=== PATIENT | female | born 1945 | race Caucasian/White ===

== ENCOUNTER → 2017-09-18 16:53 | Outpatient (CLI) | payer MEDICARE, MEDICAID, SELFPAY | PROVIDERS: Family Provider Family Medicine; PCP Family Medicine; Visit Provider Family Medicine | DX: N39.0 Urinary tract infection, site not specified (principal) | CPT/HCPCS: 87086; 87088; 87186 ==

== ENCOUNTER → 2017-10-26 15:33 | Outpatient (CLI) | payer MEDICARE, MEDICAID, SELFPAY | PROVIDERS: Family Provider Family Medicine; PCP Family Medicine; Visit Provider Family Medicine | DX: N39.0 Urinary tract infection, site not specified (principal) | CPT/HCPCS: 87077; 87086; 87088; 87186 ==

== ENCOUNTER → 2018-06-29 16:09 | Outpatient (CLI) | payer MEDICARE, MEDICAID, SELFPAY | PROVIDERS: Family Provider Family Medicine; PCP Family Medicine; Visit Provider Family Medicine | DX: Z53.9 Procedure and treatment not carried out, unspecified reason (principal) ==

== ENCOUNTER → 2018-06-30 07:26 | Outpatient (CLI) | payer MEDICARE, MEDICAID, SELFPAY ==
--- NOTE | 2018-06-29 | IMM_PTH ---
PATIENT: KONG WELCH LOC: [facility] U#:[id number] AGE/SX: 79/F ROOM: RE06/30/[address]: Dr. Sheri Dimas MD : 1945 BED: DIS: SPEC #: [id number] RECD: 07/01/18 13:10 STATUS: JAMIE REQ #: [id number] LOGAN: 06/29/18 00:[address]: Sheri Dimas DEPT: IMMUNOHISTOCHEMISTRY RECD BY: Lori Mendoza ENTERED: 07/01/18 13:11 SP TYPE: IMMUNO OTHR DR: Dr. Leonard Vogt MD Tissues: Skin of lower extremity and hip Procedures: CK5-6 (initial) BCL-2 (add) CEA (add) P40 (add) PHYSICIAN & INSTITUTION [place] [id number] SPECIMEN INFORMATION: Tissue Source: Right thigh, punch biopsy Clinical Info: Suspicious basal cell Specimen Number: [id number] CPT code: 22926, 10730 x3 METHODOLOGY: Deparaffinized sections of prefer/formalin-fixed tissue or PAP/DQ stained slides are incubated with monoclonal/polyclonal antibodies/oligonucleotide probes. Localization is made via biotin free immunoperoxidase method. Appropriate controls are performed and reacted as expected. Results on target cell population are indicated in the following table: RESULTS: ANTIBODY / CLONE RESULT P40 (BC28) positive CK5-6 (D5 & 1684) negative CEA (11-7/TF-3HB-1) negative BCL-2 (bcl-2/100/D5) negative These tests were developed and their performance characteristics determined by [facility]. They may not have been cleared or approved by the U.S. Food and Drug Administration. The FDA has determined that such clearance or approval is not necessary. INTERPRETATION: Right thigh, punch biopsy: Invasive squamous cell carcinoma. AM:yolanda 07/02/18
--- NOTE | 2018-06-29 15:45 | LES_PTH ---
PATIENT: KONG WELCH LOC: [facility] U#:[id number] AGE/SX: 79/F ROOM: RE06/30/[address]: Dr. Sheri Dimas MD : 1945 BED: DIS: SPEC #: [id number] RECD: 06/29/18 17:15 STATUS: JAMIE RELovely #: [id number] LOGAN: 06/29/18 15:[address]: Sheri Dimas DEPT: SURGICAL PATHOLOGY RECD BY: Cosme Burk ENTERED: 06/30/18 12:27 SP TYPE: Lesion OTHR DR: Dr. Leonard Vogt MD Tissues: Skin of leg, NOS Procedures: Surgery Specimen Level IV HEADER OPERATION: Punch biopsy PRE-OP DIAGNOSIS: 1.5 cm suspicious basal cell TISSUE SUBMITTED: 5 mm punch biopsy right thigh MICROSCOPIC DIAGNOSIS Skin of right thigh, punch biopsy: Invasive well to moderately differentiated squamous cell carcinoma with focal keratinization. AM:yolanda 07/01/18 COMMENT Immunohistochemistry ([id number]) supports the above diagnosis. Sections show clusters and groups of malignant cells consistent with squamous cell carcinoma present in the dermis. No connection to the overlying epidermis or dermis is seen. Clinical correlation is suggested. Case has been reviewed in consultation with Dr. Sam who concurs with the above diagnosis. ROLANDO:LORETO MICROSCOPIC DESCRIPTION Slides are reviewed. GROSS DESCRIPTION Received is one container labeled with the patient's name and not further designated. The specimen consists of a piece of huston-white skin measuring 0.5 x 0.5 x 0.3 cm. The specimen is inked and submitted entirely in one cassette. It will be bisected at the time of embedding. / LORETO:yolanda 06/30/18 TC:0 CPT: 80366
--- OUTSIDE RECORDS SUMMARY | 2018-09-03 22:23 | XMS RPT_ITS ---
:1945 External Reference #:[id number] Author Organization OHIP Care Team Providers Name Role Phone Leonard Vogt Attending Unavailable Leonard Vogt Primary Care Unavailable Leonard Vogt Attending Unavailable Leonard Vogt Primary Care Unavailable Sheri Dimas Attending Unavailable Leonard Vogt Primary Care Unavailable Sheri Dimas Attending Unavailable Sheri Dimas Referring Unavailable Leonard Vogt Primary Care Unavailable HEBERT MITCHELL Attending Unavailable STEPHEN, HEBERT E Referring Unavailable STEPHEN, HEBERT E Referring Unavailable STEPHEN, HEBERT E Referring Unavailable LESTER POLLARD Referring Unavailable LESTER POLLARD Attending Unavailable LEONARD VOGT Referring Unavailable STEPHEN, HEBERT E Referring Unavailable STEPHEN, HEBERT E Referring Unavailable STEPHEN, HEBERT E Referring Unavailable STEPHEN, HEBERT E Referring Unavailable STEPHEN, HEBERT E Referring Unavailable STEPHEN, HEBERT E Referring Unavailable STEPHEN, HEBERT E Referring Unavailable STEPHEN, HEBERT E Referring Unavailable STEPHEN, HEBERT E Referring Unavailable STEPHEN, HEBERT E Referring Unavailable STEPHEN, HEBERT E Referring Unavailable STEPHEN, HEBERT E Referring Unavailable STEPHEN, HEBERT E Referring Unavailable STEPHEN, HEBERT E Referring Unavailable STEPHEN, HEBERT E Referring Unavailable STEPHEN, HEBERT E Referring Unavailable WON PALOMO Referring Unavailable SHUBHAM BLACK Attending Unavailable WON PALOMO Referring Unavailable STEPHEN, HEBERT E Referring Unavailable SHUBHAM BLACK Referring Unavailable SHUBHAM BLACK Attending Unavailable REGAN, SHUBHAM Referring Unavailable STEPHEN, HEBERT E Referring Unavailable STEPHEN, HEBERT E Referring Unavailable STEPHEN, HEBERT E Referring Unavailable STEPHEN, HEBERT E Referring Unavailable STEPHEN, HEBERT E Referring Unavailable KATTY, LEONARD KATTY Referring Unavailable STEPHEN, HEBERT E Referring Unavailable STEPHEN, HEBERT E Referring Unavailable STEPHEN, HEBERT E Referring Unavailable STEPHEN, HEBERT E Attending Unavailable STEPHEN, HEBERT E Referring Unavailable STEPHEN, HEBERT E Referring Unavailable STEPHEN, HEBERT Attending Unavailable STEPHEN, HEBERT Referring Unavailable KATTY, LEONARD Primary Care Unavailable STEPHEN, HEBERT Attending Unavailable STEPHEN, HEBERT Referring Unavailable KATTY, LEONARD Primary Care Unavailable PROBLEMS PROBLEMS DATE TYPE CONDITION / CODE ATTENDING STATUS SOURCE 03/04/2018 Active Nondisplaced NA Active [facility] fracture of shaft [facility] metacarpal bone, Repository right hand, subsequent encounter for fracture with routine healing / S62.356D(ICD-10) 02/05/2018 Active Pain in right NA Active Jansen finger(s) / [facility] Main M79.644(ICD-10) [facility] Rep[facility] 10/26/2017 Unknown N39.0 - Urinary Leonard Vogt Active [place] tract infection, Community site not specified Hospital / N39.0(ICD-10) Repository 10/12/2017 Active Atypical atrial HEBERT MITCHELL Active Jansen flutter / E Clinic Other I48.4(ICD-10) [facility] 10/12/2017 Admitting Unknown / HEBERT MITCHELL Active [facility] 08/24/2017 Active Pain, unspecified NA Active Jansen / R52(ICD-10) [facility] 09/16/2011 Active Unspecified atrial NA Active Jansen flutter / [facility] I48.92(ICD-10) [facility] Rep[facility] PROCEDURES PROCEDURES No Procedure Records FoundRESULTS RESULTS OBSOLETE Observed: 07/05/2018 Status: COMPLETED Source: [place] 12:00 AM [facility] REPOSITORY Refill (UCWSTR) KAREN TOM ([id number]) 1945 F Date Time Provider Department 07/05/18 SOCORRO HOLT During your visit today, we recorded the following information about you: Kerri Timothy COMER 07/05/2018 1:42 PM Signed Patient is listed as outside PCP. Notified pharmacy at this time. Allergies As of Date: 07/05/2018 Noted Allergy Reaction AMOXICILLIN 10/14/2005 11 - Vomiting Comments: hives, syncope BACTRIM (SULFAMETHOXAZOLE-TRIMETH*10/14/2005 8 - GI Upset CODEINE 10/14/2005 14 - Other: See Comments Comments: made me half blind CYMBALTA (DULOXETINE) 02/26/2009 1 - Mental Status Change Comments: [place] poorly while MACROBID (NITROFURANTOIN MONOHYD/*05/31/2014 12 - Shortness of Breath MUCINEX DM (DEXTROMETHORPHAN-GUAI*06/28/2010 5 - Intolerance Comments: chest tightness PERCOCET (OXYCODONE-ACETAMINOPHEN)08/15/2013 11 - Vomiting PHENERGAN (PROMETHAZINE HCL) 04/10/2014 1 - Mental Status Change Comments: weird dreams PROPOFOL 03/01/2012 14 - Other: See Comments Comments: Sneezing and shortness of breath SODIUM 10/14/2005 Comments: Salt causes leg swelling VICODIN (HYDROCODONE-ACETAMINOPHE*04/10/2014 11 - Vomiting Date Reviewed: 06/22/2018 Reviewed by: Bozena Ramos MA - Fully Assessed Reason for Visit: Refill Request [94] Visit Diagnosis:Wheezing [R06.2] Prescriptions as of 07/05/2018 Sig: DILTIAZEM SR 180 MG 24 HR CAP Take 1 capsule by mouth twice* APIXABAN 5 MG TABLET Take 1 tablet by mouth twice * MUPIROCIN 2 % TOPICAL OINTMENT Apply 1 application to affect* Patient not taking: Reported on 06/22/2018 NITROFURANTOIN MACROCRYSTAL 5* Take 1 capsule by mouth daily* MELOXICAM 7.5 MG TABLET Take 1 tablet by mouth once d* HYDROXYZINE HCL 10 MG TABLET Take 1 tablet by mouth three * GABAPENTIN 300 MG CAPSULE Take 1 capsule by mouth daily* Patient not taking: Reported on 06/22/2018 GUAIFENESIN ER 600 MG TABLET,* Take 2 tablets by mouth twice* Patient not taking: Reported on 06/22/2018 ALBUTEROL SULFATE HFA 90 MCG/* Inhale 2 Puffs as instructed * MAGNESIUM OXIDE 400 MG CAPSULE Take 1 capsule by mouth once * Patient not taking: Reported on 06/22/2018 PHENAZOPYRIDINE 100 MG TABLET Take 1 tablet by mouth three * Patient not taking: Reported on 06/22/2018 ALPRAZOLAM 0.25 MG TABLET Take 0.25 mg by mouth twice d* OXYBUTYNIN CHLORIDE 5 MG TABL* Take 1 tablet by mouth three * Patient not taking: Reported on 06/22/2018 NITROGLYCERIN 0.4 MG SUBLINGU* Dissolve 1 tablet under the t* Patient not taking: Reported on 06/22/2018 HYDROCODONE 5 MG-ACETAMINOPHE* Take 1 tablet by mouth every * TRAMADOL 50 MG TABLET Take 1 tablet by mouth every * Patient not taking: Reported on 06/22/2018 LORAZEPAM 0.5 MG TABLET Take by mouth twice daily as* ACETAMINOPHEN 500 MG TABLET Take 500 mg by mouth every 8 * BLOOD PRESSURE TEST KIT-WRIST* 1 Device twice daily. CHOLECALCIFEROL (VITAMIN D3) * one WEEKLY (vitamin D) Patient taking differently: once every month. one WEEKLY * TRIAMCINOLONE ACETONIDE 0.1 %* Apply 1 application to affect* ALBUTEROL SULFATE HFA 90 MCG/* Inhale 2 Puffs as instructed * Problem List As Of Date 07/05/2018 Noted Resolved FIBROMYALGIA [[id number]] More... 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 OSTEOPENIA [M89.9, M94.9] INVALID FOR* Lumbago [M54.5] More... Depressive Disorder, not Elsewhere Classified [*INVALID FOR* Medial Epicondylitis of Elbow [M77.00] INVALID FOR*01/30/2010 Degeneration of Intervertebral Disc, Site Unspe*INVALID FOR* More... 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 Unspecified Vitamin D Deficiency [E55.9] INVALID FOR* More... More... 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 Incomplete rotator cuff tear [M75.110] INVALID FOR* Impingement syndrome of left shoulder [M75.42] INVALID FOR* Left shoulder pain [M25.512] INVALID FOR* Rotator cuff (capsule) sprain [S43.429A] INVALID FOR* Other affections of shoulder region, not elsewh*INVALID FOR* Closed nondisplaced fracture of shaft of fifth *INVALID FOR* Chronic diastolic CHF (congestive heart failure*INVALID FOR* Medications Discontinued During This Encounter albuterol (PROVENTIL) 5 mg/mL nebu 1 mL 0 04/04/2016 07/05/2018 Class: Back Office Route: INHALATION Sig: Inhale 0.5 mL as instructed one time only for 1 dose. 1 DOSE NOW - BACK OFFICE. PLACE 0.5 ML PER DROPPER AND 2.5 ML OF NORMAL SALINE INTO RESERVOIR. Disc: Reason for discontinue is not on file. Encounter Status:Closed by KERRI PARDO LPN on 07/05/18 LESION (CHOOSE SITE) Observed: 06/29/2018 Status: F Source: [place] 3:45 PM [facility] [place] REPOSITORY Patient: KAREN TOM : 1945 (72/F) Acct Num: [id number] Phys: Sheri Dimas MD Unit Num: [id number] Loc: LABSPEC Specimen: [id number] Received: 06/29/18 - 1674 Spec Type: Lesion TISSUES 1 TISSUES: Skin of leg, NOS COMMENT Immunohistochemistry () supports the above diagnosis. Sections show clusters and groups of malignant cells consistent with squamous cell carcinoma present in the dermis. No connection to the overlying epidermis or dermis is seen. Clinical correlation is suggested. Case has been reviewed in consultation with Dr. Sam who concurs with the above diagnosis. IDC:LORETO GROSS DESCRIPTION Received is one container labeled with the patient's name and not further designated. The specimen consists of a piece of huston-white skin measuring 0.5 x 0.5 x 0.3 cm. The specimen is inked and submitted entirely in one cassette. It will be bisected at the time of embedding. / LORETO:yolanda 06/30/18 TC:0 CPT: 59852 HEADER OPERATION: Punch biopsy PRE-OP DIAGNOSIS: 1.5 cm suspicious basal cell TISSUE SUBMITTED: 5 mm punch biopsy right thigh MICROSCOPIC DESCRIPTION Slides are reviewed. 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 AM:yolanda 07/01/18 Signed Trip Panda DO 07/02/18 <signature on file> Performed By: #### PLES #### [facility] [address] [place] [address]. [place], [address] IMMUNOHISTOCHEMISTRY Observed: 06/29/2018 Status: F Source: [place] 12:00 [facility] Patient: KAREN TOM : 1945 (72/F) Acct Num: [id number] Phys: Sheri Dimas MD Unit Num: [id number] Loc: LABSPEC Specimen: [id number] Received: 07/01/18 - 1436 Spec Type: IMMUNO TISSUES 1 TISSUES: Skin of lower extremity and hip SPECIMEN INFORMATION: Tissue Source: Right thigh, punch biopsy Clinical Info: Suspicious basal cell Specimen Number: [id number] CPT code: 59798, 46371 x3 METHODOLOGY: Deparaffinized sections of prefer/formalin-fixed tissue or PAP/DQ stained slides are incubated with monoclonal/polyclonal antibodies/oligonucleotide probes. Localization is made via biotin free immunoperoxidase method. Appropriate controls are performed and reacted as expected. Results on target cell population are indicated in the following table: RESULTS: ANTIBODY / CLONE RESULT P40 (BC28) positive CK5-6 (D5 AND 1684) negative CEA (11-7/TF-3HB-1) negative BCL-2 (bcl-2/100/D5) negative These tests were developed and their performance characteristics determined by [facility]. They may not have been cleared or approved by the U.S. Food and Drug Administration. The FDA has determined that such clearance or approval is not necessary. INTERPRETATION: Right thigh, punch biopsy: Invasive squamous cell carcinoma. AM:yolanda 07/02/18 PHYSICIAN [facility] [address] [address] Signed Trip Panda DO 07/02/18 <signature on file> Performed By: #### PIMM #### [facility] [address] [place] [address]. [place], [place], [id number] BASIC METABOLIC PANL Collected: 06/22/2018 Status: F Source: [place] 3:36 PM [facility] REPOSITORY TYPE CODE TESTS RESULT OUT OF REFERENCE UNITS RANGE LAB GLU 74-99 mg/dL Glucose 91 LAB BUN 7-21 mg/dL BUN 17 LAB CRET 0.58-0.96 mg/dL Creatinine 0.82 LAB NA 136-144 mmol/L Sodium 138 LAB K 3.7-5.1 mmol/L Potassium 3.9 LAB CL 97-105 mmol/L Chloride High 106 LAB CO2 22-30 mmol/L CO2 23 LAB AGAP mmol/L Anion Gap 9 LAB CA 8.5-10.2 mg/dL Calcium, Total 9.8 LAB GFRAA eGFR- >60 Amer. LAB GFRNAA . eGFR-All Other Races >60 Result Comment: eGFR (Estimated GFR) Units of measure: mL/min/1.73 meters squared eGFR is derived from the reexpressed MDRD Study equation using the following parameters: serum creatinine, age, gender and race. The creatinine assay has been calibrated to be traceable to IDMS. An eGFR <60 mL/min/1.73m2 for >3 months is consistent with chronic kidney disease. Refer to KDOQI guidelines for clinical interpretation. In patients with unstable renal function, e.g. those with acute kidney injury, the eGFR may not accurately reflect actual GFR. TSH Collected: 06/22/2018 Status: F Source: [place] 3:36 PM [facility] REPOSITORY TYPE CODE TESTS RESULT OUT OF RANGE REFERENCE UNITS LAB TSH 0.400-5.500 uU/mL TSH 1.630 Performed By: #### TSH #### [facility] [address] [place], [place] [address] PROGRESS Observed: 06/22/2018 Status: COMPLETED Source: [place] 2:52 PM [facility] REPOSITORY HNO ID: [id number] Author: Hebert Mitchell Service: (none) Author Type: Physician Type: Progress Notes Filed: 07/05/2018 10:47 AM Note Text: PERTINENT CARDIAC HISTORY Atrial flutter - cardioversion, declines further intervention Proarrhythmia on flecainide CHF - diastolic ADHERENCE TO GUIDELINES LUIS MANUEL-I or ARB for HF with prior LVEF<40 (NQF 0081) - N/A ASA or Plavix for ASHD (NQF 0067) - N/A Beta avtar for ASHD with prior DC or prior LVEF<40 (NQF 0070) - N/A Beta avtar for HF with prior LVEF<40 (NQF 0083) - N/A LUIS MANUEL-I or ARB for ASHD with DM or prior LVEF<40 (NQF 0066) - N/A Statin therapy for ASHD or FHL or DM - N/A BMI documented and plan if >25 (NQF 0421) - lifestyle recommendation form Tobacco use screening and referral (NQF 0028) - lifestyle recommendation form Recommendation for whole food, plant based diet - lifestyle recommendation form CLINICAL IMPRESSION/PLAN: Karen Tom has chronic atrial flutter. She has declined further intervention. She would benefit from a change to Eliquis. She will check on pricing. If this is acceptable, I would begin 5 milligrams twice daily. She will discontinue warfarin and start E on the third day. Her heart rate is not adequately controlled, and I have recommended that she increase diltiazem to 240 milligrams twice daily. I've asked her to contact me with vital signs in 2 weeks. Basic profile will be checked as well as magnesium and TSH. I recommend follow-up in 6 months or as needed. Written and verbal health teaching given to patient, patient verbalizes understanding and agrees with treatment plan. DIAGNOSIS FOR VISIT: Atrial flutter CHF HISTORY OF PRESENT ILLNESS Karen Tom returns for follow-up of her atrial flutter. She is finding warfarin to be very restrictive. She would like to go on a newer agent that she does not have to monitor and would like to be more free with her dietary choices. She denies chest pain. She has had stable exercise tolerance. She's had no orthopnea. She's had no edema, syncope, TIAs, amaurosis or claudication. She has been unaware of her heart rhythm. She has declined a sleep study. ALLERGIES: ALLERGIES Allergen Reactions - Amoxicillin Vomiting hives, syncope - Bactrim [Sulfametho* GI Upset - Codeine Other: See Comments made me half blind - Cymbalta [Duloxetin* Mental Status Change [place] poorly while - Macrobid [Nitrofura* Shortness of Breath - Mucinex Dm [Dextrom* Intolerance chest tightness - Percocet [Oxycodone* Vomiting - Phenergan [Prometha* Mental Status Change weird dreams - Propofol Other: See Comments Sneezing and shortness of breath - Sodium Salt causes leg swelling - Vicodin [Hydrocodon* Vomiting CURRENT OUTPATIENT MEDICATIONS: warfarin (COUMADIN) 2 mg tablet Take 1 tablet by mouth once daily. warfarin (COUMADIN) 3 mg tablet Take 3 mg daily or as directed by your physician diltiazem CD (CARTIA XT) 180 mg 24 hr capsule Take 1 capsule by mouth twice daily. albuterol HFA (PROVENTIL HFA, VENTOLIN HFA) 90 mcg/actuation inhaler Inhale 2 Puffs as instructed every 6 hours as needed for Wheezing/Shortness of Breath. ALPRAZolam (XANAX) 0.25 mg tablet Take 0.25 mg by mouth twice daily as needed. HYDROcodone-acetaminophen (NORCO) 5-325 mg per tablet Take 1 tablet by mouth every 6 hours as needed. acetaminophen (TYLENOL) 500 mg tablet Take 500 mg by mouth every 8 hours as needed. Blood Pressure Test Kit-Wrist kit 1 Device twice daily. Cholecalciferol, Vitamin D3, 50,000 unit cap one WEEKLY (vitamin D) triamcinolone acetonide 0.1 % cream Apply 1 application to affected area three times daily. Apply sparingly to area for rash/itching. mupirocin (BACTROBAN) 2 % ointment Apply 1 application to affected area three times daily. Location: burn nitrofurantoin (MACRODANTIN) 50 mg capsule Take 1 capsule by mouth daily at bedtime. meloxicam (MOBIC) 7.5 mg tablet Take 1 tablet by mouth once daily. hydrOXYzine HCl (ATARAX) 10 mg tablet Take 1 tablet by mouth three times daily as needed. gabapentin (NEURONTIN) 300 mg capsule Take 1 capsule by mouth daily at bedtime. guaiFENesin (MUCINEX) 600 mg 12 hr tablet Take 2 tablets by mouth twice daily. magnesium oxide 400 mg cap Take 1 capsule by mouth once daily. phenazopyridine (PYRIDIUM, GERIDIUM) 100 mg tablet Take 1 tablet by mouth three times daily as needed for Pain. oxybutynin (DITROPAN) 5 mg tablet Take 1 tablet by mouth three times daily. Start with one a day and work up to 3 times a day nitroglycerin sublingual (NITROQUICK) 0.4 mg SL tablet Dissolve 1 tablet under the tongue as needed. FOR CHEST PAIN. IF NO RELIEF CALL 911 traMADol (ULTRAM) 50 mg tablet Take 1 tablet by mouth every 6 hours as needed. LORazepam (ATIVAN) 0.5 mg tab Take by mouth twice daily as needed. albuterol HFA (VENTOLIN HFA) 90 mcg/actuation INHALATION inhaler Inhale 2 Puffs as instructed every 6 hours as needed. PHYSICAL EXAMINATION: VITAL SIGNS: BP 129/78 Pulse 102 Ht 5' 1 (1.55m) Wt 150 lb 12.8 oz (68.4kg) BMI 28.51 kg/(m2). Chest: Clear to auscultation. Trachea is midline. Air entry is equal. Cardiac: Irregularly irregular rhythm. S1 and S2 are normal. PMI is nondisplaced. There is a soft systolic ejection murmur. Carotids are brisk without bruits. JVP is less than 10 cm. Abdomen: Soft and nontender. There are no pulsatile masses or bruits. No liver enlargement. Bowel sounds are active. Extremities: Trace edema. Pulses are intact and symmetrical. Electronically Signed: Hebert Mitchell MD June 22, 2018 2:52 PM CC: Leonard Vogt MD PROGRESS Observed: 06/22/2018 Status: COMPLETED Source: [place] 2:30 PM [facility] REPOSITORY HNO ID: [id number] Author: Karely Dugan RN Service: (none) Author Type: (none) Type: Progress Notes Filed: 06/22/2018 2:30 PM Note Text: See phone note for instructions Karely Dugan RN PROGRESS Observed: 06/22/2018 Status: COMPLETED Source: [place] 2:30 PM [facility] REPOSITORY HNO ID: [id number] Author: Karely Dugan RN Service: (none) Author Type: (none) Type: Progress Notes Filed: 06/22/2018 2:30 PM Note Text: This note was created using View3riter. Subjective Karen Tom is a 72 year old female. Review of Systems Objective There were no vitals taken for this visit. Physical Exam Assessment and Plan CNOV Observed: 06/22/2018 Status: COMPLETED Source: [place] 2:30 PM [facility] REPOSITORY Office Visit (CAWSTR) KAREN TOM ([id number]) 1945 F Date Time Provider Department 06/22/18 2:30 PM HEBERT MITCHELL CAWSTR During your visit today, we recorded the following information about you: Pulse Blood pressure Weight Height 102/minute 129/78 68.4 kg 1.549 m Hebert Mitchell MD 07/05/2018 10:47 AM Addendum PERTINENT CARDIAC HISTORY Atrial flutter - cardioversion, declines further intervention Proarrhythmia on flecainide CHF - diastolic ADHERENCE TO GUIDELINES LUIS MANUEL-I or ARB for HF with prior LVEF<40 (NQF 0081) - N/A ASA or Plavix for ASHD (NQF 0067) - N/A Beta avtar for ASHD with prior DC or prior LVEF<40 (NQF 0070) - N/A Beta avtar for HF with prior LVEF<40 (NQF 0083) - N/A LUIS MANUEL-I or ARB for ASHD with DM or prior LVEF<40 (NQF 0066) - N/A Statin therapy for ASHD or FHL or DM - N/A BMI documented and plan if >25 (NQ 0421) - lifestyle recommendation form Tobacco use screening and referral (NQ 0028) - lifestyle recommendation form Recommendation for whole food, plant based diet - lifestyle recommendation form CLINICAL IMPRESSION/PLAN: Karen Tom has chronic atrial flutter. She has declined further intervention. She would benefit from a change to Eliquis. She will check on pricing. If this is acceptable, I would begin 5 milligrams twice daily. She will discontinue warfarin and start E on the third day. Her heart rate is not adequately controlled, and I have recommended that she increase diltiazem to 240 milligrams twice daily. I've asked her to contact me with vital signs in 2 weeks. Basic profile will be checked as well as magnesium and TSH. I recommend follow-up in 6 months or as needed. Written and verbal health teaching given to patient, patient verbalizes understanding and agrees with treatment plan. DIAGNOSIS FOR VISIT: Atrial flutter CHF HISTORY OF PRESENT ILLNESS Karen Tom returns for follow-up of her atrial flutter. She is finding warfarin to be very restrictive. She would like to go on a newer agent that she does not have to monitor and would like to be more free with her dietary choices. She denies chest pain. She has had stable exercise tolerance. She's had no orthopnea. She's had no edema, syncope, TIAs, amaurosis or claudication. She has been unaware of her heart rhythm. She has declined a sleep study. ALLERGIES: ALLERGIES Allergen Reactions - Amoxicillin Vomiting hives, syncope - Bactrim [Sulfametho* GI Upset - Codeine Other: See Comments made me half blind - Cymbalta [Duloxetin* Mental Status Change [place] poorly while - Macrobid [Nitrofura* Shortness of Breath - Mucinex Dm [Dextrom* Intolerance chest tightness - Percocet [Oxycodone* Vomiting - Phenergan [Prometha* Mental Status Change weird dreams - Propofol Other: See Comments Sneezing and shortness of breath - Sodium Salt causes leg swelling - Vicodin [Hydrocodon* Vomiting CURRENT OUTPATIENT MEDICATIONS: warfarin (COUMADIN) 2 mg tablet Take 1 tablet by mouth once daily. warfarin (COUMADIN) 3 mg tablet Take 3 mg daily or as directed by your physician diltiazem CD (CARTIA XT) 180 mg 24 hr capsule Take 1 capsule by mouth twice daily. albuterol HFA (PROVENTIL HFA, VENTOLIN HFA) 90 mcg/actuation inhaler Inhale 2 Puffs as instructed every 6 hours as needed for Wheezing/Shortness of Breath. ALPRAZolam (XANAX) 0.25 mg tablet Take 0.25 mg by mouth twice daily as needed. HYDROcodone-acetaminophen (NORCO) 5-325 mg per tablet Take 1 tablet by mouth every 6 hours as needed. acetaminophen (TYLENOL) 500 mg tablet Take 500 mg by mouth every 8 hours as needed. Blood Pressure Test Kit-Wrist kit 1 Device twice daily. Cholecalciferol, Vitamin D3, 50,000 unit cap one WEEKLY (vitamin D) triamcinolone acetonide 0.1 % cream Apply 1 application to affected area three times daily. Apply sparingly to area for rash/itching. mupirocin (BACTROBAN) 2 % ointment Apply 1 application to affected area three times daily. Location: burn nitrofurantoin (MACRODANTIN) 50 mg capsule Take 1 capsule by mouth daily at bedtime. meloxicam (MOBIC) 7.5 mg tablet Take 1 tablet by mouth once daily. hydrOXYzine HCl (ATARAX) 10 mg tablet Take 1 tablet by mouth three times daily as needed. gabapentin (NEURONTIN) 300 mg capsule Take 1 capsule by mouth daily at bedtime. guaiFENesin (MUCINEX) 600 mg 12 hr tablet Take 2 tablets by mouth twice daily. magnesium oxide 400 mg cap Take 1 capsule by mouth once daily. phenazopyridine (PYRIDIUM, GERIDIUM) 100 mg tablet Take 1 tablet by mouth three times daily as needed for Pain. oxybutynin (DITROPAN) 5 mg tablet Take 1 tablet by mouth three times daily. Start with one a day and work up to 3 times a day nitroglycerin sublingual (NITROQUICK) 0.4 mg SL tablet Dissolve 1 tablet under the tongue as needed. FOR CHEST PAIN. IF NO RELIEF CALL 911 traMADol (ULTRAM) 50 mg tablet Take 1 tablet by mouth every 6 hours as needed. LORazepam (ATIVAN) 0.5 mg tab Take by mouth twice daily as needed. albuterol HFA (VENTOLIN HFA) 90 mcg/actuation INHALATION inhaler Inhale 2 Puffs as instructed every 6 hours as needed. PHYSICAL EXAMINATION: VITAL SIGNS: BP 129/78 Pulse 102 Ht 5' 1 (1.55m) Wt 150 lb 12.8 oz (68.4kg) BMI 28.51 kg/(m2). Chest: Clear to auscultation. Trachea is midline. Air entry is equal. Cardiac: Irregularly irregular rhythm. S1 and S2 are normal. PMI is nondisplaced. There is a soft systolic ejection murmur. Carotids are brisk without bruits. JVP is less than 10 cm. Abdomen: Soft and nontender. There are no pulsatile masses or bruits. No liver enlargement. Bowel sounds are active. Extremities: Trace edema. Pulses are intact and symmetrical. Electronically Signed: Hebert Mitchell MD June 22, 2018 2:52 PM CC: MD Hebert Yeboah MD 06/22/2018 2:54 PM Signed LIFESTYLE CHANGE A healthy lifestyle is the most important component of your overall treatment plan. Please give serious thought to the following areas and commit to making terminal gauger changes. EAT A WHOLE FOOD, PLANT BASED DIET The nutrition your body gets is more important than the medicine you take. What matters most is the overall way you eat. We encourage you to minimize the use of animal products (which include dairy and all meats except fatty fish) and use whole, unprocessed plant foods to provide your protein, vitamins and other nutrients. We have a lot of information to share with you on this topic. This is not a diet. It is a way of life that you will keep with you. EXERCISE REGULARLY It is not important to spend hours in the gym, lifting weights and perspiring heavily. A total of 2-3 hours per week of aerobic (causing you to be moderately short of breath) exercise is sufficient to improve your health. Talk to us before you begin a new exercise program, if you have heart disease or experience shortness of breath or chest pain. REDUCE STRESS Chronic emotional and physical stress leads to disease. Ways of reducing stress include meditation, visualization, prayer, yoga and other forms of relaxation therapy. Consistency is the murray. Find a technique that works for you and do it every day. CULTIVATE RELATIONSHIPS Loneliness and isolation have a major negative impact on health. Seek out others who can love, care for and nurture you. Avoid hurtful relationships. MAINTAIN IDEAL BODY WEIGHT The best way to do this is to do all the things above. Our bodies naturally find the right weight if we keep moving and feed ourselves the right food. If your BMI is greater than 25, we strongly recommend a referral to a weight management program. Please speak to us or your family physician about available programs. AVOID NICOTINE IN ALL FORMS This includes all tobacco products, whether chewed, smoked, vaped, or rubbed on the skin. Smoking cessation programs, which can make use of tobacco substitutes, medications to suppress cravings and behavior management, are available. Please contact your family physician about programs in your area. Referring Provider: HEBERT MITCHELL [[id number]] Allergies As of Date: 06/22/2018 Noted Allergy Reaction AMOXICILLIN 10/14/2005 11 - Vomiting Comments: hives, syncope BACTRIM (SULFAMETHOXAZOLE-TRIMETH*10/14/2005 8 - GI Upset CODEINE 10/14/2005 14 - Other: See Comments Comments: made me half blind CYMBALTA (DULOXETINE) 02/26/2009 1 - Mental Status Change Comments: [place] poorly while MACROBID (NITROFURANTOIN MONOHYD/*05/31/2014 12 - Shortness of Breath MUCINEX DM (DEXTROMETHORPHAN-GUAI*06/28/2010 5 - Intolerance Comments: chest tightness PERCOCET (OXYCODONE-ACETAMINOPHEN)08/15/2013 11 - Vomiting PHENERGAN (PROMETHAZINE HCL) 04/10/2014 1 - Mental Status Change Comments: weird dreams PROPOFOL 03/01/2012 14 - Other: See Comments Comments: Sneezing and shortness of breath SODIUM 10/14/2005 Comments: Salt causes leg swelling VICODIN (HYDROCODONE-ACETAMINOPHE*04/10/2014 11 - Vomiting Date Reviewed: 06/22/2018 Reviewed by: Bozena Ramos MA - Fully Assessed Reason for Visit: Established Patient [175] Primary Visit Diagnosis:Atypical atrial flutter (HCC) [I48.4] Other Visit Diagnosis:Chronic diastolic CHF (congestive heart failure) (HCC) [I50.32] Order(s):INR (POC) [7261580] Order #: [id number]. #:[id number] BASIC METABOLIC PNL [SQBMP] Order #: [id number] FUTURE diltiazem CD (CARDIZEM CD, CARTIA XT) 240 mg 24 hr capsuleTake 1 capsule by mouth twice daily.Disp: 30 capsuleRfl: 12 apixaban (ELIQUIS) 5 mg tab(s)Take 1 tablet by mouth twice daily.Disp: 60 tabletRfl: 11 TSH BLD [SQTS] Order #: [id number] FUTURE Prescriptions as of 06/22/2018 Sig: DILTIAZEM SR 240 MG 24 HR CAP Take 1 capsule by mouth twice* X WARFARIN 2 MG TABLET Take 1 tablet by mouth once d* X WARFARIN 3 MG TABLET Take 3 mg daily or as directe* ALBUTEROL SULFATE HFA 90 MCG/* Inhale 2 Puffs as instructed * ALPRAZOLAM 0.25 MG TABLET Take 0.25 mg by mouth twice d* HYDROCODONE 5 MG-ACETAMINOPHE* Take 1 tablet by mouth every * ACETAMINOPHEN 500 MG TABLET Take 500 mg by mouth every 8 * BLOOD PRESSURE TEST KIT-WRIST* 1 Device twice daily. CHOLECALCIFEROL (VITAMIN D3) * one WEEKLY (vitamin D) Patient taking differently: once every month. one WEEKLY * TRIAMCINOLONE ACETONIDE 0.1 %* Apply 1 application to affect* APIXABAN 5 MG TABLET Take 1 tablet by mouth twice * MUPIROCIN 2 % TOPICAL OINTMENT Apply 1 application to affect* Patient not taking: Reported on 06/22/2018 NITROFURANTOIN MACROCRYSTAL 5* Take 1 capsule by mouth daily* MELOXICAM 7.5 MG TABLET Take 1 tablet by mouth once d* HYDROXYZINE HCL 10 MG TABLET Take 1 tablet by mouth three * GABAPENTIN 300 MG CAPSULE Take 1 capsule by mouth daily* Patient not taking: Reported on 06/22/2018 GUAIFENESIN ER 600 MG TABLET,* Take 2 tablets by mouth twice* Patient not taking: Reported on 06/22/2018 MAGNESIUM OXIDE 400 MG CAPSULE Take 1 capsule by mouth once * Patient not taking: Reported on 06/22/2018 PHENAZOPYRIDINE 100 MG TABLET Take 1 tablet by mouth three * Patient not taking: Reported on 06/22/2018 OXYBUTYNIN CHLORIDE 5 MG TABL* Take 1 tablet by mouth three * Patient not taking: Reported on 06/22/2018 NITROGLYCERIN 0.4 MG SUBLINGU* Dissolve 1 tablet under the t* Patient not taking: Reported on 06/22/2018 TRAMADOL 50 MG TABLET Take 1 tablet by mouth every * Patient not taking: Reported on 06/22/2018 LORAZEPAM 0.5 MG TABLET Take by mouth twice daily as* ALBUTEROL SULFATE HFA 90 MCG/* Inhale 2 Puffs as instructed * Problem List As Of Date 06/22/2018 Noted Resolved FIBROMYALGIA [[id number]] More... 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 OSTEOPENIA [M89.9, M94.9] INVALID FOR* Lumbago [M54.5] More... Depressive Disorder, not Elsewhere Classified [*INVALID FOR* Medial Epicondylitis of Elbow [M77.00] INVALID FOR*01/30/2010 Degeneration of Intervertebral Disc, Site Unspe*INVALID FOR* More... 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 Unspecified Vitamin D Deficiency [E55.9] INVALID FOR* More... More... 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 Incomplete rotator cuff tear [M75.110] INVALID FOR* Impingement syndrome of left shoulder [M75.42] INVALID FOR* Left shoulder pain [M25.512] INVALID FOR* Rotator cuff (capsule) sprain [S43.429A] INVALID FOR* Other affections of shoulder region, not elsewh*INVALID FOR* Closed nondisplaced fracture of shaft of fifth *INVALID FOR* Chronic diastolic CHF (congestive heart failure*INVALID FOR* Other instructions from your clinician: LIFESTYLE CHANGE A healthy lifestyle is the most important component of your overall treatment plan. Please give serious thought to the following areas and commit to making jail changes. EAT A WHOLE FOOD, PLANT BASED DIET The nutrition your body gets is more important than the medicine you take. What matters most is the overall way you eat. We encourage you to minimize the use of animal products (which include dairy and all meats except fatty fish) and use whole, unprocessed plant foods to provide your protein, vitamins and other nutrients. We have a lot of information to share with you on this topic. This is not a diet. It is a way of life that you will keep with you. EXERCISE REGULARLY It is not important to spend hours in the gym, lifting weights and perspiring heavily. A total of 2-3 hours per week of aerobic (causing you to be moderately short of breath) exercise is sufficient to improve your health. Talk to us before you begin a new exercise program, if you have heart disease or experience shortness of breath or chest pain. REDUCE STRESS Chronic emotional and physical stress leads to disease. Ways of reducing stress include meditation, visualization, prayer, yoga and other forms of relaxation therapy. Consistency is the murray. Find a technique that works for you and do it every day. CULTIVATE RELATIONSHIPS Loneliness and isolation have a major negative impact on health. Seek out others who can love, care for and nurture you. Avoid hurtful relationships. MAINTAIN IDEAL BODY WEIGHT The best way to do this is to do all the things above. Our bodies naturally find the right weight if we keep moving and feed ourselves the right food. If your BMI is greater than 25, we strongly recommend a referral to a weight management program. Please speak to us or your family physician about available programs. AVOID NICOTINE IN ALL FORMS This includes all tobacco products, whether chewed, smoked, vaped, or rubbed on the skin. Smoking cessation programs, which can make use of tobacco substitutes, medications to suppress cravings and behavior management, are available. Please contact your family physician about programs in your area. Prescriptions ordered this encounter Disp Refills Start End DILTIAZEM SR 240 MG 24 HR CAP 30 c* 12 06/22/2018 Route: ORAL Sig: Take 1 capsule by mouth twice daily. APIXABAN 5 MG TABLET 60 t* 11 06/22/2018 Class: Print RX Route: ORAL Sig: Take 1 tablet by mouth twice daily. Medications Discontinued During This Encounter diltiazem CD (CARTIA XT) 180 mg 24 h* 60 c* 11 06/11/2017 06/22/2018 Route: ORAL Sig: Take 1 capsule by mouth twice daily. Patient taking differently: Take 180 mg by mouth once daily. Disc: Reason for discontinue is not on file. Encounter Status:Closed by HEBERT MITCHELL MD on 06/22/18 PROGRESS Observed: 06/22/2018 Status: COMPLETED Source: [place] 2:12 PM [facility] REPOSITORY HNO ID: [id number] Author: Calixto Garcia RN Service: (none) Author Type: (none) Type: Progress Notes Filed: 06/22/2018 2:13 PM Note Text: patient had inr completed at [facility] patients inr is 2.7 (patients inr range is 2.0-3.0) patient is currently taking 3mg-2mg-2mg cycle patients last dose change was on 06/10/18 due to a low level of 1.7 (dose at that time was 2mg daily) patient has had no changes in medication and no missed doses and no change in diet Advised patient that they would be contacted regarding medication dose and when to follow up after information is reviewed by provider. After provider review please contact the patient with information and schedule follow up appointment with coumadin clinic. PROGRESS Observed: 06/10/2018 Status: COMPLETED Source: [place] 3:10 PM [facility] REPOSITORY HNO ID: [id number] Author: Karely Dugan RN Service: (none) Author Type: (none) Type: Progress Notes Filed: 06/10/2018 3:10 PM Note Text: See phone note for instructions Karely Dugan RN PROGRESS Observed: 06/10/2018 Status: COMPLETED Source: [place] 3:09 PM [facility] REPOSITORY HNO ID: [id number] Author: Karely Dugan RN Service: (none) Author Type: (none) Type: Progress Notes Filed: 06/10/2018 3:10 PM Note Text: This note was created using View3riter. Subjective Karen Tom is a 72 year old female. Review of Systems Objective There were no vitals taken for this visit. Physical Exam Assessment and Plan PROGRESS Observed: 06/10/2018 Status: COMPLETED Source: [place] 2:08 PM [facility] REPOSITORY HNO ID: [id number] Author: Calixto Garcia RN Service: (none) Author Type: (none) Type: Progress Notes Filed: 06/10/2018 2:09 PM Note Text: patient had inr completed at [facility] patients inr is 1.7 (patients inr range is 2.0-3.0) patient is currently taking 2mg daily patients last dose change was on 05/25/18 due to a high level of 3.3 (dose at that time was 3mg-3mg-2mg cycle per patient) patient has had no changes in medication except for coumadin and no missed doses and no change in diet Advised patient that they would be contacted regarding medication dose and when to follow up after information is reviewed by provider. After provider review please contact the patient with information and schedule follow up appointment with coumadin clinic. PROGRESS Observed: 05/25/2018 Status: COMPLETED Source: [place] 2:54 PM [facility] REPOSITORY HNO ID: [id number] Author: Karely Dugan RN Service: (none) Author Type: (none) Type: Progress Notes Filed: 05/25/2018 2:54 PM Note Text: See phone note for instructions Karely Dugan RN PROGRESS Observed: 05/25/2018 Status: COMPLETED Source: [place] 2:54 PM [facility] REPOSITORY HNO ID: [id number] Author: Karely Dugan RN Service: (none) Author Type: (none) Type: Progress Notes Filed: 05/25/2018 2:54 PM Note Text: This note was created using View3riter. Subjective Karen Tom is a 72 year old female. Review of Systems Eyes: Positive for pain. Objective There were no vitals taken for this visit. Physical Exam Assessment and Plan PROGRESS Observed: 05/25/2018 Status: COMPLETED Source: [place] 2:51 PM [facility] REPOSITORY HNO ID: [id number] Author: Calixto Garcia RN Service: (none) Author Type: (none) Type: Progress Notes Filed: 05/25/2018 2:53 PM Note Text: patient had inr completed at [facility] patients inr is 3.3 (patients inr range is 2.0-3.0) patient is currently taking 3mg-3mg-2mg cycle patients last dose change was on 05/11/18 due to pt states that this was the dose she was instructed to take when office called her (dose listed that patient is to be taking is 2mg-2mg-3mg cycle) patient has had no changes in medication except for coumadin and no missed doses and no change in diet Advised patient that they would be contacted regarding medication dose and when to follow up after information is reviewed by provider. After provider review please contact the patient with information and schedule follow up appointment with coumadin clinic. PROGRESS Observed: 05/11/2018 Status: COMPLETED Source: [place] 3:52 PM [facility] REPOSITORY HNO ID: [id number] Author: Bozena Ramos MA Service: (none) Author Type: (none) Type: Progress Notes Filed: 05/11/2018 3:53 PM Note Text: Please see phone note. Bozena Ramos MA PROGRESS Observed: 05/11/2018 Status: COMPLETED Source: [place] 3:43 PM [facility] REPOSITORY HNO ID: [id number] Author: Calixto Garcia RN Service: (none) Author Type: (none) Type: Progress Notes Filed: 05/11/2018 3:49 PM Note Text: patient had inr completed at [facility] patients inr is 2.5 (patients inr range is 2.0-3.0) patient is currently taking 2mg-2mg-3mg cycle (per patient) patients last dose change unknown at this time as record shows patient should be taking 3mg alternating with 2mg, but at appt today patient stated that it was changed to 2mg-2m-3mg cycle, nurse could not find where change was noted patient has had a change in medication as patient was placed on levaquin for 14 days and prednisone for 10 days and no change in diet Advised patient that they would be contacted regarding medication dose and when to follow up after information is reviewed by provider. After provider review please contact the patient with information and schedule follow up appointment with coumadin clinic. PROGRESS Observed: 04/22/2018 Status: COMPLETED Source: [place] 2:55 PM [facility] REPOSITORY HNO ID: [id number] Author: Karely Dugan RN Service: (none) Author Type: (none) Type: Progress Notes Filed: 04/22/2018 2:55 PM Note Text: See phone note for instructions Karely Dugan RN PROGRESS Observed: 04/22/2018 Status: COMPLETED Source: [place] 2:55 PM [facility] REPOSITORY HNO ID: [id number] Author: Karely Dugan RN Service: (none) Author Type: (none) Type: Progress Notes Filed: 04/22/2018 2:55 PM Note Text: This note was created using View3riter. Subjective Karen Tom is a 72 year old female. Review of Systems Objective There were no vitals taken for this visit. Physical Exam Assessment and Plan PROGRESS Observed: 04/22/2018 Status: COMPLETED Source: [place] 2:37 PM [facility] REPOSITORY HNO ID: [id number] Author: Calixto Garcia RN Service: (none) Author Type: (none) Type: Progress Notes Filed: 04/22/2018 2:38 PM Note Text: patient had inr completed at [facility] patients inr is 2.6 (patients inr range is 2.0-3.0) patient is currently taking 3mg alternating with 2mg patients last dose change was 01/06/18?due to phone message (dose at that time was 2mg daily) patient has had no changes in medication and no missed doses and no change in diet Advised patient that they would be contacted regarding medication dose and when to follow up after information is reviewed by provider. After provider review please contact the patient with information and schedule follow up appointment with coumadin clinic. PROGRESS Observed: 04/08/2018 Status: COMPLETED Source: [place] 3:31 PM [facility] REPOSITORY HNO ID: [id number] Author: Karely Dugan RN Service: (none) Author Type: (none) Type: Progress Notes Filed: 04/08/2018 3:32 PM Note Text: See phone note for instructions Karely Dugan RN PROGRESS Observed: 04/08/2018 Status: COMPLETED Source: [place] 3:31 PM [facility] REPOSITORY HNO ID: [id number] Author: Karely Dugan RN Service: (none) Author Type: (none) Type: Progress Notes Filed: 04/08/2018 3:32 PM Note Text: This note was created using NoteWriter. Subjective Karen Tom is a 72 year old female. Review of Systems Objective There were no vitals taken for this visit. Physical Exam Assessment and Plan PROGRESS Observed: 04/08/2018 Status: COMPLETED Source: [place] 2:56 PM [facility] REPOSITORY HNO ID: [id number] Author: Calixto Garcia RN Service: (none) Author Type: (none) Type: Progress Notes Filed: 04/08/2018 2:58 PM Note Text: patient had inr completed at [facility] patients inr is 2.8 (patients inr range is 2.0-3.0) patient is currently taking 3mg alternating with 2mg patients last dose change was 01/06/18 due to phone message (dose at that time was 2mg daily) patient has had no changes in medication and no missed doses and no change in diet Advised patient that they would be contacted regarding medication dose and when to follow up after information is reviewed by provider. After provider review please contact the patient with information and schedule follow up appointment with coumadin clinic. FYI- patient has been scheduled for a 2 week follow up in [place] 04/22/18 PROTIME Collected: 03/31/2018 Status: F Source: [place] 3:50 PM [facility] REPOSITORY TYPE CODE TESTS RESULT OUT OF RANGE REFERENCE UNITS LAB PSEC 9.7-13.0 sec High PT Sec 18.9 LAB INR 0.9-1.3 High PT INR 1.9 Result Comment: Vitamin K Antagonist (VKA) Therapeutic Range: INR 2 to 3 (Target INR of 2.5) Note: For patients treated with VKA drugs, such as warfarin, the [place] [employer] 2012 Guideline recommends a therapeutic INR range of 2 to 3 (target INR of 2.5). This recommendation includes high-risk patients with antiphospholipid syndrome with previous arterial or venous thromboembolism, current-generation mechanical or bioprosthetic aortic heart valve replacement. Note: Patients with mechanical aortic valve replacement and additional risk factors for thromboembolic events (atrial fibrillation, previous thromboembolism, LV dysfunction, hypercoagulable conditions) or an older generation mechanical AVR (i.e., ball in-Cage) or any mechanical MVR should have a INR therapeutic range of 2.5 to 3.5 (target INR of 3). Dequan PARSONS, et al. Chest 2012, 141:7S-47S Trey RA, et al. [facility] 2017, 70: 252-289 Performed By: #### PT #### [facility] [address] [place], [place] [address] PROGRESS Observed: 03/25/2018 Status: COMPLETED Source: [place] 2:27 PM [facility] REPOSITORY HNO ID: [id number] Author: Karely Dugan RN Service: (none) Author Type: (none) Type: Progress Notes Filed: 03/25/2018 2:27 PM Note Text: See phone note for instructions Karely Dugan RN PROGRESS Observed: 03/25/2018 Status: COMPLETED Source: [place] 2:27 PM [facility] REPOSITORY HNO ID: [id number] Author: Karely Dugan RN Service: (none) Author Type: (none) Type: Progress Notes Filed: 03/25/2018 2:27 PM Note Text: This note was created using View3riter. Subjective Karen Tom is a 72 year old female. Review of Systems Objective There were no vitals taken for this visit. Physical Exam Assessment and Plan PROGRESS Observed: 03/25/2018 Status: COMPLETED Source: [place] 2:03 PM [facility] REPOSITORY HNO ID: [id number] Author: Calixto Garcia RN Service: (none) Author Type: (none) Type: Progress Notes Filed: 03/25/2018 2:04 PM Note Text: patient had inr completed at [facility] patients inr is 2.0 (patients inr range is 2.0-3.0) patient is currently taking 3mg alternating with 2mg patients last dose change was on 01/06/18 due to phone message (dose at that time was 2mg daily) patient has had no changes in medication and no missed doses and no change in diet Advised patient that they would be contacted regarding medication dose and when to follow up after information is reviewed by provider. After provider review please contact the patient with information and schedule follow up appointment with coumadin clinic. FYI - patient has been scheduled for a 2 week follow up inr on 04/08/18 PROGRESS Observed: 03/11/2018 Status: COMPLETED Source: [place] 2:26 PM [facility] REPOSITORY HNO ID: [id number] Author: Karely Dugan RN Service: (none) Author Type: (none) Type: Progress Notes Filed: 03/11/2018 2:27 PM Note Text: See phone note for instructions Karely Dugan RN PROGRESS Observed: 03/11/2018 Status: COMPLETED Source: [place] 2:26 PM [facility] REPOSITORY HNO ID: [id number] Author: Karely Dugan RN Service: (none) Author Type: (none) Type: Progress Notes Filed: 03/11/2018 2:27 PM Note Text: This note was created using NoteWriter. Subjective Karen Tom is a 72 year old female. Review of Systems Objective There were no vitals taken for this visit. Physical Exam Assessment and Plan PROGRESS Observed: 03/11/2018 Status: COMPLETED Source: [place] 2:10 PM [facility] REPOSITORY HNO ID: [id number] Author: Calixto Garcia RN Service: (none) Author Type: (none) Type: Progress Notes Filed: 03/11/2018 2:11 PM Note Text: patient had inr completed at [facility] patients inr is 1.9 (patients inr range is 2.0-3.0) patient is currently taking 3mg alternating with 2mg patients last dose change was on 12/29/17 due to a high level of 3.1 (dose at that time was 2mg daily) patient has had no changes in medication and no missed doses and no change in diet Advised patient that they would be contacted regarding medication dose and when to follow up after information is reviewed by provider. After provider review please contact the patient with information and schedule follow up appointment with coumadin clinic. FYI - patient has been scheduled for a 2 week follow up inr on 03/25/18 PROGRESS Observed: 03/05/2018 Status: COMPLETED Source: [place] 1:12 PM [facility] REPOSITORY HNO ID: [id number] Author: Shubham Black V Service: (none) Author Type: Physician Type: Progress Notes Filed: 03/05/2018 1:14 PM Note Text: FRACTURE FOLLOW-UP Ms. Tom presents today for her follow-up visit from: right 5th MC fracture She is six weeks post-injury and was last seen three weeks ago. History: her pain intensity is 0/10. The patient denies swelling, warmth, discharge, drainage, fevers, chills, sweats. She reports compliance with therapy, sling/splint/ambulatory device/dressing/wound care, and the use of medications. She reports no change in past medical AND surgical history, medications, allergies, social history, family history and review of systems since last visit, with the exception of the following: None Radiographs: Radiographs today revealed some callus formation across fracture site. Otherwise, osseous and soft tissue structures within normal limits. Physical Examination: no tenderness about the 5th metacarpal, carpal row or radiocarpal joint Positive axillary, musculocutaneous, median, ulna, and radial nerve function Positive distal pulses Impression: closed fracture right 5th metacarpal with routine healing Plan: transition out of EXOS fracture splint recheck PRN Shubham Black DO PROGRESS Observed: 03/05/2018 Status: COMPLETED Source: [place] 1:03 PM [facility] REPOSITORY HNO ID: [id number] Author: Miley Caballero RN Service: (none) Author Type: Registered Nurse Type: Progress Notes Filed: 03/05/2018 1:14 PM Note Text: AMB ROOMING INTAKE FLOWSHEET DATA Risk Screening Do you have concerns about personal safety or safety in the home?: No Patient presents with: Established Patient: 5 weeks 3 days post right 5th MC, xray out of EXOS brace patient is here for Right 5th MC, she is in EXOS brace. Denies pain. Miley Caballero RN CNOV Observed: 03/05/2018 Status: COMPLETED Source: [place] 1:00 PM [facility] REPOSITORY Office Visit ([facility]) KAREN TOM ([id number]) 1945 F Date Time Provider Department 03/05/18 1:00 PM SHUBHAM BLACK During your visit today, we recorded the following information about you: Miley Caballero RN, RN 03/05/2018 1:14 PM Signed AMB ROOMING INTAKE FLOWSHEET DATA Risk Screening Do you have concerns about personal safety or safety in the home?: No Patient presents with: Established Patient: 5 weeks 3 days post right 5th MC, xray out of EXOS brace patient is here for Right 5th MC, she is in EXOS brace. Denies pain. STUART Edwards DO 03/05/2018 1:14 PM Signed FRACTURE FOLLOW-UP Ms. Tom presents today for her follow-up visit from: right 5th MC fracture She is six weeks post-injury and was last seen three weeks ago. History: her pain intensity is 0/10. The patient denies swelling, warmth, discharge, drainage, fevers, chills, sweats. She reports compliance with therapy, sling/splint/ambulatory device/dressing/wound care, and the use of medications. She reports no change in past medical AND surgical history, medications, allergies, social history, family history and review of systems since last visit, with the exception of the following: None Radiographs: Radiographs today revealed some callus formation across fracture site. Otherwise, osseous and soft tissue structures within normal limits. Physical Examination: no tenderness about the 5th metacarpal, carpal row or radiocarpal joint Positive axillary, musculocutaneous, median, ulna, and radial nerve function Positive distal pulses Impression: closed fracture right 5th metacarpal with routine healing Plan: transition out of EXOS fracture splint recheck PRN Shubham Black DO Referring Provider: SHUBHAM BLACK V [[id number]] Allergies As of Date: 03/05/2018 Noted Allergy Reaction AMOXICILLIN 10/14/2005 11 - Vomiting Comments: hives, syncope BACTRIM (SULFAMETHOXAZOLE-TRIMETH*10/14/2005 8 - GI Upset CODEINE 10/14/2005 14 - Other: See Comments Comments: made me half blind CYMBALTA (DULOXETINE) 02/26/2009 1 - Mental Status Change Comments: [place] poorly while MACROBID (NITROFURANTOIN MONOHYD/*05/31/2014 12 - Shortness of Breath MUCINEX DM (DEXTROMETHORPHAN-GUAI*06/28/2010 5 - Intolerance Comments: chest tightness PERCOCET (OXYCODONE-ACETAMINOPHEN)08/15/2013 11 - Vomiting PHENERGAN (PROMETHAZINE HCL) 04/10/2014 1 - Mental Status Change Comments: weird dreams PROPOFOL 03/01/2012 14 - Other: See Comments Comments: Sneezing and shortness of breath SODIUM 10/14/2005 Comments: Salt causes leg swelling VICODIN (HYDROCODONE-ACETAMINOPHE*04/10/2014 11 - Vomiting Date Reviewed: 03/05/2018 Reviewed by: Miley (Rn) STUART Caballero - Fully Assessed Reason for Visit: Established Patient [175] Cmt: 5 weeks 3 days post right 5th MC, xray out of EXOS brace Primary Visit Diagnosis:Closed nondisplaced fracture of shaft of fifth metacarpal bone of right hand with routine healing, subsequent encounter [S62.356D] Prescriptions as of 03/05/2018 Sig: MUPIROCIN 2 % TOPICAL OINTMENT Apply 1 application to affect* MELOXICAM 7.5 MG TABLET Take 1 tablet by mouth once d* WARFARIN 2 MG TABLET Take 1 tablet by mouth once d* WARFARIN 3 MG TABLET Take 3 mg daily or as directe* DILTIAZEM SR 180 MG 24 HR CAP Take 1 capsule by mouth twice* Patient taking differently: Take 180 mg by mouth once bk* HYDROXYZINE HCL 10 MG TABLET Take 1 tablet by mouth three * ALBUTEROL SULFATE HFA 90 MCG/* Inhale 2 Puffs as instructed * ALPRAZOLAM 0.25 MG TABLET Take 0.25 mg by mouth twice d* HYDROCODONE 5 MG-ACETAMINOPHE* Take 1 tablet by mouth every * ACETAMINOPHEN 500 MG TABLET Take 500 mg by mouth every 8 * BLOOD PRESSURE TEST KIT-WRIST* 1 Device twice daily. CHOLECALCIFEROL (VITAMIN D3) * one WEEKLY (vitamin D) Patient taking differently: once every month. one WEEKLY * TRIAMCINOLONE ACETONIDE 0.1 %* Apply 1 application to affect* ALBUTEROL SULFATE HFA 90 MCG/* Inhale 2 Puffs as instructed * NITROFURANTOIN MACROCRYSTAL 5* Take 1 capsule by mouth daily* GABAPENTIN 300 MG CAPSULE Take 1 capsule by mouth daily* GUAIFENESIN ER 600 MG TABLET,* Take 2 tablets by mouth twice* MAGNESIUM OXIDE 400 MG CAPSULE Take 1 capsule by mouth once * PHENAZOPYRIDINE 100 MG TABLET Take 1 tablet by mouth three * OXYBUTYNIN CHLORIDE 5 MG TABL* Take 1 tablet by mouth three * NITROGLYCERIN 0.4 MG SUBLINGU* Dissolve 1 tablet under the t* TRAMADOL 50 MG TABLET Take 1 tablet by mouth every * LORAZEPAM 0.5 MG TABLET Take by mouth twice daily as* Medication notes this encounter HYDROXYZINE HCL 10 MG TABLET >> Miley Caballero RN, RN 03/05/2018 1:00 PM >> MILEY CABALLERO ThuMar 05, 2018 1:00 PM NITROFURANTOIN MACROCRYSTAL 50 MG CAPSULE >> Miley Caballero RN, RN 03/05/2018 1:01 PM >> MILEY CABALLERO ThuMar 05, 2018 1:01 PM Not taking Problem List As Of Date 03/05/2018 Noted Resolved FIBROMYALGIA [[id number]] Priority: B More... 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 OSTEOPENIA [M89.9, M94.9] INVALID FOR* Priority: B Lumbago [M54.5] Priority: B More... Depressive Disorder, not Elsewhere Classified [*INVALID FOR* Priority: A Medial Epicondylitis of Elbow [M77.00] INVALID FOR*01/30/2010 Degeneration of Intervertebral Disc, Site Unspe*INVALID FOR* Priority: A More... 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 Unspecified Vitamin D Deficiency [E55.9] INVALID FOR* Priority: B More... More... 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 Incomplete rotator cuff tear [M75.110] INVALID FOR* Impingement syndrome of left shoulder [M75.42] INVALID FOR* Left shoulder pain [M25.512] INVALID FOR* Rotator cuff (capsule) sprain [S43.429A] INVALID FOR* Other affections of shoulder region, not elsewh*INVALID FOR* Closed nondisplaced fracture of shaft of fifth *INVALID FOR* Encounter Status:Closed by SHUBHAM BLACK DO, V on 03/05/18 XR HAND 3V PA/LAT/OBL Observed: 03/05/2018 Status: F Source: [facility] 12:43 PM [facility] REPOSITORY * * *Final Report* * * DATE OF EXAM: Mar 05 2018 12:43PM [id number] [id number] - XR HAND 3V PA/LAT/OBL RT / PROCEDURE REASON: Nondisplaced fracture of shaft of fifth metacarpal bone, right hand, subsequent * * * * Physician Interpretation * * * * HISTORY: 72-YEAR-OLD FEMALE WITH Nondisplaced fracture of shaft of fifth metacarpal bone, right hand, subsequent encounter for fracture with routine healing . 1 month follow up right hand 5th metacarpal fracture TECHNIQUE: XR HAND 3V PA/LAT/OBL RT Laterality: RIGHT Number of different views (projections): 3 COMPARISON: None RESULT: Again identified is nondisplaced fracture of the proximal phalanx of the fifth digit extending from the distal to proximal metaphysis with slight bony resorption at the fracture line periosteal thickening along the medial diaphysis of the fifth metacarpal may represent subperiosteal bleed. Bones are osteopenic. Hands otherwise unchanged with degenerative changes at the first CMC joint. IMPRESSION: RESORPTION AT THE FRACTURE LINE OF THE FIFTH METACARPAL NONDISPLACED FRACTURE WITH PERIOSTEAL THICKENING ALONG THE MEDIAL DIAPHYSIS OF THE FIFTH METACARPAL MAY REPRESENT A SUBPERIOSTEAL BLEED. 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 Transcribe Date/Time: Mar 05 2018 4:14P Dictated by : ASHLEY HANNA MD This examination was interpreted and the report reviewed and electronically signed by: ASHLEY HANNA MD on Mar 05 2018 4:18PM EST [id number] PROGRESS Observed: 03/05/2018 Status: COMPLETED Source: [place] 12:35 PM [facility] REPOSITORY HNO ID: [id number] Author: Karen (Rt) Dg Mendoza Service: (none) Author Type: [employer] Type: Progress Notes Filed: 03/05/2018 12:43 PM Note Text: Radiology Service Progress Note PATIENT NAME: Karen Tom DATE OF SERVICE: March 05, 2018 TIME: 12:35 PM PATIENT IDENTITY VERIFICATION COMPLETED USING TWO (2) METHODS: Patient confirmed name verbally and Date of . PATIENT GENDER DATA: Female. status: : No status: NO. PATIENT RELEVANT IMPLANT DATA REVIEWED: Not Applicable RADIOLOGY DEPARTMENT: General X-ray: Exam(s) Completed: Upper Extremity X-Ray(s): Hand, right : PERIPHERAL IV DATA: Not applicable SIGNED BY: RT Joe March 05, 2018 12:35 PM PROGRESS Observed: 02/18/2018 Status: COMPLETED Source: [place] 4:38 PM [facility] REPOSITORY HNO ID: [id number] Author: Karely Dugan RN Service: (none) Author Type: (none) Type: Progress Notes Filed: 02/18/2018 4:38 PM Note Text: See phone note for instructions Karely Dugan RN PROGRESS Observed: 02/18/2018 Status: COMPLETED Source: [place] 4:38 PM [facility] REPOSITORY HNO ID: [id number] Author: Karely Dugan RN Service: (none) Author Type: (none) Type: Progress Notes Filed: 02/18/2018 4:38 PM Note Text: This note was created using View3riter. Subjective Karen Tom is a 72 year old female. Review of Systems Objective There were no vitals taken for this visit. Physical Exam Assessment and Plan PROGRESS Observed: 02/18/2018 Status: COMPLETED Source: [place] 2:14 PM [facility] REPOSITORY HNO ID: [id number] Author: Calixto Garcia RN Service: (none) Author Type: (none) Type: Progress Notes Filed: 02/18/2018 2:15 PM Note Text: patient had inr completed at [facility] patients inr is 2.2 (patients inr range is 2.0-3.0) patient is currently taking 3mg alternating with 2mg patients last dose change was on 01/06/18 due to phone message patient has had no changes in medication and no missed doses and no change in diet Advised patient to continue on the same dose(s) and that they would only be contacted regarding dosage and follow up instructions after review with provider, if a change is needed. Written instructions given and patient verbalized understanding. Presently scheduled in 3 weeks (03/11/18) for follow up INR. PROGRESS Observed: 02/12/2018 Status: COMPLETED Source: [place] 2:48 PM [facility] REPOSITORY HNO ID: [id number] Author: Shubham Black V Service: (none) Author Type: Physician Type: Progress Notes Filed: 02/12/2018 3:10 PM Note Text: SUBJECTIVE: Karen Tom is a 72 year old female who is here for a right hand injury. It occurred 2 weeks ago when she fell while cleaning in her bathroom. Symptoms include pain over lateral hand. She was seen in [facility] care, has tried boxer's splint, EXOS. PAST MEDICAL HISTORY Diagnosis Date - Atrial flutter (HCC) 09/16/2011 - Chronic obstructive asthma, unspecified 08/2003 has had PFT's elsewhere, was told they were normal - Degenerative arthritis of knee bilateral - Depression with anxiety - Disorder of bone and cartilage, unspecified 07/2004 osteopenia - Herpes zoster recurrent - location varies; per pt she gets 1 shingle, physician has told her it was shingles in the past - LGSIL (low grade squamous intraepithelial lesion) on Pap smear - Lumbago 2004 fell down steps at work, injured back, now on workers comp - Meniere disease Dr Gomez, bilateral - Myalgia and myositis, unspecified fibromyalgia - Other and unspecified ovarian cyst Ovarian cyst - Spinal stenosis, lumbar - Spondylosis of unspecified site without mention of myelopathy - Tinnitus - Tobacco use disorder - Traumatic pneumothorax without mention of open wound into thorax 1960 from rib fracture - Unspecified vitamin D deficiency 06/12/2008 - VAIN I (vaginal intraepithelial neoplasia grade I) - ENOC III (vulvar intraepithelial neoplasia III) PAST SURGICAL HISTORY Procedure Laterality Date - ARTHROS SHLDR DX W/WO SYNV BX 04/05/2014 Left shoulder - DELIVERY ONLY 1962,1965 , low cervical - COLONOSCOP W/ OR W/O [facility] SPEC 02/27/2011 Colonoscopy - COLPOSCOPY (VAGINOSCOPY) 1984 Colposcopy - HYSTERECTOMY HX 07/2013 - PAST SURGICAL HISTORY OF 1984 cryotherapy - PAST SURGICAL HISTORY OF 1984 conization - PAST SURGICAL HISTORY OF 06/11/09 lumbar decompression surgery for stenosis -- Dr. Leonard Mendoza - PULMONARY FUNCTION TEST 08/21/2003 complete - REMOVAL GALLBLADDER 1977 laparoscopic Cholecystectomy - REPAIR COMPL ROTATOR CUFF AVULSN,CHR 04/05/2014 Left shoulder Current Outpatient Prescriptions on File Prior to Visit: mupirocin (BACTROBAN) 2 % ointment Apply 1 application to affected area three times daily. Location: burn nitrofurantoin (MACRODANTIN) 50 mg capsule Take 1 capsule by mouth daily at bedtime. warfarin (COUMADIN) 2 mg tablet Take 1 tablet by mouth once daily. warfarin (COUMADIN) 3 mg tablet Take 3 mg daily or as directed by your physician diltiazem CD (CARTIA XT) 180 mg 24 hr capsule Take 1 capsule by mouth twice daily. (Patient taking differently: Take 180 mg by mouth once daily. ) albuterol HFA (PROVENTIL HFA, VENTOLIN HFA) 90 mcg/actuation inhaler Inhale 2 Puffs as instructed every 6 hours as needed for Wheezing/Shortness of Breath. ALPRAZolam (XANAX) 0.25 mg tablet Take 0.25 mg by mouth twice daily as needed. HYDROcodone-acetaminophen (NORCO) 5-325 mg per tablet Take 1 tablet by mouth every 6 hours as needed. acetaminophen (TYLENOL) 500 mg tablet Take 500 mg by mouth every 8 hours as needed. Blood Pressure Test Kit-Wrist kit 1 Device twice daily. Cholecalciferol, Vitamin D3, 50,000 unit cap one WEEKLY (vitamin D) (Patient taking differently: once every month. one WEEKLY (vitamin D) ) meloxicam (MOBIC) 7.5 mg tablet Take 1 tablet by mouth once daily. hydrOXYzine HCl (ATARAX) 10 mg tablet Take 1 tablet by mouth three times daily as needed. gabapentin (NEURONTIN) 300 mg capsule Take 1 capsule by mouth daily at bedtime. guaiFENesin (MUCINEX) 600 mg 12 hr tablet Take 2 tablets by mouth twice daily. magnesium oxide 400 mg cap Take 1 capsule by mouth once daily. phenazopyridine (PYRIDIUM, GERIDIUM) 100 mg tablet Take 1 tablet by mouth three times daily as needed for Pain. oxybutynin (DITROPAN) 5 mg tablet Take 1 tablet by mouth three times daily. Start with one a day and work up to 3 times a day nitroglycerin sublingual (NITROQUICK) 0.4 mg SL tablet Dissolve 1 tablet under the tongue as needed. FOR CHEST PAIN. IF NO RELIEF CALL 911 traMADol (ULTRAM) 50 mg tablet Take 1 tablet by mouth every 6 hours as needed. LORazepam (ATIVAN) 0.5 mg tab Take by mouth twice daily as needed. triamcinolone acetonide 0.1 % cream Apply 1 application to affected area three times daily. Apply sparingly to area for rash/itching. albuterol HFA (VENTOLIN HFA) 90 mcg/actuation INHALATION inhaler Inhale 2 Puffs as instructed every 6 hours as needed. No current facility-administered medications on file prior to visit. EXAM: General: cooperative and NAD Location: right hand: tender over 5th MC with palpation. Negative for: deformity, crepitation or instability Neurovascular: intact X-ray: ?Nondisplaced fracture of the fifth metacarpal diaphysis IMPRESSION: closed fracture, 5th metacarpal diaphysis right hand PLAN: EXOS fracture cast trimmed and refitted Patient Instructions: call for concerning symptoms, increase or change in symptoms., cast care instructions given, recheck in 3 weeks with x-ray Shubham Black DO PROGRESS Observed: 02/12/2018 Status: COMPLETED Source: [place] 2:21 PM [facility] REPOSITORY [facility] ID: [id number] Author: Trisha Matos RN Service: (none) Author Type: (none) Type: Progress Notes Filed: 02/12/2018 3:10 PM Note Text: AMB ROOMING INTAKE FLOWSHEET DATA Risk Screening Do you have concerns about personal safety or safety in the home?: No Pain Pain Score: 2/10 Pain Location: Hand-Right Description: Aching Duration Amount of Time: 2 Duration Units: Weeks (3 days) Frequency: Intermittent Intervention: Splinting, Medication Patient presents with: New Patient: right 5th MC fx, REF: [place] x[facility] 02-05-18 Pt. was standing on toilet to dust on 01-26-18, lost her balance and fell injuring right hand. She is right hand dominant. She went to Urgent Care for xray on 02-05-18. She has been taking Langtry for pain which she had at home. She was placed in EXOS brace. CNOV Observed: 02/12/2018 Status: COMPLETED Source: [place] 2:20 PM [facility] REPOSITORY Office Visit ([facility]) KAREN TOM ([id number]) 1945 F Date Time Provider Department 02/12/18 2:20 PM SHUBHAM BLACK During your visit today, we recorded the following information about you: Trisha Matos RN 02/12/2018 3:10 PM Signed AMB ROOMING INTAKE FLOWSHEET DATA Risk Screening Do you have concerns about personal safety or safety in the home?: No Pain Pain Score: 2/10 Pain Location: Hand-Right Description: Aching Duration Amount of Time: 2 Duration Units: Weeks (3 days) Frequency: Intermittent Intervention: Splinting, Medication Patient presents with: New Patient: right 5th fx, REF: [facility] x[facility] 02-05-18 Pt. was standing on toilet to dust on 01-26-18, lost her balance and fell injuring right hand. She is right hand dominant. She went to Urgent Care for xray on 02-05-18. She has been taking Langtry for pain which she had at home. She was placed in EXOS brace. Shubham Black DO 02/12/2018 3:10 PM Signed SUBJECTIVE: Lalaashley Salcedo Vaishali is a 72 year old female who is here for a right hand injury. It occurred 2 weeks ago when she fell while cleaning in her bathroom. Symptoms include pain over lateral hand. She was seen in express care, has tried boxer's splint, EXOS. PAST MEDICAL HISTORY Diagnosis Date - Atrial flutter (HCC) 09/16/2011 - Chronic obstructive asthma, unspecified 08/2003 has had PFT's elsewhere, was told they were normal - Degenerative arthritis of knee bilateral - Depression with anxiety - Disorder of bone and cartilage, unspecified 07/2004 osteopenia - Herpes zoster recurrent - location varies; per pt she gets 1 shingle, physician has told her it was shingles in the past - LGSIL (low grade squamous intraepithelial lesion) on Pap smear - Lumbago 2004 fell down steps at work, injured back, now on workers comp - Meniere disease Dr Gomez, bilateral - Myalgia and myositis, unspecified fibromyalgia - Other and unspecified ovarian cyst Ovarian cyst - Spinal stenosis, lumbar - Spondylosis of unspecified site without mention of myelopathy - Tinnitus - Tobacco use disorder - Traumatic pneumothorax without mention of open wound into thorax 1959 from rib fracture - Unspecified vitamin D deficiency 06/12/2008 - VAIN I (vaginal intraepithelial neoplasia grade I) - ENOC III (vulvar intraepithelial neoplasia III) PAST SURGICAL HISTORY Procedure Laterality Date - ARTHROS SHLDR DX W/WO SYNV BX 04/05/2014 Left shoulder - DELIVERY ONLY 1962,1965 , low cervical - COLONOSCOP W/ OR W/O [facility] SPEC 02/27/2011 Colonoscopy - COLPOSCOPY (VAGINOSCOPY) 1984 Colposcopy - HYSTERECTOMY HX 07/2013 - PAST SURGICAL HISTORY OF 1984 cryotherapy - PAST SURGICAL HISTORY OF 1984 conization - PAST SURGICAL HISTORY OF 06/11/09 lumbar decompression surgery for stenosis -- Dr. Leonard Mendoza - PULMONARY FUNCTION TEST 08/21/2003 complete - REMOVAL GALLBLADDER 1976 laparoscopic Cholecystectomy - REPAIR COMPL ROTATOR CUFF AVULSN,CHR 04/05/2014 Left shoulder Current Outpatient Prescriptions on File Prior to Visit: mupirocin (BACTROBAN) 2 % ointment Apply 1 application to affected area three times daily. Location: burn nitrofurantoin (MACRODANTIN) 50 mg capsule Take 1 capsule by mouth daily at bedtime. warfarin (COUMADIN) 2 mg tablet Take 1 tablet by mouth once daily. warfarin (COUMADIN) 3 mg tablet Take 3 mg daily or as directed by your physician diltiazem CD (CARTIA XT) 180 mg 24 hr capsule Take 1 capsule by mouth twice daily. (Patient taking differently: Take 180 mg by mouth once daily. ) albuterol HFA (PROVENTIL HFA, VENTOLIN HFA) 90 mcg/actuation inhaler Inhale 2 Puffs as instructed every 6 hours as needed for Wheezing/Shortness of Breath. ALPRAZolam (XANAX) 0.25 mg tablet Take 0.25 mg by mouth twice daily as needed. HYDROcodone-acetaminophen (NORCO) 5-325 mg per tablet Take 1 tablet by mouth every 6 hours as needed. acetaminophen (TYLENOL) 500 mg tablet Take 500 mg by mouth every 8 hours as needed. Blood Pressure Test Kit-Wrist kit 1 Device twice daily. Cholecalciferol, Vitamin D3, 50,000 unit cap one WEEKLY (vitamin D) (Patient taking differently: once every month. one WEEKLY (vitamin D) ) meloxicam (MOBIC) 7.5 mg tablet Take 1 tablet by mouth once daily. hydrOXYzine HCl (ATARAX) 10 mg tablet Take 1 tablet by mouth three times daily as needed. gabapentin (NEURONTIN) 300 mg capsule Take 1 capsule by mouth daily at bedtime. guaiFENesin (MUCINEX) 600 mg 12 hr tablet Take 2 tablets by mouth twice daily. magnesium oxide 400 mg cap Take 1 capsule by mouth once daily. phenazopyridine (PYRIDIUM, GERIDIUM) 100 mg tablet Take 1 tablet by mouth three times daily as needed for Pain. oxybutynin (DITROPAN) 5 mg tablet Take 1 tablet by mouth three times daily. Start with one a day and work up to 3 times a day nitroglycerin sublingual (NITROQUICK) 0.4 mg SL tablet Dissolve 1 tablet under the tongue as needed. FOR CHEST PAIN. IF NO RELIEF CALL 911 traMADol (ULTRAM) 50 mg tablet Take 1 tablet by mouth every 6 hours as needed. LORazepam (ATIVAN) 0.5 mg tab Take by mouth twice daily as needed. triamcinolone acetonide 0.1 % cream Apply 1 application to affected area three times daily. Apply sparingly to area for rash/itching. albuterol HFA (VENTOLIN HFA) 90 mcg/actuation INHALATION inhaler Inhale 2 Puffs as instructed every 6 hours as needed. No current facility-administered medications on file prior to visit. EXAM: General: cooperative and NAD Location: right hand: tender over 5th MC with palpation. Negative for: deformity, crepitation or instability Neurovascular: intact X-ray: ?Nondisplaced fracture of the fifth metacarpal diaphysis IMPRESSION: closed fracture, 5th metacarpal diaphysis right hand PLAN: EXOS fracture cast trimmed and refitted Patient Instructions: call for concerning symptoms, increase or change in symptoms., cast care instructions given, recheck in 3 weeks with x-ray Shubham Black DO Referring Provider: WON PALOMO [[id number]] Allergies As of Date: 02/12/2018 Noted Allergy Reaction AMOXICILLIN 10/14/2005 11 - Vomiting Comments: hives, syncope BACTRIM (SULFAMETHOXAZOLE-TRIMETH*10/14/2005 8 - GI Upset CODEINE 10/14/2005 14 - Other: See Comments Comments: made me half blind CYMBALTA (DULOXETINE) 02/26/2009 1 - Mental Status Change Comments: [place] poorly while MACROBID (NITROFURANTOIN MONOHYD/*05/31/2014 12 - Shortness of Breath MUCINEX DM (DEXTROMETHORPHAN-GUAI*06/28/2010 5 - Intolerance Comments: chest tightness PERCOCET (OXYCODONE-ACETAMINOPHEN)08/15/2013 11 - Vomiting PHENERGAN (PROMETHAZINE HCL) 04/10/2014 1 - Mental Status Change Comments: weird dreams PROPOFOL 03/01/2012 14 - Other: See Comments Comments: Sneezing and shortness of breath SODIUM 10/14/2005 Comments: Salt causes leg swelling VICODIN (HYDROCODONE-ACETAMINOPHE*04/10/2014 11 - Vomiting Date Reviewed: 02/12/2018 Reviewed by: Trisha Matos RN - Fully Assessed Reason for Visit: New Patient [172] Cmt: right 5th MC fx, REF: Palomo xray 8-24-18 Primary Visit Diagnosis:Closed nondisplaced fracture of shaft of fifth metacarpal bone of right hand with routine healing, subsequent encounter [S62.356D] Prescriptions as of 02/12/2018 Sig: MUPIROCIN 2 % TOPICAL OINTMENT Apply 1 application to affect* NITROFURANTOIN MACROCRYSTAL 5* Take 1 capsule by mouth daily* WARFARIN 2 MG TABLET Take 1 tablet by mouth once d* WARFARIN 3 MG TABLET Take 3 mg daily or as directe* DILTIAZEM SR 180 MG 24 HR CAP Take 1 capsule by mouth twice* Patient taking differently: Take 180 mg by mouth once bk* ALBUTEROL SULFATE HFA 90 MCG/* Inhale 2 Puffs as instructed * ALPRAZOLAM 0.25 MG TABLET Take 0.25 mg by mouth twice d* HYDROCODONE 5 MG-ACETAMINOPHE* Take 1 tablet by mouth every * ACETAMINOPHEN 500 MG TABLET Take 500 mg by mouth every 8 * BLOOD PRESSURE TEST KIT-WRIST* 1 Device twice daily. CHOLECALCIFEROL (VITAMIN D3) * one WEEKLY (vitamin D) Patient taking differently: once every month. one WEEKLY * MELOXICAM 7.5 MG TABLET Take 1 tablet by mouth once d* HYDROXYZINE HCL 10 MG TABLET Take 1 tablet by mouth three * GABAPENTIN 300 MG CAPSULE Take 1 capsule by mouth daily* GUAIFENESIN ER 600 MG TABLET,* Take 2 tablets by mouth twice* MAGNESIUM OXIDE 400 MG CAPSULE Take 1 capsule by mouth once * PHENAZOPYRIDINE 100 MG TABLET Take 1 tablet by mouth three * OXYBUTYNIN CHLORIDE 5 MG TABL* Take 1 tablet by mouth three * NITROGLYCERIN 0.4 MG SUBLINGU* Dissolve 1 tablet under the t* TRAMADOL 50 MG TABLET Take 1 tablet by mouth every * LORAZEPAM 0.5 MG TABLET Take by mouth twice daily as* TRIAMCINOLONE ACETONIDE 0.1 %* Apply 1 application to affect* ALBUTEROL SULFATE HFA 90 MCG/* Inhale 2 Puffs as instructed * Problem List As Of Date 02/12/2018 Noted Resolved FIBROMYALGIA [[id number]] Priority: B More... 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 OSTEOPENIA [M89.9, M94.9] INVALID FOR* Priority: B Lumbago [M54.5] Priority: B More... Depressive Disorder, not Elsewhere Classified [*INVALID FOR* Priority: A Medial Epicondylitis of Elbow [M77.00] INVALID FOR*01/30/2010 Degeneration of Intervertebral Disc, Site Unspe*INVALID FOR* Priority: A More... 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 Unspecified Vitamin D Deficiency [E55.9] INVALID FOR* Priority: B More... More... 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 Incomplete rotator cuff tear [M75.110] INVALID FOR* Impingement syndrome of left shoulder [M75.42] INVALID FOR* Left shoulder pain [M25.512] INVALID FOR* Rotator cuff (capsule) sprain [S43.429A] INVALID FOR* Other affections of shoulder region, not elsewh*INVALID FOR* Encounter Status:Closed by SHUBHAM BLACK DO, V on 02/12/18 PROGRESS Observed: 02/05/2018 Status: COMPLETED Source: [place] 5:15 PM [facility] REPOSITORY HNO ID: [id number] Author: Karely Dugan RN Service: (none) Author Type: (none) Type: Progress Notes Filed: 02/05/2018 5:15 PM Note Text: See phone note Karely Dugan RN PROGRESS Observed: 02/05/2018 Status: COMPLETED Source: [place] 5:15 PM [facility] REPOSITORY HNO ID: [id number] Author: Karely Dugan RN Service: (none) Author Type: (none) Type: Progress Notes Filed: 02/05/2018 5:15 PM Note Text: This note was created using View3riter. Subjective Karen Tom is a 72 year old female. Review of Systems Objective There were no vitals taken for this visit. Physical Exam Assessment and Plan XR HAND 3V PA/LAT/OBL Observed: 02/05/2018 Status: F Source: [place] RT 4:21 PM [facility] REPOSITORY * * *Final Report* * * DATE OF EXAM: Feb 05 2018 4:21PM WOX [id number] - XR HAND 3V PA/LAT/OBL RT / PROCEDURE REASON: Pain in right finger(s) * * * * Physician Interpretation * * * * HISTORY: 72-YEAR-OLD FEMALE WITH Pain in right finger(s) . injury to medial hand, c/o pain over 5th metacarpal/finger TECHNIQUE: XR HAND 3V PA/LAT/OBL RT Laterality: RIGHT Number of different views (projections): 3 COMPARISON: None RESULT: Small osteophytes at the first CMC joint. Nondisplaced fracture of the fifth metacarpal diaphysis. Soft tissue swelling adjacent to the fifth metacarpal. . Osteopenia. 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 PATIENT GENDER DATA: Female. status: : No status: NO. PATIENT RELEVANT IMPLANT DATA REVIEWED: Not Applicable RADIOLOGY DEPARTMENT: General X-ray: Exam(s) Completed: Upper Extremity X-Ray(s): Hand, right : PERIPHERAL IV DATA: Not applicable SIGNED BY: AKHIL Bryan February 05, 2018 4:11 PM PROGRESS Observed: 02/05/2018 Status: COMPLETED Source: [place] 3:53 PM [facility] REPOSITORY HNO ID: [id number] Author: Won Palomo Service: (none) Author Type: Physician Type: Progress Notes Filed: 02/05/2018 5:00 PM Note Text: Patient presents with: right pinky finger pain: fell 2 weeks ago HPI: Finger pain: Duration: Fell 2 weeks ago Location: Right 5th finger proximal phalanx Character: sharp Radiation: 5th metacarpal Aggravating: Straightening finger out after flexing Relieving: none Pain relievers: none Associated: swelling Pertinent negatives: Denies numbness MEDICATIONS: mupirocin (BACTROBAN) 2 % ointment Apply 1 application to affected area three times daily. Location: burn nitrofurantoin (MACRODANTIN) 50 mg capsule Take 1 capsule by mouth daily at bedtime. meloxicam (MOBIC) 7.5 mg tablet Take 1 tablet by mouth once daily. warfarin (COUMADIN) 2 mg tablet Take 1 tablet by mouth once daily. warfarin (COUMADIN) 3 mg tablet Take 3 mg daily or as directed by your physician diltiazem CD (CARTIA XT) 180 mg 24 hr capsule Take 1 capsule by mouth twice daily. albuterol HFA (PROVENTIL HFA, VENTOLIN HFA) 90 mcg/actuation inhaler Inhale 2 Puffs as instructed every 6 hours as needed for Wheezing/Shortness of Breath. ALPRAZolam (XANAX) 0.25 mg tablet Take 0.25 mg by mouth twice daily as needed. HYDROcodone-acetaminophen (NORCO) 5-325 mg per tablet Take 1 tablet by mouth every 6 hours as needed. acetaminophen (TYLENOL) 500 mg tablet Take 500 mg by mouth every 8 hours as needed. Blood Pressure Test Kit-Wrist kit 1 Device twice daily. Cholecalciferol, Vitamin D3, 50,000 unit cap one WEEKLY (vitamin D) triamcinolone acetonide 0.1 % cream Apply 1 application to affected area three times daily. Apply sparingly to area for rash/itching. hydrOXYzine HCl (ATARAX) 10 mg tablet Take 1 tablet by mouth three times daily as needed. gabapentin (NEURONTIN) 300 mg capsule Take 1 capsule by mouth daily at bedtime. guaiFENesin (MUCINEX) 600 mg 12 hr tablet Take 2 tablets by mouth twice daily. magnesium oxide 400 mg cap Take 1 capsule by mouth once daily. phenazopyridine (PYRIDIUM, GERIDIUM) 100 mg tablet Take 1 tablet by mouth three times daily as needed for Pain. oxybutynin (DITROPAN) 5 mg tablet Take 1 tablet by mouth three times daily. Start with one a day and work up to 3 times a day nitroglycerin sublingual (NITROQUICK) 0.4 mg SL tablet Dissolve 1 tablet under the tongue as needed. FOR CHEST PAIN. IF NO RELIEF CALL 911 traMADol (ULTRAM) 50 mg tablet Take 1 tablet by mouth every 6 hours as needed. LORazepam (ATIVAN) 0.5 mg tab Take by mouth twice daily as needed. albuterol HFA (VENTOLIN HFA) 90 mcg/actuation INHALATION inhaler Inhale 2 Puffs as instructed every 6 hours as needed. ALLERGIES: ALLERGIES Allergen Reactions - Amoxicillin Vomiting hives, syncope - Bactrim [Sulfametho* GI Upset - Codeine Other: See Comments made me half blind - Cymbalta [Duloxetin* Mental Status Change [place] poorly while - Macrobid [Nitrofura* Shortness of Breath - Mucinex Dm [Dextrom* Intolerance chest tightness - Percocet [Oxycodone* Vomiting - Phenergan [Prometha* Mental Status Change weird dreams - Propofol Other: See Comments Sneezing and shortness of breath - Sodium Salt causes leg swelling - Vicodin [Hydrocodon* Vomiting VITALS: BP 130/80 Pulse 72 Temp 36.2 ?C (97.2 ?F) (Tympanic) Resp 16 Wt 69.8 kg (153 lb 12.8 oz) BMI 29.06 kg/m? PE: Pleasant, in no acute distress. Hand: Right. Mild edema over the 5th and 4th metacarpals. Near normal finger flexion, but sharp pain when extending again. Distal phalange, and medial phalange are non-tender. PIP, proximal phalange, and 5th metacarpal are tender. Discomfort with palpation of the 4th metacarpal. No wrist pain with palpation or ROM. ASSESSMENT/PLAN: 1. Closed nondisplaced fracture of shaft of fifth metacarpal bone of right hand, initial encounter - ICD9: 815.03, ICD10: S62.356A (primary diagnosis) 2. Finger pain, right - ICD9: 729.5, ICD10: M79.644 - XR HAND GENERAL 3V PA/LAT/OBL RT - comminuted non-displaced oblique fracture of the 5th metacarpal shaft - CONSULT TO ORTHOPAEDICS Placed in [facility] malleable boxer's fracture splint. Won Palomo MD CNOV Observed: 02/05/2018 Status: COMPLETED Source: [place] 3:45 PM [facility] REPOSITORY Office Visit (WSTR) KAREN TOM ([id number]) 1945 F Date Time Provider Department 02/05/18 3:45 PM WON PALOMO RUST During your visit today, we recorded the following information about you: Temperature Pulse Respiration Blood pressure 97.2 degrees 72/minute 16/minute 130/80 Weight 69.8 kg Won Palomo MD 02/05/2018 5:00 PM Signed Patient presents with: right pinky finger pain: fell 2 weeks ago HPI: Finger pain: Duration: Fell 2 weeks ago Location: Right 5th finger proximal phalanx Character: sharp Radiation: 5th metacarpal Aggravating: Straightening finger out after flexing Relieving: none Pain relievers: none Associated: swelling Pertinent negatives: Denies numbness MEDICATIONS: mupirocin (BACTROBAN) 2 % ointment Apply 1 application to affected area three times daily. Location: burn nitrofurantoin (MACRODANTIN) 50 mg capsule Take 1 capsule by mouth daily at bedtime. meloxicam (MOBIC) 7.5 mg tablet Take 1 tablet by mouth once daily. warfarin (COUMADIN) 2 mg tablet Take 1 tablet by mouth once daily. warfarin (COUMADIN) 3 mg tablet Take 3 mg daily or as directed by your physician diltiazem CD (CARTIA XT) 180 mg 24 hr capsule Take 1 capsule by mouth twice daily. albuterol HFA (PROVENTIL HFA, VENTOLIN HFA) 90 mcg/actuation inhaler Inhale 2 Puffs as instructed every 6 hours as needed for Wheezing/Shortness of Breath. ALPRAZolam (XANAX) 0.25 mg tablet Take 0.25 mg by mouth twice daily as needed. HYDROcodone-acetaminophen (NORCO) 5-325 mg per tablet Take 1 tablet by mouth every 6 hours as needed. acetaminophen (TYLENOL) 500 mg tablet Take 500 mg by mouth every 8 hours as needed. Blood Pressure Test Kit-Wrist kit 1 Device twice daily. Cholecalciferol, Vitamin D3, 50,000 unit cap one WEEKLY (vitamin D) triamcinolone acetonide 0.1 % cream Apply 1 application to affected area three times daily. Apply sparingly to area for rash/itching. hydrOXYzine HCl (ATARAX) 10 mg tablet Take 1 tablet by mouth three times daily as needed. gabapentin (NEURONTIN) 300 mg capsule Take 1 capsule by mouth daily at bedtime. guaiFENesin (MUCINEX) 600 mg 12 hr tablet Take 2 tablets by mouth twice daily. magnesium oxide 400 mg cap Take 1 capsule by mouth once daily. phenazopyridine (PYRIDIUM, GERIDIUM) 100 mg tablet Take 1 tablet by mouth three times daily as needed for Pain. oxybutynin (DITROPAN) 5 mg tablet Take 1 tablet by mouth three times daily. Start with one a day and work up to 3 times a day nitroglycerin sublingual (NITROQUICK) 0.4 mg SL tablet Dissolve 1 tablet under the tongue as needed. FOR CHEST PAIN. IF NO RELIEF CALL 911 traMADol (ULTRAM) 50 mg tablet Take 1 tablet by mouth every 6 hours as needed. LORazepam (ATIVAN) 0.5 mg tab Take by mouth twice daily as needed. albuterol HFA (VENTOLIN HFA) 90 mcg/actuation INHALATION inhaler Inhale 2 Puffs as instructed every 6 hours as needed. ALLERGIES: ALLERGIES Allergen Reactions - Amoxicillin Vomiting hives, syncope - Bactrim [Sulfametho* GI Upset - Codeine Other: See Comments made me half blind - Cymbalta [Duloxetin* Mental Status Change [place] poorly while - Macrobid [Nitrofura* Shortness of Breath - Mucinex Dm [Dextrom* Intolerance chest tightness - Percocet [Oxycodone* Vomiting - Phenergan [Prometha* Mental Status Change weird dreams - Propofol Other: See Comments Sneezing and shortness of breath - Sodium Salt causes leg swelling - Vicodin [Hydrocodon* Vomiting VITALS: BP 130/80 Pulse 72 Temp 36.2 ?C (97.2 ?F) (Tympanic) Resp 16 Wt 69.8 kg (153 lb 12.8 oz) BMI 29.06 kg/m? PE: Pleasant, in no acute distress. Hand: Right. Mild edema over the 5th and 4th metacarpals. Near normal finger flexion, but sharp pain when extending again. Distal phalange, and medial phalange are non-tender. PIP, proximal phalange, and 5th metacarpal are tender. Discomfort with palpation of the 4th metacarpal. No wrist pain with palpation or ROM. ASSESSMENT/PLAN: 1. Closed nondisplaced fracture of shaft of fifth metacarpal bone of right hand, initial encounter - ICD9: 815.03, ICD10: S62.356A (primary diagnosis) 2. Finger pain, right - ICD9: 729.5, ICD10: M79.644 - XR HAND GENERAL 3V PA/LAT/OBL RT - comminuted non-displaced oblique fracture of the 5th metacarpal shaft - CONSULT TO ORTHOPAEDICS Placed in heat malleable boxer's fracture splint. Won Palomo MD Referring Provider: SELF [200] Allergies As of Date: 02/05/2018 Noted Allergy Reaction AMOXICILLIN 10/14/2005 11 - Vomiting Comments: hives, syncope BACTRIM (SULFAMETHOXAZOLE-TRIMETH*10/14/2005 8 - GI Upset CODEINE 10/14/2005 14 - Other: See Comments Comments: made me half blind CYMBALTA (DULOXETINE) 02/26/2009 1 - Mental Status Change Comments: [place] poorly while MACROBID (NITROFURANTOIN MONOHYD/*05/31/2014 12 - Shortness of Breath MUCINEX DM (DEXTROMETHORPHAN-GUAI*06/28/2010 5 - Intolerance Comments: chest tightness PERCOCET (OXYCODONE-ACETAMINOPHEN)08/15/2013 11 - Vomiting PHENERGAN (PROMETHAZINE HCL) 04/10/2014 1 - Mental Status Change Comments: weird dreams PROPOFOL 03/01/2012 14 - Other: See Comments Comments: Sneezing and shortness of breath SODIUM 10/14/2005 Comments: Salt causes leg swelling VICODIN (HYDROCODONE-ACETAMINOPHE*04/10/2014 11 - Vomiting Date Reviewed: 02/05/2018 Reviewed by: Raquel Madrid LPN - Fully Assessed Reason for Visit: right pinky finger pain [Other] Cmt: fell 2 weeks ago Primary Visit Diagnosis:Closed nondisplaced fracture of shaft of fifth metacarpal bone of right hand, initial encounter [S62.356A] Other Visit Diagnosis:Finger pain, right [M79.644] Order(s):XR HAND GENERAL 3V PA/LAT/OBL RT [[id number]] Order #: [id number] FUTURE CONSULT TO ORTHOPAEDICS [9026] Order #: [id number]: 1 Prescriptions as of 02/05/2018 Sig: MUPIROCIN 2 % TOPICAL OINTMENT Apply 1 application to affect* NITROFURANTOIN MACROCRYSTAL 5* Take 1 capsule by mouth daily* MELOXICAM 7.5 MG TABLET Take 1 tablet by mouth once d* WARFARIN 2 MG TABLET Take 1 tablet by mouth once d* WARFARIN 3 MG TABLET Take 3 mg daily or as directe* DILTIAZEM SR 180 MG 24 HR CAP Take 1 capsule by mouth twice* ALBUTEROL SULFATE HFA 90 MCG/* Inhale 2 Puffs as instructed * ALPRAZOLAM 0.25 MG TABLET Take 0.25 mg by mouth twice d* HYDROCODONE 5 MG-ACETAMINOPHE* Take 1 tablet by mouth every * ACETAMINOPHEN 500 MG TABLET Take 500 mg by mouth every 8 * BLOOD PRESSURE TEST KIT-WRIST* 1 Device twice daily. CHOLECALCIFEROL (VITAMIN D3) * one WEEKLY (vitamin D) Patient taking differently: once every month. one WEEKLY * TRIAMCINOLONE ACETONIDE 0.1 %* Apply 1 application to affect* HYDROXYZINE HCL 10 MG TABLET Take 1 tablet by mouth three * GABAPENTIN 300 MG CAPSULE Take 1 capsule by mouth daily* GUAIFENESIN ER 600 MG TABLET,* Take 2 tablets by mouth twice* MAGNESIUM OXIDE 400 MG CAPSULE Take 1 capsule by mouth once * PHENAZOPYRIDINE 100 MG TABLET Take 1 tablet by mouth three * OXYBUTYNIN CHLORIDE 5 MG TABL* Take 1 tablet by mouth three * NITROGLYCERIN 0.4 MG SUBLINGU* Dissolve 1 tablet under the t* TRAMADOL 50 MG TABLET Take 1 tablet by mouth every * LORAZEPAM 0.5 MG TABLET Take by mouth twice daily as* ALBUTEROL SULFATE HFA 90 MCG/* Inhale 2 Puffs as instructed * Problem List As Of Date 02/05/2018 Noted Resolved FIBROMYALGIA [[id number]] Priority: B More... 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 OSTEOPENIA [M89.9, M94.9] INVALID FOR* Priority: B Lumbago [M54.5] Priority: B More... Depressive Disorder, not Elsewhere Classified [*INVALID FOR* Priority: A Medial Epicondylitis of Elbow [M77.00] INVALID FOR*01/30/2010 Degeneration of Intervertebral Disc, Site Unspe*INVALID FOR* Priority: A More... 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 Unspecified Vitamin D Deficiency [E55.9] INVALID FOR* Priority: B More... More... 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 Incomplete rotator cuff tear [M75.110] INVALID FOR* Impingement syndrome of left shoulder [M75.42] INVALID FOR* Left shoulder pain [M25.512] INVALID FOR* Rotator cuff (capsule) sprain [S43.429A] INVALID FOR* Other affections of shoulder region, not elsewh*INVALID FOR* Encounter Status:Closed by WON PALOMO MD on 02/05/18 PROGRESS Observed: 02/05/2018 Status: COMPLETED Source: [place] 3:27 PM [facility] REPOSITORY [facility] ID: [id number] Author: Calixto Garcia RN Service: (none) Author Type: (none) Type: Progress Notes Filed: 02/05/2018 3:28 PM Note Text: patient had inr completed at [facility] patients inr is 2.3 (patients inr range is 2.0-3.0) patient is currently taking 3mg alternating with 2mg patients last dose change was on 01/06/18 due to phone note message patient has had no changes in medication and no missed doses and no change in diet Advised patient to continue on the same dose(s) and that they would only be contacted regarding dosage and follow up instructions after review with provider, if a change is needed. Written instructions given and patient verbalized understanding. Presently scheduled in 2 weeks (02/18/18) for follow up INR. CNPN Observed: 02/05/2018 Status: COMPLETED Source: [place] 12:00 AM [facility] REPOSITORY Telephone (CAWSTR) KAREN TOM ([id number]) 1945 F Date Time Provider Department 02/05/18 HEBERT MITCHELL During your visit today, we recorded the following information about you: Karely Dugan RN 02/05/2018 5:14 PM Signed Calixto Garcia RN Signed Calixto Garcia RN 02/05/2018 ?3:28 PM patient had inr completed at [facility] patients inr is 2.3 (patients inr range is 2.0-3.0) patient is currently taking 3mg alternating with 2mg patients last dose change was on 01/06/18 due to phone note message patient has had no changes in medication and no missed doses and no change in diet ? Advised patient to continue on the same dose(s) and that they would only be contacted regarding dosage and follow up instructions after review with provider, if a change is needed. Written instructions given and patient verbalized understanding. Presently scheduled in 2 weeks (02/18/18) for follow up INR. ? Hebert Mitchell MD 02/05/2018 5:16 PM Signed Same dose. 2 weeks. MD Diana Castellanos LPN 02/05/2018 5:18 PM Signed Left message to call office. 02/05/2018 5:18 PM NAHOMI James RN 02/05/2018 5:20 PM Signed PATIENT NOTIFIED OF INFORMATION Diana Terry LPN 02/08/2018 3:25 PM Signed Patient returning call today to get dosing information. She states while talking she has been falling. She states that she has had two falls recently with injury. She states one fall she felt her legs week and needed to sit down. She states before she knew it she was falling. The other episode she was cleaning the bathroom and she fell and broke her hand. NAHOMI James MD 02/08/2018 3:30 PM Signed Vital signs twice daily and contact us in a couple days. Increase fluids. For now, decrease diltiazem to once daily. Let us know if she is having syncope MD Diana Castellanos LPN 02/08/2018 4:40 PM Signed Left message to call office. 02/08/2018 4:40 PM NAHOMI James LPN 02/09/2018 11:01 AM Signed Patient notified of results and provider's instructions. Patient verbalizes understanding. Diana Terry LPN Allergies As of Date: 02/05/2018 Noted Allergy Reaction AMOXICILLIN 10/14/2005 11 - Vomiting Comments: hives, syncope BACTRIM (SULFAMETHOXAZOLE-TRIMETH*10/14/2005 8 - GI Upset CODEINE 10/14/2005 14 - Other: See Comments Comments: made me half blind CYMBALTA (DULOXETINE) 02/26/2009 1 - Mental Status Change Comments: [place] poorly while MACROBID (NITROFURANTOIN MONOHYD/*05/31/2014 12 - Shortness of Breath MUCINEX DM (DEXTROMETHORPHAN-GUAI*06/28/2010 5 - Intolerance Comments: chest tightness PERCOCET (OXYCODONE-ACETAMINOPHEN)08/15/2013 11 - Vomiting PHENERGAN (PROMETHAZINE HCL) 04/10/2014 1 - Mental Status Change Comments: weird dreams PROPOFOL 03/01/2012 14 - Other: See Comments Comments: Sneezing and shortness of breath SODIUM 10/14/2005 Comments: Salt causes leg swelling VICODIN (HYDROCODONE-ACETAMINOPHE*04/10/2014 11 - Vomiting Date Reviewed: 02/05/2018 Reviewed by: Raquel Madird LPN - Fully Assessed Reason for Visit: Anticoagulation [8] Prescriptions as of 02/05/2018 Sig: MUPIROCIN 2 % TOPICAL OINTMENT Apply 1 application to affect* NITROFURANTOIN MACROCRYSTAL 5* Take 1 capsule by mouth daily* MELOXICAM 7.5 MG TABLET Take 1 tablet by mouth once d* WARFARIN 2 MG TABLET Take 1 tablet by mouth once d* WARFARIN 3 MG TABLET Take 3 mg daily or as directe* DILTIAZEM SR 180 MG 24 HR CAP Take 1 capsule by mouth twice* HYDROXYZINE HCL 10 MG TABLET Take 1 tablet by mouth three * GABAPENTIN 300 MG CAPSULE Take 1 capsule by mouth daily* GUAIFENESIN ER 600 MG TABLET,* Take 2 tablets by mouth twice* ALBUTEROL SULFATE HFA 90 MCG/* Inhale 2 Puffs as instructed * MAGNESIUM OXIDE 400 MG CAPSULE Take 1 capsule by mouth once * PHENAZOPYRIDINE 100 MG TABLET Take 1 tablet by mouth three * ALPRAZOLAM 0.25 MG TABLET Take 0.25 mg by mouth twice d* OXYBUTYNIN CHLORIDE 5 MG TABL* Take 1 tablet by mouth three * NITROGLYCERIN 0.4 MG SUBLINGU* Dissolve 1 tablet under the t* HYDROCODONE 5 MG-ACETAMINOPHE* Take 1 tablet by mouth every * TRAMADOL 50 MG TABLET Take 1 tablet by mouth every * LORAZEPAM 0.5 MG TABLET Take by mouth twice daily as* ACETAMINOPHEN 500 MG TABLET Take 500 mg by mouth every 8 * BLOOD PRESSURE TEST KIT-WRIST* 1 Device twice daily.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 TABLET Take 1 tablet by mouth three * GABAPENTIN 300 MG CAPSULE Take 1 capsule by mouth daily* GUAIFENESIN ER 600 MG TABLET,* Take 2 tablets by mouth twice* MAGNESIUM OXIDE 400 MG CAPSULE Take 1 capsule by mouth once * PHENAZOPYRIDINE 100 MG TABLET Take 1 tablet by mouth three * ALPRAZOLAM 0.25 MG TABLET Take 0.25 mg by mouth twice d* OXYBUTYNIN CHLORIDE 5 MG TABL* Take 1 tablet by mouth three * NITROGLYCERIN 0.4 MG SUBLINGU* Dissolve 1 tablet under the t* TRAMADOL 50 MG TABLET Take 1 tablet by mouth every * LORAZEPAM 0.5 MG TABLET Take by mouth twice daily as* ALBUTEROL SULFATE HFA 90 MCG/* Inhale 2 Puffs as instructed * Problem List As Of Date 12/24/2017 Noted Resolved FIBROMYALGIA [[id number]] Priority: B More... 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 OSTEOPENIA [M89.9, M94.9] INVALID FOR* Priority: B Lumbago [M54.5] Priority: B More... Depressive Disorder, not Elsewhere Classified [*INVALID FOR* Priority: A Medial Epicondylitis of Elbow [M77.00] INVALID FOR*01/30/2010 Degeneration of Intervertebral Disc, Site Unspe*INVALID FOR* Priority: A More... 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 Unspecified Vitamin D Deficiency [E55.9] INVALID FOR* Priority: B More... More... 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 Incomplete rotator cuff tear [M75.110] INVALID FOR* Impingement syndrome of left shoulder [M75.42] INVALID FOR* Left shoulder pain [M25.512] INVALID FOR* Rotator cuff (capsule) sprain [S43.429A] INVALID FOR* Other affections of shoulder region, not elsewh*INVALID FOR* Other instructions from your clinician: ASSESSMENT/PLAN: 1. Cellulitis of skin - ICD9: 682.9, ICD10: L03.90 - Begin treatment with clindamycin 300 mg orally three times a day and mupirocin (topical) - No lymphangetic streaking, this was defined for patient to watch for and to seek medical care immediately if appears - Area of cellulitis defined with pen, seek further attention if this area continues to enlarge - Follow up for recheck in one week with Dr. Vogt [facility] - Keep the area clean and dry -Clean with soap and water . Apply mupirocin ointment 2 - 3 times a day. -Tylenol or Ibuprofen for discomfort -Observe area for signs of infection: redness, warmth, foul odor, drainage or increase in discomfort. Call you primary care physician if this occurs. -Call your primary care physician's office for a follow up appointment. - MUPIROCIN 2 % TOPICAL OINTMENT - WOUND CULTURE AND GRAM STAIN - CLINDAMYCIN HCL 300 MG CAPSULE You can take an OTC probiotic such as Culturelle or Align to help with stomach upset/loose stool that you may get as a side effect of the antibiotic. Prescriptions ordered this encounter Disp Refills Start End MUPIROCIN 2 % TOPICAL OINTMENT 30 g 0 12/24/2017 Route: TOPICAL Sig: Apply 1 application to affected area three times daily. Location: burn CLINDAMYCIN HCL 300 MG CAPSULE 30 c* 0 12/24/2017 01/03/2018 Route: ORAL Sig: Take 1 capsule by mouth three times daily for 10 days. Encounter Status:Closed by MARLYN GUNTER CNP on 12/24/17 PROGRESS Observed: 12/24/2017 Status: COMPLETED Source: [place] 3:03 PM [facility] REPOSITORY HNO ID: [id number] Author: Calixto Garcia RN Service: (none) Author Type: (none) Type: Progress Notes Filed: 12/24/2017 3:05 PM Note Text: patient had inr completed at [facility] patients inr is 3.3 (patients inr range is 2.0-3.0) patient is currently taking 2mg alternating with 3mg patients last dose change was on 12/17/17 due to a high level of 3.1 (dose at that time was 2mg-3mg-3mg cycle) patient has had no changes in medication except for coumadin and no missed doses and no change in diet Advised patient that they would be contacted regarding medication dose and when to follow up after information is reviewed by provider. After provider review please contact the patient with information and schedule follow up appointment with coumadin clinic. FYI - patient has been scheduled for a 1 week follow up inr on 12/31/17 PROGRESS Observed: 12/17/2017 Status: COMPLETED Source: [place] 5:36 PM [facility] REPOSITORY HNO ID: [id number] Author: Calixto Garcia RN Service: (none) Author Type: (none) Type: Progress Notes Filed: 12/17/2017 5:36 PM Note Text: see phone note Hebert Mitchell ? 12/17/17 4:21 PM Note 2 alternating 3. Recheck 2 weeks. Hebert Mitchell MD ? PROGRESS Observed: 12/17/2017 Status: COMPLETED Source: [place] 4:00 PM [facility] REPOSITORY HNO ID: [id number] Author: Calixto Garcia RN Service: (none) Author Type: (none) Type: Progress Notes Filed: 12/17/2017 4:02 PM Note Text: patient had inr completed at [facility] patients inr is 3.1 (patients inr range is 2.0-3.0) patient is currently taking 2mg-3mg-3mg cycle patients last dose change was on 12/03/17 due to coming off an antibiotic (level of 2.4 and dose was 2mg daily) patient has had no changes in medication and no missed doses and no change in diet FYI - patient received 2nd degree avila on right foot Thursday saw pcp Advised patient that they would be contacted regarding medication dose and when to follow up after information is reviewed by provider. After provider review please contact the patient with information and schedule follow up appointment with coumadin clinic. FYI - patient has been scheduled for a 1 week follow up inr on 12/24/17 PROGRESS Observed: 12/11/2017 Status: COMPLETED Source: [place] 5:36 PM [facility] REPOSITORY HNO ID: [id number] Author: Calixto Garcia RN Service: (none) Author Type: (none) Type: Progress Notes Filed: 12/11/2017 5:37 PM Note Text: detailed message left for patient with information. PROGRESS Observed: 12/11/2017 Status: COMPLETED Source: [place] 3:30 PM [facility] REPOSITORY HNO ID: [id number] Author: Hebert Mitchell Service: (none) Author Type: Physician Type: Progress Notes Filed: 12/11/2017 5:37 PM Note Text: Same dose. 2 weeks. Hebert Mitchell MD PROGRESS Observed: 12/11/2017 Status: COMPLETED Source: [place] 3:30 PM [facility] REPOSITORY HNO ID: [id number] Author: Hebert Mitchell Service: (none) Author Type: Physician Type: Progress Notes Filed: 12/11/2017 5:37 PM Note Text: This note was created using NoteWriter. Subjective Karen Tom is a 72 year old female. Review of Systems Objective There were no vitals taken for this visit. Physical Exam Assessment and Plan PROGRESS Observed: 12/11/2017 Status: COMPLETED Source: [place] 3:14 PM [facility] REPOSITORY HNO ID: [id number] Author: Calixto Garcia RN Service: (none) Author Type: (none) Type: Progress Notes Filed: 12/11/2017 3:16 PM Note Text: patient had inr completed at [facility] patients inr is 2.8 (patients inr range is 2.0-3.0) patient is currently taking 2mg-3mg-3mg cycle patients last dose change was on 12/03/17 due to patient finished antibiotics (level of 2.4 and dose at that time was 2mg daily) patient has had no changes in medication except for the coumadin and no missed doses and no change in diet Advised patient that they would be contacted regarding medication dose and when to follow up after information is reviewed by provider. After provider review please contact the patient with information and schedule follow up appointment with coumadin clinic. FYI - patient has been scheduled for a 1 week follow up inr on 12/17/17 PROGRESS Observed: 12/04/2017 Status: COMPLETED Source: [place] 2:53 PM [facility] REPOSITORY HNO ID: [id number] Author: Calixto Garcia RN Service: (none) Author Type: (none) Type: Progress Notes Filed: 12/04/2017 2:54 PM Note Text: PATIENT NOTIFIED OF INFORMATION PROGRESS Observed: 12/03/2017 Status: COMPLETED Source: [place] 4:48 PM [facility] REPOSITORY HNO ID: [id number] Author: Hebert Mitchell Service: (none) Author Type: Physician Type: Progress Notes Filed: 12/04/2017 2:54 PM Note Text: Antibiotics and prednisone completed. Return to prior dose of 2-3-3. Recheck one week. Please notify Coumadin clinic that target is 2-3. Hebert Mitchell MD PROGRESS Observed: 12/03/2017 Status: COMPLETED Source: [place] 4:48 PM [facility] REPOSITORY HNO ID: [id number] Author: Hebert Mitchell Service: (none) Author Type: Physician Type: Progress Notes Filed: 12/04/2017 2:54 PM Note Text: This note was created using View3riter. Subjective Karen oTm is a 72 year old female. Review of Systems Objective There were no vitals taken for this visit. Physical Exam Assessment and Plan PROGRESS Observed: 12/03/2017 Status: COMPLETED Source: [place] 4:21 PM [facility] REPOSITORY HNO ID: [id number] Author: Calixto Garcia RN Service: (none) Author Type: (none) Type: Progress Notes Filed: 12/03/2017 4:23 PM Note Text: patient had inr completed at [facility] patients inr is 2.4 patient is currently taking 2mg daily patients last dose change unknown at this time as this is the first visit to the patient has had a change in medication and pt finished antibiotic and pred last week, and no missed doses and no change in diet FYI - please advise on what the inr range is for the patient as no range is listed. Advised patient that they would be contacted regarding medication dose and when to follow up after information is reviewed by provider. After provider review please contact the patient with information and schedule follow up appointment with coumadin clinic. PROTIME Collected: 11/26/2017 Status: F Source: [place] 4:32 PM [facility] REPOSITORY TYPE CODE TESTS RESULT OUT OF RANGE REFERENCE UNITS LAB PSEC 9.7-13.0 sec High PT Sec 25.0 LAB INR 0.9-1.3 High PT INR 2.6 Result Comment: Vitamin K Antagonist (VKA) Therapeutic Range: INR 2 to 3 (Target INR of 2.5) Note: For patients treated with VKA drugs, such as warfarin, the [place] [employer] 2012 Guideline recommends a therapeutic INR range of 2 to 3 (target INR of 2.5). This recommendation includes high-risk patients with antiphospholipid syndrome with previous arterial or venous thromboembolism, current-generation mechanical or bioprosthetic aortic heart valve replacement. Note: Patients with mechanical aortic valve replacement and additional risk factors for thromboembolic events (atrial fibrillation, previous thromboembolism, LV dysfunction, hypercoagulable conditions) or an older generation mechanical AVR (i.e., ball in-Cage) or any mechanical MVR should have a INR therapeutic range of 2.5 to 3.5 (target INR of 3). cindy Cuba. Chest 2012, 141:7S-47S Trey HOUGH et kylee. [facility] 2017, 70: 252-289 Performed By: #### PT #### [facility] [employer] [address], [place] [address] PROTIME Collected: 11/05/2017 Status: F Source: [place] 5:00 PM [facility] REPOSITORY TYPE CODE TESTS RESULT OUT OF RANGE REFERENCE UNITS LAB PSEC 9.7-13.0 sec High PT Sec 24.5 LAB INR 0.9-1.3 High PT INR 2.5 Result Comment: Vitamin K Antagonist (VKA) Therapeutic Range: INR 2 to 3 (Target INR of 2.5) Note: For patients treated with VKA drugs, such as warfarin, the [place] [employer] 2012 Guideline recommends a therapeutic INR range of 2 to 3 (target INR of 2.5). This recommendation includes high-risk patients with antiphospholipid syndrome with previous arterial or venous thromboembolism, current-generation mechanical or bioprosthetic aortic heart valve replacement. Note: Patients with mechanical aortic valve replacement and additional risk factors for thromboembolic events (atrial fibrillation, previous thromboembolism, LV dysfunction, hypercoagulable conditions) or an older generation mechanical AVR (i.e., ball in-Cage) or any mechanical MVR should have a INR therapeutic range of 2.5 to 3.5 (target INR of 3). Dequan PARSONS et kylee. Chest 2012, 141:7S-47S Trey HOUGH et al. [facility] 2017, 70: 252-289 Performed By: #### PT #### [facility] [employer] [address] [place], [place] [address] PROTIME Collected: 10/30/2017 Status: F Source: [place] 4:31 PM [facility] REPOSITORY TYPE CODE TESTS RESULT OUT OF RANGE REFERENCE UNITS LAB PSEC 9.7-13.0 sec High PT Sec 25.0 LAB INR 0.9-1.3 High PT INR 2.6 Result Comment: Vitamin K Antagonist (VKA) Therapeutic Range: INR 2 to 3 (Target INR of 2.5) Note: For patients treated with VKA drugs, such as warfarin, the [place] [employer] 2012 Guideline recommends a therapeutic INR range of 2 to 3 (target INR of 2.5). This recommendation includes high-risk patients with antiphospholipid syndrome with previous arterial or venous thromboembolism, current-generation mechanical or bioprosthetic aortic heart valve replacement. Note: Patients with mechanical aortic valve replacement and additional risk factors for thromboembolic events (atrial fibrillation, previous thromboembolism, LV dysfunction, hypercoagulable conditions) or an older generation mechanical AVR (i.e., ball in-Cage) or any mechanical MVR should have a INR therapeutic range of 2.5 to 3.5 (target INR of 3). Quentintt GH, et al. Chest 2012, 141:7S-47S Trey RA, et al. [facility] 2017, 70: 252-289 Performed By: #### PT #### [facility] [address] [place], [place] [address] Observed: 10/26/2017 Status: F Source: RUGBY CULTURE, URINE 3:35 PM [facility] REPOSITORY Urine Culture ORGANISM 1: Klebsiella pneumoniae sp pneum [place] Count >100,000 Klebsiella pneumoniae sp pneum: REACTION Amoxacillin/Clavulanic Acid $ <=2 S Ampicillin $ 16 R Ampicillin/Sulbactam $ 4 S Cefazolin $ <=4 S Cefepime $ <=1 S Ceftriaxone $ <=1 S Ciprofloxacin $ 1 S ESBL - Ertapenim $$$ <=0.5 S Gentamicin $ <=1 S Imipenem *NF <=0.25 S Levofloxacin $ 1 S Nitrofurantoin $ 256 R Piperacillin/Tazobactam $$ 8 S Tobramycin $ <=1 S Trimethoprim/Sulfametho $ <=20 S (NF) indicates non-formulary drug at [facility]. Approval by Infectious Disease Specialist required before non-formulary drugs may be ordered and/or dispensed. Performed By: #### [id number] #### [facility] [address] [place], [address] PROTIME Collected: 10/15/2017 Status: F Source: [place] 4:20 PM [facility] REPOSITORY TYPE CODE TESTS RESULT OUT OF RANGE REFERENCE UNITS LAB PSEC 9.7-13.0 sec High PT Sec 20.9 LAB INR 0.9-1.3 High PT INR 2.1 Result Comment: Vitamin K Antagonist (VKA) Therapeutic Range: INR 2 to 3 (Target INR of 2.5) Note: For patients treated with VKA drugs, such as warfarin, the [place] [employer] 2012 Guideline recommends a therapeutic INR range of 2 to 3 (target INR of 2.5). This recommendation includes high-risk patients with antiphospholipid syndrome with previous arterial or venous thromboembolism, current-generation mechanical or bioprosthetic aortic heart valve replacement. Note: Patients with mechanical aortic valve replacement and additional risk factors for thromboembolic events (atrial fibrillation, previous thromboembolism, LV dysfunction, hypercoagulable conditions) or an older generation mechanical AVR (i.e., ball in-Cage) or any mechanical MVR should have a INR therapeutic range of 2.5 to 3.5 (target INR of 3). Dequan GH, et al. Chest 2012, 141:7S-47S Trey RA, et al. [facility] 2017, 70: 252-289 Performed By: #### PT #### [facility] [address] [address] PROGRESS Observed: 10/12/2017 Status: COMPLETED Source: [place] 4:30 PM [facility] REPOSITORY O ID: [id number] Author: Hebert Mitchell Service: (none) Author Type: Physician Type: Progress Notes Filed: 10/12/2017 5:05 PM Note Text: PERTINENT CARDIAC HISTORY Atrial flutter - cardioversion, declines further intervention Proarrhythmia on flecainide CHF - diastolic ADHERENCE TO GUIDELINES LUIS MANUEL-I or ARB for HF with prior LVEF<40 (NQF 0081) - N/A ASA or Plavix for ASHD (NQF 0067) - N/A Beta avtar for ASHD with prior DC or prior LVEF<40 (NQF 0070) - N/A Beta avtar for HF with prior LVEF<40 (NQF 0083) - N/A LUIS MANUEL-I or ARB for ASHD with DM or prior LVEF<40 (NQF 0066) - N/A Statin therapy for ASHD or FHL or DM - N/A BMI documented and plan if >25 (NQF 0421) - lifestyle recommendation form Tobacco use screening and referral (NQF 0028) - lifestyle recommendation form Recommendation for whole food, plant based diet - lifestyle recommendation form CLINICAL IMPRESSION/PLAN: Karen Tom has well-controlled fibrillation. I am concerned about the possibility of sleep apnea, given her constellation of symptoms. Sleep study will be arranged. I've recommended that she continue her current medication. She has been getting labs in primary care. We will get a report of recent labs. I will see her in 6 months or as needed. If there is increased chest pain or shortness of breath, she has been advised to contact me. Her exercise intolerance and fatigue are likely related to sleep apnea. If these do not improve, we will consider stress testing and imaging of left ventricular function. Written and verbal health teaching given to patient, patient verbalizes understanding and agrees with treatment plan. DIAGNOSIS FOR VISIT: Atrial flutter HISTORY OF PRESENT ILLNESS Karen Tom returns for follow-up of her atrial arrhythmia. She reports that she's had a few palpitations but these have been under good control. She's had no chest discomfort. She reports decreased exercise tolerance and fatigue. She is not sleeping well. She sleeps alone so she does not know if she snores. She finds herself dropping off to sleep during the day. She's had no syncope, TIAs, amaurosis or claudication. ALLERGIES: ALLERGIES Allergen Reactions - Amoxicillin Vomiting hives, syncope - Bactrim [Sulfametho* GI Upset - Codeine Other: See Comments made me half blind - Cymbalta [Duloxetin* Mental Status Change [place] poorly while - Macrobid [Nitrofura* Shortness of Breath - Mucinex Dm [Dextrom* Intolerance chest tightness - Percocet [Oxycodone* Vomiting - Phenergan [Prometha* Mental Status Change weird dreams - Propofol Other: See Comments Sneezing and shortness of breath - Sodium Salt causes leg swelling - Vicodin [Hydrocodon* Vomiting CURRENT OUTPATIENT MEDICATIONS: warfarin (COUMADIN) 2 mg tablet Take 1 tablet by mouth once daily. warfarin (COUMADIN) 3 mg tablet Take 3 mg daily or as directed by your physician diltiazem CD (CARTIA XT) 180 mg 24 hr capsule Take 1 capsule by mouth twice daily. albuterol HFA (PROVENTIL HFA, VENTOLIN HFA) 90 mcg/actuation inhaler Inhale 2 Puffs as instructed every 6 hours as needed for Wheezing/Shortness of Breath. HYDROcodone-acetaminophen (NORCO) 5-325 mg per tablet Take 1 tablet by mouth every 6 hours as needed. acetaminophen (TYLENOL) 500 mg tablet Take 500 mg by mouth every 8 hours as needed. Blood Pressure Test Kit-Wrist kit 1 Device twice daily. Cholecalciferol, Vitamin D3, 50,000 unit cap one WEEKLY (vitamin D) triamcinolone acetonide 0.1 % cream Apply 1 application to affected area three times daily. Apply sparingly to area for rash/itching. hydrOXYzine HCl (ATARAX) 10 mg tablet Take 1 tablet by mouth three times daily as needed. gabapentin (NEURONTIN) 300 mg capsule Take 1 capsule by mouth daily at bedtime. guaiFENesin (MUCINEX) 600 mg 12 hr tablet Take 2 tablets by mouth twice daily. magnesium oxide 400 mg cap Take 1 capsule by mouth once daily. phenazopyridine (PYRIDIUM, GERIDIUM) 100 mg tablet Take 1 tablet by mouth three times daily as needed for Pain. ALPRAZolam (XANAX) 0.25 mg tablet Take 0.25 mg by mouth twice daily as needed. oxybutynin (DITROPAN) 5 mg tablet Take 1 tablet by mouth three times daily. Start with one a day and work up to 3 times a day nitroglycerin sublingual (NITROQUICK) 0.4 mg SL tablet Dissolve 1 tablet under the tongue as needed. FOR CHEST PAIN. IF NO RELIEF CALL 911 traMADol (ULTRAM) 50 mg tablet Take 1 tablet by mouth every 6 hours as needed. LORazepam (ATIVAN) 0.5 mg tab Take by mouth twice daily as needed. albuterol HFA (VENTOLIN HFA) 90 mcg/actuation INHALATION inhaler Inhale 2 Puffs as instructed every 6 hours as needed. PHYSICAL EXAMINATION: She appears somewhat depressed. She is not her usual jovial self. VITAL SIGNS: BP 121/81 Pulse 82 Wt 158 lb 3.2 oz (71.8kg) Chest: Clear to percussion and auscultation. Trachea is midline. Air entry is equal. Cardiac: Irregularly irregular rhythm. S1 and S2 are normal. PMI is nondisplaced. There is a soft systolic ejection murmur. Carotids are brisk without bruits. JVP is less than 10 cm. Abdomen: Soft and nontender. There are no pulsatile masses or bruits. No liver enlargement. Bowel sounds are active. Extremities: Trace edema. Pulses are intact and symmetrical. EKG shows atrial fibrillation with variable AV conduction. There is incomplete right bundle branch block. No significant change is seen since 09/27/15. No recent labs are available. Electronically Signed: Hebert Mitchell MD October 12, 2017 4:30 PM CC: Leonard Vogt MD CNOV Observed: 10/12/2017 Status: COMPLETED Source: [place] 4:00 PM [facility] OTHER CAMPUS REPOSITORY Office Visit (AGCARDWST) KAREN TOM ([id number]) 1945 F Date Time Provider Department 10/12/17 4:00 PM HEBERT MITCHELL AGCARDWST During your visit today, we recorded the following information about you: Pulse Blood pressure Weight 82/minute 121/81 71.8 kg Hebert Mitchell MD 10/12/2017 5:05 PM Signed PERTINENT CARDIAC HISTORY Atrial flutter - cardioversion, declines further intervention Proarrhythmia on flecainide CHF - diastolic ADHERENCE TO GUIDELINES LUIS MANUEL-I or ARB for HF with prior LVEF<40 (NQF 0081) - N/A ASA or Plavix for ASHD (NQF 0067) - N/A Beta avtar for ASHD with prior DC or prior LVEF<40 (NQF 0070) - N/A Beta avtar for HF with prior LVEF<40 (NQF 0083) - N/A LUIS MANUEL-I or ARB for ASHD with DM or prior LVEF<40 (NQF 0066) - N/A Statin therapy for ASHD or FHL or DM - N/A BMI documented and plan if >25 (NQF 0421) - lifestyle recommendation form Tobacco use screening and referral (NQF 0028) - lifestyle recommendation form Recommendation for whole food, plant based diet - lifestyle recommendation form CLINICAL IMPRESSION/PLAN: Karen Tom has well-controlled fibrillation. I am concerned about the possibility of sleep apnea, given her constellation of symptoms. Sleep study will be arranged. I've recommended that she continue her current medication. She has been getting labs in primary care. We will get a report of recent labs. I will see her in 6 months or as needed. If there is increased chest pain or shortness of breath, she has been advised to contact me. Her exercise intolerance and fatigue are likely related to sleep apnea. If these do not improve, we will consider stress testing and imaging of left ventricular function. Written and verbal health teaching given to patient, patient verbalizes understanding and agrees with treatment plan. DIAGNOSIS FOR VISIT: Atrial flutter HISTORY OF PRESENT ILLNESS Karen Tom returns for follow-up of her atrial arrhythmia. She reports that she's had a few palpitations but these have been under good control. She's had no chest discomfort. She reports decreased exercise tolerance and fatigue. She is not sleeping well. She sleeps alone so she does not know if she snores. She finds herself dropping off to sleep during the day. She's had no syncope, TIAs, amaurosis or claudication. ALLERGIES: ALLERGIES Allergen Reactions - Amoxicillin Vomiting hives, syncope - Bactrim [Sulfametho* GI Upset - Codeine Other: See Comments made me half blind - Cymbalta [Duloxetin* Mental Status Change [place] poorly while - Macrobid [Nitrofura* Shortness of Breath - Mucinex Dm [Dextrom* Intolerance chest tightness - Percocet [Oxycodone* Vomiting - Phenergan [Prometha* Mental Status Change weird dreams - Propofol Other: See Comments Sneezing and shortness of breath - Sodium Salt causes leg swelling - Vicodin [Hydrocodon* Vomiting CURRENT OUTPATIENT MEDICATIONS: warfarin (COUMADIN) 2 mg tablet Take 1 tablet by mouth once daily. warfarin (COUMADIN) 3 mg tablet Take 3 mg daily or as directed by your physician diltiazem CD (CARTIA XT) 180 mg 24 hr capsule Take 1 capsule by mouth twice daily. albuterol HFA (PROVENTIL HFA, VENTOLIN HFA) 90 mcg/actuation inhaler Inhale 2 Puffs as instructed every 6 hours as needed for Wheezing/Shortness of Breath. HYDROcodone-acetaminophen (NORCO) 5-325 mg per tablet Take 1 tablet by mouth every 6 hours as needed. acetaminophen (TYLENOL) 500 mg tablet Take 500 mg by mouth every 8 hours as needed. Blood Pressure Test Kit-Wrist kit 1 Device twice daily. Cholecalciferol, Vitamin D3, 50,000 unit cap one WEEKLY (vitamin D) triamcinolone acetonide 0.1 % cream Apply 1 application to affected area three times daily. Apply sparingly to area for rash/itching. hydrOXYzine HCl (ATARAX) 10 mg tablet Take 1 tablet by mouth three times daily as needed. gabapentin (NEURONTIN) 300 mg capsule Take 1 capsule by mouth daily at bedtime. guaiFENesin (MUCINEX) 600 mg 12 hr tablet Take 2 tablets by mouth twice daily. magnesium oxide 400 mg cap Take 1 capsule by mouth once daily. phenazopyridine (PYRIDIUM, GERIDIUM) 100 mg tablet Take 1 tablet by mouth three times daily as needed for Pain. ALPRAZolam (XANAX) 0.25 mg tablet Take 0.25 mg by mouth twice daily as needed. oxybutynin (DITROPAN) 5 mg tablet Take 1 tablet by mouth three times daily. Start with one a day and work up to 3 times a day nitroglycerin sublingual (NITROQUICK) 0.4 mg SL tablet Dissolve 1 tablet under the tongue as needed. FOR CHEST PAIN. IF NO RELIEF CALL 911 traMADol (ULTRAM) 50 mg tablet Take 1 tablet by mouth every 6 hours as needed. LORazepam (ATIVAN) 0.5 mg tab Take by mouth twice daily as needed. albuterol HFA (VENTOLIN HFA) 90 mcg/actuation INHALATION inhaler Inhale 2 Puffs as instructed every 6 hours as needed. PHYSICAL EXAMINATION: She appears somewhat depressed. She is not her usual jovial self. VITAL SIGNS: BP 121/81 Pulse 82 Wt 158 lb 3.2 oz (71.8kg) Chest: Clear to percussion and auscultation. Trachea is midline. Air entry is equal. Cardiac: Irregularly irregular rhythm. S1 and S2 are normal. PMI is nondisplaced. There is a soft systolic ejection murmur. Carotids are brisk without bruits. JVP is less than 10 cm. Abdomen: Soft and nontender. There are no pulsatile masses or bruits. No liver enlargement. Bowel sounds are active. Extremities: Trace edema. Pulses are intact and symmetrical. EKG shows atrial fibrillation with variable AV conduction. There is incomplete right bundle branch block. No significant change is seen since 09/27/15. No recent labs are available. Electronically Signed: Hebert Mitchell MD October 12, 2017 4:30 PM CC: MD Hebert Yeboah MD 10/12/2017 4:31 PM Signed LIFESTYLE CHANGE A healthy lifestyle is the most important component of your overall treatment plan. Please give serious thought to the following areas and commit to making terminal gauger changes. EAT A WHOLE FOOD, PLANT BASED DIET The nutrition your body gets is more important than the medicine you take. What matters most is the overall way you eat. We encourage you to minimize the use of animal products (which include dairy and all meats except fatty fish) and use whole, unprocessed plant foods to provide your protein, vitamins and other nutrients. We have a lot of information to share with you on this topic. We also hold Shared Medical Appointments, where you can come visit with Dr. Mitchell in the company of other patients and spend over an hour talking about the challenges of changing the way you eat. This is not a diet. It is a way of life that you will keep with you. EXERCISE REGULARLY It is not important to spend hours in the gym, lifting weights and perspiring heavily. A total of 2-3 hours per week of aerobic (causing you to be moderately short of breath) exercise is sufficient to improve your health. Talk to us before you begin a new exercise program, if you have heart disease or experience shortness of breath or chest pain. REDUCE STRESS Chronic emotional and physical stress leads to disease. Ways of reducing stress include meditation, visualization, prayer, yoga and other forms of relaxation therapy. Consistency is the murray. Find a technique that works for you and do it every day. CULTIVATE RELATIONSHIPS Loneliness and isolation have a major negative impact on health. Seek out others who can love, care for and nurture you. Avoid hurtful relationships. MAINTAIN IDEAL BODY WEIGHT The best way to do this is to do all the things above. Our bodies naturally find the right weight if we keep moving and feed ourselves the right food. If your BMI is greater than 25, we strongly recommend a referral to a weight management program. Please speak to us or your family physician about available programs. AVOID NICOTINE IN ALL FORMS This includes all tobacco products, whether chewed, smoked, vaped, or rubbed on the skin. Smoking cessation programs, which can make use of tobacco substitutes, medications to suppress cravings and behavior management, are available. Please contact your family physician about programs in your area. Referring Provider: HEBERT MITCHELL [[id number]] Allergies As of Date: 10/12/2017 Noted Allergy Reaction AMOXICILLIN 10/14/2005 11 - Vomiting Comments: hives, syncope BACTRIM (SULFAMETHOXAZOLE-TRIMETH*10/14/2005 8 - GI Upset CODEINE 10/14/2005 14 - Other: See Comments Comments: made me half blind CYMBALTA (DULOXETINE) 02/26/2009 1 - Mental Status Change Comments: [place] poorly while MACROBID (NITROFURANTOIN MONOHYD/*05/31/2014 12 - Shortness of Breath MUCINEX DM (DEXTROMETHORPHAN-GUAI*06/28/2010 5 - Intolerance Comments: chest tightness PERCOCET (OXYCODONE-ACETAMINOPHEN)08/15/2013 11 - Vomiting PHENERGAN (PROMETHAZINE HCL) 04/10/2014 1 - Mental Status Change Comments: weird dreams PROPOFOL 03/01/2012 14 - Other: See Comments Comments: Sneezing and shortness of breath SODIUM 10/14/2005 Comments: Salt causes leg swelling VICODIN (HYDROCODONE-ACETAMINOPHE*04/10/2014 11 - Vomiting Date Reviewed: 10/12/2017 Reviewed by: Brenda (Stuart) Keke - Fully Assessed Reason for Visit: Established Patient [175] Cmt: 8 month follow-up Afib Primary Visit Diagnosis:Atypical atrial flutter (HCC) [I48.4] Order(s):CONSULT TO SLEEP MEDICINE - ADULT [[id number]] Order #: [id number]: 1 Prescriptions as of 10/12/2017 Sig: WARFARIN 2 MG TABLET Take 1 tablet by mouth once d* WARFARIN 3 MG TABLET Take 3 mg daily or as directe* DILTIAZEM SR 180 MG 24 HR CAP Take 1 capsule by mouth twice* ALBUTEROL SULFATE HFA 90 MCG/* Inhale 2 Puffs as instructed * HYDROCODONE 5 MG-ACETAMINOPHE* Take 1 tablet by mouth every * ACETAMINOPHEN 500 MG TABLET Take 500 mg by mouth every 8 * BLOOD PRESSURE TEST KIT-WRIST* 1 Device twice daily. CHOLECALCIFEROL (VITAMIN D3) * one WEEKLY (vitamin D) Patient taking differently: once every month. one WEEKLY * TRIAMCINOLONE ACETONIDE 0.1 %* Apply 1 application to affect* HYDROXYZINE HCL 10 MG TABLET Take 1 tablet by mouth three * GABAPENTIN 300 MG CAPSULE Take 1 capsule by mouth daily* GUAIFENESIN ER 600 MG TABLET,* Take 2 tablets by mouth twice* MAGNESIUM OXIDE 400 MG CAPSULE Take 1 capsule by mouth once * PHENAZOPYRIDINE 100 MG TABLET Take 1 tablet by mouth three * ALPRAZOLAM 0.25 MG TABLET Take 0.25 mg by mouth twice d* OXYBUTYNIN CHLORIDE 5 MG TABL* Take 1 tablet by mouth three * NITROGLYCERIN 0.4 MG SUBLINGU* Dissolve 1 tablet under the t* TRAMADOL 50 MG TABLET Take 1 tablet by mouth every * LORAZEPAM 0.5 MG TABLET Take by mouth twice daily as* ALBUTEROL SULFATE HFA 90 MCG/* Inhale 2 Puffs as instructed * Problem List As Of Date 10/12/2017 Noted Resolved FIBROMYALGIA [[id number]] Priority: B More... 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 OSTEOPENIA [M89.9, M94.9] INVALID FOR* Priority: B Lumbago [M54.5] Priority: B More... Depressive Disorder, not Elsewhere Classified [*INVALID FOR* Priority: A Medial Epicondylitis of Elbow [M77.00] INVALID FOR*01/30/2010 Degeneration of Intervertebral Disc, Site Unspe*INVALID FOR* Priority: A More... 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 Unspecified Vitamin D Deficiency [E55.9] INVALID FOR* Priority: B More... More... 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 Incomplete rotator cuff tear [M75.110] INVALID FOR* Impingement syndrome of left shoulder [M75.42] INVALID FOR* Left shoulder pain [M25.512] INVALID FOR* Rotator cuff (capsule) sprain [S43.429A] INVALID FOR* Other affections of shoulder region, not elsewh*INVALID FOR* Other instructions from your clinician: LIFESTYLE CHANGE A healthy lifestyle is the most important component of your overall treatment plan. Please give serious thought to the following areas and commit to making jail changes. EAT A WHOLE FOOD, PLANT BASED DIET The nutrition your body gets is more important than the medicine you take. What matters most is the overall way you eat. We encourage you to minimize the use of animal products (which include dairy and all meats except fatty fish) and use whole, unprocessed plant foods to provide your protein, vitamins and other nutrients. We have a lot of information to share with you on this topic. We also hold Shared Medical Appointments, where you can come visit with Dr. Mitchell in the company of other patients and spend over an hour talking about the challenges of changing the way you eat. This is not a diet. It is a way of life that you will keep with you. EXERCISE REGULARLY It is not important to spend hours in the gym, lifting weights and perspiring heavily. A total of 2-3 hours per week of aerobic (causing you to be moderately short of breath) exercise is sufficient to improve your health. Talk to us before you begin a new exercise program, if you have heart disease or experience shortness of breath or chest pain. REDUCE STRESS Chronic emotional and physical stress leads to disease. Ways of reducing stress include meditation, visualization, prayer, yoga and other forms of relaxation therapy. Consistency is the murray. Find a technique that works for you and do it every day. CULTIVATE RELATIONSHIPS Loneliness and isolation have a major negative impact on health. Seek out others who can love, care for and nurture you. Avoid hurtful relationships. MAINTAIN IDEAL BODY WEIGHT The best way to do this is to do all the things above. Our bodies naturally find the right weight if we keep moving and feed ourselves the right food. If your BMI is greater than 25, we strongly recommend a referral to a weight management program. Please speak to us or your family physician about available programs. AVOID NICOTINE IN ALL FORMS This includes all tobacco products, whether chewed, smoked, vaped, or rubbed on the skin. Smoking cessation programs, which can make use of tobacco substitutes, medications to suppress cravings and behavior management, are available. Please contact your family physician about programs in your area. Follow-up and Disposition History Recorded Encounter Status:Closed by HEBERT MITCHELL MD on 10/12/17 PROTIME Collected: 10/01/2017 Status: F Source: [place] 3:27 PM [facility] REPOSITORY TYPE CODE TESTS RESULT OUT OF RANGE REFERENCE UNITS LAB PSEC 9.7-13.0 sec High PT Sec 26.0 LAB INR 0.9-1.3 High PT INR 2.7 Result Comment: Vitamin K Antagonist (VKA) Therapeutic Range: INR 2 to 3 (Target INR of 2.5) Note: For patients treated with VKA drugs, such as warfarin, the [place] [employer] 2012 Guideline recommends a therapeutic INR range of 2 to 3 (target INR of 2.5). This recommendation includes high-risk patients with antiphospholipid syndrome with previous arterial or venous thromboembolism, current-generation mechanical or bioprosthetic aortic heart valve replacement. Note: Patients with mechanical aortic valve replacement and additional risk factors for thromboembolic events (atrial fibrillation, previous thromboembolism, LV dysfunction, hypercoagulable conditions) or an older generation mechanical AVR (i.e., ball in-Cage) or any mechanical MVR should have a INR therapeutic range of 2.5 to 3.5 (target INR of 3). Dequan GH, et al. Chest 2012, 141:7S-47S Trey HOUGH et al. [facility] 2017, 70: 252-289 Performed By: #### PT #### [facility] [address] [address] PROTIME Collected: 09/24/2017 Status: F Source: [place] 2:26 PM [facility] REPOSITORY TYPE CODE TESTS RESULT OUT OF RANGE REFERENCE UNITS LAB PSEC 9.7-13.0 sec High PT Sec 29.3 LAB INR 0.9-1.3 High PT INR 3.0 Result Comment: Vitamin K Antagonist (VKA) Therapeutic Range: INR 2 to 3 (Target INR of 2.5) Note: For patients treated with VKA drugs, such as warfarin, the [place] [employer] 2012 Guideline recommends a therapeutic INR range of 2 to 3 (target INR of 2.5). This recommendation includes high-risk patients with antiphospholipid syndrome with previous arterial or venous thromboembolism, current-generation mechanical or bioprosthetic aortic heart valve replacement. Note: Patients with mechanical aortic valve replacement and additional risk factors for thromboembolic events (atrial fibrillation, previous thromboembolism, LV dysfunction, hypercoagulable conditions) or an older generation mechanical AVR (i.e., ball in-Cage) or any mechanical MVR should have a INR therapeutic range of 2.5 to 3.5 (target INR of 3). Dequan GH, et al. Chest 2012, 141:7S-47S Trey RA, et al. [facility] 2017, 70: 252-289 Performed By: #### PT #### [facility] [address] [address] Observed: 09/18/2017 Status: F Source: RUGBY CULTURE, URINE 4:54 PM [facility] REPOSITORY Urine Culture ORGANISM 1: Presumptive E. coli [place] Count 50,000-80,000 Presumptive E. coli: REACTION Amoxacillin/Clavulanic Acid $ <=2 S Ampicillin $ 8 S Ampicillin/Sulbactam $ 4 S Cefazolin $ <=4 S Cefepime $ <=1 S Ceftriaxone $ <=1 S Ciprofloxacin $ <=0.25 S ESBL - Ertapenim $$$ <=0.5 S Gentamicin $ <=1 S Imipenem *NF <=0.25 S Levofloxacin $ <=0.12 S Nitrofurantoin $ <=16 S Piperacillin/Tazobactam $$ <=4 S Tobramycin $ <=1 S Trimethoprim/Sulfametho $ <=20 S (NF) indicates non-formulary drug at [facility]. Approval by Infectious Disease Specialist required before non-formulary drugs may be ordered and/or dispensed. Performed By: #### [id number] #### [facility] [address] [place], [address] PROTIME Collected: 08/27/2017 Status: F Source: [place] 1:12 PM [facility] REPOSITORY TYPE CODE TESTS RESULT OUT OF RANGE REFERENCE UNITS LAB PSEC 9.7-13.0 sec High PT Sec 22.4 LAB INR 0.9-1.3 High PT INR 2.3 Result Comment: Vitamin K Antagonist (VKA) Therapeutic Range: INR 2 to 3 (Target INR of 2.5) Note: For patients treated with VKA drugs, such as warfarin, the [place] [employer] 2012 Guideline recommends a therapeutic INR range of 2 to 3 (target INR of 2.5). This recommendation includes high-risk patients with antiphospholipid syndrome with previous arterial or venous thromboembolism, current-generation mechanical or bioprosthetic aortic heart valve replacement. Note: Patients with mechanical aortic valve replacement and additional risk factors for thromboembolic events (atrial fibrillation, previous thromboembolism, LV dysfunction, hypercoagulable conditions) or an older generation mechanical AVR (i.e., ball in-Cage) or any mechanical MVR should have a INR therapeutic range of 2.5 to 3.5 (target INR of 3). Dequan GH, et al. Chest 2012, 141:7S-47S Trey HOUGH et al. [facility] 2017, 70: 252-289 Performed By: #### PT #### [facility] [address] [place], [place] [address] PROGRESS Observed: 08/24/2017 Status: COMPLETED Source: [place] 3:59 PM [facility] REPOSITORY HNO ID: [id number] Author: Leia Bunch Ma Service: (none) Author Type: (none) Type: Progress Notes Filed: 09/14/2017 9:07 AM Note Text: PT ASSESSMENT - CASTING ROOM Karen presents for Application of brace. Applied Actimove Rhizo thumb brace size medium to Left hand Patient has been instructed in Care and proper application of brace. Patient verbalized understanding. Leia Bunch Ma PROGRESS Observed: 08/24/2017 Status: COMPLETED Source: [place] 3:43 PM [facility] REPOSITORY HNO ID: [id number] Author: Lester Pollard Service: (none) Author Type: Physician Type: Progress Notes Filed: 09/14/2017 9:07 AM Note Text: Lester Pollard MD Department of Orthopaedics [facility] [address] [place] [address] Dept: [phone] Dept August 24, 2017 CHIEF COMPLAINT: New problem (Cyst left wrist, last seen 09-25-14 for left shoulder pain) Ms. Karen Tom is a 71 year old female who presents with a new problem. At time she had 8 out of 10 discomfort in the left wrist and thumb. She also has noticed a small area or bump on the left wrist. Her thumb is giving her the most trouble. Does not report any injury or trauma. She is right-hand dominant. No numbness or tingling. ASSESSMENT: M18.12 Primary osteoarthritis of first carpometacarpal joint of left hand (primary encounter diagnosis) M25.532 Left wrist pain M67.49, M71.39, M67.89 Ganglion and cyst of synovium, tendon and bursa PLAN: observation for the volar wrist ganglion. Thumb brace for the left basal joint. Ms. Karen Tom was advised as to contrast therapies and/or to take analgesics/anti-inflammatories as needed and all contraindications were reviewed. OBJECTIVE: Ms. Karen Tom is a pleasant 71 year old in no apparent distress. Gen:There were no vitals taken for this visit. nl development, non obese, no deformities ENT: Normocephalic, normal hearing, moist mucosa CV: Pulses:Radial= 2+ and symmetric, capillary refill < 2 secs, no peripheral edema/varicosities Skin: no rash, bruising or lesions. Good turgor. Psych: cooperative and appropriate, alert and oriented x 3, good mood and affect. Musculoskeletal: tender to palpation over the thumb, CMC joint. She has some mild crepitance and pain with grind testing. No hyperextension of the MCP. She does have a pea-sized volar ganglion cyst. Nontender. Freely mobile. Median, radial and ulnar nerves are intact. Imaging: IMPRESSION: Bone demineralization and 1st CMC joint osteoarthrosis Textile Machine Operator: DIVYA ? Transcribe Date/Time: Aug 24 2017 ?5:35P Dictated by : BRITTA CRUZ MD This examination was interpreted and the report reviewed and electronically signed by: BRITTA CRUZ MD on Aug 24 2017 ?5:35PM ?EST Results-Findings * * *Final Report* * * DATE OF EXAM: Aug 24 2017 ?2:50PM ? WRX ? [id number] ?- ?XR WRIST 3V PA/LAT/OBL LT ?/ PROCEDURE REASON: Pain, unspecified ?? ? * * * * Physician Interpretation * * * * ?PROCEDURE: ?Left wrist INDICATION: ?Pain, unspecified ? . TECHNIQUE: ?XR WRIST 3V PA/LAT/OBL LT COMPARISON: ?None FINDINGS: Significant bone demineralization consistent with osteopenia or osteoporosis. ?No fracture or dislocation. ?Moderate 1st CMC joint osteoarthrosis with joint space narrowing and mild marginal spur formation. ?No erosions or focal tissue swelling. Supporting Subjective Information Below: Past Surgical History: PAST SURGICAL HISTORY Procedure Laterality Date - ARTHROS SHLDR DX W/WO SYNV BX 04/05/2014 Left shoulder - DELIVERY ONLY 1962,1965 , low cervical - COLONOSCOP W/ OR W/O BRSH SPEC 02/27/2011 Colonoscopy - COLPOSCOPY (VAGINOSCOPY) 1984 Colposcopy - HYSTERECTOMY HX 07/2013 - PAST SURGICAL HISTORY OF 1984 cryotherapy - PAST SURGICAL HISTORY OF 1984 conization - PAST SURGICAL HISTORY OF 06/11/09 lumbar decompression surgery for stenosis -- Dr. Leonard Mendoza - PULMONARY FUNCTION TEST 08/21/2003 complete - REMOVAL GALLBLADDER 1976 laparoscopic Cholecystectomy - REPAIR COMPL ROTATOR CUFF AVULSN,CHR 04/05/2014 Left shoulder Medications: Current Outpatient Prescriptions: warfarin (COUMADIN) 2 mg tablet Take 1 tablet by mouth once daily. warfarin (COUMADIN) 3 mg tablet Take 3 mg daily or as directed by your physician diltiazem CD (CARTIA XT) 180 mg 24 hr capsule Take 1 capsule by mouth twice daily. albuterol HFA (PROVENTIL HFA, VENTOLIN HFA) 90 mcg/actuation inhaler Inhale 2 Puffs as instructed every 6 hours as needed for Wheezing/Shortness of Breath. ALPRAZolam (XANAX) 0.25 mg tablet Take 0.25 mg by mouth twice daily as needed. HYDROcodone-acetaminophen (NORCO) 5-325 mg per tablet Take 1 tablet by mouth every 6 hours as needed. acetaminophen (TYLENOL) 500 mg tablet Take 500 mg by mouth every 8 hours as needed. Blood Pressure Test Kit-Wrist kit 1 Device twice daily. triamcinolone acetonide 0.1 % cream Apply 1 application to affected area three times daily. Apply sparingly to area for rash/itching. hydrOXYzine HCl (ATARAX) 10 mg tablet Take 1 tablet by mouth three times daily as needed. gabapentin (NEURONTIN) 300 mg capsule Take 1 capsule by mouth daily at bedtime. guaiFENesin (MUCINEX) 600 mg 12 hr tablet Take 2 tablets by mouth twice daily. magnesium oxide 400 mg cap Take 1 capsule by mouth once daily. phenazopyridine (PYRIDIUM, GERIDIUM) 100 mg tablet Take 1 tablet by mouth three times daily as needed for Pain. oxybutynin (DITROPAN) 5 mg tablet Take 1 tablet by mouth three times daily. Start with one a day and work up to 3 times a day nitroglycerin sublingual (NITROQUICK) 0.4 mg SL tablet Dissolve 1 tablet under the tongue as needed. FOR CHEST PAIN. IF NO RELIEF CALL 911 traMADol (ULTRAM) 50 mg tablet Take 1 tablet by mouth every 6 hours as needed. LORazepam (ATIVAN) 0.5 mg tab Take by mouth twice daily as needed. Cholecalciferol, Vitamin D3, 50,000 unit cap one WEEKLY (vitamin D) albuterol HFA (VENTOLIN HFA) 90 mcg/actuation INHALATION inhaler Inhale 2 Puffs as instructed every 6 hours as needed. No current facility-administered medications for this visit. Allergies: Amoxicillin; Bactrim [Sulfamethoxazole-Trimethoprim]; Codeine; Cymbalta [Duloxetine]; Macrobid [Nitrofurantoin Monohyd/M- Cryst]; Mucinex Dm [Dextromethorphan-Guaifenesin]; Percocet [Oxycodone-Acetaminophen]; Phenergan [Promethazine Hcl]; Propofol; Sodium; Vicodin [Hydrocodone-Acetaminophen] ROS: General (negative for fatigue, malaise, weight loss/gain) HEENT (negative for headache, earache, recent vision changes, sinus pain, sore throat) Respiratory (no recent shortness of breath, hemoptysis) CV (negative for chest tightness, palpitations) Musculoskeletal (see HPI) Psych (no depression, anxiety) This note was partially generated using [employer] voice recognition system, and there may be some incorrect words, spellings, and punctuation that were not noted in checking the note before saving. Lester Pollard MD PROGRESS Observed: 08/24/2017 Status: COMPLETED Source: [place] 3:20 PM [facility] REPOSITORY HNO ID: [id number] Author: Trisha Matos RN Service: (none) Author Type: (none) Type: Progress Notes Filed: 09/14/2017 9:07 AM Note Text: AMB ROOMING INTAKE FLOWSHEET DATA Risk Screening Do you have concerns about personal safety or safety in the home?: No Pain Pain Score: 8/10 Pain Location: Wrist-Left Description: Aching Duration Units: Unknown Frequency: Continuous Intervention: Medication Patient presents with: New problem: Cyst left wrist, last seen 09-25-14 for left shoulder pain Pt. notes hard pea-sized lump on volar side of left wrist. She states it is causing pain in her thumb. She does not recall when it appeared. She takes nothing for pain other than Tylenol and occasional Langtry from pain management. She is right side dominant. She denies numbness of hand or fingers. CNOV Observed: 08/24/2017 Status: COMPLETED Source: [place] 2:55 PM [facility] REPOSITORY Office Visit (MARJORIE) KAREN TOM ([id number]) 1945 F Date Time Provider Department 08/24/17 2:55 PM LESTER POLLARD During your visit today, we recorded the following information about you: Trisha Matos RN 09/14/2017 9:07 AM Signed AMB ROOMING INTAKE FLOWSHEET DATA Risk Screening Do you have concerns about personal safety or safety in the home?: No Pain Pain Score: 8/10 Pain Location: Wrist-Left Description: Aching Duration Units: Unknown Frequency: Continuous Intervention: Medication Patient presents with: New problem: Cyst left wrist, last seen 09-25-14 for left shoulder pain Pt. notes hard pea-sized lump on volar side of left wrist. She states it is causing pain in her thumb. She does not recall when it appeared. She takes nothing for pain other than Tylenol and occasional Langtry from pain management. She is right side dominant. She denies numbness of hand or fingers. Lester Pollard MD 09/14/2017 9:07 AM Signed Lester Pollard MD Department of Orthopaedics Orthopaedics [address] [facility] [address] Dept: [phone] Dept August 24, 2017 CHIEF COMPLAINT: New problem (Cyst left wrist, last seen 09-25-14 for left shoulder pain) Ms. Karen Tom is a 71 year old female who presents with a new problem. At time she had 8 out of 10 discomfort in the left wrist and thumb. She also has noticed a small area or bump on the left wrist. Her thumb is giving her the most trouble. Does not report any injury or trauma. She is right-hand dominant. No numbness or tingling. ASSESSMENT: M18.12 Primary osteoarthritis of first carpometacarpal joint of left hand (primary encounter diagnosis) M25.532 Left wrist pain M67.49, M71.39, M67.89 Ganglion and cyst of synovium, tendon and bursa PLAN: observation for the volar wrist ganglion. Thumb brace for the left basal joint. Ms. Karen Tom was advised as to contrast therapies and/or to take analgesics/anti-inflammatories as needed and all contraindications were reviewed. OBJECTIVE: Ms. Karen Tom is a pleasant 71 year old in no apparent distress. Gen:There were no vitals taken for this visit. nl development, non obese, no deformities ENT: Normocephalic, normal hearing, moist mucosa CV: Pulses:Radial= 2+ and symmetric, capillary refill ANDlt; 2 secs, no peripheral edema/varicosities Skin: no rash, bruising or lesions. Good turgor. Psych: cooperative and appropriate, alert and oriented x 3, good mood and affect. Musculoskeletal: tender to palpation over the thumb, CMC joint. She has some mild crepitance and pain with grind testing. No hyperextension of the MCP. She does have a pea-sized volar ganglion cyst. Nontender. Freely mobile. Median, radial and ulnar nerves are intact. Imaging: IMPRESSION: Bone demineralization and 1st CMC joint osteoarthrosis Textile Machine Operator: DIVYA ? Transcribe Date/Time: Aug 24 2017 ?5:35P Dictated by : BRITTA CRUZ MD This examination was interpreted and the report reviewed and electronically signed by: BRITTA CRUZ MD on Aug 24 2017 ?5:35PM ?EST Results-Findings * * *Final Report* * * DATE OF EXAM: Aug 24 2017 ?2:50PM ? WRX ? 5270 ?- ?XR WRIST 3V PA/LAT/OBL LT ?/ PROCEDURE REASON: Pain, unspecified ?? ? * * * * Physician Interpretation * * * * ?PROCEDURE: ?Left wrist INDICATION: ?Pain, unspecified ? . TECHNIQUE: ?XR WRIST 3V PA/LAT/OBL LT COMPARISON: ?None FINDINGS: Significant bone demineralization consistent with osteopenia or osteoporosis. ?No fracture or dislocation. ?Moderate 1st CMC joint osteoarthrosis with joint space narrowing and mild marginal spur formation. ?No erosions or focal tissue swelling. Supporting Subjective Information Below: Past Surgical History: PAST SURGICAL HISTORY Procedure Laterality Date - ARTHROS SHLDR DX W/WO SYNV BX 04/05/2014 Left shoulder - DELIVERY ONLY 1962,1965 , low cervical - COLONOSCOP W/ OR W/O [facility] SPEC 02/27/2011 Colonoscopy - COLPOSCOPY (VAGINOSCOPY) 1984 Colposcopy - HYSTERECTOMY HX 07/2013 - PAST SURGICAL HISTORY OF 1984 cryotherapy - PAST SURGICAL HISTORY OF 1984 conization - PAST SURGICAL HISTORY OF 06/11/09 lumbar decompression surgery for stenosis -- Dr. Leonard Mendoza - PULMONARY FUNCTION TEST 08/21/2003 complete - REMOVAL GALLBLADDER 1976 laparoscopic Cholecystectomy - REPAIR COMPL ROTATOR CUFF AVULSN,CHR 04/05/2014 Left shoulder Medications: Current Outpatient Prescriptions: warfarin (COUMADIN) 2 mg tablet Take 1 tablet by mouth once daily. warfarin (COUMADIN) 3 mg tablet Take 3 mg daily or as directed by your physician diltiazem CD (CARTIA XT) 180 mg 24 hr capsule Take 1 capsule by mouth twice daily. albuterol HFA (PROVENTIL HFA, VENTOLIN HFA) 90 mcg/actuation inhaler Inhale 2 Puffs as instructed every 6 hours as needed for Wheezing/Shortness of Breath. ALPRAZolam (XANAX) 0.25 mg tablet Take 0.25 mg by mouth twice daily as needed. HYDROcodone-acetaminophen (NORCO) 5-325 mg per tablet Take 1 tablet by mouth every 6 hours as needed. acetaminophen (TYLENOL) 500 mg tablet Take 500 mg by mouth every 8 hours as needed. Blood Pressure Test Kit-Wrist kit 1 Device twice daily. triamcinolone acetonide 0.1 % cream Apply 1 application to affected area three times daily. Apply sparingly to area for rash/itching. hydrOXYzine HCl (ATARAX) 10 mg tablet Take 1 tablet by mouth three times daily as needed. gabapentin (NEURONTIN) 300 mg capsule Take 1 capsule by mouth daily at bedtime. guaiFENesin (MUCINEX) 600 mg 12 hr tablet Take 2 tablets by mouth twice daily. magnesium oxide 400 mg cap Take 1 capsule by mouth once daily. phenazopyridine (PYRIDIUM, GERIDIUM) 100 mg tablet Take 1 tablet by mouth three times daily as needed for Pain. oxybutynin (DITROPAN) 5 mg tablet Take 1 tablet by mouth three times daily. Start with one a day and work up to 3 times a day nitroglycerin sublingual (NITROQUICK) 0.4 mg SL tablet Dissolve 1 tablet under the tongue as needed. FOR CHEST PAIN. IF NO RELIEF CALL 911 traMADol (ULTRAM) 50 mg tablet Take 1 tablet by mouth every 6 hours as needed. LORazepam (ATIVAN) 0.5 mg tab Take by mouth twice daily as needed. Cholecalciferol, Vitamin D3, 50,000 unit cap one WEEKLY (vitamin D) albuterol HFA (VENTOLIN HFA) 90 mcg/actuation INHALATION inhaler Inhale 2 Puffs as instructed every 6 hours as needed. No current facility-administered medications for this visit. Allergies: Amoxicillin; Bactrim [Sulfamethoxazole-Trimethoprim]; Codeine; Cymbalta [Duloxetine]; Macrobid [Nitrofurantoin Monohyd/M- Cryst]; Mucinex Dm [Dextromethorphan-Guaifenesin]; Percocet [Oxycodone-Acetaminophen]; Phenergan [Promethazine Hcl]; Propofol; Sodium; Vicodin [Hydrocodone-Acetaminophen] ROS: General (negative for fatigue, malaise, weight loss/gain) HEENT (negative for headache, earache, recent vision changes, sinus pain, sore throat) Respiratory (no recent shortness of breath, hemoptysis) CV (negative for chest tightness, palpitations) Musculoskeletal (see HPI) Psych (no depression, anxiety) This note was partially generated using [employer]ak[employer] voice recognition system, and there may be some incorrect words, spellings, and punctuation that were not noted in checking the note before saving. MD Leia Padilla Ma 09/14/2017 9:07 AM Signed PT ASSESSMENT - CASTING ROOM [facility] presents for Application of brace. Applied Actimove Rhizo thumb brace size medium to Left hand Patient has been instructed in Care and proper application of brace. Patient verbalized understanding. Leia Bunch Ma Referring Provider: LEONARD VOGT [[id number]] Allergies As of Date: 08/24/2017 Noted Allergy Reaction AMOXICILLIN 10/14/2005 11 - Vomiting Comments: hives, syncope BACTRIM (SULFAMETHOXAZOLE-TRIMETH*10/14/2005 8 - GI Upset CODEINE 10/14/2005 14 - Other: See Comments Comments: made me half blind CYMBALTA (DULOXETINE) 02/26/2009 1 - Mental Status Change Comments: [place] poorly while MACROBID (NITROFURANTOIN MONOHYD/*05/31/2014 12 - Shortness of Breath MUCINEX DM (DEXTROMETHORPHAN-GUAI*06/28/2010 5 - Intolerance Comments: chest tightness PERCOCET (OXYCODONE-ACETAMINOPHEN)08/15/2013 11 - Vomiting PHENERGAN (PROMETHAZINE HCL) 04/10/2014 1 - Mental Status Change Comments: weird dreams PROPOFOL 03/01/2012 14 - Other: See Comments Comments: Sneezing and shortness of breath SODIUM 10/14/2005 Comments: Salt causes leg swelling VICODIN (HYDROCODONE-ACETAMINOPHE*04/10/2014 11 - Vomiting Date Reviewed: 08/24/2017 Reviewed by: Trisha Matos RN - Fully Assessed Reason for Visit: New problem [Other] Cmt: Cyst left wrist, last seen 09-25-14 for left shoulder pain Primary Visit Diagnosis:Primary osteoarthritis of first carpometacarpal joint of left hand [M18.12] Other Visit Diagnoses:Left wrist pain [M25.532] Ganglion and cyst of synovium, tendon and bursa [M67.49, M71.39, M67.89] Prescriptions as of 08/24/2017 Sig: WARFARIN 2 MG TABLET Take 1 tablet by mouth once d* WARFARIN 3 MG TABLET Take 3 mg daily or as directe* DILTIAZEM SR 180 MG 24 HR CAP Take 1 capsule by mouth twice* ALBUTEROL SULFATE HFA 90 MCG/* Inhale 2 Puffs as instructed * ALPRAZOLAM 0.25 MG TABLET Take 0.25 mg by mouth twice d* HYDROCODONE 5 MG-ACETAMINOPHE* Take 1 tablet by mouth every * ACETAMINOPHEN 500 MG TABLET Take 500 mg by mouth every 8 * BLOOD PRESSURE TEST KIT-WRIST* 1 Device twice daily. TRIAMCINOLONE ACETONIDE 0.1 %* Apply 1 application to affect* HYDROXYZINE HCL 10 MG TABLET Take 1 tablet by mouth three * GABAPENTIN 300 MG CAPSULE Take 1 capsule by mouth daily* GUAIFENESIN ER 600 MG TABLET,* Take 2 tablets by mouth twice* MAGNESIUM OXIDE 400 MG CAPSULE Take 1 capsule by mouth once * PHENAZOPYRIDINE 100 MG TABLET Take 1 tablet by mouth three * OXYBUTYNIN CHLORIDE 5 MG TABL* Take 1 tablet by mouth three * NITROGLYCERIN 0.4 MG SUBLINGU* Dissolve 1 tablet under the t* TRAMADOL 50 MG TABLET Take 1 tablet by mouth every * LORAZEPAM 0.5 MG TABLET Take by mouth twice daily as* CHOLECALCIFEROL (VITAMIN D3) * one WEEKLY (vitamin D) ALBUTEROL SULFATE HFA 90 MCG/* Inhale 2 Puffs as instructed * Medication notes this encounter HYDROXYZINE HCL 10 MG TABLET >> Trisha Matos RN 08/24/2017 3:19 PM >> TRISHA MATOS RN ThuAug 24, 2017 3:19 PM Not taking MAGNESIUM OXIDE 400 MG CAPSULE >> Trisha Matos RN 08/24/2017 3:19 PM >> TRISHA MATOS RN ThuAug 24, 2017 3:19 PM No longer taking OXYBUTYNIN CHLORIDE 5 MG TABLET >> Trisha Matos RN 08/24/2017 3:19 PM >> TRISHA MATOS RN Mon Aug 24, 2017 3:19 PM She states no one ever gave her this Problem List As Of Date 08/24/2017 Noted Resolved FIBROMYALGIA [[id number]] Priority: B More... 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 OSTEOPENIA [M89.9, M94.9] INVALID FOR* Priority: B Lumbago [M54.5] Priority: B More... Depressive Disorder, not Elsewhere Classified [*INVALID FOR* Priority: A Medial Epicondylitis of Elbow [M77.00] INVALID FOR*01/30/2010 Degeneration of Intervertebral Disc, Site Unspe*INVALID FOR* Priority: A More... 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 Unspecified Vitamin D Deficiency [E55.9] INVALID FOR* Priority: B More... More... 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 Incomplete rotator cuff tear [M75.110] INVALID FOR* Impingement syndrome of left shoulder [M75.42] INVALID FOR* Left shoulder pain [M25.512] INVALID FOR* Rotator cuff (capsule) sprain [S43.429A] INVALID FOR* Other affections of shoulder region, not elsewh*INVALID FOR* Encounter Status:Closed by LESTER POLLARD MD on 09/14/17 XR WRIST 3V PA/LAT/OBL Observed: 08/24/2017 Status: F Source: [facility] 2:50 PM [facility] REPOSITORY * * *Final Report* * * DATE OF EXAM: Aug 24 2017 2:50PM WRX 5270 - XR WRIST 3V PA/LAT/OBL LT / PROCEDURE REASON: Pain, unspecified * * * * Physician Interpretation * * * * PROCEDURE: Left wrist INDICATION: Pain, unspecified . TECHNIQUE: XR WRIST 3V PA/LAT/OBL LT COMPARISON: None FINDINGS: Significant bone demineralization consistent with osteopenia or osteoporosis. No fracture or dislocation. Moderate 1st CMC joint osteoarthrosis with joint space narrowing and mild marginal spur formation. No erosions or focal tissue swelling. IMPRESSION: Bone demineralization and 1st CMC joint osteoarthrosis Textile Machine Operator: DIVYA Transcribe Date/Time: Aug 24 2017 5:35P Dictated by : BRITTA CRUZ MD This examination was interpreted and the report reviewed and electronically signed by: BRITTA CRUZ MD on Aug 24 2017 5:35PM EST [id number] PROGRESS Observed: 08/24/2017 Status: COMPLETED Source: [place] 2:41 PM [facility] REPOSITORY HNO ID: [id number] Author: Bridger Mcconnell (Rt) Dg [place] Service: (none) Author Type: [employer] Type: Progress Notes Filed: 08/24/2017 2:51 PM Note Text: Radiology Service Progress Note PATIENT NAME: Karen Tom DATE OF SERVICE: August 24, 2017 TIME: 2:41 PM PATIENT IDENTITY VERIFICATION COMPLETED USING TWO (2) METHODS: Patient confirmed name verbally and Date of . PATIENT GENDER DATA: Female. status: : No status: NO. PATIENT RELEVANT IMPLANT DATA REVIEWED: Not Applicable RADIOLOGY DEPARTMENT: General X-ray: Exam(s) Completed: Upper Extremity X-Ray(s): Wrist, left : PERIPHERAL IV DATA: Not applicable SIGNED BY: RT Herminia August 24, 2017 2:41 PM PROTIME Collected: 07/30/2017 Status: F Source: [place] 4:30 PM [facility] REPOSITORY TYPE CODE TESTS RESULT OUT OF RANGE REFERENCE UNITS LAB PSEC 9.7-13.0 sec High PT Sec 23.9 LAB INR 0.9-1.3 High PT INR 2.4 Result Comment: Vitamin K Antagonist (VKA) Therapeutic Range: INR 2 to 3 (Target INR of 2.5) Note: For patients treated with VKA drugs, such as warfarin, the [place] [employer] 2012 Guideline recommends a therapeutic INR range of 2 to 3 (target INR of 2.5). This recommendation includes high-risk patients with antiphospholipid syndrome with previous arterial or venous thromboembolism, current-generation mechanical or bioprosthetic aortic heart valve replacement. Note: Patients with mechanical aortic valve replacement and additional risk factors for thromboembolic events (atrial fibrillation, previous thromboembolism, LV dysfunction, hypercoagulable conditions) or an older generation mechanical AVR (i.e., ball in-Cage) or any mechanical MVR should have a INR therapeutic range of 2.5 to 3.5 (target INR of 3). cindy [place]. Chest 2012, 141:7S-47S Trey HOUGH et al. [facility] 2017, 70: [phone] Performed By: #### PT #### [facility] [address], [place] [address] PROTIME Collected: 07/16/2017 Status: F Source: [place] 1:33 PM [facility] REPOSITORY TYPE CODE TESTS RESULT OUT OF RANGE REFERENCE UNITS LAB PSEC 9.7-13.0 sec High PT Sec 20.9 LAB INR 0.9-1.3 High PT INR 2.1 Result Comment: Vitamin K Antagonist (VKA) Therapeutic Range: INR 2 to 3 (Target INR of 2.5) Note: For patients treated with VKA drugs, such as warfarin, the [place] [employer] 2012 Guideline recommends a therapeutic INR range of 2 to 3 (target INR of 2.5). This recommendation includes high-risk patients with antiphospholipid syndrome with previous arterial or venous thromboembolism, current-generation mechanical or bioprosthetic aortic heart valve replacement. Note: Patients with mechanical aortic valve replacement and additional risk factors for thromboembolic events (atrial fibrillation, previous thromboembolism, LV dysfunction, hypercoagulable conditions) or an older generation mechanical AVR (i.e., ball in-Cage) or any mechanical MVR should have a INR therapeutic range of 2.5 to 3.5 (target INR of 3). Dequan PARSONS et al. Chest 2012, 141:7S-47S Trey HOUGH et al. [facility] 2017, 70: [phone] Performed By: #### PT #### [facility] [address] [place] [id number] OBSOLETE Observed: 07/13/2017 Status: COMPLETED Source: [place] 12:00 AM [facility] REPOS[facility] Refill (AGCARDWST) KAREN TOM ([id number]) 1945 F Date Time Provider Department 07/13/17 HEBERT MITCHELL AGCARDWST During your visit today, we recorded the following information about you: Diana Terry LPN 07/13/2017 12:04 PM Signed Patient called for refills, but these were sent in 06/11/17. Patient will contact pharmacy.Diana Terry LPN Allergies As of Date: 07/13/2017 Noted Allergy Reaction AMOXICILLIN 10/14/2005 11 - Vomiting Comments: hives, syncope BACTRIM (SULFAMETHOXAZOLE-TRIMETH*10/14/2005 8 - GI Upset CODEINE 10/14/2005 14 - Other: See Comments Comments: made me half blind CYMBALTA (DULOXETINE) 02/26/2009 1 - Mental Status Change Comments: [place] poorly while MACROBID (NITROFURANTOIN MONOHYD/*05/31/2014 12 - Shortness of Breath MUCINEX DM (DEXTROMETHORPHAN-GUAI*06/28/2010 5 - Intolerance Comments: chest tightness PERCOCET (OXYCODONE-ACETAMINOPHEN)08/15/2013 11 - Vomiting PHENERGAN (PROMETHAZINE HCL) 04/10/2014 1 - Mental Status Change Comments: weird dreams PROPOFOL 03/01/2012 14 - Other: See Comments Comments: Sneezing and shortness of breath SODIUM 10/14/2005 Comments: Salt causes leg swelling VICODIN (HYDROCODONE-ACETAMINOPHE*04/10/2014 11 - Vomiting Date Reviewed: 02/02/2017 Reviewed by: Jenni Armas - Fully Assessed Reason for Visit: Refill Request [94] Prescriptions as of 07/13/2017 Sig: WARFARIN 2 MG TABLET Take 1 tablet by mouth once d* WARFARIN 3 MG TABLET Take 3 mg daily or as directe* DILTIAZEM SR 180 MG 24 HR CAP Take 1 capsule by mouth twice* HYDROXYZINE HCL 10 MG TABLET Take 1 tablet by mouth three * GABAPENTIN 300 MG CAPSULE Take 1 capsule by mouth daily* GUAIFENESIN ER 600 MG TABLET,* Take 2 tablets by mouth twice* ALBUTEROL SULFATE HFA 90 MCG/* Inhale 2 Puffs as instructed * MAGNESIUM OXIDE 400 MG CAPSULE Take 1 capsule by mouth once * PHENAZOPYRIDINE 100 MG TABLET Take 1 tablet by mouth three * ALPRAZOLAM 0.25 MG TABLET Take 0.25 mg by mouth twice d* OXYBUTYNIN CHLORIDE 5 MG TABL* Take 1 tablet by mouth three * NITROGLYCERIN 0.4 MG SUBLINGU* Dissolve 1 tablet under the t* HYDROCODONE 5 MG-ACETAMINOPHE* Take 1 tablet by mouth every * TRAMADOL 50 MG TABLET Take 1 tablet by mouth every * LORAZEPAM 0.5 MG TABLET Take by mouth twice daily as* ACETAMINOPHEN 500 MG TABLET Take 500 mg by mouth every 8 * BLOOD PRESSURE TEST KIT-WRIST* 1 Device twice daily. CHOLECALCIFEROL (VITAMIN D3) * one WEEKLY (vitamin D) TRIAMCINOLONE ACETONIDE 0.1 %* Apply 1 application to affect* ALBUTEROL SULFATE HFA 90 MCG/* Inhale 2 Puffs as instructed * Problem List As Of Date 07/13/2017 Noted Resolved FIBROMYALGIA [[id number]] Priority: B More... 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 OSTEOPENIA [M89.9, M94.9] INVALID FOR* Priority: B Lumbago [M54.5] Priority: B More... Depressive Disorder, not Elsewhere Classified [*INVALID FOR* Priority: A Medial Epicondylitis of Elbow [M77.00] INVALID FOR*01/30/2010 Degeneration of Intervertebral Disc, Site Unspe*INVALID FOR* Priority: A More... 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 Unspecified Vitamin D Deficiency [E55.9] INVALID FOR* Priority: B More... More... 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 Incomplete rotator cuff tear [M75.110] INVALID FOR* Impingement syndrome of left shoulder [M75.42] INVALID FOR* Left shoulder pain [M25.512] INVALID FOR* Rotator cuff (capsule) sprain [S43.429A] INVALID FOR* Other affections of shoulder region, not elsewh*INVALID FOR* Encounter Status:Closed by DIANA TERRY LPN on 07/13/17 ALLERGIES ALLERGIES DATE TYPE / NAME / CODE REACTION SEVERITY SOURCE CODE 06/04/2017 Drug guaifenesin/[id number] Unknown DC Luanne Allergy/41 24(RXNORM) [facility] [id number]([facility] [place] Repository 06/04/2017 Drug codeine/[id number](R Unknown DC [place] Allergy/41 XNORM) Community [id number]([facility]) Repository 06/04/2017 Drug hydrocodone/[id number] Other DC [place] Allergy/41 54(RXNORM) Community 2162582([facility]) Repository 06/04/2017 Drug oxycodone/[id number] Other DC [place] Allergy/41 (RXNORM) Community 2621713([facility]) Repository 06/04/2017 Drug acetaminophen/P77020 Other DC [place] Allergy/41 1605(RXNORM) [facility] 1121044([facility]) Repository 06/04/2017 Drug sulfamethoxazole/F00 Unknown DC [place] Allergy/41 2384618(RXNORM) Community 5579583([facility]) Repository 06/04/2017 Drug nitrofurantoin/F0060 Unknown DC [place] Allergy/41 42856(RXNORM) Community 3238122([facility]) Repository 06/04/2017 Drug trimethoprim/X344009 Unknown DC [place] Allergy/41 873(RXNORM) Community 2009767([facility]) Repository 06/04/2017 Drug amoxicillin/W6777734 Unknown [place] Allergy/41 75(RXNORM) Community 3457884([facility]) Repository 06/04/2017 Drug promethazine/N800427 Other [place] Allergy/41 459(RXNORM) [facility] 7593575([facility]) Repository 06/04/2017 Drug penicillin Unknown [place] Allergy/41 G/L181147412(RXNORM) Community 1652637([facility]) Repository 06/04/2017 Drug duloxetine/S55560748 Unknown DC [place] Allergy/41 5(RXNORM) Community 3756398([facility]) Repository 05/31/2014 DRUG/07420 NITROFURANTOIN SHORTNESS OF [place] 1003([facility] Other D [facility]) [place] Repository 04/10/2014 DRUG PROMETHAZINE HCL Mental [facility] [address] Other 2738711([facility]) Repository 04/10/2014 DRUG/74817 HYDROCODONE-ACETAMIN Vomiting [place] 1003([facility] OPHEN [facility] Other D [facility]) [place] Repository 08/15/2013 DRUG/10706 OXYCODONE-ACETAMINOP Vomiting [place] 1003([facility] HEN [facility] Other D [facility]) [place] Repository 03/01/2012 DRUG PROPOFOL OTHER: SEE C [address] Other 7551199([facility]) Repository 06/28/2010 DRUG/28026 DEXTROMETHORPHAN-GUA INTOLERANCE [place] 1003([facility] IFENESIN [facility] Other D CT) [place] Repository 02/26/2009 DRUG DULOXETINE [facility] [address] Other 5392170(SN [place] OMED CT) Repository 10/14/2005 DRUG AMOXICILLIN Vomiting [place] IN[facility]EDI/41 Clinic Other 5224811( [place] O[facility]) Repository 10/14/2005 DRUG/25552 SULFAMETHOXAZOLE-TRI GI UPSET [place] 1003([facility] METHOPRIM Clinic Other D CT) [place] Repository 10/14/2005 DRUG CODEINE OTHER: SEE C [place] [facility]I/41 Clinic Other 6257298( [place] OMED CT) Repository 10/14/2005 DRUG SODIUM [facility]/41 [facility] Other 5224278([facility]) Repository NG/9888893 AMOXICILLIN [facility] 06([facility] Repository NG/6776053 SULFAMETHOXAZOLE-TRI [facility] 06([facility]ETHOPRIM [facility]) Repository NG/6826399 CODEINE [facility] 06([facility] Repository NG/2505821 DULOXETINE [facility] 06([facility] Repository NG/3295809 NITROFURANTOIN [facility] 06([facility]) Repository NG/5135009 DEXTROMETHORPHAN-GUA [facility] 06([facility]OMED IFENESIN [facility]) Repository NG/5842315 OXYCODONE-ACETAMINOP [facility] 06(SNOMED HEN [facility]) Repository NG/4382634 PROMETHAZINE HCL [facility] 06([facility]) Repository NG/3496880 PROPOFOL [facility] 06([facility]) Repository NG/9624703 SODIUM [facility] 06([facility]) Repository NG/2732403 HYDROCODONE-ACETAMIN [facility] 06([facility]OMED OPHEN [facility]) Repository ENCOUNTERS ENCOUNTERS ADMIT/DISCHARGE ACCOUNT NUMBER ADMITTING ENCOUNTER LOCATION SOURCE CLASS 06/30/2018 [id number] Ambulatory [facility] ding:LABSPEC Repository 06/29/2018 [id number] Ambulatory [facility] ding:BFHLAB Repository 06/22/2018/06/22/19 [id number] Ambulatory [address] [place] Repository 06/22/2018/06/23/19 [id number] Ambulatory [address] [place] Repository 06/22/2018/06/23/19 [id number] Ambulatory [facility] [place] Repository 06/22/2018 [id number] Ambulatory [facility] MEDICAL Repository CENTERBuildi ng:CAGWS 06/10/2018/06/11/20 [id number] Ambulatory [facility] [place] Repository 05/25/2018/05/26/20 [id number] Ambulatory [facility] [place] Repository 05/11/2018/05/12/20 [id number] Ambulatory [facility] [place] Repository 04/22/2018/04/23/20 [id number] Ambulatory [facility] [place] Repository 04/08/2018/04/09/20 [id number] Ambulatory [facility] [place] Repository 03/31/2018/03/31/20 [id number] Ambulatory [facility] [place] Repository 03/25/2018/03/26/20 [id number] Ambulatory [facility] [place] Repository 03/11/2018/03/12/20 [id number] Ambulatory [facility] [place] Repository 03/05/2018/03/08/20 [id number] Ambulatory [facility] [place] Repository 03/05/2018/03/05/20 [id number] Ambulatory [facility] [place] Repository 02/18/2018/02/20/20 [id number] Ambulatory [facility] [place] Repository 02/12/2018/02/17/20 [id number] Ambulatory [facility] [place] Repository 02/05/2018/02/06/20 [id number] Ambulatory [facility] [place] Repository 02/05/2018/02/09/20 [id number] Ambulatory [facility] [place] Repository 02/05/2018/02/09/20 [id number] Ambulatory [facility] [place] Repository 01/21/2018/04/28/20 [id number] Ambulatory [facility] [place] Repository 01/13/2018/01/14/20 [id number] Ambulatory [facility] [place] Repository 01/05/2018/01/06/20 [id number] Ambulatory [facility] [place] Repository 12/29/2017/04/28/20 [id number] Ambulatory [facility] [place] Repository 12/24/2017/12/26/19 [id number] Ambulatory [facility] [place] Repository 12/24/2017/04/28/20 [id number] Ambulatory [address] Main [place] Repository 12/17/2017/04/21/20 [id number] Ambulatory [address] Main [place] Repository 12/11/2017/04/21/20 [id number] Ambulatory [address] Main [place] Repository 12/03/2017/04/20/20 [id number] Ambulatory [address] Main [place] Repository 11/26/2017/11/27/19 [id number] Ambulatory [address] Main [place] Repository 11/05/2017/11/06/19 [id number] Ambulatory [address] [place] Repository 10/30/2017 [id number] Ambulatory [facility] [place] Repository 10/26/2017 [id number] Ambulatory [facility] ding:BFHLAB Repository 10/15/2017 [id number] Ambulatory [facility] [place] Repository 10/12/2017/10/13/19 [id number] Ambulatory [address] Other [place] Repository 10/12/2017/10/13/19 [id number] Ambulatory [address] MEDICAL Repository CENTERBuildi ng:CAGWS 10/01/2017/10/02/19 [id number] Ambulatory [address] Main [place] Repository 09/24/2017/09/25/19 [id number] Ambulatory [address] Repository 09/18/2017 [id number] Ambulatory [facility] ding:BFHLAB Repository 08/27/2017 [id number] Ambulatory [facility] [place] Repository 08/24/2017/02/05/20 [id number] Ambulatory [address] Main [place] Repository 08/24/2017/08/25/19 [id number] Ambulatory [address] Main [place] Repository 07/30/2017/07/30/19 [id number] Ambulatory [address] Main [place] Repository 07/16/2017/07/16/19 [id number] Ambulatory [address] Repository PAYERS PAYERS ENCOUNTER GUARANTOR PAYER SUBSCRIBER SOURCE 06/30/2018 KAREN Salcedo Primary KAREN [id number] Insurance:MEDICARE BOSSUZETTEDOB: [facility] PART A [facility] [id number] Number: Repository [address]Lel: 330 [id number] [phone] (HP) Date:2018-06-30 06/30/2018 Secondary COTTA J Luanne Insurance:[facility]: [facility] [id number] Hospital Number: Repository [id number] Date:[id number] [address]AY: 06/30/2018 Tertiary NOT GIVENUNK Luanne Insurance:SELF PAY [facility] Number: Effective Repository Date:2018-06-30 06/29/2018 COTTA J Primary COTTA J [place] [id number] Insurance:MEDICARE [facility] Community [address] PART A [facility] [id number] [place] Number: Repository [address]Hjo: 330 [id number] [phone] () Date:2018-06-29 06/29/2018 Secondary COTTA J [place] Insurance:[facility]: [facility] [id number] Hospital Number: Repository [id number] Date:[id number] [address]PT: 06/29/2018 Tertiary NOT GIVENUNK [place] Insurance:SELF PAY [facility] Number: Effective Repository Date:2018-06-29 06/22/2018 COTTA J Primary COTTA J [facility]: Insurance:MEDICARE A VAISHALIDOB: Health System AND olicy Number: [id number] Repository [address] [id number] [address] Date: [address]Vze: (HP) 06/22/2018 Secondary COTTA J [facility] MEDICAID [facility] [id number] Repository Number: [id number] Date: 10/26/2017 COTTA J Primary COTTA J [place]anne [id number] Insurance:MEDICARE BOSLEYDOB: Community [address] PART A [facility] [id number] Number: Repository [address]Mwc: 330 [id number] [phone] (HP) Date:2017-10-26 10/26/2017 Secondary COTTA J Luanne Insurance:[facility] BOSLEYDOB: [facility] [id number] Hospital Number: Repository [id number] Date:[id number] [address] [address]UH: 10/26/2017 Tertiary NOT GIVENUNK Luanne Insurance:SELF PAY [facility] Number: Effective Repository Date:2017-10-26 10/12/2017 COTTA J Primary COTTA J [facility] BOSLEYDOB: Insurance:MEDICARE A [facility]: [facility] Number: [id number] Repository [address] [id number] [address] Date: [address]Xhp: (HP) 10/12/2017 Secondary COTTA J [facility] Insurance:[facility]: [facility] [id number] Repository Number: [id number] Date: 09/18/2017 COTTA J Primary COTTA J [place] [id number] Insurance:MEDICARE BOSLEYDOB: Community [address] PART A [facility] [id number], [place] Number: Repository [address]Sxe: 330 [id number] [phone] (HP) Date:2017-09-18 09/18/2017 Secondary COTTA J [place] Insurance:[facility]: [facility] [id number] Hospital Number: Repository [id number] Date:[id number] [address]LK: 09/18/2017 Tertiary NOT GIVENUNK Luanne Insurance:SELF PAY [facility] Number: Effective Repository Date:2017-09-18
== END ==
PROVIDERS: Family Provider Family Medicine; PCP Family Medicine; Referring Provider Family Medicine; Visit Provider Family Medicine
DX: C44.722 Squamous cell carcinoma of skin of right lower limb, including hip (principal)
CPT/HCPCS: 88305; 88341; 88342

== ENCOUNTER → 2018-07-13 14:01 | Outpatient (CLI) | payer MEDICARE, MEDICAID, SELFPAY ==
--- NOTE | 2018-07-13 14:00 | LES_PTH ---
PATIENT: KONG WELCH LOC: [facility] U#:[id number] AGE/SX: 79/F ROOM: RE07/13/[address]: Dr. Sheri Dimas MD : 1945 BED: DIS: SPEC #: [id number] RECD: 07/13/18 15:23 STATUS: JAMIE RUTH #: [id number] LOGAN: 07/13/18 14:[address]: Sheri Dimas DEPT: SURGICAL PATHOLOGY RECD BY: Cosme Burk ENTERED: 07/14/18 09:45 SP TYPE: Lesion OTHR DR: Dr. Leonard Vogt MD Tissues: Skin of leg, NOS Procedures: Surgery Specimen Level IV HEADER OPERATION: Elliptical lesion PRE-OP DIAGNOSIS: Squamous cell carcinoma; check margins TISSUE SUBMITTED: Elliptical excision right thigh 2 x 3 cm MICROSCOPIC DIAGNOSIS Right thigh, site of squamous cell carcinoma, elliptical excision: Invasive squamous cell carcinoma, moderately differentiated, with partial cystic change. Invasive carcinoma is focally transected by the deep excisional margin. Peripheral cutaneous margins are free of tumor. CE:yolanda 07/15/18 MICROSCOPIC DESCRIPTION Slides are reviewed. GROSS DESCRIPTION Received is one container labeled with the patient's name and not further designated. The specimen consists of an ellipse of light huston excised skin measuring 2.2 x 1.5 cm and a depth of excision measuring 0.2 cm. The cutaneous surface contains an elevated light huston-white lesion measuring 1.2 cm in greatest dimension and contains an area of ulceration measuring 0.6 cm in greatest dimension. The specimen is inked, serially sectioned and totally submitted in one cassette. / AM:yolanda 07/14/18 TC:0 CPT: 58972
== END ==
PROVIDERS: Family Provider Family Medicine; PCP Family Medicine; Referring Provider Family Medicine; Visit Provider Family Medicine
DX: C76.51 Malignant neoplasm of right lower limb (principal)
CPT/HCPCS: 88305

== ENCOUNTER → 2018-07-21 15:41 | Outpatient (CLI) | payer MEDICARE, MEDICAID, SELFPAY ==
--- NOTE | 2018-07-21 16:07 | MRI_ITS ---
STUDY: MRI RIGHT ANKLE WITHOUT CONTRAST REASON FOR EXAM: Posterior heel pain after a fall last December. TECHNIQUE: Standardized fat and water weighted pulse sequences were obtained in all 3 orthogonal planes. COMPARISON: None. FINDINGS: There is edema in the medial and lateral subcutis adipose space. Normal posterior tibialis tendon. Normal flexor digitorum longus tendon. Normal flexor hallucis longus tendon. Normal peroneus longus and brevis tendons. Normal tibialis anterior tendon. Normal extensor hallucis longus tendon. Normal extensor digitorum longus tendons. There is insertional Achilles tendinosis with mild fusiform thickening and increased intrasubstance signal with a small low-grade intrasubstance insertional Achilles tendon tear (inversion recovery sagittal image 12; inversion recovery series 11 image 20) measuring approximately 0.4 cm in length. There is mild retrocalcaneal bursitis (inversion recovery sagittal images 11, 12). Normal plantar fascia. There is mild bone edema in the posterior tuberosity of the calcaneus, particularly at the plantar aspect (inversion recovery sagittal images 9-10), a stress phenomenon. Normal intrinsic muscles of the rearfoot. Normal distal tibiofibular syndesmotic ligamentous complex. There is mild thickening of the anterior talofibular ligament (T2 axial image 14) consistent with mild scarring. Normal calcaneofibular and posterior talofibular ligaments. Normal subtalar ligaments and sinus tarsi. Normal deltoid ligamentous complexes. Normal plantar calcaneonavicular (spring) ligament. There is a small osteochondral lesion of the superior aspect the lateral talar dome (T1 sagittal image 8) measuring 0.3 cm in AP dimension with mild bone edema of the fragment (inversion recovery sagittal image 8; T2 coronal image 15). Normal subtalar articulations. Normal talonavicular articulation. Normal calcaneocuboid articulation. Normal navicular-cuneiform articulations. MRI/Lower Ext Joint Only (Routine) IMPRESSION: Insertional Achilles tendinosis with small intrasubstance insertional Achilles tendon tear. Mild retrocalcaneal bursitis. Mild bone edema in the posterior tuberosity of the calcaneus, a stress phenomenon. Mild scarring of the anterior talofibular ligament. Small osteochondral lesion of the lateral talar dome. Electronically Signed: Shubham Galicia MD at 9:03 EST Tel , Service support ,
== END ==
PROVIDERS: Family Provider Family Medicine; PCP Family Medicine; Referring Provider Podiatrist; Visit Provider Podiatrist
DX: M76.61 Achilles tendinitis, right leg (principal); M79.671 Pain in right foot; M77.31 Calcaneal spur, right foot
CPT/HCPCS: 73721

== ENCOUNTER 2018-08-12 07:03 | Day surgery (SDC) | payer MEDICARE, MEDICAID, SELFPAY ==
[2018-08-02 14:52] VITALS: BMI 28.0
--- NOTE | 2018-08-11 23:36 | PCM.HP.BLA ---
History and Physical Date of Admission: 08/12/18 HISTORY OF PRESENT ILLNESS Patient is a 72 year old female who presents for evaluation of a recently diagnosed squamous cell carcinoma on her right anterior thigh. The lesion had been increasing in size over the last several months and had developed irregular borders. She has had skin cancers excised in the past on her cheeks and left toe. A punch biopsy was done on 06/29/18 which showed invasive squamous cell carcinoma. She underwent completion excision on 07/13/18 in an elliptical fashion. The Pathology showed invasive squamous cell carcinoma, moderately differentiated, with extension to the deep margin. She presents today for evaluation for surgical options for treatment. PAST MEDICAL HISTORY Asthma Atrial fibrillation Depression Elevated transaminase level Glenoid labrum tear History of malignant neoplasm of skin Impingement syndrome of right shoulder Insomnia Osteopenia Plantar fasciitis Tendinitis Vitamin D deficiency COPD (chronic obstructive pulmonary disease) Chronic obstructive lung disease PAST SURGICAL HISTORY Cataracts, bilateral rotator cuff surgery toe surgery back surgery carpal tunnel surgery delivery gallbladder surgery hysterectomy ALLERGIES acetaminophen [From Percocet] amoxicillin codeine duloxetine [From Cymbalta] guaifenesin [From Mucinex] hydrocodone [From Vicodin] oxycodone [From Percocet] penicillin G promethazine sulfamethoxazole [From Bactrim] trimethoprim [From Bactrim] sodium MEDICATIONS albuterol sulfate HFA-actuation aerosol inhaler cholecalciferol (vitamin D3) diltiazem CD hydrocodone 5 mg-acetaminophen triamcinolone acetonide 0.1 % topical cream alprazolam apixaban budesonide-formoterol HFA-actuation aerosol inhaler mupirocin 2 % topical ointment nitrofurantoin nitroglycerin FAMILY HISTORY Mother - CVA (cerebral vascular accident) SOCIAL HISTORY household members: none Smoking Status: Current every day smoker alcohol intake: never substance use type: does not use REVIEW OF SYSTEMS General - Denies fever, fatigue, and weight loss. Eyes - Denies glaucoma. Has had cataracts repaired. ENT - Denies nasal congestion and sore throat. Endocrine - Denies excessive thirst and urination. Skin - Has a personal history of skin cancer. Had a lesion on right anterior thigh that was punch biopsied on 06/29/18 which showed squamous cell carcinoma. Completion excision was done on 07/13/18 in an elliptical fashion which showed invasive squamous cell carcinoma, moderately differentiated, with extension to the deep margin. Musculoskeletal - Has a history of back surgery, osteopenia, glenoid labrum tear, plantar fasciitis, impingement syndrome of right shoulder and tendonitis. Neuro - Denies headaches. Cardiovascular - Denies chest pain, fatigue, and shortness of breath with exertion. Has a history of afib, currently on Eliquis. Psych - Has a personal history of moderate depression and insomnia. Respiratory - Has history of asthma and COPD. Patient is a smoker. Gastrointestinal - Denies nausea, vomiting, diarrhea, and constipation. Hematologic - Denies abnormal bruising and bleeding. Genitourinary - Denies hematuria and urinary frequency. PHYSICAL EXAMINATION General - Alert and oriented. HEENT - PERRL. EOMI. Throat is clear. No suspicious lesions noted. Neck - Supple and non-tender. No cervical adenopathy. No suspicious lesions noted. Lungs- Clear to auscultation. Heart - Regular rate and rhythm. Abdomen - Soft and non distended. Extremities - FROM. No axillary adenopathy. Radial pulses are palpable. On the right anterior thigh is a longitudinal healed scar from recent excision of squamous cell carcinoma. Measures 3 cm. No ulceration. Scar is nontender. No other suspicious lesions noted. Neuro - CN II-XII grossly intact. Psych - Normal mood and affect. ASSESSMENT 1. 3 cm invasive, moderately differentiated, squamous cell carcinoma scar right anterior thigh with extension to deep margin. 2. Personal history of skin cancer. 3. Smoker. 4. half-way use of anticoagulation. PLAN Patient has a squamous cell carcinoma scar on her right anterior thigh that has extension to the deep margin. Patient will need further excision of this lesion down to the muscle and fascia. With a 3 cm scar present, will excise with a 1 cm margin in all directions. Will send the lesion to Pathology for analysis to rule out carcinoma at the margins. Reconstruction may be with a local skin flap or skin grafting. Surgery will be done on an outpatient basis under local anesthesia with IV sedation. Patient was informed of the risks and complications of the procedure including alternatives to surgery. These were discussed with the patient personally. Patient voices understanding and wishes to proceed. Some of the risks and complications were included in a form from the [employer]. Encouraged patient to stop smoking as it may have deleterious effects on wound healing. Patient is on Eliquis for her atrial fibrillation and will talk to her Graphics Coordinator to see if it is ok to stop the medication for the surgery.
[2018-08-12 07:27] VITALS: BP 143/95; PULSE 89; RESP 16; TEMP 36.3; O2SAT 97; BMI 28.3
--- NOTE | 2018-08-12 08:25 | LES_PTH ---
PATIENT: KONG WELCH LOC[place] [facility] [place] U[place][id number] AGE/SX: 72/F ROOM: RE08/12/[address]: Dr. Harinder Montoya MD : 1945 BED: DIS: 08/12/2018 SPEC #: [id number] RECD: 08/12/18 11:36 STATUS: JAMIE RELovely #: [id number] LOGAN: 08/12/18 08:[address]: Harinder Montoya DEPT: SURGICAL PATHOLOGY RECD BY: Cosme Burk ENTERED: 08/12/18 13:07 SP TYPE: Lesion OTHR DR: Dr. Leonard Vogt MD Tissues: Skin of leg, NOS Procedures: Surgery Specimen Level IV HEADER OPERATION: Excision squamous cell cancer scar, anterior thigh with skin flap PRE-OP DIAGNOSIS: 3 cm invasive moderately differentiated squamous cell carcinoma scar, right anterior thigh with extension to deep margin TISSUE SUBMITTED: 3 cm invasive moderately differentiated squamous cell carcinoma scar, right anterior thigh, suture at 12 o'clock MICROSCOPIC DIAGNOSIS Skin lesion anterior thigh, biopsy: Focal actinic keratosis. Cicatrix, suture granulomas, fat necrosis and reactive fibrosis. No evidence of residual carcinoma. AM:yolanda 08/16/18 COMMENT Reference is made to the patient's right thigh punch biopsy from 07/01/18 ([id number]) in which invasive well to moderately differentiated squamous cell carcinoma was identified. Case has been reviewed in consultation with Dr. Sam who concurs with the above diagnosis. IDC:SJ MICROSCOPIC DESCRIPTION Slides are reviewed. GROSS DESCRIPTION Received in fixative is one container labeled with the patient's name and designated 3 cm invasive moderately differentiated squamous cell carcinoma scar, right anterior thigh, suture at 12 o'clock. The specimen consists of a huston-white skin ellipse measuring 5 x 3 cm and up to 1 cm in thickness. The specimen is inked as follows: 12 to 3 o'clock - black, 3 to 6 o'clock - blue, 6 to 9 o'clock - green and 9 to 12 o'clock - yellow. The specimen is serially sectioned and submitted entirely in nine cassettes. Cassette 1 contains the 6 and 12 o'clock tips. / LORETO:yolanda 08/12/18 TC:3 CPT: 61385
[2018-08-12] MEDS: Mupirocin Ointment 22gm Tube 1 APPLIC (09:47)
--- NOTE | 2018-08-12 10:04 | OP.PCM_ITS ---
Report of Operation Date of Procedure: 08/12/18 Pre-Operative Diagnosis: 1. 3 cm invasive, moderately differentiated, squamous cell carcinoma scar right anterior thigh with extension to deep margin. 2. Personal history of skin cancer. 3. Smoker. 4. detention use of anticoagulation. Post-Operative Diagnosis: Same. Surgery/Procedure Performed:: Excision 3 cm invasive, moderately differentiated, squamous cell carcinoma scar right anterior thigh with extension to deep margin with rhomboid transposition skin flap reconstruction (40 cm2). Description of Surgical Findings:: Patient is a 72 year old female who presents for evaluation of a recently diagnosed squamous cell carcinoma on her right anterior thigh. The lesion had been increasing in size over the last several months and had developed irregular borders. She has had skin cancers excised in the past on her cheeks and left toe. A punch biopsy was done on 06/29/18 which showed invasive squamous cell carcinoma. She underwent completion excision on 07/13/18 in an elliptical fashion. The Pathology showed invasive squamous cell carcinoma, moderately differentiated, with extension to the deep margin. Patient was informed of the risks and complications of the procedure including alternatives to surgery. These were discussed with the patient personally. Patient voices understanding and wishes to proceed. Some of the risks and complications were included in a form from the [employer]. Size of defect right anterior thigh - 5 x 4 cm. harness rigger: Junito Arenas. Type of Anesthesia:: Local MAC - xylocaine with epinephrine and IV sedation. Specimen's removed: Squamous cell carcinoma scar right anterior thigh to Pathology. Drains: None. Estimated Blood Loss (mL): 20 ml. Description of Procedure: Patient was taken to OR in supine position and was given IV sedation. The right anterior thigh was prepped and draped in the usual fashion. SCD's were placed for DVT prophylaxis. Perioperative antibiotics were given intravenously. The squamous cell carcinoma scar right anterior thigh was infiltrated with xylocaine and epinephrine. I marked out a margin of 1 cm in all directions with a rhomboid shape. After waiting 5 minutes for the anesthetic to take effect, I excised the squamous cell carcinoma scar right anterior thigh into the deep subcutaneous tissue since the deep margin was positive. A suture was marked at the 12 oclock position for pathology orientation. The lesion was sent to Pathology for analysis to rule out carcinoma at the margins. Hemostasis was obtained with electrocautery. A rhomboid flap was designed adjacent to the defect. Incisions were made and the flap was elevated on a subcutaneous pedicle at the level of the underlying muscle. The rhomboid flap was easily transposed into the defect with minimal tension and minimal distortion. Hemostasis was obtained with electrocautery. The wound was irrigated with saline. The wounds were closed in a layered fashion with 3-0 Monocryl interrupted sutures for the deep dermis and subcutaneous tissue. The skin was approximated with 3-0 Prolene simple interrupted and vertical mattress interrupted sutures. The size of the defect after the excision was 5 x 4 cm. The size of the defect and the size of the flap needed to close the defect was 40 cm2. Antibiotic ointment was applied to the incision followed by gauze dressing and a compression LUIS MANUEL wrap. Patient tolerated the procedure well and was sent to PACU in satisfactory condition. Patient will be sent home on antibiotics and pain medication. She will keep her right leg elevated when sitting. Patient will followup in a week for a wound check and for discussion of the pathology report. I will remove the sutures in 2 weeks. Grafts/Implants Used: None. - Complications None. - Admit VTE Documentation VTE Present on Admission: No VTE Mechan Device Prophylaxis: SCD's VTE Pharm Prophylaxis ordered?: No Code Visit Surgery Charges CPT - 64144 ICD-10 - C44.722, Z85.828, Z79.01, F17.200
--- NOTE | 2018-08-12 10:10 | PCM.DC ---
You will use the following diet at home:: No restrictions Discharge Activity: May not drive while taking narcotic pain medications., May Shower - in two days., - - elevate right leg when sitting. May shower in (days): 2 May resume sexual activity in: No Restrictions Weight Bearing Status: Weight bearing as tolerated Keep extremity elevated above heart level: Right Leg Call your doctor if your incision/area has: Continuous Slow Oozing, Sudden Increased Bleeding, Increased Pain/ Swelling, Increased Redness, Foul Smelling Discharge, Swelling at the incision site Call your doctor if you observe: Fever of 101 or Higher, Coldness, Increased Pain, Shortness of breath, Chest pain, Calf discomfort, Uncontrolled pain Suture Line Care: - - after operative dressing removed in two days, apply antibiotic ointment to suture line daily. Change Dressing in (Days):: 2 - reapply leonidas wrap daily. Cleanse incision/area with: - - may get incision wet in the shower in two days. Additional Instructions: Patient may resume her Eliquis tomorrow 08/13/18. Allergies/Adverse Reactions: Allergies acetaminophen [From Percocet] Allergy (Mild, Verified 08/02/18 11:55) Other amoxicillin Allergy (Mild, Verified 08/02/18 11:55) Unknown codeine Allergy (Mild, Verified 08/02/18 11:55) Unknown duloxetine [From Cymbalta] Allergy (Mild, Verified 08/02/18 11:55) Unknown guaifenesin [From Mucinex] Allergy (Mild, Verified 08/02/18 11:55) Unknown hydrocodone [From Vicodin] Allergy (Mild, Verified 08/02/18 11:55) Other oxycodone [From Percocet] Allergy (Mild, Verified 08/02/18 11:55) Other penicillin G Allergy (Mild, Verified 08/02/18 11:55) Unknown promethazine Allergy (Mild, Verified 08/02/18 11:55) Other sulfamethoxazole [From Bactrim] Allergy (Mild, Verified 08/02/18 11:55) Unknown trimethoprim [From Bactrim] Allergy (Mild, Verified 08/02/18 11:55) Unknown sodium Allergy (Unknown, Verified 08/02/18 11:55) allergy Medications to take at Discharge albuterol sulfate HFA 90 mcg/actuation aerosol inhaler 1 inh INHALATION ONCE PRN 06/04/17 cholecalciferol (vitamin D3) 50,000 unit capsule 50,000 unit PO QMONTH 06/04/17 diltiazem CD 180 mg capsule,extended release 24 hr 180 mg PO BID 06/04/17 triamcinolone acetonide 0.1 % topical cream 1 applic TOPICAL BID PRN 06/04/17 alprazolam 0.25 mg tablet 0.25 mg PO BID PRN 08/02/18 budesonide-formoterol HFA 80 mcg-4.5 mcg/actuation aerosol inhaler 2 puff INHALATION BID 08/02/18 Nitrofurantoin Macrocrystal [Macrodantin] 50 mg PO DAILY 08/06/18 Apixaban [Eliquis] 5 mg PO BID #0 08/12/18 Clindamycin HCl [Cleocin] 300 mg PO TID #15 cap 08/12/18 Hydrocodone/Acetaminophen [Hydrocodone-Acetamin 5-325 mg] 1 tab PO .[id number] PRN PRN 5 Days #30 tab 08/12/18 Lactobacillus Acidophilus/Fos [Acidophilus Probiotic Tablet] 1 ea PO BID #10 tab 08/12/18 The following prescriptions were given: Hydrocodone/Acetaminophen [Hydrocodone-Acetamin 5-325 mg] 1 tab PO .[id number] PRN PRN 5 Days #30 tab PRN Reason: Pain Lactobacillus Acidophilus/Fos [Acidophilus Probiotic Tablet] 1 ea PO BID #10 tab Clindamycin HCl [Cleocin] 300 mg PO TID #15 cap Primary Care Physician: Leonard Vogt MD [Primary Care Provider] - Test Results: Test results from this visit will be discussed in further detail at your follow-up appointment, if applicable. Please Follow Up With: Harinder Montoya MD When: one week. call [phone] for appt. Proposed Discharge Date: 08/12/18
--- NOTE | 2018-08-12 10:13 | DCINST_ITS ---
You will use the following diet at home:: No restrictions Discharge Activity: May not drive while taking narcotic pain medications., May Shower - in two days., - - elevate right leg when sitting. May shower in (days): 2 May resume sexual activity in: No Restrictions Weight Bearing Status: Weight bearing as tolerated Keep extremity elevated above heart level: Right Leg Call your doctor if your incision/area has: Continuous Slow Oozing, Sudden Increased Bleeding, Increased Pain/ Swelling, Increased Redness, Foul Smelling Discharge, Swelling at the incision site Call your doctor if you observe: Fever of 101 or Higher, Coldness, Increased Pain, Shortness of breath, Chest pain, Calf discomfort, Uncontrolled pain Suture Line Care: - - after operative dressing removed in two days, apply antibiotic ointment to suture line daily. Change Dressing in (Days):: 2 - reapply leonidas wrap daily. Cleanse incision/area with: - - may get incision wet in the shower in two days. Additional Instructions: Patient may resume her Eliquis tomorrow 08/13/18. Allergies/Adverse Reactions: Allergies acetaminophen [From Percocet] Allergy (Mild, Verified 08/02/18 11:55) Other amoxicillin Allergy (Mild, Verified 08/02/18 11:55) Unknown codeine Allergy (Mild, Verified 08/02/18 11:55) Unknown duloxetine [From Cymbalta] Allergy (Mild, Verified 08/02/18 11:55) Unknown guaifenesin [From Mucinex] Allergy (Mild, Verified 08/02/18 11:55) Unknown hydrocodone [From Vicodin] Allergy (Mild, Verified 08/02/18 11:55) Other oxycodone [From Percocet] Allergy (Mild, Verified 08/02/18 11:55) Other penicillin G Allergy (Mild, Verified 08/02/18 11:55) Unknown promethazine Allergy (Mild, Verified 08/02/18 11:55) Other sulfamethoxazole [From Bactrim] Allergy (Mild, Verified 08/02/18 11:55) Unknown trimethoprim [From Bactrim] Allergy (Mild, Verified 08/02/18 11:55) Unknown sodium Allergy (Unknown, Verified 08/02/18 11:55) allergy Medications to take at Discharge albuterol sulfate HFA 90 mcg/actuation aerosol inhaler 1 inh INHALATION ONCE PRN 06/04/17 cholecalciferol (vitamin D3) 50,000 unit capsule 50,000 unit PO QMONTH 06/04/17 diltiazem CD 180 mg capsule,extended release 24 hr 180 mg PO BID 06/04/17 triamcinolone acetonide 0.1 % topical cream 1 applic TOPICAL BID PRN 06/04/17 alprazolam 0.25 mg tablet 0.25 mg PO BID PRN 08/02/18 budesonide-formoterol HFA 80 mcg-4.5 mcg/actuation aerosol inhaler 2 puff INHALATION BID 08/02/18 Nitrofurantoin Macrocrystal [Macrodantin] 50 mg PO DAILY 08/06/18 Apixaban [Eliquis] 5 mg PO BID #0 08/12/18 Clindamycin HCl [Cleocin] 300 mg PO TID #15 cap 08/12/18 Hydrocodone/Acetaminophen [Hydrocodone-Acetamin 5-325 mg] 1 tab PO .[id number] PRN PRN 5 Days #30 tab 08/12/18 Lactobacillus Acidophilus/Fos [Acidophilus Probiotic Tablet] 1 ea PO BID #10 tab 08/12/18 The following prescriptions were given: Hydrocodone/Acetaminophen [Hydrocodone-Acetamin 5-325 mg] 1 tab PO .[id number] PRN PRN 5 Days #30 tab PRN Reason: Pain Lactobacillus Acidophilus/Fos [Acidophilus Probiotic Tablet] 1 ea PO BID #10 tab Clindamycin HCl [Cleocin] 300 mg PO TID #15 cap Primary Care Physician: Leonard Vogt MD [Primary Care Provider] - Test Results: Test results from this visit will be discussed in further detail at your follow- up appointment, if applicable. Please Follow Up With: Harinder Montoya MD When: one week. call [phone] for appt. Proposed Discharge Date: 08/12/18
[2018-08-12 10:14] VITALS: BP 118/59; BP 143/95; PULSE 66; RESP 16; TEMP 36.9; O2SAT 96
[2018-08-12 10:20] VITALS: BP 103/58; BP 143/95; PULSE 63; RESP 16; O2SAT 93
[2018-08-12 10:25] VITALS: BP 143/95; BP 85/61; PULSE 61; RESP 16; O2SAT 92
[2018-08-12 10:35] VITALS: BP 104/82; BP 143/95; PULSE 64; RESP 18; TEMP 36.8; O2SAT 99
[2018-08-12 11:45] VITALS: BP 143/95
== END 2018-08-12 11:47 | disposition home or self-care (01) ==
LOC: SDC 07:04 → AC 07:05
PROVIDERS: Family Provider Family Medicine; PCP Family Medicine; Referring Provider Surgery; Visit Provider Surgery
PROC: (CPT 14301; principal; 2018-08-12 08:10)
DX: C44.722 Squamous cell carcinoma of skin of right lower limb, including hip (principal); L57.0 Actinic keratosis; L90.5 Scar conditions and fibrosis of skin; L92.9 Granulomatous disorder of the skin and subcutaneous tissue, unspecified; M79.89 Other specified soft tissue disorders; Z85.828 Personal history of other malignant neoplasm of skin; Z79.01 Long term (current) use of anticoagulants; F17.200 Nicotine dependence, unspecified, uncomplicated; J44.9 Chronic obstructive pulmonary disease, unspecified; I48.91 Unspecified atrial fibrillation; M85.80 Other specified disorders of bone density and structure, unspecified site; M72.2 Plantar fascial fibromatosis; F32.9 Major depressive disorder, single episode, unspecified
CPT/HCPCS: 14301; 88305; J7120; J2405

== ENCOUNTER → 2018-09-15 18:01 | Outpatient (CLI) | payer MEDICARE, MEDICAID, SELFPAY ==
[2018-09-15 14:23] VITALS: BMI 28.3
== END ==
PROVIDERS: Family Provider Family Medicine; PCP Family Medicine; Referring Provider Nurse Practitioner Family; Visit Provider Nurse Practitioner Family
DX: C44.722 Squamous cell carcinoma of skin of right lower limb, including hip (principal); L57.0 Actinic keratosis; Z79.01 Long term (current) use of anticoagulants; Z72.0 Tobacco use; Z85.828 Personal history of other malignant neoplasm of skin
CPT/HCPCS: 87070; 87205

== ENCOUNTER → 2018-12-17 14:21 | Outpatient (CLI) | payer MEDICARE, MEDICAID, SELFPAY ==
[2018-12-15 16:01] VITALS: BMI 28.3
[2018-12-17 15:42] LABS: Absolute Lymphocyte Count 2.31 X10^3/ul (0.83-4.51); Absolute Neutrophil Count 5.1 X10^3/uL (2.0-7.7); Basophil# 0.03 X10^3/uL; Basophil% 0.4 % (0-1); Eosinophils% 2.4 % (0-5); Hematocrit 42.8 % (37-47); Hemoglobin 14.4 g/dl (12.0-15.0); Lymphocyte # 2.31 X10^3/ul (4.0); Lymphocyte % 27.4 % (19-41); Mean Corp Hgb Conc 33.6 g/gl (32-36); Mean Corpuscular Hgb 31.2 pg (27.0-32.0); Mean Corpuscular Volume 92.8 fL (81-99); Mean Platelet Vol. 12.1 fl (6.2-12.0); Monocyte# 0.75 X10^3/uL; Monocyte% 8.9 % (0-10); Neutrophil # 5.14 X10^3/uL (2.7-7.7); Neutrophil % 60.8 % (47-70); Platelet Count 188 K/mm3 (150-450); RBC Distribution Width CV 12.5 % (11.6-14.6); RBC Distribution Width SD 41.6 fl (35.1-43.9); Red Blood Count 4.61 M/mm3 (4.2-5.4); White Blood Count 8.4 K/mm3 (4.4-11.0)
[2018-12-17 15:49] LABS: POSITIVE COUNT NO; POSITIVE DIFFERENTIAL NO; POSITIVE MORPHOLOGY NO
[2018-12-17 16:36] LABS: Vitamin D,25 Hydroxy 35.5 ng/mL (29.95-100.01)
[2018-12-17 16:42] LABS: Anion Gap 9 (5-15); BUN 19 mg/dL (7-18); BUN/Creat Ratio 20.1 RATIO (10-20); Calcium,Total 9.1 mg/dL (8.5-10.1); Chloride 105 mmol/L (98-107); Creatinine, Serum 0.94 mg/dL (0.55-1.02); EST Glomerular Filtration Rate 61 mL/min (>60); Est Glom Filt Rate - Afr Amer 74 mL/min (>60); Glucose 86 mg/dL (74-106); Magnesium 1.8 mg/dL (1.6-2.6); Sodium Level 139 mmol/L (136-145); T4 Free Direct 1.24 ng/dL (0.76-1.46); Thyroid Stim Hormone (TSH) 1.48 uIU/mL (0.358-3.74)
== END ==
PROVIDERS: Family Provider Family Medicine; PCP Family Medicine; Visit Provider Family Medicine
DX: I48.91 Unspecified atrial fibrillation (principal); E55.9 Vitamin D deficiency, unspecified; R60.9 Edema, unspecified
CPT/HCPCS: 36415; 80048; 82306; 83735; 84439; 84443; 85025

== ENCOUNTER → 2019-01-04 16:48 | Outpatient (CLI) | payer MEDICARE, MEDICAID, SELFPAY ==
[2018-12-15 16:01] VITALS: BMI 28.3
== END ==
PROVIDERS: Family Provider Family Medicine; PCP Family Medicine; Visit Provider Family Medicine
DX: R30.0 Dysuria (principal)
CPT/HCPCS: 87086

== ENCOUNTER → 2019-01-07 14:32 | Outpatient (CLI) | payer MEDICARE, MEDICAID, SELFPAY ==
[2018-12-15 16:01] VITALS: BMI 28.3
[2019-01-07 16:19] LABS: Rheumatoid Factor < 10.0 IU/mL (<15)
[2019-01-10 14:08] LABS: Anti-Centromere B Ab <0.2 AI (0.0-0.9); Anti-Chromatin <0.2 AI (0.0-0.9); Anti-Jo <0.2 AI (0.0-0.9); Anti-Scleroderma-70 AB <0.2 AI (0.0-0.9); RNP Ab 0.4 AI (0.0-0.9); SJOGREN'S Anti-SS-A test < 0.2 AI (0.0-0.9); SJOGREN'S Anti-SS-B test < 0.2 AI (0.0-0.9); Smith Ab <0.2 AI (0.0-0.9)
[2019-01-11 11:27] LABS: CCP IgG Antibodies 7 units (0-19)
[2019-01-11 14:02] LABS: Anti-dsDNA Ab <1 IU/mL (0-9)
== END ==
PROVIDERS: Family Provider Family Medicine; PCP Family Medicine; Visit Provider Family Medicine
DX: M06.4 Inflammatory polyarthropathy (principal)
CPT/HCPCS: 36415; 86200; 86225; 86235; 86431

== ENCOUNTER → 2019-01-20 16:48 | Outpatient (CLI) | payer MEDICARE, MEDICAID, SELFPAY ==
[2018-12-15 16:01] VITALS: BMI 28.3
--- NOTE | 2019-01-20 | IMM_PTH ---
PATIENT: KONG WELCH LOC: BFHLAB U#:[id number] AGE/SX: 79/F ROOM: RE01/20/[address]: Dr. Sheri Dimas MD : 1945 BED: DIS: SPEC #: [id number] RECD: 01/24/19 11:53 STATUS: JAMIE REQ #: [id number] LOGAN: 01/20/19 00:[address]: Sheri Dimas DEPT: IMMUNOHISTOCHEMISTRY RECD BY: Lori Mendoza ENTERED: 01/24/19 11:55 SP TYPE: IMMUNO OTHR DR: Dr. Leonard Vogt MD Tissues: A - Skin of leg, NOS B - Skin of leg, NOS Procedures: Vimentin (add) Pankeratin (initial) MELAN-A (add) P40 (add) S-100 (add) PHYSICIAN & INSTITUTION [place] [phone] SPECIMEN INFORMATION: Tissue Source: A - Right lateral lower leg, B - Left medial lower leg Clinical Info: Squamous cell cancer Specimen Number: [id number] A & B CPT code: 54661 x2, 16550 x8 METHODOLOGY: Deparaffinized sections of prefer/formalin-fixed tissue or PAP/DQ stained slides are incubated with monoclonal/polyclonal antibodies/oligonucleotide probes. Localization is made via biotin free immunoperoxidase method. Appropriate controls are performed and reacted as expected. Results on target cell population are indicated in the following table: RESULTS: ANTIBODY / CLONE RESULT Block A AE1-3 (AE1/AE3/PCK26) positive S-100 (4C4.9) negative Melan A (A103) negative Vimentin (V9) negative P40 (BC28) positive Block B AE1-3 (AE1/AE3/PCK26) positive S-100 (4C4.9) negative Melan A (A103) negative Vimentin (V9) negative P40 (BC28) positive These tests were developed and their performance characteristics determined by [facility]. They may not have been cleared or approved by the U.S. Food and Drug Administration. The FDA has determined that such clearance or approval is not necessary. INTERPRETATION: A. Skin of right lateral lower leg, punch biopsy: Consistent with squamous cell carcinoma in situ. B. Skin of left medial lower leg, punch biopsy: Moderate to focal severe squamous dysplasia. Case has been reviewed in consultation with Dr. Sam who concurs with the above diagnosis. IDC:LORETO AM:yolanda 01/25/19
--- NOTE | 2019-01-20 15:15 | LES_PTH ---
PATIENT: KONG WELCH LOC: BFHLAB U#:[id number] AGE/SX: 79/F ROOM: RE01/20/[address]: Dr. Sheri Dimas MD : 1945 BED: DIS: SPEC #: [id number] RECD: 01/21/19 10:43 STATUS: JAMIE RUTH #: [id number] LOGAN: 01/20/19 15:[address]: Sheri Dimas DEPT: SURGICAL PATHOLOGY RECD BY: Cosme Burk ENTERED: 01/21/19 10:43 SP TYPE: Lesion OTHR DR: Dr. Leonard Vogt MD Tissues: A - Skin of leg, NOS B - Skin of leg, NOS Procedures: Surgery Specimen Level IV HEADER OPERATION: Punch biopsy PRE-OP DIAGNOSIS: Squamous cell cancer TISSUE SUBMITTED: A - Right lateral lower leg, B - Left medial lower leg MICROSCOPIC DIAGNOSIS A. Skin of right lateral lower leg, punch biopsy: Squamous cell carcinoma in situ. See comment. B. Skin of left medial lower leg, punch biopsy: Moderate to severe squamous dysplasia. Parakeratosis. See comment. AM:yolanda 01/24/19 COMMENT A & B. Immunohistochemistry ([id number]) supports the above diagnosis. Case has been reviewed in consultation with Dr. Sam who concurs with the above diagnosis. IDC:LORETO MICROSCOPIC DESCRIPTION Slides are reviewed. GROSS DESCRIPTION A - Received in fixative is one container labeled with the patient's name and designated right #1. The specimen consists of a punch biopsy of huston-white skin measuring 0.2 cm in length and 0.3 cm in diameter. The entire specimen is submitted in one cassette. B - Received in fixative is one container labeled with the patient's name and designated left #2. The specimen consists of a punch biopsy of huston-white skin measuring 0.2 cm in length and 0.3 cm in diameter. The entire specimen is submitted in one cassette. / LORETO:yolanda 01/21/19 TC:0 CPT: 86995 x2
== END ==
PROVIDERS: Family Provider Family Medicine; PCP Family Medicine; Visit Provider Family Medicine
DX: C80.1 Malignant (primary) neoplasm, unspecified (principal)
CPT/HCPCS: 88305; 88341; 88342

== ENCOUNTER → 2019-03-07 13:42 | Outpatient (CLI) | payer MEDICARE, MEDICAID, SELFPAY ==
[2019-02-09 14:52] VITALS: BMI 29.2
[2019-02-17 15:25] VITALS: BMI 29.2
--- NOTE | 2019-03-07 13:43 | ECHOD_ITS ---
Reason For Study: Afib/Flutter Procedure This was a 2D Doppler, Color Flow transthoracic echocardiogram. Exam performed in department. Left Ventricle Normal LV size. Left ventricular systolic function is normal. The estimated ejection fraction is 70 %. Unable to assess diastolic dysfunction due to arrhythmia. No regional wall motion abnormalities noted. Right Ventricle Normal RV size. Normal systolic function. Atria The left atrium is severely enlarged. The right atrium is mildly enlarged. Mitral Valve There is mild to moderate mitral annular calcification. Tricuspid Valve Normal tricuspid valve. Mild to moderate (1-2+) tricuspid valve insufficiency. Pulmonary artery systolic pressure is 36 mmHg. Aortic Valve Normal aortic valve. Pulmonic Valve Normal pulmonic valve. Great Vessels Normal aortic root. The pulmonary artery is normal size. Normal inferior vena cava. Pericardium/Pleural No pericardial effusion. MMode/2D Measurements & Calculations LVIDd: 3.8 cm IVSd: 1.4 cm LA dimension: 4.4 cm LVIDs: 2.4 cm LVPWd: 0.94 cm FS: 37.4 % LAV(MOD-bp): 101.8 ml LA A4 area: 30.3 cm2 RA A4 area: 22.6 cm2 LAV(MOD-bp) Indexed: 62.5 ml/m2 LAV(MOD-sp2): 99.9 ml LAV(MOD-sp4): 100.2 ml Doppler Measurements & Calculations MV E max dhara: 122.9 cm/sec Ao V2 max: 107.6 cm/sec LV V1 max: 78.8 cm/sec Ao max P.6 mmHg LV V1 max P.5 mmHg PA V2 max: 82.3 cm/sec TR max dhara: 281.3 cm/sec TR max P.6 mmHg Interpretation Summary Normal LV size. Left ventricular systolic function is normal. The estimated ejection fraction is 70 %. Unable to assess diastolic dysfunction due to arrhythmia. There is mild to moderate mitral annular calcification. Pulmonary artery systolic pressure is 36 mmHg. Ordering Physician: Michael Winn Referring Physician: Leonard Vogt Performed By: Raji Taylor RCS
== END ==
PROVIDERS: Family Provider Family Medicine; PCP Family Medicine; Referring Provider Internal Medicine Cardiovascular Disease; Visit Provider Internal Medicine Cardiovascular Disease
DX: I48.1 Persistent atrial fibrillation (principal)
CPT/HCPCS: 93306

== ENCOUNTER 2019-04-05 09:14 | Day surgery (SDC) | payer MEDICARE, MEDICAID, SELFPAY ==
[2019-02-17 15:25] VITALS: BMI 29.2
--- NOTE | 2019-04-04 23:47 | HP.PCM_ITS ---
History and Physical Date of Admission: 04/05/19 HISTORY OF PRESENT ILLNESS 73 year old female presents for evaluation for TBSE. She had lesions on her left upper medial back, left upper lateral back/posterior shoulder, and left middle lateral back that were recently biopsied by Dermatology on 02/01/19. The left upper medial back lesion was a superficial and micronodular basal cell carcinoma. The left upper lateral back/posterior shoulder lesion was an actinic keratosis. The left middle lateral back lesion was a mildly dysplastic compound nevus. She also has scattered actinic damage on her forehead that she states was treated by Dermatology. Her scar on her right anterior thigh remains well healed after excision of invasive, moderately differentiated squamous cell carcinoma on 08/12/18. She has additional lesions on her right proximal lateral leg by her knee, right anterolateral leg, and left medial leg that appear actinic in nature. 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) Vitamin D deficiency PAST SURGICAL HISTORY Cataracts, bilateral rotator cuff surgery toe surgery hysterectomy back surgery cardioversion carpal tunnel surgery delivery cholecystectomy ALLERGIES acetaminophen [From Percocet] amoxicillin codeine duloxetine [From Cymbalta] guaifenesin [From Mucinex] hydrocodone [From Vicodin] oxycodone [From Percocet] penicillin promethazine sulfamethoxazole [From Bactrim] trimethoprim [From Bactrim] sodium MEDICATIONS albuterol sulfate HFA cholecalciferol (vitamin D3) diltiazem CD triamcinolone acetonide alprazolam budesonide-formoterol Nitrofurantoin Macrocrystal [Macrodantin] Apixaban [Eliquis] Lactobacillus acidophilus imiquimod 5 % topical cream FAMILY HISTORY Mother - CVA (cerebral vascular accident) SOCIAL HISTORY household members: none Smoking Status: Current every day smoker alcohol intake: never substance use type: does not use REVIEW OF SYSTEMS General - Denies fever, fatigue, and weight loss. Eyes - Denies glaucoma. Has had cataracts repaired. ENT - Denies nasal congestion and sore throat. Endocrine - Denies excessive thirst and urination. Skin - Has a personal history of skin cancer. Had recent biopsies on her left upper medial back, left posterior shoulder, and left middle lateral back. Has actinic lesions on her right proximal lateral leg by her knee, right anterolateral leg, and left medial leg. Musculoskeletal - Has a history of back surgery, osteopenia, glenoid labrum tear, plantar fasciitis, impingement syndrome of right shoulder and tendonitis. Neuro - Denies headaches. Cardiovascular - Denies chest pain, fatigue, and shortness of breath with exertion. Has a history of afib, currently on Eliquis. Psych - Has a personal history of moderate depression and insomnia. Respiratory - Has history of asthma and COPD. Patient is a smoker. Gastrointestinal - Denies nausea, vomiting, diarrhea, and constipation. Hematologic - Denies abnormal bruising and bleeding. Genitourinary - Denies hematuria and urinary frequency. PHYSICAL EXAMINATION General - Alert and oriented. HEENT - PERRL. EOMI. Throat is clear. There was scattered actinic damage on her forehead that appears smooth and healed at this time. She states she had rece nt treatment by Dermatology. No other suspicious lesions noted. Neck - Supple and non-tender. No cervical adenopathy. No suspicious lesions noted. Lungs- Clear to auscultation. Heart - Regular rate and rhythm. Abdomen - Soft and non distended. Extremities - FROM. No axillary adenopathy. Radial pulses are palpable. On the right anterior thigh is a longitudinal healed scar from recent excision of squamous cell carcinoma. On the right proximal lateral thigh was a lesion that was clinically consistent with actinic keratosis and treated with Aldara and appears smooth and healed today without evidence of recurrence. Will continue to observe. There is a lesion right proximal lateral leg by her knee that is scabby with irregular borders. Measures 13 mm. No ulceration. Lesion is nontender. Looks actinic in nature. There is a lesion on her left medial leg that is erythematous with irregular borders. Measures 1 cm. No ulceration. Lesion is nontender. Looks actinic in nature. There is a lesion right anterolateral leg that is erythematous with irregular borders. Measures 1 cm. No ulceration. Lesion is nontender. Looks actinic in nature. On the left lateral leg inferior to a tattoo was a lesion that has resolved. measures 4 mm. Back - On the left upper medial back is a healing wound after recent biopsy that showed a superficial and micronodular basal cell carcinoma. Measures 7 mm. On the left upper lateral back/posterior shoulder is a healing wound after recent biopsy that showed an actinic keratosis. Measures 8 mm. On the left middle lateral back is a healing scar after recent biopsy that showed a mildly dysplastic compound nevus. Measures 8 mm. Neuro - CN II-XII grossly intact. Psych - Normal mood and affect. ASSESSMENT 1. 7 mm superficial and micronodular basal cell carcinoma left upper medial back. 2. 8 mm actinic keratosis left upper lateral back/posterior shoulder. 3. 8 mm mildly dysplastic nevus left middle lateral back. 4. 13 mm actinic lesion right proximal lateral leg by her knee. 5. 1 cm actinic lesion right anterolateral leg. 6. 1 cm actinic lesion left medial leg. 7. 4 mm actinic lesion right proximal lateral thigh, healed after Aldara. 8. Personal history of skin cancer. 9. Smoker. 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 PLAN Recommend excision of basal cell carcinoma left upper medial back, actinic keratosis left upper lateral back/posterior shoulder, and dysplastic nevus left middle lateral back and send them to Pathology for analysis to rule out carci noma at the margins. Reconstruction will be with local skin flaps. The actinic lesions on her right proximal lateral leg by her knee, right anterolateral leg, and left medial leg will need excision in the future after her recent biopsy wounds have healed. Will send the lesions to Pathology for analysis to rule out carcinoma. If positive, then further excision will be done with skin flap or skin graft reconstruction. Surgery will be done on an outpatient basis under local anesthesia and IV sedation. Patient was informed of the risks and complications of the procedure including alternatives to surgery. These were discussed with the patient personally. Patient voices understanding and wishes to proceed. Some of the risks and complications were included in a form from the [employer]. Encouraged patient to stop smoking as it may have deleterious effects on wound healing. Patient is on Eliquis for her atrial fibrillation and will talk to her Nailhead Puncher to see if it is ok to stop the medication for the surgery.
[2019-04-05 09:52] VITALS: BP 136/77; PULSE 59; RESP 16; TEMP 36.7; O2SAT 98; BMI 29.8
[2019-04-05] MEDS: Lactated Ringers 1,000 ML 100 ML IV (10:04)
--- NOTE | 2019-04-05 10:45 | TISS_PTH ---
PATIENT: KONG WELCH LOC: [facility] [place] U#:[id number] AGE/SX: 73/F ROOM: RE04/05/[address]: Dr. Harinder Montoya MD : 1945 BED: DIS: 04/05/2019 SPEC #: [id number] RECD: 04/05/19 14:28 STATUS: JAMIE RUTH #: [id number] LOGAN: 04/05/19 10:[address]: Harinder Montoya DEPT: SURGICAL PATHOLOGY RECD BY: Brad Beckman ENTERED: 04/05/19 14:44 SP TYPE: Tissue Bx REGAN DR: Dr. Leonard Vogt MD Tissues: A - Skin of back, NOS B - Skin of back, NOS C - Skin of back, NOS Procedures: Surgery Specimen Level IV HEADER OPERATION: Excision basal cell cancer upper medial back PRE-OP DIAGNOSIS: 7 mm superficial and micronodular basal cell carcinoma left upper medial back; 8?mm actinic keratosis left upper lateral back/posterior shoulder; 8 mm mildly dysplastic nevus left middle lateral back TISSUE SUBMITTED: A - Nevus left middle lateral back, suture at 12 o'clock, B - Actinic keratosis left upper lateral back/posterior shoulder, suture at 12 o'clock, C - Basal cell cancer left upper medial back, suture at 12 o'clock MICROSCOPIC DIAGNOSIS A. Nevus left middle lateral back, excisional biopsy: Dermal fibrosis, consistent with scar. Negative for melanocytic lesion. Mild melanocytic hyperplasia, favor reactive. B. Actinic keratosis left upper lateral back/posterior shoulder, excisional biopsy: Dermal fibrosis, consistent with scar. Mild melanocytic hyperplasia, favor reactive. C. Basal cell carcinoma left upper medial back, excisional biopsy: Dermal fibrosis, consistent with scar. Negative for malignancy. SJ:yolanda 04/07/19 MICROSCOPIC DESCRIPTION Slides are reviewed. GROSS DESCRIPTION A - Received in fixative is one container labeled with the patient's name and designated nevus left middle lateral back, suture at 12 o'clock. The specimen consists of a huston-white skin ellipse measuring 2.9 x 1 cm and up to 0.5 cm in thickness. The specimen is oriented by a suture at 12 o'clock. The specimen is inked as follows: 12 o'clock margin - black, 6 o'clock margin - blue, 3 o'clock tip - green, 9 o'clock tip - yellow. The specimen is serially sectioned and submitted entirely in three cassettes. The specimen will be submitted after overnight fixation. B - Received in fixative is one container labeled with the patient's name and designated actinic keratosis left upper lateral back/posterior shoulder, suture at 12 o'clock. The specimen consists of a shauna-shaped piece of huston-white skin measuring 2.5 x 1.5 cm and up to 0.8 cm in thickness. The specimen is inked as follows: 12 to 3 o'clock - black, 3 to 6 o'clock - blue, 6 to 9 o'clock - green, 9 to 12 o'clock - yellow. The specimen is serially sectioned and submitted entirely in three cassettes. The specimen will be submitted after overnight fixation. C - Received in fixative is one container labeled with the patient's name and designated basal cell carcinoma left upper medial back, suture at 12 o'clock. The specimen consists of a shauna-shaped piece of huston-white skin measuring 2.5 x 2 cm and up to 1 cm in thickness. The specimen is inked as follows: 12 to 3 o'clock - black, 3 to 6 o'clock - blue, 6 to 9 o'clock - green, 9 to 12 o'clock - yellow. The specimen is serially sectioned and submitted entirely in four cassettes. The specimen will be submitted after overnight fixation. / SJ:rg 04/05/19 TC:3 CPT: 36110 x3
--- NOTE | 2019-04-05 12:19 | OP.PCM_ITS ---
Report of Operation Date of Procedure: 04/05/19 Pre-Operative Diagnosis: 1. 7 mm superficial and micronodular basal cell carcinoma left upper medial back. 2. 8 mm actinic keratosis left upper lateral back/posterior shoulder. 3. 8 mm mildly dysplastic nevus left middle lateral back. 4. Personal history of skin cancer. 5. Smoker. 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 Post-Operative Diagnosis: Same. Surgery/Procedure Performed:: 1. Excision 7 mm superficial and micronodular basal cell carcinoma left upper medial back with rhomboid transposition skin flap reconstruction (8 cm2). 2. Excision 8 mm actinic keratosis left upper lateral back/posterior shoulder with rhomboid transposition skin flap reconstruction (4.5 cm2). 3. Excision 8 mm mildly dysplastic nevus left middle lateral back with 3.5 cm layered closure. Description of Surgical Findings:: 73 year old female presents for evaluation for TBSE. She had lesions on her left upper medial back, left upper lateral back/posterior shoulder, and left middle lateral back that were recently biopsied by Dermatology on 02/01/19. The left upper medial back lesion was a superficial and micronodular basal cell carcinoma. The left upper lateral back/posterior shoulder lesion was an actinic keratosis. The left middle lateral back lesion was a mildly dysplastic compound nevus. She also has scattered actinic damage on her forehead that she states was treated by Dermatology. Her scar on her right anterior thigh remains well healed after excision of invasive, moderately differentiated squamous cell carcinoma on 08/12/18. She has additional lesions on her right proximal lateral leg by her knee, right anterolateral leg, and left medial leg that appear actinic in nature. Patient was informed of the risks and complications of the procedure including alternatives to surgery. These were discussed with the patient personally. Patient voices understanding and wishes to proceed. Some of the risks and complications were included in a form from the [employer]. Encouraged patient to stop smoking as it may have deleterious effects on wound healing. 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 Type of Anesthesia:: Local MAC - xylocaine with epinephrine and IV sedation. Specimen's removed: 1. Basal cell carcinoma left upper medial back to Pathology. 2. Actinic keratosis left upper lateral back/posterior shoulder to Pathology. 3. Dysplastic nevus left middle lateral back to Pathology. Drains: None. Estimated Blood Loss (mL): 25 ml. Description of Procedure: Patient was taken to OR in supine position and was given IV sedation. She was placed in the lateral position. The left side of her back was prepped and draped in the usual fashion. SCD's were placed for DVT prophylaxis. Perioperative antibiotics were given intravenously. The lesions left upper medial back, left upper lateral back/posterior shoulder, and left middle lateral back were infiltrated with xylocaine and epinephrine. After waiting 5 minutes for the anesthetic to take effect, I excised the dysplastic nevus left middle lateral back in an oblique elliptical fashion into the subcutaneous tissue. I excised with a 2 mm margin in all directions thus making it a 1.2 cm excision and a 3.5 cm layered closure. A suture was marked at 12 oclock position for pathology orientation. The lesion was sent to Pathology for analysis to rule out carcinoma. Hemostasis was obtained with electrocautery. The wound was closed in a layered fashion with 3-0 Monocryl interrupted sutures for the deep dermis and subcutaneous tissue. The skin was approximated with 4-0 Prolene simple interrupted sutures. I then excised the basal cell carcinoma left upper medial back in a rhomboid fashion with a 5 mm margin in all directions down into the subcutaneous tissue. A suture was marked at 12 oclock position for pathology orientation. The lesion was sent to Pathology for analysis to rule out carcinoma. Hemostasis was obtained with electrocautery. I designed a rhomboid flap adjacent to the defect and incisions were made and the flap was elevated on a subcutaneous pedicle down to the underlying fascia. The rhomboid flap was easily transposed into the defect with minimal tension and minimal distortion. Hemostasis was obtained with electrocautery. The flap was transposed into the defect and the wound was closed in a layered fashion with 3-0 Monocryl interrupted sutures for the deep dermis and subcutaneous tissue. The skin was approximated with 3-0 Prolene simple interrupted sutures. The size of the defect and the size of the flap needed to close the defect was 8 cm2. I then excised the actinic keratosis left upper lateral back/posterior shoulder in a rhomboid fashion with a 2 mm margin in all directions down into the subcutaneous tissue. A suture was marked at 12 oclock position for pathology orientation. The lesion was sent to Pathology for analysis to rule out carcinoma. Hemostasis was obtained with electrocautery. I designed a rhomboid flap adjacent to the defect and incisions were made and the flap was elevated on a subcutaneous pedicle down to the underlying fascia. The rhomboid flap was easily transposed into the defect with minimal tension and minimal distortion. Hemostasis was obtained with electrocautery. The flap was transposed into the defect and the wound was closed in a layered fashion with 3-0 Monocryl interrupted sutures for the deep dermis and subcutaneous tissue. The skin was approximated with 3-0 Prolene simple interrupted sutures. The size of the defect and the size of the flap needed to close the defect was 4.5 cm2. Antibiotic ointment was applied to the suture lines followed by gauze dressings. Patient tolerated the procedure well and was sent to PACU in satisfactory condition. Patient will be sent home on antibiotics and pain medication. She will be on a lifting restriction for the initial postoperative period. Patient will followup in a week for a wound check and for discussion of the pathology report. Sutures will be removed in two weeks. After healing has occurred, will then address the lesions on her legs for excision. Grafts/Implants Used: None. - Complications None. - Admit VTE Documentation VTE Present on Admission: No VTE Mechan Device Prophylaxis: SCD's VTE Pharm Prophylaxis ordered?: No Code Visit Surgery Charges CPT - 43417 ICD-10 - C44.519, Z85.828, F17.200, Z79.01 47450 L57.0, Z85.828, F17.200, Z79.01 24045 D23.5, Z85.828, F17.200, Z79.01 17841 D23.5, Z85.828, F17.200, Z79.01
[2019-04-05] MEDS: Mupirocin Ointment 22gm Tube 1 APPLIC (12:36)
--- NOTE | 2019-04-05 12:41 | DCINST_ITS ---
You will use the following diet at home:: No restrictions Discharge Activity: May not drive while taking narcotic pain medications., May Shower - in two days., - - no heavy lifting. May shower in (days): 2 May resume sexual activity in: No Restrictions Weight Bearing Status: Weight bearing as tolerated Lifting Restrictions: 20 lbs. Call your doctor if your incision/area has: Continuous Slow Oozing, Sudden Inc reased Bleeding, Increased Pain/ Swelling, Increased Redness, Foul Smelling Discharge, Swelling at the incision site Call your doctor if you observe: Fever of 101 or Higher, Coldness, Increased Pain, Shortness of breath, Chest pain, Calf discomfort, Uncontrolled pain Suture Line Care: - - after operative dressings removed in two days, apply antibiotic ointment to suture line daily. Change Dressing in (Days):: 2 - antibiotic ointment daily. Cleanse incision/area with: - - may get incisions wet in the shower in two days. Allergies/Adverse Reactions: Allergies amoxicillin Allergy (Mild, Verified 04/01/19 11:43) Unknown codeine Allergy (Mild, Verified 04/01/19 11:43) Unknown duloxetine [From Cymbalta] Allergy (Mild, Verified 04/01/19 11:43) Unknown guaifenesin [From Mucinex] Allergy (Mild, Verified 04/01/19 11:43) Unknown oxycodone [From Percocet] Allergy (Mild, Verified 04/01/19 11:43) Other penicillin G Allergy (Mild, Verified 04/01/19 11:43) Unknown promethazine Allergy (Mild, Verified 04/01/19 11:43) Other sulfamethoxazole [From Bactrim] Allergy (Mild, Verified 04/01/19 11:43) Unknown trimethoprim [From Bactrim] Allergy (Mild, Verified 04/01/19 11:43) Unknown Medications to take at Discharge albuterol sulfate HFA 90 mcg/actuation aerosol inhaler 1 inh INHALATION ONCE PRN 06/04/17 cholecalciferol (vitamin D3) 50,000 unit capsule 50,000 unit PO QMONTH 06/04/17 diltiazem CD 180 mg capsule,extended release 24 hr 180 mg PO BID 06/04/17 budesonide-formoterol HFA 80 mcg-4.5 mcg/actuation aerosol inhaler 2 puff INHALATION BID 08/02/18 Nitrofurantoin Macrocrystal [Macrodantin] 50 mg PO QHS 08/06/18 Citalopram [Celexa] 10 mg PO DAILY 04/01/19 Ketoconazole [Nizoral Cream] 1 applic TOPICAL DAILY 04/01/19 Apixaban [Eliquis] 5 mg PO BID #0 04/05/19 Clindamycin HCl [Cleocin] 300 mg PO TID #12 cap 04/05/19 Hydrocodone/Acetaminophen [Hydrocodon-Acetaminophen 5-325] 1 ea PO 4X/DAY PRN PRN 7 Days #30 tab 04/05/19 Lactobacillus Acidophilus/Fos [Acidophilus Probiotic Tablet] 1 ea PO BID #10 tab 04/05/19 The following prescriptions were given: Lactobacillus Acidophilus/Fos [Acidophilus Probiotic Tablet] 1 ea PO BID #10 tab Prescription Printed Clindamycin HCl [Cleocin] 300 mg PO TID #12 cap Prescription Printed Hydrocodone/Acetaminophen [Hydrocodon-Acetaminophen 5-325] 1 ea PO 4X/DAY PRN PRN 7 Days #30 tab PRN Reason: Pain Score 4-5/10 Prescription Printed Primary Care Physician: Leonard Vogt MD [Primary Care Provider] - Test Results: Test results from this visit will be discussed in further detail at your follow- up appointment, if applicable. Please Follow Up With: Harinder Montoya MD When: one week. call [phone] for appt. Proposed Discharge Date: 04/05/19
[2019-04-05 12:50] VITALS: BP 136/77; BP 98/50; PULSE 82; RESP 16; TEMP 36.1; O2SAT 95
[2019-04-05 12:55] VITALS: BP 136/77; BP 87/65; PULSE 61; RESP 16; O2SAT 92
[2019-04-05 13:00] VITALS: BP 136/77; BP 95/55; PULSE 59; RESP 16; O2SAT 94
[2019-04-05 13:05] VITALS: BP 107/51; BP 136/77; PULSE 60; RESP 16; TEMP 36.6; O2SAT 93
[2019-04-05 14:09] VITALS: BP 136/77
== END 2019-04-05 14:23 | disposition home or self-care (01) ==
LOC: SDC 09:15 → AC 09:16
PROVIDERS: Family Provider Family Medicine; PCP Family Medicine; Referring Provider Surgery; Visit Provider Surgery
PROC: (CPT 12032; principal; 2019-04-05 10:35)
DX: C44.519 Basal cell carcinoma of skin of other part of trunk (principal); L57.0 Actinic keratosis; D23.5 Other benign neoplasm of skin of trunk; J44.9 Chronic obstructive pulmonary disease, unspecified; I48.91 Unspecified atrial fibrillation; F17.200 Nicotine dependence, unspecified, uncomplicated; Z79.01 Long term (current) use of anticoagulants; Z85.828 Personal history of other malignant neoplasm of skin; Z82.3 Family history of stroke; Z88.0 Allergy status to penicillin; Z88.1 Allergy status to other antibiotic agents; Z88.2 Allergy status to sulfonamides; Z88.5 Allergy status to narcotic agent; Z88.8 Allergy status to other drugs, medicaments and biological substances; Z90.710 Acquired absence of both cervix and uterus; Z90.49 Acquired absence of other specified parts of digestive tract
CPT/HCPCS: 12032; 14000; 88305; J7120; J2405

== ENCOUNTER 2019-07-15 09:24 | Day surgery (SDC) | payer MEDICARE, MEDICAID, SELFPAY ==
[2019-05-19 15:10] VITALS: BMI 29.8
[2019-07-13 11:01] VITALS: BMI 29.8
--- NOTE | 2019-07-14 23:45 | HP.PCM_ITS ---
History and Physical Date of Admission: 07/15/19 HISTORY OF PRESENT ILLNESS 73 year old female presents for evaluation for TBSE. She had recent biopsies on 01/21/19 of her right lateral lower leg which showed squamous cell carcinoma in situ. The left medial lower leg showed moderate to severe squamous dysplasia. She also has concerns about a lesion on her left neck. Some crusting seen. Looks actinic in nature. 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 Excision 7 mm superficial and micronodular basal cell carcinoma left upper medial back with rhomboid transposition skin flap reconstruction (8 cm2). 2. Excision 8 mm actinic keratosis left upper lateral back/posterior shoulder with rhomboid transposition skin flap reconstruction (4.5 cm2). 3. Excision 8 mm mildly dysplastic nevus left middle lateral back with 3.5 cm layered closure. ALLERGIES acetaminophen [From Percocet] amoxicillin codeine duloxetine [From Cymbalta] guaifenesin [From Mucinex] hydrocodone [From Vicodin] oxycodone [From Percocet] penicillin promethazine sulfamethoxazole [From Bactrim] trimethoprim [From Bactrim] sodium MEDICATIONS albuterol sulfate HFA cholecalciferol (vitamin D3) diltiazem CD triamcinolone acetonide alprazolam budesonide-formoterol Nitrofurantoin Macrocrystal [Macrodantin] Apixaban [Eliquis] Lactobacillus acidophilus imiquimod 5 % topical cream FAMILY HISTORY Mother - CVA (cerebral vascular accident) SOCIAL HISTORY household members: none Smoking Status: Current every day smoker alcohol intake: never substance use type: does not use REVIEW OF SYSTEMS General - Denies fever, fatigue, and weight loss. Eyes - Denies glaucoma. Has had cataracts repaired. ENT - Denies nasal congestion and sore throat. Endocrine - Denies excessive thirst and urination. Skin - Has a personal history of skin cancer. Has actinic lesion left neck. Has squamous cell carcinoma in situ right lateral lower leg. Has moderate to severe squamous dysplasia left medial lower leg. Musculoskeletal - Has a history of back surgery, osteopenia, glenoid labrum tear, plantar fasciitis, impingement syndrome of right shoulder and tendonitis. Neuro - Denies headaches. Cardiovascular - Denies chest pain, fatigue, and shortness of breath with exertion. Has a history of afib, currently on Eliquis. Psych - Has a personal history of moderate depression and insomnia. Respiratory - Has history of asthma and COPD. Patient is a smoker. Gastrointestinal - Denies nausea, vomiting, diarrhea, and constipation. Hematologic - Denies abnormal bruising and bleeding. Genitourinary - Denies hematuria and urinary frequency. PHYSICAL EXAMINATION General - Alert and oriented. HEENT - PERRL. EOMI. Throat is clear. There was scattered actinic damage on her forehead that appears smooth and healed at this time. She states she had recent treatment by Dermatology. No other suspicious lesions noted. Neck - Supple and non-tender. No cervical adenopathy. On the left neck is a 7 mm lesion. Mild crusting seen. Has irregular borders. No ulceration. Lesion is nontender. Looks actinic in nature. Lungs- Clear to auscultation. Heart - Regular rate and rhythm. Abdomen - Soft and non distended. Extremities - FROM. No axillary adenopathy. Radial pulses are palpable. On the right anterior thigh is a longitudinal healed scar from recent excision of squamous cell carcinoma. There is a lesion on her left medial lower leg that was biopsied in 01/31 and it showed moderate to severe squamous dysplasia. Measures 1.1 cm. Has irregular borders. Biopsy site has healed. No ulceration. Lesion is nontender. There is a lesion right lateral lower leg that was biopsied in 01/31 and it showed squamous cell carcinoma in situ. Measures 1.5 cm. Has irregular borders. Biopsy site has healed. No ulceration. Lesion is nontender. Back - On the left upper medial back is a healed scar from recent excision of basal cell carcinoma. On the left upper lateral back/posterior shoulder is a healed scar from recent excision of actinic keratosis. On the left middle lateral back is a healed scar from recent excision of dysplastic nevus. Neuro - CN II-XII grossly intact. Psych - Normal mood and affect. ASSESSMENT 1. 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 2. 1.1 cm moderate to severe squamous dysplasia left medial lower leg. 3. 7 mm actinic lesion left neck. 4. History of dysplastic nevus. 5. Personal history of skin cancer. 6. Smoker. 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 PLAN Recommend excision of squamous cell carcinoma in situ right lateral lower leg and moderate to severe squamous dysplasia left medial lower leg with a margin and send them to Pathology for analysis to rule out carcinoma at the margins. Reconstruction will be with skin grafting. Also recommend excision of the crusty lesion left neck and send it to Pathology for analysis to rule out carcinoma. If carcinoma is present, then further excision will be done with a local skin flap reconstruction. Surgery will be done on an outpatient basis under local anesthesia and IV sedation. Patient was informed of the risks and complications of the procedure including alternatives to surgery. These were discussed with the patient personally. Patient voices understanding and wishes to proceed. Some of the risks and complications were included in a form from the [employer]. Encouraged patient to stop smoking as it may have deleterious effects on wound healing. Patient is on Eliquis for her atrial fibrillation and will talk to her Vocational Trainer to see if it is ok to stop the medication for the surgery.
[2019-07-15] VITALS (9 sets, daily range): BP systolic 120–145; BP diastolic 57–80; PULSE 66–75; RESP 16; TEMP 36.1–36.8; O2SAT 92–100; BMI 28.5
--- NOTE | 2019-07-15 | LES_PTH ---
[id number] LOC: [facility] – [place] U#:[id number] AGE/SX: 73/F ROOM: RE07/15/[address]: Dr. Harinder Montoya MD : 1945 BED: DIS: 07/15/2019 SPEC #: [id number] RECD: 07/15/19 11:36 STATUS: JAMIE RUTH #: [id number] LOGAN: 07/15/19 00:[address]: Harinder Montoya DEPT: SURGICAL PATHOLOGY RECD BY: Lori Mendoza ENTERED: 07/15/19 12:14 SP TYPE: Lesion OTHR DR: Dr. 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 Skin lesion of neck, shave biopsy: Actinic keratosis with moderate atypia. AM:yolanda 07/15/19 Case has been reviewed in consultation with Dr. Sam who concurs with the above diagnosis. IDC:LORETO MICROSCOPIC DIAGNOSIS A. Skin lesion neck, shave biopsy: Actinic keratosis with moderate to severe atypia. Solar elastosis. B. Left medial leg, excisional biopsy: Squamous cell carcinoma in situ, completely excised. Actinic keratosis. C. Right proximal lateral leg lesion, excisional biopsy: Squamous cell carcinoma in situ, completely excised. Actinic keratosis. D. Left neck actinic keratosis, excisional biopsy: Actinic keratosis with focal moderate atypia. Focal ulceration consistent with site of specimen A. Focal area of actinic keratosis with seborrhoic keratosis-like features. See comment. SJ:yolanda 07/18/19 SJ:yolanda 07/20/19 COMMENT D. The resection margins is free of dysplastic changes. Please make reference to previous specimen ([id number]) skin of right lateral lower leg, punch biopsy with diagnosis of squamous cell carcinoma in situ and skin of left medial lower leg, punch biopsy with diagnosis of moderate to severe squamous dysplasia. Case has been reviewed in consultation with Dr. Panda who concurs with the above diagnosis. IDC:AM MICROSCOPIC DESCRIPTION Slides are reviewed. GROSS DESCRIPTION A - Received fresh for frozen section consultation/diagnosis labeled with the patient's name is a specimen designated lesion of left knee. The specimen consists of a shave biopsy of huston-white skin measuring 0.8 x 0.6 x 0.1 cm. The specimen is inked, bisected and submitted entirely in one cassette. B - Received in fixative is one container labeled with the patient's name and designated left medial leg, suture at 12 o'clock. The specimen consists of a shauna-shaped piece of huston-white skin measuring 2.5 x 2.5 cm and up to 0.6 cm in thickness. The specimen is oriented by a suture at 12 o'clock. The specimen is inked at follows: 12 to 3 o'clock - black, 3 to 6 o'clock - blue, 6 to 9 o'clock - green, 9 to 12 o'clock - yellow. The specimen is serially sectioned and submitted entirely in three cassettes. C - Received in fixative is one container labeled with the patient's name and designated right proximal lateral leg, suture at 12 o'clock. The specimen consists of a shauna-shaped piece of huston-white skin measuring 3 x 3 cm and up to 0.5 cm in thickness. The specimen is oriented by a suture at 12 o'clock. The specimen is inked at follows: 12 to 3 o'clock - black, 3 to 6 o'clock - blue, 6 to 9 o'clock - green, 9 to 12 o'clock - yellow. The specimen is serially sectioned and submitted entirely in four cassettes. D - Received in fixative is one container labeled with the patient's name and designated left neck actinic keratosis, suture at 12 o'clock. The specimen consists of a shauna-shaped piece of huston-white skin measuring 2 x 1.6 x 0.4 cm. A focal area of ulceration is noted on the surface consistent with site of specimen A measuring 0.5 x 0.5 cm. The specimen is inked at follows: 12 to 3 o'clock - black, 3 to 6 o'clock - blue, 6 to 9 o'clock - green, 9 to 12 o'clock - yellow. The specimen is serially sectioned and submitted entirely in two cassettes. / SJ:yolanda 07/15/19 TC:0 CPT: 28624 x4, 13918
--- NOTE | 2019-07-15 | LES_PTH ---
[id number]: [facility] – [place] U#:[id number] AGE/SX: 73/F ROOM: RE07/15/[address]: Dr. Harinder Montoya MD : 1945 BED: DIS: 07/15/2019 SPEC #: [id number] RECD: 07/15/19 11:36 STATUS: JAMIE RUTH #: [id number] LOGAN: 07/15/19 00:[address]: Harinder Montoya DEPT: SURGICAL PATHOLOGY RECD BY: Lori Mendoza ENTERED: 07/15/19 12:14 SP TYPE: Lesion OTHR DR: Dr. 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 Skin lesion of neck, shave biopsy: Actinic keratosis with moderate atypia. AM:yolanda 07/15/19 Case has been reviewed in consultation with Dr. Sam who concurs with the above diagnosis. IDC:LORETO MICROSCOPIC DIAGNOSIS A. Skin lesion neck, shave biopsy: Actinic keratosis with moderate to severe atypia. Solar elastois. B. Left medial neck, excisional biopsy: Squamous cell carcinoma in situ, completely excised. Actinic keratosis. C. Right proximal lateral leg lesion, excisional biopsy: Squamous cell carcinoma in situ, completely excised. Actinic keratosis. D. Left neck actinic keratosis, excisional biopsy: Actinic keratosis with focal moderate atypia. Focal ulceration consistent with site of specimen A. Focal area of actinic keratosis with seborrhoic keratosis-like features. See comment. LORETO:yolanda 07/18/19 COMMENT D. The resection margins is free of dysplastic changes. Please make reference to previous specimen ([id number]) skin of right lateral lower leg, punch biopsy with diagnosis of squamous cell carcinoma in situ and skin of left medial lower leg, punch biopsy with diagnosis of moderate to severe squamous dysplasia. Case has been reviewed in consultation with Dr. Panda who concurs with the above diagnosis. IDC:AM MICROSCOPIC DESCRIPTION Slides are reviewed. GROSS DESCRIPTION A - Received fresh for frozen section consultation/diagnosis labeled with the patient's name is a specimen designated lesion of left knee. The specimen consists of a shave biopsy of huston-white skin measuring 0.8 x 0.6 x 0.1 cm. The specimen is inked, bisected and submitted entirely in one cassette. B - Received in fixative is one container labeled with the patient's name and designated left medial neck, suture at 12 o'clock. The specimen consists of a shauna-shaped piece of huston-white skin measuring 2.5 x 2.5 cm and up to 0.6 cm in thickness. The specimen is oriented by a suture at 12 o'clock. The specimen is inked at follows: 12 to 3 o'clock - black, 3 to 6 o'clock - blue, 6 to 9 o'clock - green, 9 to 12 o'clock - yellow. The specimen is serially sectioned and submitted entirely in three cassettes. C - Received in fixative is one container labeled with the patient's name and designated right proximal lateral leg, suture at 12 o'clock. The specimen consists of a shauna-shaped piece of huston-white skin measuring 3 x 3 cm and up to 0.5 cm in thickness. The specimen is oriented by a suture at 12 o'clock. The specimen is inked at follows: 12 to 3 o'clock - black, 3 to 6 o'clock - blue, 6 to 9 o'clock - green, 9 to 12 o'clock - yellow. The specimen is serially sectioned and submitted entirely in four cassettes. D - Received in fixative is one container labeled with the patient's name and designated left neck actinic keratosis, suture at 12 o'clock. The specimen consists of a shauna-shaped piece of huston-white skin measuring 2 x 1.6 x 0.4 cm. A focal area of ulceration is noted on the surface consistent with site of specimen A measuring 0.5 x 0.5 cm. The specimen is inked at follows: 12 to 3 o'clock - black, 3 to 6 o'clock - blue, 6 to 9 o'clock - green, 9 to 12 o'clock - yellow. The specimen is serially sectioned and submitted entirely in two cassettes. / SJ:yolanda 07/15/19 TC:0 CPT: 53306 x4, 31820
[2019-07-15] MEDS: Lactated Ringers 1,000 ML 100 ML IV (10:04)
[2019-07-15] MEDS: Mupirocin Ointment 22gm Tube 1 APPLIC (12:00)
--- NOTE | 2019-07-15 12:28 | PCM.OPRPT ---
Report of Operation Date of Procedure: 07/15/19 Pre-Operative Diagnosis: 1. 1.5 cm squamous cell carcinoma in situ right proximal lateral lower leg. 2. 1.1 cm moderate to severe squamous dysplasia left medial lower leg. 3. 7 mm actinic lesion left neck. 4. History of dysplastic nevus. 5. Personal history of skin cancer. 6. Smoker. 7. 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 Post-Operative Diagnosis: 1. 1.5 cm squamous cell carcinoma in situ right proximal lateral lower leg. 2. 1.1 cm moderate to severe squamous dysplasia left medial lower leg. 3. 7 mm actinic keratosis with moderate atypia left neck. 4. History of dysplastic nevus. 5. Personal history of skin cancer. 6. Smoker. 7. halfway use of anticoagulation. Surgery/Procedure Performed:: 1. Excision 1.5 cm squamous cell carcinoma in situ right proximal lateral lower leg with rhomboid transposition skin flap reconstruction (14.58 cm2). 2. Excision 1.1 cm moderate to severe squamous dysplasia left medial lower leg with rhomboid transposition skin flap reconstruction (10.58 cm2). 3. Excision 7 mm actinic keratosis with moderate atypia left neck with rhomboid transposition skin flap reconstruction (2.42 cm2). Description of Surgical Findings:: 73 year old female presents for evaluation for TBSE. She had recent biopsies on 01/21/19 of her right proximal lateral lower leg which showed squamous cell carcinoma in situ. The left medial lower leg showed moderate to severe squamous dysplasia. She also has concerns about a lesion on her left neck. Some crusting seen. Looks actinic in nature. 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 Patient was informed of the risks and complications of the procedure including alternatives to surgery. These were discussed with the patient personally. Patient voices understanding and wishes to proceed. Some of the risks and complications were included in a form from the [employer]. Encouraged patient to stop smoking as it may have deleterious effects on wound healing. Frozen section left neck - actinic keratosis with moderate atypia. senior software quality analyst: Jayce Umanzor. Type of Anesthesia:: Local MAC - xylocaine with epinephrine and IV sedation. Specimen's removed: 1. Lesion left neck to Pathology as a frozen section. 2. Actinic keratosis with moderate atypia left neck to Pathology. Drains: None. Estimated Blood Loss (mL): 20 ml. Description of Procedure: Patient was taken to OR in supine position and was given IV sedation. The left neck and bilateral legs and left flank areas were prepped and draped in the usual fashion. SCD's were not placed for DVT prophylaxis because surgery is being performed on both lower extremities. She already is anticoagulated with Eliquis for her atrial fibrillation. Perioperative antibiotics were given intravenously. The lesions left neck, left medial lower leg, and right proximal lateral leg were infiltrated with xylocaine and epinephrine. After waiting 5 minutes for the anesthetic to take effect, the lesion left neck was excised in an intradermal fashion and sent to Pathology as a frozen section for analysis to rule out carcinoma. Frozen section showed an actinic keratosis with moderate atypia. Therefore further excision was done with a rhomboid design with a 2 mm margin in all directions thus making a 1.1 cm excision. A suture was marked at 12 oclock position for pathology orientation. The lesion was sent to Pathology for analysis to rule out invasive carcinoma. I designed a rhomboid flap adjacent to the defect. Incisions were made and the flap was elevated on a subcutaneous pedicle. The flap was easily transposed into the defect with minimal tension and minimal distortion. Hemostasis was obtained with electrocautery. The flap was transposed into the defect and closed in a layered fashion with 4-0 Monocryl interrupted sutures for the deep dermis and subcutaneous tissue. The skin was approximated with 5-0 Prolene simple interrupted sutures. Antibiotic ointment was applied followed by an Op-Site dressing. The size of the left neck defect and the size of the flap needed to close the defect was 2.42 cm2. I then excised the lesions left medial lower leg and right proximal lateral leg in a rhomboid fashion with a 6 mm margin in all directions. The left medial lower leg lesion was a 2.3 cm excision. The right proximal lateral leg lesion was a 2.7 cm excision. A suture was marked at 12 oclock position for pathology orientation. The lesions were sent to Pathology for analysis to rule out carcinoma at the margins. There was redundant tissue adjacent to the defects so I will proceed with rhomboid transposition skin flaps reconstruction and not proceed with skin grafting. So there will be no need to obtain skin from the left flank area. I designed rhomboid flaps adjacent to the defects on the left medial lower leg and right proximal lateral leg. Incisions were made and the flaps were elevated on a subcutaneous pedicle. The flaps were easily transposed into the defects with minimal tension and minimal distortion. Hemostasis was obtained with electrocautery. The flaps were transposed into the defects and closed in a layered fashion with 4-0 Monocryl interrupted sutures for the deep dermis and subcutaneous tissue. The skin was approximated with 4-0 Prolene simple interrupted sutures. Antibiotic ointment was applied followed by gauze and compression leonidas wraps. The size of the left medial lower leg defect and the size of the flap needed to close the defect was 10.58 cm2. The size of the right proximal lateral leg defect and the size of the flap needed to close the defect was 14.58 cm2. Patient tolerated the procedure well and was sent to PACU in satisfactory condition. Patient will be sent home on antibiotics and pain medication. She will keep her head elevated during the initial postoperative period. Patient will followup in a week for a wound check and for discussion of the pathology report. The sutures will be removed in two weeks. Grafts/Implants Used: None. - Complications None. - Admit VTE Documentation VTE Present on Admission: No - Patient is on Eliquis for atrial fibrillation. VTE Mechan Device Prophylaxis: None - patient had lesions on both legs. She is already anticoagulated with Eliquis for her atrial fibrillation. VTE Pharm Prophylaxis ordered?: Yes Code Visit Surgery Charges CPT - 97705 ICD-10 - D04.71, D48.5, L57.0, Z86.018, Z85.828, Z79.01, F17.200 06267 D48.5, D04.71, L57.0, Z86.018, Z85.828, Z79.01, F17.200 19575 L57.0, D04.71, D48.5, Z86.018, Z85.828, Z79.01, F17.200
--- NOTE | 2019-07-15 12:45 | DCINST_ITS ---
You will use the following diet at home:: No restrictions Discharge Activity: May not drive while taking narcotic pain medications., May Shower - in two days., - - elevate legs when sitting. elevate head. after showering reapply the leonidas wraps for compression. May shower in (days): 2 May resume sexual activity in: No Restrictions Weight Bearing Status: Weight bearing as tolerated Keep extremity elevated above heart level: Legs, - - elevate head. Call your doctor if your incision/area has: Continuous Slow Oozing, Sudden Increased Bleeding, Increased Pain/ Swelling, Increased Redness, Foul Smelling Discharge, Swelling at the incision site Call your doctor if you observe: Fever of 101 or Higher, Coldness, Increased Pain, Shortness of breath, Chest pain, Calf discomfort, Uncontrolled pain Suture Line Care: - - after operative dressings removed, apply antibiotic ointment to suture lines daily. Change Dressing in (Days):: 2 - reapply leonidas wraps for compression. Cleanse incision/area with: - - may get incisions wet in the shower in two days. Allergies/Adverse Reactions: Allergies amoxicillin Allergy (Mild, Verified 07/15/19 09:54) Unknown codeine Allergy (Mild, Verified 07/15/19 09:54) Unknown duloxetine [From Cymbalta] Allergy (Mild, Verified 07/15/19 09:54) Unknown guaifenesin [From Mucinex] Allergy (Mild, Verified 07/15/19 09:54) Unknown oxycodone [From Percocet] Allergy (Mild, Verified 07/15/19 09:54) Other penicillin G Allergy (Mild, Verified 07/15/19 09:54) Unknown promethazine Allergy (Mild, Verified 07/15/19 09:54) Other sulfamethoxazole [From Bactrim] Allergy (Mild, Verified 07/15/19 09:54) Unknown trimethoprim [From Bactrim] Allergy (Mild, Verified 07/15/19 09:54) Unknown Medications to take at Discharge albuterol sulfate 90 mcg/actuation aerosol inhaler 1 inh INHALATION ONCE PRN 06/04/17 cholecalciferol (vitamin D3) 1,250 mcg (50,000 unit) capsule 50,000 unit PO QMONTH 06/04/17 budesonide-formoterol HFA 80 mcg-4.5 mcg/actuation aerosol inhaler 2 puff INHALATION BID PRN 08/02/18 Nitrofurantoin Macrocrystal [Macrodantin] 50 mg PO QHS 08/06/18 Ketoconazole [Nizoral Cream] 1 applic TOPICAL DAILY 04/01/19 ALPRAZolam [Xanax] 0.125 mg PO BID PRN PRN 07/14/19 Diltiazem HCl [Diltiazem 24Hr ER (Cd)] 180 mg PO BID 07/14/19 Furosemide [Lasix] 20 mg PO DAILY PRN 07/14/19 Hydrocodone/Acetaminophen [Hydrocodon-Acetaminophen 5-325] 1 ea PO TID PRN PRN 07/14/19 Apixaban [Eliquis] 5 mg PO BID #180 tab 07/15/19 Clindamycin HCl [Cleocin] 300 mg PO TID #15 cap 07/15/19 Docusate Sodium [Colace] 100 mg PO BID #60 cap 07/15/19 HYDROmorphone tablet [Dilaudid] 2 mg PO .Q6 HOURS PRN PRN 7 Days #30 tablet 07/15/19 Lactobacillus Acidophilus/Fos [Acidophilus Probiotic Tablet] 1 ea PO BID #20 tab 07/15/19 Ondansetron [Zofran Odt] 4 mg PO Q6H PRN PRN #30 tab 07/15/19 The following prescriptions were given: Lactobacillus Acidophilus/Fos [Acidophilus Probiotic Tablet] 1 ea PO BID #20 tab Transmission Status: Pending to [facility] Clindamycin HCl [Cleocin] 300 mg PO TID #15 cap Transmission Status: Pending to [facility] Docusate Sodium [Colace] 100 mg PO BID #60 cap Transmission Status: Pending to [facility] HYDROmorphone tablet [Dilaudid] 2 mg PO .Q6 HOURS PRN PRN 7 Days #30 tablet PRN Reason: Pain Score 4-5/10 Transmission Status: Sent to [facility] Ondansetron [Zofran Odt] 4 mg PO Q6H PRN PRN #30 tab PRN Reason: Nausea Transmission Status: Pending to [facility] Primary Care Physician: Leonard Vogt MD [Primary Care Provider] - Test Results: Test results from this visit will be discussed in further detail at your follow- up appointment, if applicable. Please Follow Up With: Harinder Montoya MD When: one week. call [phone] for appt. Proposed Discharge Date: 07/15/19
== END 2019-07-15 14:30 | disposition home or self-care (01) ==
LOC: SDC 09:28 → AC 09:28
PROVIDERS: Family Provider Family Medicine; PCP Family Medicine; Referring Provider Surgery; Visit Provider Surgery
PROC: (CPT 14021; principal; 2019-07-15 10:25)
DX: D04.71 Carcinoma in situ of skin of right lower limb, including hip (principal); D09.8 Carcinoma in situ of other specified sites; L57.0 Actinic keratosis; Z86.018 Personal history of other benign neoplasm; Z85.828 Personal history of other malignant neoplasm of skin; Z79.01 Long term (current) use of anticoagulants; F17.200 Nicotine dependence, unspecified, uncomplicated; W89.9XXA Exposure to unspecified man-made visible and ultraviolet light, initial encounter; Y92.9 Unspecified place or not applicable; Y99.9 Unspecified external cause status; I50.32 Chronic diastolic (congestive) heart failure; J44.9 Chronic obstructive pulmonary disease, unspecified; M85.80 Other specified disorders of bone density and structure, unspecified site; I48.19 Other persistent atrial fibrillation; Z82.3 Family history of stroke; Z88.0 Allergy status to penicillin; Z88.1 Allergy status to other antibiotic agents; Z88.2 Allergy status to sulfonamides; Z88.5 Allergy status to narcotic agent; Z88.8 Allergy status to other drugs, medicaments and biological substances; Z90.49 Acquired absence of other specified parts of digestive tract; Z90.710 Acquired absence of both cervix and uterus; Z79.899 Other long term (current) drug therapy; G47.00 Insomnia, unspecified
CPT/HCPCS: 14021; 14040; 88305; 88331; J7120

== ENCOUNTER → 2019-08-02 17:25 | Outpatient (CLI) | payer MEDICARE, MEDICAID, SELFPAY ==
[2019-08-02 15:50] VITALS: BMI 28.5
== END ==
PROVIDERS: PCP Family Medicine; Referring Provider Nurse Practitioner Family; Visit Provider Nurse Practitioner Family
DX: T81.89XA Other complications of procedures, not elsewhere classified, initial encounter (principal)
CPT/HCPCS: 87070; 87077; 87186; 87205

== ENCOUNTER → 2019-08-24 15:17 | Outpatient (CLI) | payer MEDICARE, MEDICAID, SELFPAY ==
[2019-08-19 13:55] VITALS: BMI 28.5
== END ==
LOC: PR 15:17 → BFHLAB 08-25 11:09
PROVIDERS: PCP Family Medicine; Visit Provider Family Medicine
DX: R30.0 Dysuria (principal)
CPT/HCPCS: 87077; 87086; 87088; 87186

== ENCOUNTER → 2019-09-02 17:24 | Outpatient (CLI) | payer MEDICARE, MEDICAID, SELFPAY ==
[2019-09-02 14:19] VITALS: BMI 28.5
== END ==
PROVIDERS: PCP Family Medicine; Visit Provider Nurse Practitioner Family
DX: T81.89XA Other complications of procedures, not elsewhere classified, initial encounter (principal); D04.72 Carcinoma in situ of skin of left lower limb, including hip; D48.5 Neoplasm of uncertain behavior of skin; D04.71 Carcinoma in situ of skin of right lower limb, including hip
CPT/HCPCS: 87070; 87075; 87077; 87186; 87205

== ENCOUNTER → 2019-10-20 14:53 | Outpatient (CLI) | payer MEDICARE, MEDICAID, SELFPAY ==
[2019-09-09 14:08] VITALS: BMI 28.5
[2019-10-13 14:11] VITALS: BMI 28.5
--- NOTE | 2019-10-20 14:54 | BI_ITS ---
MAMMOGRAPHY - BILATERAL SCREENING REASON FOR EXAM: Female, 74 years old. Routine annual screening examination. PERTINENT HISTORY: Non-contributory. TECHNIQUE: Digital bilateral breast gregory (3D mammographic acquisition) in the CC and MLO projections. 2-D mediolateral oblique (MLO) and craniocaudad (CC) views of both breasts were obtained. CAD: Full Field Digital Mammography with Computer Added Detection was performed. COMPARISON: None. Baseline examination. FINDINGS: Breast Composition: There are scattered areas of fibroglandular density. There are no dominant masses or suspicious calcifications. There is a 4.8 mm x 5.4 mm well-defined nodule in the retroareolar region of the left breast. Correlation with ultrasound is recommended. Small bilateral benign-appearing axillary lymph nodes. No other significant abnormalities are identified. BI/SCREEN MAMM (CAD) W/GREGORY BILAT IMPRESSION: Small well-defined nodule in the retroareolar region of the left breast as described. Correlation with ultrasound is recommended. ASSESSMENT CATEGORY: BIRADS Category 0: Incomplete. Need additional imaging evaluation. A letter regarding these results will be sent to the patient by the facility within 30 days. Approximately 10% of breast cancers are not detected by mammography. A normal mammogram should not delay biopsy of a clinically suspicious abnormality. [id number] Electronically Signed: Silvio Roche, at 15:37 EDT , Service support ,
== END ==
PROVIDERS: PCP Family Medicine; Referring Provider Family Medicine; Visit Provider Family Medicine
DX: Z12.31 Encounter for screening mammogram for malignant neoplasm of breast (principal)
CPT/HCPCS: 77063; 77067

== ENCOUNTER → 2019-10-25 11:09 | Outpatient (CLI) | payer MEDICARE, MEDICAID, SELFPAY ==
[2019-10-13 14:11] VITALS: BMI 28.5
[2019-10-24 11:08] VITALS: BMI 27.3
--- NOTE | 2019-10-25 11:12 | US_ITS ---
STUDY: ULTRASOUND BREAST - LEFT REASON FOR EXAM: Female, 74 years old. Abnormal screening mammogram. TECHNIQUE: Axial and longitudinal images of the LEFT breast were performed with a high resolution ultrasound transducer. # OF IMAGES: 21 COMPARISON: Comparison is made with prior mammogram dated October 20, 2019. FINDINGS: LEFT Breast: The mammographic abnormality corresponds to a 6 mm x 4 mm x 3 mm septated cyst in the retroareolar region of the breast. US/Breast Limited Unilateral IMPRESSION: The mammographic abnormality corresponds to a 6 mm x 4 mm x 3 mm septated cyst in the retroareolar region of the breasts. ASSESSMENT CATEGORY: BIRADS Category 2: Benign. A letter regarding these results will be sent to the patient by the facility within 30 days. Electronically Signed: Silvio Roche, at 12:14 EDT , Service support ,
== END ==
PROVIDERS: PCP Family Medicine; Referring Provider Family Medicine; Visit Provider Family Medicine
DX: R92.8 Other abnormal and inconclusive findings on diagnostic imaging of breast (principal)
CPT/HCPCS: 76642

== ENCOUNTER 2019-11-08 12:00 | Outpatient (RCR) | payer MEDICARE, MEDICAID, SELFPAY ==
[2019-10-13 14:11] VITALS: BMI 28.5
[2019-10-24 11:08] VITALS: BP 132/58; PULSE 74; RESP 20; TEMP 35.9; BMI 27.3
--- NOTE | 2019-10-24 13:12 | HP.PCM_ITS ---
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 Status: Chronic Current Visit: Yes Code(s): L97.902 - Non-pressure chronic ulcer of unspecified part of unspecified lower leg with fat layer exposed (2) Bilateral edema of lower extremity Status: Chronic Current Visit: Yes Code(s): R60.0 - Localized edema (3) Tobacco abuse Status: Chronic Current Visit: Yes Code(s): Z72.0 - Tobacco use (4) Personal history of skin cancer Status: Chronic Current Visit: Yes Code(s): Z85.828 - Personal history of other malignant neoplasm of skin (5) longterm (current) use of anticoagulants Status: Chronic Current Visit: Yes Code(s): Z79.01 - longterm (current) use of anticoagulants (6) Chronic diastolic (congestive) heart failure Status: Chronic Current Visit: Yes Code(s): I50.32 - Chronic diastolic (congestive) heart failure History of Present Illness Date of Service: 10/24/19 Chief Complaint: Non healing surgical ulcer on left lower leg History of Wound: Postop visit from her surgery on 07/15/2019 where she underwent excision 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 Pathology showed left medial leg showed squamous cell carcinoma in situ, completely excised and actinic keratosis. Wound culture from 09/02/19 was positive for Strepococcus mitis/oralis, Staphylococcus epidermidis and Staphylococcus lugdunensis. She was treated with Cefdinir and Doxycycline. She has been being seen in Dr. Montoya's office for wound care since the area reopened. Wound care she has been packing with Silvercell daily for a full thickness ulcer with moderate amount of drainage. Encouraged LUIS MANUEL wrap for compression. Today she denies fever and states she has a good appetite. Past Medical History Past Medical History: Chronic Problems (Last Reviewed 10/15/19 @ 22:[address] 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) Basal cell carcinoma (BCC) of back (Chronic) 7 mm superficial and micronodular basal cell carcinoma left upper medial back Dysplastic nevus of trunk (Chronic) 8 mm dysplastic nevus left middle lateral back Actinic keratosis (Chronic) 7 mm actinic keratosis with focal moderate atypia left neck actinic lesion superior helical rim right ear actinic damage left lateral forehead by temporal hairline actinic damage left cheek actinic damage left outer arm 8 mm actinic keratosis left upper lateral back/posterior shoulder 13 mm actinic lesion right proximal lateral leg by her knee 1 cm actinic lesion right anterolateral leg 1 cm actinic lesion left medial leg Incomplete right bundle branch block (Chronic) Persistent atrial fibrillation (Chronic) Paroxysmal atrial flutter (Chronic) Nicotine dependence (Chronic) Chronic diastolic (congestive) heart failure (Chronic) 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) 3 cm invasive, moderately differentiated, squamous cell carcinoma scar right anterior thigh Surgical History: surgery Allergies/Adverse Reactions: Allergies amoxicillin Allergy (Mild, Verified 10/24/19 11:48) Unknown codeine Allergy (Mild, Verified 10/24/19 11:48) Unknown duloxetine [From Cymbalta] Allergy (Mild, Verified 10/24/19 11:48) Unknown guaifenesin [From Mucinex] Allergy (Mild, Verified 10/24/19 11:48) Unknown oxycodone [From Percocet] Allergy (Mild, Verified 10/24/19 11:48) Other penicillin G Allergy (Mild, Verified 10/24/19 11:48) Unknown promethazine Allergy (Mild, Verified 10/24/19 11:48) Other sulfamethoxazole [From Bactrim] Allergy (Mild, Verified 10/24/19 11:48) Unknown trimethoprim [From Bactrim] Allergy (Mild, Verified 10/24/19 11:48) Unknown Home Medications: Ambulatory Orders Medication Instructions Recorded albuterol sulfate 90 mcg/actuation 1 inh INHALATION ONCE PRN 12/21/17 aerosol inhaler cholecalciferol (vitamin D3) 1,250 50,000 unit PO QMONTH 06/04/17 mcg (50,000 unit) capsule budesonide-formoterol HFA 80 2 puff INHALATION BID PRN 08/02/18 mcg-4.5 mcg/actuation aerosol inhaler ALPRAZolam [Xanax] 0.125 mg PO BID PRN PRN 07/14/19 Diltiazem HCl [Diltiazem 24Hr ER 180 mg PO BID 07/14/19 (Cd)] Hydrocodone/Acetaminophen 1 ea PO TID PRN PRN 07/14/19 [Hydrocodon-Acetaminophen 5-325] Apixaban [Eliquis] 5 mg PO BID #180 tab 07/15/19 Docusate Sodium [Colace] 100 mg PO BID #60 cap 07/15/19 fluconazole 150 mg tablet 150 mg PO Q3D 0 Days #2 tab 10/18/19 Acidophilus 10/24/19 Hydrocodone/Acetaminophen [[place] 10/24/19 5-325 Tablet] Loratadine [Claritin] 10 mg PO 10/24/19 Melatonin 5 mg PO 10/24/19 Paroxetine HCl [Paxil] 10 mg PO 10/24/19 Tylenol Extra Strength 10/24/19 Smoking Status: Current every day smoker Review of Systems Constitutional: Denies: Chills, Fever, Weight Change Eyes: Denies: Pain, Vision Change HEENT: Denies: Difficulty Hearing, Difficulty Swallowing, Sinus Congestion Cardiovascular: Denies: Chest Pain, Palpitations Respiratory: Denies: Cough, Shortness of Breath Gastrointestinal: Denies: Diarrhea, Nausea, Vomiting Musculoskeletal: Reports: Leg Pain - left leg pain at the site of ulcer Skin: Reports: Wounds - left lower leg ulcer with some depth. Neurological: Denies: Balance problems, Change in Speech Psychiatric: Reports: Anxiety, Depression - Physical Exam Vital Signs Temp Pulse Resp BP 96.6 F L 74 20 H 132/58 H 10/24/19 11:08 10/24/19 11:08 10/24/19 11:08 10/24/19 11:08 General: Alert, Oriented x3, Cooperative HEENT: Atraumatic Oral: Moist Mucosa Lungs: Clear to auscultation, Normal air movement Cardiovascular: Regular rate, Regular Rhythm Extremities: Capillary Refill Less than 3 Seconds, Edema, Tenderness Skin: Ulcer/ Wound - left lower leg ulcer Wound Measurements and Assessment WC - Nurse 1 - General Ulcer Measurement Start: 10/24/19 11:07 Freq: Status: Active Protocol: Activity Type Activity Date Activity User E-Sign Co-Sign Detail Recorded Client Recorded Date Recorded By Document 10/24/19 11:08 NAZ [id number] 10/24/19 11:22 NAZ 10/24/19 11:08 Wound Center Nurse 1 [Ulcer Assessment] #1 left medial LE -Combined with other wound No -Current Size (cm) - Length 0.3 -Current Size (cm) - Width 0.3 -Current Size (cm) - Depth 0.4 -Total Square Cm 0.09 -Date of Last Picture (Recall this 10/24/19 field) -Photo Taken Yes -Epithelialization None Present -Tunneling No -Undermining/Tunneling No -Circular Undermining No -Exudate Amt Small -Exudate Type Serosanguineous -Wound Margin Distinct, Outline Attached -Granulation Amt None Present (0 %) -Granulation Quality N/A -Necrosis Amt Large (67-100%) -Necrotic Tissue Type Adherent Slough -Structure Exposed N/A -Texture (Zuleima-wound Skin Appearance) Assessed, Localized Edema ,Scarring -Moisture (Zuleima-wound Skin Appearance Assessed,Dry/ ) Scaly -Color (Zuleima-wound Skin Appearance) No Abnormality, Assessed -Temperature (Zuleima-wound Skin No Abnormality Appearance) (Pt Warm) -Tenderness on Palpation (Zuleima-wound Yes Skin Appearance) -Ulcer Cleansing Rinsed/ Irrigated with Saline -Foul Odor after Cleansing No -Anesthetic Used 4% Lidocaine Solution [Edema Assessment] -Lower Limb Edema Present Yes -Right Calf (cm) 40.7 -Right Ankle (cm) 22.0 -Left Calf (cm) 40.0 -Left Ankle (cm) 22.5 WC - Nurse 2 - General Ulcer CM Notes Start: 10/24/19 11:07 Freq: Status: Active Protocol: Activity Type Activity Date Activity User E-Sign Co-Sign Detail Recorded Client Recorded Date Recorded By Document 10/24/19 11:44 REANNA [id number] 10/24/19 11:46 REANNA 10/24/19 11:44 Wound Center Nurse 2 [Procedure/Treatment] #1 left medial LE -Time 11:45 -Correct Patient Yes -Correct Side, Site, Position Yes -Correct Procedure Yes -Procedure Performed Yes -Type of Procedure Debridement -Clinical Debridement Subcutaneous -Post Debridement Size (cm) - Length 0.4 -Post Debridement Size (cm) - Width 0.4 -Post Debridement Size (cm) - Depth 0.4 -Total Square Cm 0.16 -Wound/Ulcer Outcome Not Healed -Ulcer Cleansing Rinsed/ Irrigated with Saline -Foul Odor after Cleansing No -Bioengineered Tissue No -Bleeding Controlled with Pressure -Offloading No -Treatment Response Procedure Tolerated Well [See Physician Procedure note for Specifics] Pain Scale: 0-10 Numeric [Pain] -Is Patient Pain Free? Yes Musculoskeletal: No Tenderness to Palpation of Joints or Extremities Neurological: Neuro grossly intact Psych/Mental Status: Normal Affect, Appropriate, Anxious Debridement Note Post-Debridement Measurements/Treatment WC - Nurse 2 - General Ulcer CM Notes Start: 10/24/19 11:07 Freq: Status: Active Protocol: Activity Type Activity Date Activity User E-Sign Co-Sign Detail Recorded Client Recorded Date Recorded By Document 10/24/19 11:44 REANNA [id number] 10/24/19 11:46 REANNA 10/24/19 11:44 Wound Center Nurse 2 #1 left [facility] LE -Time 11:45 -Correct Patient Yes -Correct Side, Site, Position Yes -Correct Procedure Yes -Procedure Performed Yes -Type of Procedure Debridement -Clinical Debridement Subcutaneous -Post Debridement Size (cm) - Length 0.4 -Post Debridement Size (cm) - Width 0.4 -Post Debridement Size (cm) - Depth 0.4 -Total Square Cm 0.16 -Wound/Ulcer Outcome Not Healed -Ulcer Cleansing Rinsed/ Irrigated with Saline -Foul Odor after Cleansing No -Bioengineered Tissue No -Bleeding Controlled with Pressure -Offloading No -Treatment Response Procedure Tolerated Well Pain Scale: 0-10 Numeric Is Patient Pain Free? Yes Wound debrided: lower leg ulcer Laterality: Left Type of Debridement: Excisional debridement Anesthesia Used: 5% Lidocaine Gel Depth: Down to and including healthy tissue, in the subcutaneous layer Percentage of wound debrided: 100 Instrument Used: 3mm curette Tissue Removed: Subcutaneoust tissue and slough Severity: Fat Layer Exposed Amount of bleeding with debridement: Mild Bleeding Controlled with: Pressure Patient tolerated procedure well Assessment/Plan Active Problems (Last Reviewed 10/15/19 @ 22:[address] 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 2. Bilateral edema of lower extremity. 3. Tobacco abuse. 4. Personal history of skin cancer. 5. 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 6. Chronic diastolic (congestive) heart failure Plan: [facility] to evaluate the non healing ulcer on her left lower leg. A subcutaneous debridement was performed as documented above. 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 Pathology showed left medial leg showed squamous cell carcinoma in situ, completely excised and actinic keratosis. Wound culture from 09/02/19 was positive for Strepococcus mitis/oralis, Staphylococcus epidermidis and Staphylococcus lugdunensis. She was treated with Cefdinir and Doxycycline. She has been being seen in Dr. Montoya's office for wound care since the area reopened. Wound care she has been packing with Silvercell daily but she is starting to have difficulty packing into the depth of the wound. We will switch her to collagen hydrogel covered by adaptic and then gauze. She would benefit from PICCO negative wound pressure dressing to help decrease the depth of the ulcer. She will use double tubigrip for compression. Will also order venous and arterial vascular studies to make sure there are no issues with perfusion. Encouraged patient to stop smoking as it can be detrimental to her health and her wound healing. Encouraged her to increase protein intake to help with wound healing. Follow up one week. Office Visits / Consults: [id number] OV L3 Est - 25 modifier [id number]: [id number] Meagan subq tissue 20 sq cm/<
[2019-10-31 13:28] VITALS: BP 130/78; PULSE 72; RESP 20; TEMP 36.2; BMI 27.3
--- NOTE | 2019-10-31 16:00 | PN.PCM_ITS ---
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 Status: Chronic Current Visit: Yes Code(s): L97.902 - Non-pressure chronic ulcer of unspecified part of unspecified lower leg with fat layer exposed (2) Bilateral edema of lower extremity Status: Chronic Current Visit: Yes Code(s): R60.0 - Localized edema (3) Tobacco abuse Status: Chronic Current Visit: Yes Code(s): Z72.0 - Tobacco use (4) Personal history of skin cancer Status: Chronic Current Visit: Yes Code(s): Z85.828 - Personal history of other malignant neoplasm of skin (5) [facility] (current) use of anticoagulants Status: Chronic Current Visit: Yes Code(s): Z79.01 - [facility] (current) use of anticoagulants (6) Chronic diastolic (congestive) heart failure Status: Chronic Current Visit: Yes Code(s): I50.32 - Chronic diastolic (congestive) heart failure Type of Wound Date of Service: 10/31/19 Chief Complaint: Non healing surgical ulcer on left lower leg History of Wound: Postop visit from her surgery on 07/15/2019 where she underwent excision 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 Pathology showed left medial leg showed squamous cell carcinoma in situ, completely excised and actinic keratosis. Wound culture from 09/02/19 was positive for Strepococcus mitis/oralis, Staphylococcus epidermidis and Staphylococcus lugdunensis. She was treated with Cefdinir and Doxycycline. She has been being seen in Dr. Montoya's office for wound care since the area reopened. Wound care: she has been packing with Silvercell daily for a full thickness ulcer with moderate amount of drainage, but she has been approved for LUCAS NWPT which was applied today. She will come in next Thursday for a LUCAS dressing change. Encouraged LUIS MANUEL wrap for compression. Today she denies fever and states she has a good appetite. Progress of Wound: Improved. - Physical Exam Vital Signs Temp Pulse Resp BP 97.1 F L 72 20 H 130/78 H 10/31/19 13:28 10/31/19 13:28 10/31/19 13:28 10/31/19 13:28 General: Alert, Oriented x3, Cooperative HEENT: Atraumatic Oral: Moist Mucosa Lungs: Normal air movement Cardiovascular: Regular rate Abdomen: Soft Extremities: Capillary Refill Less than 3 Seconds, Edema, Peripheral Pulses Normal Skin: Ulcer/ Wound - Left lower leg ulcer that does show some improvement this week. Wound Measurements and Assessment WC - Nurse 1 - General Ulcer Measurement Start: 10/24/19 11:07 Freq: Status: Active Protocol: Activity Type Activity Date Activity User E-Sign Co-Sign Detail Recorded Client Recorded Date Recorded By Document 10/31/19 13:28 JOHN [id number] 10/31/19 13:33 DL 10/31/19 13:28 Wound Center Nurse 1 [Ulcer Assessment] #1 left medial LE -Current Size (cm) - Length 0.2 -Current Size (cm) - Width 0.2 -Current Size (cm) - Depth 0.2 -Total Square Cm 0.04 -Photo Taken No -Wound Margin Flat & Intact -Granulation Amt Small (1-33%) -Granulation Quality [place] -Necrosis Amt None Present (0 %) -Structure Exposed N/A -Texture (Zulemia-wound Skin Appearance) Scarring -Moisture (Zuleima-wound Skin Appearance No Abnormality ) -Color (Zuleima-wound Skin Appearance) No Abnormality -Temperature (Zuleima-wound Skin No Abnormality Appearance) (Pt Warm) -Tenderness on Palpation (Zuleima-wound No Skin Appearance) -Ulcer Cleansing Rinsed/ Irrigated with Saline -Foul Odor after Cleansing No -Anesthetic Used 4% Lidocaine Solution [Edema Assessment] -Left Calf (cm) 41.6 -Left Ankle (cm) 21.7 WC - Nurse 2 - General Ulcer CM Notes Start: 10/24/19 11:07 Freq: Status: Active Protocol: Activity Type Activity Date Activity User E-Sign Co-Sign Detail Recorded Client Recorded Date Recorded By Document 10/31/19 14:08 REANNA [id number] 10/31/19 14:10 REANNA 10/31/19 14:08 Wound Center Nurse 2 [Procedure/Treatment] #1 left medial LE -Time 14:08 -Correct Patient Yes -Correct Side, Site, Position Yes -Correct Procedure Yes -Procedure Performed Yes -Type of Procedure Debridement -Clinical Debridement Subcutaneous -Post Debridement Size (cm) - Length 0.2 -Post Debridement Size (cm) - Width 0.4 -Post Debridement Size (cm) - Depth 0.3 -Total Square Cm 0.08 -Wound/Ulcer Outcome Not Healed -Ulcer Cleansing Rinsed/ Irrigated with Saline -Foul Odor after Cleansing No -Bioengineered Tissue No -Bleeding Controlled with Pressure -Offloading No -Treatment Response Procedure Tolerated Well [See Physician Procedure note for Specifics] Pain Scale: 0-10 Numeric [Pain] -Is Patient Pain Free? Yes Musculoskeletal: No Tenderness to Palpation of Joints or Extremities Neurological: Neuro grossly intact Psych/Mental Status: Normal Affect, Appropriate Debridement Note Post-Debridement Measurements/Treatment WC - Nurse 2 - General Ulcer CM Notes Start: 10/24/19 11:07 Freq: Status: Active Protocol: Activity Type Activity Date Activity User E-Sign Co-Sign Detail Recorded Client Recorded Date Recorded By Document 10/24/19 11:44 [id number] 10/24/19 11:46 Document 10/31/19 14:08 [id number] 10/31/19 14:10 10/24/19 10/31/19 11:44 14:08 Wound Center Nurse 2 #1 left medial LE -Time 11:45 14:08 -Correct Patient Yes Yes -Correct Side, Site, Position Yes Yes -Correct Procedure Yes Yes -Procedure Performed Yes Yes -Type of Procedure Debridement Debridement -Clinical Debridement Subcutaneous Subcutaneous -Post Debridement Size (cm) - Length 0.4 0.2 -Post Debridement Size (cm) - Width 0.4 0.4 -Post Debridement Size (cm) - Depth 0.4 0.3 -Total Square Cm 0.16 0.08 -Wound/Ulcer Outcome Not Healed Not Healed -Ulcer Cleansing Rinsed/ Rinsed/ Irrigated with Irrigated with Saline Saline -Foul Odor after Cleansing No No -Bioengineered Tissue No No -Bleeding Controlled with Pressure Pressure -Offloading No No -Treatment Response Procedure Procedure Tolerated Well Tolerated Well Pain Scale: 0-10 Numeric Is Patient Pain Free? Yes Yes Wound debrided: Lower anterior leg ucler Laterality: Left Type of Debridement: Excisional debridement Anesthesia Used: 5% Lidocaine Gel Depth: Down to and including healthy tissue, in the subcutaneous layer Percentage of wound debrided: 100 Instrument Used: 3mm curette Tissue Removed: Subcutaneous tissue and slough Severity: Fat Layer Exposed Amount of bleeding with debridement: Mild Bleeding Controlled with: Compression and gauze Patient tolerated procedure well Assessment/Plan Active Problems (Last Reviewed 10/15/19 @ 22:[address] 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 2. Bilateral edema of lower extremity. 3. Tobacco abuse. 4. Personal history of skin cancer. 5. [facility] (current) use of anticoagulants. 6. Chronic diastolic (congestive) heart failure Plan: Patient [facility] to evaluate the non healing ulcer on her left lower leg. A subcutaneous debridement was performed as documented above. 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 Pathology showed left medial leg showed squamous cell carcinoma in situ, completely excised and actinic keratosis. Wound culture from 09/02/19 was positive for Strepococcus mitis/oralis, Staphylococcus epidermidis and Staphylococcus lugdunensis. She was treated with Cefdinir and Doxycycline. She has been being seen in Dr. Montoya's office for wound care since the area reopened. Wound care: Stop the collagen hydrogel covered by adaptic and start LUCAS negative wound pressure dressing to help decrease the depth of the ulcer. She will come in next Thursday for a LUCAS dressing change. She will use double tubigrip for compression. Will also order venous and arterial vascular studies to make sure there are no issues with perfusion which are scheduled 11/08/19. Encouraged patient to stop smoking as it can be detrimental to her health and her wound healing. Encouraged her to increase protein intake to help with wound healing. Follow up next week for a nurse visit to have LUCAS changed. Follow up 2 weeks to see me since next Thursday is a holiday. [id number]: [id number] Meagan subq tissue 20 sq cm/<
--- NOTE | 2019-11-04 16:36 | WC ---
Recieved a call from patient this AM @ 0930. Stated Sherita vac to Left media LE quit working. Patient changed the batteries and still doesn't work. Sarah Willett CNP notified. Verbal order received for patient to remove sherita. Cleanse area with soap and water. Apply C.Hydrogel daily and cover with gauze until next appt. Patient is scheduled for a nurse visit on Thursday11/08/19 @ 12 to have another SHERITA applied. Returned call to Patient and instructions given to remove SHERITA today and apply dressing daily until next appt. Voiced understanding.
[2019-11-08 12:02] VITALS: BP 156/87; PULSE 92; RESP 20; TEMP 36.6; BMI 27.3
--- NOTE | 2019-11-08 12:51 | VDLE_ITS ---
Reason For Study: Edema RIGHT LEFT CFV is compressible, spontaneous, phasic, CFV is compressible, spontaneous, phasic, competent and demonstrates normal competent, and demonstrates normal augmentation. augmentation. FV is compressible, spontaneous, phasic, FV is compressible, spontaneous, phasic, competent and demonstrates normal competent and demonstrates normal augmentation. augmentation. POP V is compressible, spontaneous, phasic, POP V is compressible, spontaneous, phasic, competent and demonstrates normal competent and demonstrates normal augmentation. augmentation. T/P Trunk is compressible. T/P Trunk is compressible. PTV is compressible. PTV is compressible. RT PerV is compressible. LT PerV is compressible. SFJ is competent and measures 0.78 x 0.79 cm. SFJ is competent and measures 0.81 x 0.81 cm. GSV proximal thigh measures 0.39 x 0.45 cm. GSV proximal thigh measures 0.35 x 0.35 cm. GSV above knee is INCOMPETENT for greater GSV at knee measures 0.45 x 0.44 cm. than 0.5 seconds. GSV is competent throughout. GSV at knee measures 0.29 x 0.30 cm. SSV at junction is competent and measures GSV below knee is competent. 0.14 x 0.14 cm. SSV at junction is competent and measures 0.30 x 0.30 cm. Procedure Exam performed in department. A preliminary report was called and/or faxed to . Interpretation Summary Deep veins of the lower extremities are bilaterally patent and compressible segmentally. There is no evidence of deep vein thrombosis on either side. Valvular competence appears intact within the proximal deep venous systems bilaterally. The great saphenous veins appear bilaterally patent and compressible segmentally. Sapheno-femoral junctions are bilaterally competent . The right great saphenous vein appears incompetent above the knee. The right great saphenous vein appears competent below the knee. The left great saphenous vein appears segmentally competent. Small saphenous veins are patent and competent bilaterally. Ordering Physician: Sarah Willett Performed By: Katy Hines RVT
--- NOTE | 2019-11-08 12:51 | ART_ITS ---
Reason For Study: Left lower leg ulcer Procedure A bilateral lower extremity continuous wave Doppler with analog waveform analysis,segmental pressures,and ankle brachial indexes without exercise. Left Segmental Pressures Left brachial= 147mmHg. Left posterior tibial artery = 169mmHg. Left dorsalis pedis artery = 158mmHg. Left digit = 122 mmHg. The left dorsalis pedis waveforms are triphasic. The left posterior tibial artery waveforms are triphasic. Right Segmental Pressures Right brachial= 143mmHg. Right posterior tibial artery = 180mmHg. Right dorsalis pedis artery = 160mmHg. Right digit = 110 mmHg. The right dorsalis pedis waveforms are triphasic. The right posterior tibial artery waveforms are triphasic. Indices The right ankle brachial index by the dorsalis pedis is 1.09. The right ankle brachial index by the posterior tibial artery is 1.22. The right digital-brachial index is 0.75. The left ankle brachial index by the dorsalis pedis is 1.07. The left ankle brachial index by the posterior tibial artery is 1.15. The left digital-brachial index is 0.83. Interpretation Summary Triphasic Doppler waveforms are noted at ankle level bilaterally. Pulse-volume recordings appear satisfactory at all levels bilaterally, including low-thigh, calf, ankle, and digital levels. Resting ankle-brachial indices are normal bilaterally. Digital-brachial indices are normal bilaterally. There is no evidence of significant arterial occlusive disease in the lower extremities bilaterally. Ordering Physician: Sarah Willett Performed By: Katy Hines RVT
== END 2019-11-13 23:59 ==
LOC: WC 12:00
PROVIDERS: PCP Family Medicine; Referring Provider Nurse Practitioner Family; Visit Provider Nurse Practitioner Family
DX: L97.822 Non-pressure chronic ulcer of other part of left lower leg with fat layer exposed (principal); L97.922 Non-pressure chronic ulcer of unspecified part of left lower leg with fat layer exposed; I50.32 Chronic diastolic (congestive) heart failure; R60.0 Localized edema; F32.9 Major depressive disorder, single episode, unspecified; F41.9 Anxiety disorder, unspecified; F17.200 Nicotine dependence, unspecified, uncomplicated; Z79.01 Long term (current) use of anticoagulants; Z79.899 Other long term (current) drug therapy; Z88.8 Allergy status to other drugs, medicaments and biological substances; Z88.5 Allergy status to narcotic agent; Z88.2 Allergy status to sulfonamides; Z88.1 Allergy status to other antibiotic agents; Z88.0 Allergy status to penicillin; Z85.828 Personal history of other malignant neoplasm of skin
CPT/HCPCS: 11042; 93923; 93970; 97607; 99212; 99213; G0463

== ENCOUNTER 2019-11-14 09:46 | Outpatient (RCR) | payer MEDICARE, MEDICAID, SELFPAY ==
[2019-11-14 00:31] VITALS: BP 156/87; PULSE 92; RESP 20; TEMP 36.6
[2019-11-14 13:53] VITALS: RESP 18; TEMP 37; BMI 27.3
--- NOTE | 2019-11-14 16:11 | PCM.WC.PN ---
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 Type of Wound Date of Service: 11/14/19 Chief Complaint: Non healing surgical ulcer on left lower leg History of Wound: Postop visit from her surgery on 07/15/2019 where she underwent excision 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 Pathology showed left medial leg showed squamous cell carcinoma in situ, completely excised and actinic keratosis. Wound culture from 09/02/19 was positive for Strepococcus mitis/oralis, Staphylococcus epidermidis and Staphylococcus lugdunensis. She was treated with Cefdinir and Doxycycline. Wound care has been collagen hydrogel with adaptic. She is healed this week. Encouraged LUIS MANUEL wrap for compression. Today she denies fever and states she has a good appetite. Progress of Wound: Healed today. - Physical Exam Vital Signs Temp Pulse Resp BP 98.6 F 92 18 156/87 H 11/14/19 13:53 11/14/19 00:31 11/14/19 13:53 11/14/19 00:31 General: Alert, Oriented x3, Cooperative HEENT: Atraumatic Oral: Moist Mucosa Cardiovascular: Regular rate Extremities: Capillary Refill Less than 3 Seconds, Edema - +1 edema Skin: Ulcer/ Wound - left lower leg ulcer is healed today Wound Measurements and Assessment WC - Nurse 1 - General Ulcer Measurement Start: 11/14/19 13:51 Freq: Status: Active Protocol: Activity Type Activity Date Activity User E-Sign Co-Sign Detail Recorded Client Recorded Date Recorded By Document 11/14/19 13:53 [facility] [id number] 11/14/19 14:01 [facility] 11/14/19 13:53 Wound Center Nurse 1 [Ulcer Assessment] #1 left medial LE -Combined with other wound No -Current Size (cm) - Length 0.1 -Current Size (cm) - Width 0.1 -Current Size (cm) - Depth 0.1 -Total Square Cm 0.01 -Photo Taken No -Epithelialization None Present -Tunneling No -Undermining/Tunneling No -Circular Undermining No -Exudate Amt None Present -Wound Margin Distinct, Outline Attached -Granulation Amt Medium (34-66%) -Granulation Quality Red -Slough/Fibrin Yes -Necrosis Amt Small (1-33%) -Necrotic Tissue Type Adherent Slough -Texture (Zuleima-wound Skin Appearance) Assessed, Scarring -Moisture (Zuleima-wound Skin Appearance Assessed, ) Maceration,Dry/ Scaly -Color (Zuleima-wound Skin Appearance) Assessed,Palor -Temperature (Zuleima-wound Skin No Abnormality Appearance) (Pt Warm) -Tenderness on Palpation (Zuelima-wound No Skin Appearance) -Ulcer Cleansing Rinsed/ Irrigated with Saline -Foul Odor after Cleansing No -Anesthetic Used 5% Lidocaine Gel [Edema Assessment] -Lower Limb Edema Present Yes -Left Calf (cm) 39 -Left Ankle (cm) 21.6 Musculoskeletal: No Muscle Wasting Neurological: Neuro grossly intact Psych/Mental Status: Normal Affect, Appropriate Debridement Note No debridement was completed today Assessment/Plan Assessment: 1. 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 2. Bilateral edema of lower extremity. 3. Tobacco abuse. 4. Personal history of skin cancer. 5. [facility] (current) use of anticoagulants. 6. Chronic diastolic (congestive) heart failure Plan: Patient was [facility] and [facility]. 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 Pathology showed left medial leg showed squamous cell carcinoma in situ, completely excised and actinic keratosis. Wound culture from 09/02/19 was positive for Strepococcus mitis/oralis, Staphylococcus epidermidis and Staphylococcus lugdunensis. She was treated with Cefdinir and Doxycycline. She has been being seen in Dr. Montoya's office for wound care since the area reopened. She is healed today. She will continue to use double tubigrip for compression for the next several weeks to control her edema. Her venous and arterial vascular studies were reviewd with her. Encouraged patient to stop smoking as it can be detrimental to her health and her wound healing. Encouraged her to increase protein intake to help with wound healing. She is healed today and is discharged from the wound healing center. She will follow up in January at Dr. Montoya's office for her skin check. Office Visits / Consults: [id number] OV L3 Est
== END 2019-12-13 23:59 ==
LOC: WC 09:46
PROVIDERS: PCP Family Medicine; Referring Provider Nurse Practitioner Family; Visit Provider Nurse Practitioner Family
DX: L97.822 Non-pressure chronic ulcer of other part of left lower leg with fat layer exposed (principal); Z72.0 Tobacco use; Z79.01 Long term (current) use of anticoagulants; I50.32 Chronic diastolic (congestive) heart failure; R60.0 Localized edema
CPT/HCPCS: 99212; G0463

== ENCOUNTER → 2019-11-22 15:06 | Outpatient (CLI) | payer MEDICARE, MEDICAID, SELFPAY ==
[2019-11-14 13:53] VITALS: BMI 27.3
[2019-11-22 15:06] LABS: Mucous, Urine 0 SEEN /hpf (<or=2+)
[2019-11-22 17:52] LABS: Color, Urine Yellow (Yellow); Glucose, Dipstick Normal (Normal); Ketone-Dipstick 5 mg/dl (Negative); Leukocyte Esterase-Dipstick 500 /ul (Negative); Nitrite-Dipstick Negative (Negative); Occult Blood-Urine 50 /ul (Negative); Protein-Dipstick 30 mg/dl (Negative); Specific Gravity, Urine 1.025 (1.002-1.030); Urine Clarity Cloudy (Clear); Urine Urobilinogen 1 mg/dl (Normal)
[2019-11-22 17:56] LABS: Urine Bilirubin Dipstick 1 mg/dL (Negative)
[2019-11-22 18:17] LABS: Amorphous Sediment 1+ URATE; Bacteria RARE /hpf (None Seen); Red Blood Cells-Urine 5-10 SEEN /hpf (0-5); Squamous Epithelial Cells - UA 5-10 SEEN /hpf (5-10); White Blood Cells >100 SEEN /hpf (0-5)
== END ==
PROVIDERS: PCP Family Medicine; Visit Provider Family Medicine
DX: N39.0 Urinary tract infection, site not specified (principal)
CPT/HCPCS: 81001; 87086; 87088; 87186

== ENCOUNTER → 2020-01-19 14:49 | Outpatient (CLI) | payer MEDICARE, MEDICAID, SELFPAY ==
--- NOTE | 2020-01-19 14:51 | RAD_ITS ---
STUDY: X-RAY CHEST REASON FOR EXAM: Female, 74 years old. Right side rib pain, fell 2 days ago onto her night stand TECHNIQUE: Frontal and lateral views of the chest. COMPARISON: 05/02/2013 FINDINGS: There is no new focal consolidation. The lungs remain hyperinflated. Normal size heart. Normal mediastinum and andrea. Normal visualized pulmonary arteries. There is atherosclerotic calcification of the aortic arch with tortuosity. There is demineralization of the osseous structures. Normal visualized ribs, clavicles, and shoulders. There is no demonstrated abnormality of the visualized soft tissue structures of the upper abdomen. RAD/Chest PA and Lateral IMPRESSION: Hyperinflated lungs may be secondary to underlying COPD. Electronically Signed: Lesia Avalos MD at 15:29 EDT Tel , Service support ,
== END ==
PROVIDERS: PCP Family Medicine; Referring Provider Family Medicine; Visit Provider Family Medicine
DX: R07.81 Pleurodynia (principal)
CPT/HCPCS: 71046

== ENCOUNTER → 2020-02-29 14:55 | Outpatient (CLI) | payer MEDICARE, MEDICAID, SELFPAY ==
[2020-02-02 14:51] VITALS: BMI 27.3
[2020-02-29 16:53] LABS: Absolute Lymphocyte Count 1.58 X10^3/uL (0.83-4.51); Basophil# 0.05 X10^3/uL; Basophil% 0.7 % (0-1); Eosinophils% 1.3 % (0-5); Hematocrit 43.6 % (37-47); Hemoglobin 14.4 g/dL (12.0-15.0); Lymphocyte # 1.58 X10^3/ul (4.0); Lymphocyte % 20.9 % (19-41); Mean Corpuscular Volume 93.8 fL (81-99); Monocyte# 0.81 X10^3/uL; Monocyte% 10.7 % (0-10); NRBC Flagged by Analyzer 0 % (0-5); Neutrophil # 4.99 X10^3/uL (2.7-7.7); Platelet Count 188 K/mm3 (150-450); RBC Distribution Width CV 12.4 % (11.6-14.6); RBC Distribution Width SD 42.5 fl (35.1-43.9); Red Blood Count 4.65 M/mm3 (4.2-5.4); White Blood Count 7.6 K/mm3 (4.4-11.0)
[2020-02-29 17:55] LABS: AST(SGOT) 11 U/L (15-37); Alanine Aminotransfer ALT/SGPT 21 U/L (13-56); Albumin, Serum 3.5 g/dL (3.2-5.0); Alkaline Phosphatase 107 U/L (45-117); Anion Gap 4 (5-15); BUN 13 mg/dL (7-18); BUN/Creat Ratio 15.6 RATIO (10-20); Calcium,Total 9.1 mg/dL (8.5-10.1); Chloride 108 mmol/L (98-107); Creatinine, Serum 0.83 mg/dL (0.55-1.02); EST Glomerular Filtration Rate 71 mL/min (>60); Est Glom Filt Rate - Afr Amer 86 mL/min (>60); Globulin 3.4 g/dL (2.2-4.2); Glucose 69 mg/dL (74-106); Potassium 3.3 mmol/L (3.5-5.1); Protein, Total 6.9 g/dL (6.4-8.2); Sodium Level 141 mmol/L (136-145); T4 Free Direct 1.25 ng/dL (0.76-1.46)
[2020-02-29 18:03] LABS: Vitamin D,25 Hydroxy 51.2 ng/mL
== END ==
PROVIDERS: PCP Family Medicine; Visit Provider Family Medicine
DX: E55.9 Vitamin D deficiency, unspecified (principal); R74.0 Nonspecific elevation of levels of transaminase and lactic acid dehydrogenase [LDH]; I48.91 Unspecified atrial fibrillation
CPT/HCPCS: 36415; 80053; 82306; 83735; 84439; 84443; 85025

== ENCOUNTER 2020-03-12 14:37 | Emergency (ER) | payer MEDICARE, SELFPAY ==
[2020-02-02 14:51] VITALS: BMI 27.3
[2020-03-12 14:38] VITALS: BP 140/69; PULSE 102; RESP 17; TEMP 36.5; O2SAT 97; BMI 28.4
--- NOTE | 2020-03-12 14:43 | EKG12_ITS ---
Test Reason : CP Blood Pressure : / mmHG Vent. Rate : 067 BPM Atrial Rate : 068 BPM P-R Int : 000 ms QRS Dur : 112 ms QT Int : 398 ms P-R-T Axes : 000 -32 -24 degrees QTc Int : 420 ms Atrial fibrillation Left axis deviation Incomplete right bundle branch block ST depression, consider subendocardial injury Nonspecific T wave abnormality Abnormal ECG Confirmed by MISHEL GONZALEZ, TOMASA ([id number]), editor in chief newspaper JORDYN YOUNG ([id number]) on 03/14/2020 8:31:37 AM Referred By: Confirmed By:TOMASA FLORENTINO MD
[2020-03-12 14:56] VITALS: PULSE 63; RESP 15; O2SAT 97
--- NOTE | 2020-03-12 15:08 | ED.VIS.GEN ---
History of Present Illness Chief Complaint: Chest Pain Informant: Patient Onset: Days - 6 Timing: Waxes and wanes Narrative: Patient presents after seeing urgent care today speaking with PCP over the weekend for waxing waning left-sided chest pain for 6 days. States of pulling sensation.. Denies radicular symptoms. Denies dyspnea nausea or diaphoresis. She has a smoker's cough. History of persistent atrial fibrillation on Eliquis and Cardizem. Denies any history of heart cath. Denies any [place] history. Denies diabetes. She was adopted. Currently asymptomatic. She states she initially called PCP on Thursday and was told to go to emergency room however she states she would not go here therefore tried going to urgent care which was not open over the weekend. She showed no urgent care today was sent here. She does follow Dr. Winn for which she seen one time over this past year. No fever, chills, sweats. Prior similar symptoms: No Past Medical History - Allergies and Home Meds Allergies/Adverse Reactions: Allergies amoxicillin Allergy (Mild, Verified 03/12/20 14:43) Unknown codeine Allergy (Mild, Verified 03/12/20 14:43) Unknown duloxetine [From Cymbalta] Allergy (Mild, Verified 03/12/20 14:43) Unknown guaifenesin [From Mucinex] Allergy (Mild, Verified 03/12/20 14:43) Unknown oxycodone [From Percocet] Allergy (Mild, Verified 03/12/20 14:43) Other penicillin G Allergy (Mild, Verified 03/12/20 14:43) Unknown promethazine Allergy (Mild, Verified 03/12/20 14:43) Other sulfamethoxazole [From Bactrim] Allergy (Mild, Verified 03/12/20 14:43) Unknown trimethoprim [From Bactrim] Allergy (Mild, Verified 03/12/20 14:43) Unknown Primary Care Physician: Leonard Vogt MD [Primary Care Provider] - Past Medical History: - - Basal cell carcinoma history, persistent atrial fibrillation, diastolic congestive heart failure Surgical History: surgery Smoking Status: Current every day smoker Review of Systems General: Denies: Chills, Fever, Sweats Eyes: Denies: Visual changes - bilaterally, Diplopia ENT: Denies: Rhinorrhea, Sore throat Cardiovascular: Reports: Chest pain. Denies: Palpitations Respiratory: Denies: Dyspnea, Cough, Dyspnea on exertion Gastrointestinal: Denies: Abdominal pain, Nausea, Vomiting, Diarrhea, Melena, Hematochezia Genitourinary: Denies: Dysuria, Hematuria, Frequency Musculoskeletal: Denies: Back pain, Extremity Pain Skin: Denies: Rash, Wounds Neurological: Denies: Headache, Weakness, Numbness Physical Exam Vital Signs/Narrative: Vital Signs Temp Pulse Resp BP Pulse Ox 03/12/20 14:56 63 15 97 03/12/20 14:38 97.7 F L 102 H 17 140/69 H 97 Inital Vital Signs reviewed: Yes General: Well nourished, Well developed, No Acute Distress Head: Normocephalic, Atraumatic Eyes: Perrl, EOMI ENT: Moist mucous membranes, No rhinorrhea Neck: Supple, Nontender Cardiovascular: Regular rate, No murmurs, Irregular Respiratory: No distress, CTA bilaterally, Chest nontender Abdomen: Soft, Nontender, Nondistended, Normal bowel sounds Back: Nontender, Normal Inspection Extremities: Nontender, No edema Skin: Normal color, No rash Neurological: Alert, Oriented x3, Cranial nerves II-XII grossly intact, Normal Strength, Normal Sensation Psychological: Normal affect, Normal Mood Diagnostic/Tx/Re-eval Abnormal Lab Results 03/12/20 03/12/20 03/12/20 15:00 15:00 15:00 WBC 6.7 RBC 4.40 Hgb 13.4 Hct 40.7 MCV 92.5 MCH 30.5 MCHC 32.9 RDW Std Deviation 42.6 RDW Coeff of Autumn 12.4 Plt Count 198 MPV 10.8 Immature Gran % (Auto) 0.400 Neut % (Auto) 50.5 Lymph % (Auto) 36.1 [place] % (Auto) 11.1 H Eos % (Auto) 1.5 Baso % (Auto) 0.4 Absolute Neuts (auto) 3.4 Absolute Lymphs (auto) 2.41 Nucleated RBC % 0 PT 14.4 INR 1.2 APTT 32.6 Sodium 141 Potassium 3.7 Chloride 110 H Carbon Dioxide 26.0 Anion Gap 5 BUN 10 Creatinine 0.87 Estim Creat Clear Calc 39.51 Est GFR (MDRD) Af Amer 81 Est GFR (MDRD) Non-Af 67 BUN/Creatinine Ratio 11.5 Glucose 84 Calcium 9.0 Troponin I 0.020 Clinical Impression(s) from Imaging Studies Chest X-Ray 03/12/20 15:15 IMPRESSION: Hyperinflation. Findings suggestive of a focal infiltrate in the right middle lobe superimposed on scarring at the lung bases. Electronically Signed: Silvio Roche, at 15:46 EDT , Service support , - EKG Initial EKG Interpretation: Atrial Fibrillation - Rate controlled atrial fibrillation at 67. There is ST depressions of 1 mm on the lateral leads V4 to V6, this is new compared to an EKG back in May 2012. - Medical Decision Making Patient EKG with ST depressions that are new. She currently asymptomatic. Her cardiac work-up is negative and chest x-ray had concerning for potential pneumonia. Troponin negative she remained symptom-free. She was given aspirin. Patient's heart score is a 5. I discussed with patient concerns of her EKG with ischemic findings. She states she did not want to stay in the hospital. 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 Winn, she will sign out AGAINST MEDICAL ADVICE. She is alert and oriented x3 and capable of making decisions. The office called while patient was in the department to make an appointment for outpatient follow-up. Signs and sent discussed with the patient to return. All questions were answered. She will be given a prescription for Zithromax for pneumonia concerns. She is not hypoxic. Her white count is normal. ED Disposition - Plan for ED Patient: Disposition: Home or Assisted Living Diagnosis: Chest pain, Abnormal EKG, Chronic atrial fibrillation, Pneumonia Instructions: Pneumonia, ED Chest Pain [facility] Prescriptions: Azithromycin [Zithromax Z-Abdiel] 250 mg PO UD #1 box Transmission Status: Pending to [id number] Referrals: Leonard Vogt MD [Primary Care Provider] - Michael Winn MD [STAFF PHYSICIAN] - Keep Mia appointment
[2020-03-12 15:13] LABS: Absolute Lymphocyte Count 2.41 X10^3/uL (0.83-4.51); Absolute Neutrophil Count 3.4 X10^3/uL (2.0-7.7); Basophil# 0.03 X10^3/uL; Basophil% 0.4 % (0-1); Eosinophils% 1.5 % (0-5); Hematocrit 40.7 % (37-47); Hemoglobin 13.4 g/dL (12.0-15.0); Lymphocyte # 2.41 X10^3/ul (4.0); Lymphocyte % 36.1 % (19-41); Mean Corp Hgb Conc 32.9 g/dL (32-36); Mean Corpuscular Hgb 30.5 pg (27.0-32.0); Mean Corpuscular Volume 92.5 fL (81-99); Mean Platelet Vol. 10.8 fl (6.2-12.0); Monocyte# 0.74 X10^3/uL; Monocyte% 11.1 % (0-10); NRBC Flagged by Analyzer 0 % (0-5); Neutrophil # 3.36 X10^3/uL (2.7-7.7); Neutrophil % 50.5 % (47-70); Platelet Count 198 K/mm3 (150-450); RBC Distribution Width CV 12.4 % (11.6-14.6); RBC Distribution Width SD 42.6 fl (35.1-43.9); White Blood Count 6.7 K/mm3 (4.4-11.0)
--- NOTE | 2020-03-12 15:15 | RAD_ITS ---
STUDY: X-RAY CHEST REASON FOR EXAM: Female, 74 years old. CHEST DISCOMFORT x6 DAYS, HX OF AFIB, HTN, SMOKER TECHNIQUE: PA and lateral views of the chest. COMPARISON: Comparison is made with prior examination 01/19/2020. FINDINGS: EKG electrodes are seen. Hyperinflation. Findings suggestive of a mild degree of atelectasis and/or infiltration is seen in the right middle lobe superimposed on chronic scarring. Apical scarring bilaterally. There is no demonstrated pleural abnormality. Normal size heart. Normal mediastinum and andrea. Normal visualized pulmonary arteries. Normal visualized aortic arch and descending thoracic aorta. Normal visualized thoracic spine. Normal visualized ribs, clavicles, and shoulders. There is no demonstrated abnormality of the visualized soft tissue structures of the upper abdomen. RAD/Chest 1 View (Portable) IMPRESSION: Hyperinflation. Findings suggestive of a focal infiltrate in the right middle lobe superimposed on scarring at the lung bases. Electronically Signed: Silvio Roche, at 15:46 EDT , Service support ,
[2020-03-12 15:25] LABS: Anion Gap 5 (5-15); BUN 10 mg/dL (7-18); BUN/Creat Ratio 11.5 RATIO (10-20); Chloride 110 mmol/L (98-107); Creatinine, Serum 0.87 mg/dL (0.55-1.02); EST Glomerular Filtration Rate 67 mL/min (>60); Est Glom Filt Rate - Afr Amer 81 mL/min (>60); Estimated Creatinine Clearance 39.51 ml/min; Glucose 84 mg/dL (74-106); Potassium 3.7 mmol/L (3.5-5.1); Sodium Level 141 mmol/L (136-145)
[2020-03-12] MEDS: Aspirin 81 MG TAB.CHEW 324 MG PO (15:37)
[2020-03-12 15:41] VITALS: BP 136/88; PULSE 63; RESP 17; O2SAT 97
[2020-03-12 16:10] LABS: International Normalized Ratio 1.2; Partial Thromboplast Time 32.6 Seconds (24.1-36.2); Prothrombin Time (Protime)PT. 14.4 SECONDS (11.7-14.9)
[2020-03-12 16:33] VITALS: BP 147/82; PULSE 63; RESP 23; O2SAT 97
== END 2020-03-12 16:34 | disposition left against medical advice (07) ==
PROVIDERS: Emergency Provider Emergency Medicine; PCP Family Medicine
DX: R07.9 Chest pain, unspecified (principal); R94.31 Abnormal electrocardiogram [ECG] [EKG]; I48.20 Chronic atrial fibrillation, unspecified; J18.9 Pneumonia, unspecified organism; F17.200 Nicotine dependence, unspecified, uncomplicated; I11.0 Hypertensive heart disease with heart failure; I50.32 Chronic diastolic (congestive) heart failure; Z79.01 Long term (current) use of anticoagulants; Z85.828 Personal history of other malignant neoplasm of skin; Z88.0 Allergy status to penicillin; Z88.1 Allergy status to other antibiotic agents; Z88.2 Allergy status to sulfonamides; Z88.5 Allergy status to narcotic agent; Z88.8 Allergy status to other drugs, medicaments and biological substances
CPT/HCPCS: 71045; 80048; 84484; 85025; 85610; 85730; 93005; 99285; A4216

== ENCOUNTER → 2020-03-21 16:38 | Outpatient (CLI) | payer MEDICARE, SELFPAY ==
[2020-03-21 15:58] VITALS: BMI 28.4
--- NOTE | 2020-03-21 16:42 | RAD_ITS ---
STUDY: X-RAY CHEST REASON FOR EXAM: Female, 74 years old. CHEST PAIN, PNEUMONIA TECHNIQUE: PA and lateral views of the chest. COMPARISON: Prior study of 03/12/2020 FINDINGS: There remains hazy density of the right lung base, similar in appearance to the previous study. There is mild right apical pleural thickening. There is mild cardiac enlargement. Normal mediastinum and andrea. Normal visualized pulmonary arteries. There are calcified plaques of the aortic arch. There is a mild thoracolumbar levoscoliosis. Normal visualized ribs, clavicles, and shoulders. There is no demonstrated abnormality of the visualized soft tissue structures of the upper abdomen. RAD/Chest PA and Lateral IMPRESSION: Mild cardiomegaly. There remains hazy density at the right lung base, stable in interval. Mild thoracolumbar levoscoliosis. Calcified plaques of the aortic arch. Right apical pleural thickening. No acute cardiopulmonary disease process is seen. Electronically Signed: Curtis Sheriff MD at 23:11 EDT , Service support ,
== END ==
PROVIDERS: PCP Family Medicine; Referring Provider Nurse Practitioner Family; Visit Provider Nurse Practitioner Family
DX: R07.9 Chest pain, unspecified (principal); J18.9 Pneumonia, unspecified organism
CPT/HCPCS: 71046

== ENCOUNTER → 2020-07-10 14:31 | Outpatient (CLI) | payer MEDICARE, MEDICAID, SELFPAY ==
[2020-07-04 14:29] VITALS: BMI 28.8
--- NOTE | 2020-07-10 14:36 | RAD_ITS ---
STUDY: X-RAY CHEST REASON FOR EXAM: Female, 74 years old. COPD exacerbation, ? Stigmata of covid 19 TECHNIQUE: PA and lateral views of the chest. COMPARISON: Comparison is made with prior examination 03/21/2020. FINDINGS: Hyperinflation. Stable blunting of the costophrenic angles bilaterally. Stable mild increased markings at the lung bases suggestive of basilar scarring. Normal size heart. Normal mediastinum and andrea. Normal visualized pulmonary arteries. There is atherosclerotic calcification of the aortic arch with tortuosity. There is demineralization of the osseous structures. Levoscoliosis of the lumbar spine. Normal visualized ribs, clavicles, and shoulders. There is no demonstrated abnormality of the visualized soft tissue structures of the upper abdomen. RAD/Chest PA and Lateral IMPRESSION: Stable examination. Hyperinflation and mild scarring at the lung bases. Electronically Signed: Silvio Roche MD at 15:28 EST , Service support ,
== END ==
PROVIDERS: PCP Family Medicine; Referring Provider Family Medicine; Visit Provider Family Medicine
DX: J44.9 Chronic obstructive pulmonary disease, unspecified (principal); R09.02 Hypoxemia
CPT/HCPCS: 71046

== ENCOUNTER → 2020-07-25 13:51 | Outpatient (CLI) | payer MEDICARE, MEDICAID, SELFPAY ==
[2020-07-04 14:29] VITALS: BMI 28.8
== END ==
PROVIDERS: PCP Family Medicine; Visit Provider Family Medicine
DX: Z20.828 Contact with and (suspected) exposure to other viral communicable diseases (principal)
CPT/HCPCS: 87635; U0005; U0003

== ENCOUNTER → 2020-08-03 15:35 | Outpatient (CLI) | payer MEDICARE, MEDICAID, SELFPAY ==
[2020-07-04 14:29] VITALS: BMI 28.8
== END ==
PROVIDERS: PCP Family Medicine; Visit Provider Family Medicine
DX: J40 Bronchitis, not specified as acute or chronic (principal); J02.9 Acute pharyngitis, unspecified
CPT/HCPCS: 87633

== ENCOUNTER → 2020-12-12 16:41 | Outpatient (CLI) | payer MEDICARE, MEDICAID, SELFPAY ==
[2020-10-09 14:12] VITALS: BMI 28.3
[2020-12-12 17:50] LABS: Absolute Lymphocyte Count 2.23 X10^3/uL (0.83-4.51); Absolute Neutrophil Count 3.8 X10^3/uL (2.0-7.7); Basophil# 0.05 X10^3/uL; Basophil% 0.7 % (0-1); Eosinophils% 1.4 % (0-5); Hematocrit 42.5 % (37-47); Hemoglobin 13.9 g/dL (12.0-15.0); Lymphocyte # 2.23 X10^3/ul (0.83-4.51); Lymphocyte % 31.7 % (19-41); Mean Corp Hgb Conc 32.7 g/dL (32-36); Mean Corpuscular Hgb 30.3 pg (27.0-32.0); Mean Corpuscular Volume 92.6 fL (81-99); Mean Platelet Vol. 12.1 fl (6.2-12.0); Monocyte# 0.82 X10^3/uL; Monocyte% 11.6 % (0-10); NRBC Flagged by Analyzer 0 % (0-5); Neutrophil # 3.82 X10^3/uL (2.7-7.7); Neutrophil % 54.3 % (47-70); Platelet Count 191 K/mm3 (150-450); RBC Distribution Width SD 41.1 fl (35.1-43.9); Red Blood Count 4.59 M/mm3 (4.2-5.4)
[2020-12-12 18:30] LABS: Erythrocyte Sedimentation Rate 6 mm/hr (0-30)
[2020-12-12 18:38] LABS: AST(SGOT) 11 U/L (15-37); Alanine Aminotransfer ALT/SGPT 19 U/L (13-56); Albumin, Serum 3.3 g/dL (3.2-5.0); Alkaline Phosphatase 88 U/L (45-117); Anion Gap 7 (5-15); BUN 16 mg/dL (7-18); BUN/Creat Ratio 18.5 RATIO (10-20); CPK Total, Creatine Kinase 45 U/L (26-192); Chloride 108 mmol/L (98-107); Creatinine, Serum 0.86 mg/dL (0.55-1.02); EST Glomerular Filtration Rate 68 mL/min (>60); Est Glom Filt Rate - Afr Amer 82 mL/min (>60); Globulin 3.4 g/dL (2.2-4.2); Glucose 81 mg/dL (74-106); Lipase 67 U/L (73-393); Magnesium 1.7 mg/dL (1.6-2.6); Potassium 3.2 mmol/L (3.5-5.1); Protein, Total 6.7 g/dL (6.4-8.2); Rheumatoid Factor < 10.0 IU/mL (<15); Sodium Level 142 mmol/L (136-145); Thyroid Stim Hormone (TSH) 1.82 uIU/mL (0.358-3.74); Vitamin D,25 Hydroxy 38.4 ng/mL
[2020-12-17 08:34] LABS: Anti-Nuclear Antibody Test Negative (.)
== END ==
PROVIDERS: PCP Family Medicine; Referring Provider Family Medicine; Visit Provider Family Medicine
DX: E55.9 Vitamin D deficiency, unspecified (principal); R17 Unspecified jaundice; I48.91 Unspecified atrial fibrillation; M13.0 Polyarthritis, unspecified; M79.10 Myalgia, unspecified site
CPT/HCPCS: 36415; 80053; 82306; 82550; 83690; 83735; 84443; 85025; 85652; 86038; 86140; 86431

== ENCOUNTER → 2021-10-29 | Outpatient (CLI) | payer MEDICARE, MEDICAID, SELFPAY ==
--- NOTE | 2021-10-29 15:02 | BI_ITS ---
MAMMOGRAPHY - BILATERAL SCREENING REASON FOR EXAM: Female, 76 years old. Routine annual screening examination. PERTINENT HISTORY: Non-contributory. TECHNIQUE: Digital bilateral breast gregory (3D mammographic acquisition) in the CC and MLO projections. 2-D mediolateral oblique (MLO) and craniocaudad (CC) views of both breasts were obtained. CAD: Full Field Digital Mammography with Computer Added Detection was performed. COMPARISON: Comparison is made with prior mammogram dated 10/20/2019 FINDINGS: Breast Composition: There are scattered areas of fibroglandular density. There are no dominant masses or suspicious calcifications. The previously seen 4.8 mm x 5.4 mm nodule in the retroareolar region of the left breast has decreased in size. It presently measures 2 mm. This is in keeping with the sonographic findings of a cyst. No other significant abnormalities are identified. BI/SCRN MAMM (CAD)W/GREGORY BILAT IMPRESSION: Stable bilateral screening mammogram. Yearly follow-up mammogram recommended. (A) ASSESSMENT CATEGORY: BIRADS Category 2: Benign. A letter regarding these results will be sent to the patient by the facility within 30 days. Approximately 10% of breast cancers are not detected by mammography. A normal mammogram should not delay biopsy of a clinically suspicious abnormality. [id number] Electronically Signed: Silvio Roche MD at 8:15 EDT ,
== END | disposition home or self-care (01) ==
PROVIDERS: PCP Family Medicine; Visit Provider Family Medicine
DX: Z12.31 Encounter for screening mammogram for malignant neoplasm of breast (principal)
CPT/HCPCS: 77063; 77067

== ENCOUNTER → 2022-08-07 | Outpatient (CLI) | payer MEDICARE, SELFPAY ==
[2022-08-07 17:25] LABS: Absolute Lymphocyte Count 2.02 X10^3/uL (0.83-4.51); Absolute Neutrophil Count 3.3 X10^3/uL (2.0-7.7); Basophil# 0.09 X10^3/uL; Basophil% 1.4 % (0-1); Eosinophil# 0.16 X10^3/uL; Eosinophils% 2.4 % (0-5); Hematocrit 44.1 % (37-47); Hemoglobin 14.2 g/dL (12.0-15.0); Lymphocyte # 2.02 X10^3/ul (0.83-4.51); Lymphocyte % 30.3 % (19-41); Mean Corp Hgb Conc 32.2 g/dL (32-36); Mean Corpuscular Volume 96.3 fL (81-99); Mean Platelet Vol. 11.8 fl (6.2-12.0); Monocyte# 1.08 X10^3/uL; Monocyte% 16.2 % (0-10); NRBC Flagged by Analyzer 0 % (0-5); Neutrophil # 3.29 X10^3/uL (2.7-7.7); Neutrophil % 49.4 % (47-70); Platelet Count 196 K/mm3 (150-450); RBC Distribution Width CV 12.4 % (11.6-14.6); RBC Distribution Width SD 43.8 fl (35.1-43.9); Red Blood Count 4.58 M/mm3 (4.2-5.4); White Blood Count 6.7 K/mm3 (4.4-11.0)
[2022-08-07 18:10] LABS: Anion Gap 8 (5-15); BUN 13 mg/dL (7-18); BUN/Creat Ratio 14.8 RATIO (10-20); Calcium,Total 9.5 mg/dL (8.5-10.1); Chloride 105 mmol/L (98-107); Creatinine, Serum 0.88 mg/dL (0.55-1.02); EST Glomerular Filtration Rate 66 mL/min (>60); Est Glom Filt Rate - Afr Amer 80 mL/min (>60); Glucose 108 mg/dL (74-106); Potassium 3.6 mmol/L (3.5-5.1); Sodium Level 140 mmol/L (136-145); Thyroid Stim Hormone (TSH) 1.69 uIU/mL (0.358-3.74)
== END | disposition home or self-care (01) ==
LOC: LAB 15:38
PROVIDERS: PCP Family Medicine; Visit Provider Nurse Practitioner Family
DX: E87.6 Hypokalemia (principal); I50.32 Chronic diastolic (congestive) heart failure; R53.83 Other fatigue
CPT/HCPCS: 36415; 80048; 84443; 85025

== ENCOUNTER → 2022-08-12 | Outpatient (CLI) | payer MEDICARE, SELFPAY | END | disposition home or self-care (01) | LOC: BFHLAB 13:11 → LABSPEC 13:13 | PROVIDERS: PCP Family Medicine; Visit Provider Family Medicine | DX: R05.9 Cough, unspecified (principal) | CPT/HCPCS: 87811 ==

== ENCOUNTER → 2022-09-26 | Outpatient (CLI) | payer MEDICARE, MEDICAID, SELFPAY ==
--- NOTE | 2022-09-26 14:51 | RAD_ITS ---
EXAM: XR CERVICAL SPINE, 4 OR 5 VIEWS CLINICAL INDICATION: NECK PAIN POST FALL TECHNIQUE: Frontal, lateral and bilateral oblique views of the cervical spine. This report was created using [employer] report [employer] technology. COMPARISON: None. FINDINGS: VERTEBRAE: The odontoid process is obscured by the overlying hard palate on the open mouth view. Therefore, it is not fully evaluated by plain film. Preserved vertebral body height. No acute fracture. No spondylolisthesis. Preservation of the normal cervical lordosis. No significant facet arthropathy. DISC SPACES: Unremarkable. Disc spaces are maintained. SOFT TISSUES: Unremarkable. No prevertebral soft tissue widening. LUNG APICES: Clear. RAD/Cerv Spine 4 or 5 Views IMPRESSION: The odontoid process is obscured by the overlying hard palate on the open mouth view. Therefore, it is not fully evaluated by plain film. Electronically Signed: Jac Mayen MD at 15:46 EDT ,
== END | disposition home or self-care (01) ==
LOC: MTRAD 14:49
DX: M54.2 Cervicalgia (principal)
CPT/HCPCS: 72050

== ENCOUNTER → 2022-11-07 | Outpatient (CLI) | payer MEDICARE, SELFPAY ==
--- NOTE | 2022-11-07 13:17 | BI_ITS ---
MAMMOGRAPHY - BILATERAL SCREENING REASON FOR EXAM: Female, 77 years old. Routine annual screening examination. PERTINENT HISTORY: Non-contributory. TECHNIQUE: Digital bilateral breast gregory (3D mammographic acquisition) in the CC and MLO projections. 2-D mediolateral oblique (MLO) and craniocaudad (CC) views of both breasts were obtained. CAD: Full Field Digital Mammography with Computer Added Detection was performed. COMPARISON: Comparison is made with prior examination dated October 29, 2021 and October 20, 2019. FINDINGS: Breast Composition: The breasts are almost entirely fatty. There are no dominant masses or suspicious calcifications. No other significant abnormalities are identified. There has been no significant change since the prior study. BI/SCRN MAMM (CAD)W/GREGORY BILAT IMPRESSION: Stable bilateral screening mammogram. Yearly follow-up mammogram recommended. (A) ASSESSMENT CATEGORY: BIRADS Category 1: Negative. A letter regarding these results will be sent to the patient by the facility within 30 days. Approximately 10% of breast cancers are not detected by mammography. A normal mammogram should not delay biopsy of a clinically suspicious abnormality. [id number] Electronically Signed: Silvio Roche MD at 13:10 EDT ,
== END | disposition home or self-care (01) ==
LOC: OPBI 13:15
PROVIDERS: Referring Provider Nurse Practitioner Family; Visit Provider Nurse Practitioner Family
DX: Z12.31 Encounter for screening mammogram for malignant neoplasm of breast (principal)
CPT/HCPCS: 77063; 77067

== ENCOUNTER → 2023-03-10 | Outpatient (CLI) | payer MEDICARE, SELFPAY ==
--- NOTE | 2023-03-10 16:50 | RAD_ITS ---
INDICATION: SOB, possible pneumonia EXAMINATION/TECHNIQUE: X-RAY - XR Chest 2 Views COMPARISON: July 10, 2020 FINDINGS: LINES/DEVICES: None. LUNGS: No consolidation, edema or effusion. Right apical granulomas. No pneumothorax. MEDIASTINUM AND CARDIOVASCULAR STRUCTURES: Cardiac silhouette not enlarged. Central airways and mediastinal contour are unremarkable. BONES AND SOFT TISSUES: Unremarkable. RAD/Chest PA and Lateral IMPRESSION: No radiographic evidence of acute cardiopulmonary disease. Electronically Signed: Jurgen Barillas DO at 17:12 EDT ,
== END | disposition home or self-care (01) ==
PROVIDERS: PCP Nurse Practitioner Family; Referring Provider Nurse Practitioner Family; Visit Provider Nurse Practitioner Family
DX: N39.0 Urinary tract infection, site not specified (principal); R06.02 Shortness of breath; Z87.01 Personal history of pneumonia (recurrent)
CPT/HCPCS: 71046; 87077; 87086; 87088; 87186

== ENCOUNTER 2023-04-24 22:41 | Emergency (ER) | payer MEDICARE, MEDICAID, SELFPAY ==
[2023-04-24 22:42] VITALS: TEMP 36.3
--- NOTE | 2023-04-24 23:16 | EKG12_ITS ---
Test Reason : DYSRHYTHMIA Blood Pressure : / mmHG Vent. Rate : 072 BPM Atrial Rate : 000 BPM P-R Int : 000 ms QRS Dur : 118 ms QT Int : 442 ms P-R-T Axes : 000 -29 -29 degrees QTc Int : 483 ms Atrial fibrillation Left ventricular hypertrophy with QRS widening ( R in aVL , Justice product ) Nonspecific ST and T wave abnormality Abnormal ECG Confirmed by AMARJIT GONZALEZ, TENZIN ([id number]), proposal editor KOBE BAILEY ([id number]) on 04/27/2023 8:32:52 AM Referred By: Confirmed By:KAIT OCASIO MD
--- NOTE | 2023-04-24 23:16 | CT_ITS ---
EXAM: CT HEAD WITHOUT INTRAVENOUS CONTRAST CLINICAL INDICATION: altered mental status TECHNIQUE: Multiple axial images were obtained of the head without intravenous contrast. This CT exam was performed using one or more of the following dose reduction techniques: automated exposure control, adjustment of the mA and/or kV according to patient size, and/or use of iterative reconstruction technique. RADIATION DOSE: Total DLP: 1124.81 mGy-cm. COMPARISON: MR brain report of 11/18/2008. FINDINGS: BRAIN AND EXTRA-AXIAL SPACES: Minimal age-related cortical atrophy with slight prominence of the cortical sulci. Extensive patchy chronic small vessel ischemic changes are present within the deep white matter tracts. Small lacunar infarction within the lateral right thalamus, age indeterminate. Tiny old lacunar infarctions within both caudate heads. Prominent perivascular space within the inferior right lentiform nucleus. No intra- or extra-axial hemorrhage. No intracranial mass or mass effect. Posterior fossa structures are unremarkable. Basal cisterns are patent. BONES/JOINTS: Unremarkable. No discrete lytic or blastic abnormalities. No linear or depressed skull fracture. VASCULATURE: Atherosclerotic vascular calcification is present. The middle cerebral arteries are not hyperdense. SINUSES: Unremarkable as visualized. Clear. MASTOID AIR CELLS: Unremarkable. Clear. ORBITS: Visualized globes, extraocular muscles, optic nerves and retrobulbar fat appear unremarkable. CT/Brain/Head without Contrast IMPRESSION: Atrophy with chronic small vessel ischemic changes. Small lacunar infarction within the right thalamus, age indeterminate. No intracranial hemorrhage or mass identified. Electronically Signed: Jos Scales MD at 0:44 EST ,
--- NOTE | 2023-04-24 23:17 | CT_ITS ---
EXAM: CT CERVICAL SPINE WITHOUT INTRAVENOUS CONTRAST CLINICAL INDICATION: neck trauma TECHNIQUE: Helically acquired images were obtained of the cervical spine without intravenous contrast. 2D reformatted images were reviewed. This CT exam was performed using one or more of the following dose reduction techniques: automated exposure control, adjustment of the mA and/or kV according to patient size, and/or use of iterative reconstruction technique. RADIATION DOSE: Total DLP: 1124.81 mGy-cm. COMPARISON: No relevant prior studies available. FINDINGS: VERTEBRAE: Straightening of the normal cervical lordosis. Slight degenerative anterior subluxation of C3 on C4 and of C4 on C5. Osseous structures are demineralized. No compression fracture, posterior element fracture or facet dislocation. Cervical facet arthritis is present. No discrete lytic or blastic abnormality. Normal craniocervical junction and cervicothoracic junction. There is slight flaring of the interspinous distance at C4/5; normal fat attenuation in this interspinous region, without evidence for edema or hemorrhage to suggest ligamentous injury. DISCS/SPINAL CANAL/NEURAL FORAMINA: No thecal sac stenosis. Minimal right-sided neural foraminal encroachment at C2/3. Minimal degenerative narrowing of the C4/5 disc space with slight anterior spurring about this disc space. SOFT TISSUES: No precervical soft tissue swelling. LUNG APICES: Severe biapical pulmonary emphysema. Partially calcified biapical pleural parenchymal scarring. Visualized upper ribs are intact. CT/Spine Cervical without Contras IMPRESSION: Straightening of the cervical lordosis due to patient positioning or muscle spasm. Cervical facet arthritis. Minimal degenerative disc space narrowing at C4/5. No acute fracture. Electronically Signed: Jos Scales MD at 1:08 EST ,
--- NOTE | 2023-04-24 23:18 | EX.ED.DYSGE1 ---
HPI History of Present Illness Chief Complaint: General Illness Narrative Narrative: 77-year-old female presenting with altered mental status and weakness. Patient's son states that she went to bed last evening around midnight and slept all day until it got dark out today. Patient spent the whole day in bed. He states she voided in her depends diaper. He does report that she had a couple of falls this week but does not think she hit her head. No evidence of trauma. He states that she was confused and did not recognize her grandson or other family members and he states that they live together. He states she had an episode of like this last week. He did not go to the hospital and the symptoms resolved. He states that the patient has some lower extremity edema which is new for her. She states that she is not in pain anywhere. She does not feel nauseous. [facility] Medical History Actinic keratoses Actinic keratosis Asthma Basal cell carcinoma (BCC) of back Bilateral edema of lower extremity Carcinoma in situ of skin of left leg Carcinoma in situ of skin of right leg Chronic diastolic (congestive) heart failure Chronic obstructive lung disease COPD (chronic obstructive pulmonary disease) Depression Dysplastic nevus of trunk Elevated transaminase level Glenoid labrum tear History of dysplastic nevus History of dysplastic nevus Impingement syndrome of right shoulder Incomplete right bundle branch block Insomnia [employer] (current) use of anticoagulants Longstanding persistent atrial fibrillation Lumbosacral spondylosis Meniere disease Mitral valve annular calcification Neoplasm of skin of chest Neoplasm of skin of chest Neoplasm of skin of elbow Neoplasm of skin of forearm Neoplasm of skin of lower leg Neoplasm of skin of nasal tip Neoplasm of skin of shoulder Neoplasm of skin of thigh Neoplasm of skin of upper arm Neoplasm of uncertain behavior of skin of lower leg Nicotine dependence Non-healing surgical wound Non-healing ulcer of lower leg with fat layer exposed Osteopenia Paroxysmal atrial flutter Personal history of skin cancer Plantar fasciitis Shingles Squamous cell carcinoma of right thigh Tendinitis 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) Vitamin D deficiency Home Medications albuterol sulfate 90 mcg/actuation aerosol inhaler (Ventolin HFA) 1 inh inhalation ONCE PRN Sob &/Or Wheezing 06/04/17 [History Last Taken 03/10/20] cholecalciferol (vitamin D3) 1,250 mcg (50,000 unit) capsule 50,000 unit PO QMONTH supplement 06/04/17 [History Last Taken 02/15/20] budesonide-formoterol HFA 80 mcg-4.5 mcg/actuation aerosol inhaler 2 puff inhalation BID PRN breathing 08/02/18 [History Last Taken Unknown] alprazolam 0.25 mg tablet 0.125 mg (1/2 x 0.25 mg) PO BID PRN PRN Anxiety #30 tabs 02/14/21 [Rx Last Taken Unknown] escitalopram oxalate 5 mg tablet 5 mg PO DAILY 10/10/21 [History Last Taken Unknown] loratadine 10 mg tablet (Claritin) 10 mg PO DAILY 12/02/21 [History Last Taken Unknown] imiquimod 5 % topical cream packet 1 applic topical 5XW #30 ea 03/28/22 [Rx Last Taken Unknown] apixaban 5 mg tablet 5 mg PO BID blood thinner #180 tabs 10/09/22 [Rx Last Taken Unknown] diltiazem HCl 120 mg capsule,extended release 24 hr 120 mg PO BID #60 caps 10/10/22 [Rx Last Taken Unknown] furosemide 20 mg tablet 20 mg PO DAILY PRN swelling or shortness of breath #30 tabs 02/06/23 [Rx Last Taken Unknown] cephalexin 500 mg capsule 500 mg PO Q12 #14 CAPSULES 04/25/23 [Rx Last Taken Unknown] Allergy/AdvReac Type Severity Reaction Status Date / Time penicillin G Allergy Severe severe Verified 04/24/23 22:46 hives amoxicillin Allergy Mild Unknown Verified 04/24/23 22:46 codeine Allergy Mild Unknown Verified 04/24/23 22:46 duloxetine [From Cymbalta] Allergy Mild Unknown Verified 04/24/23 22:46 guaifenesin [From Mucinex] Allergy Mild Unknown Verified 04/24/23 22:46 oxycodone [From Percocet] Allergy Mild Other Verified 04/24/23 22:46 promethazine Allergy Mild Other Verified 04/24/23 22:46 sulfamethoxazole Allergy Mild Unknown Verified 04/24/23 22:46 [From Bactrim] trimethoprim [From Bactrim] Allergy Mild Unknown Verified 04/24/23 22:46 potassium chloride AdvReac Unknown Upset Verified 04/24/23 22:46 Stomach Family History Mother CVA (cerebral vascular accident) Surgical History Cataracts, bilateral H/O rotator cuff surgery H/O toe surgery H/O: hysterectomy History of back surgery History of basal cell carcinoma excision History of cardioversion (02/27/12) History of carpal tunnel surgery History of delivery History of squamous cell carcinoma excision Hx of cholecystectomy Social History household members: none Smoking Status: Current every day smoker tobacco type: cigarettes alcohol intake: never substance use type: does not use caffeine: No what type of physical activity do you participate in: none seatbelt use: always do you feel safe at home: Yes ROS ROS ED Constitutional Constitutional ED: Denies chills Eyes Eyes: Denies change in vision ENT ENT ED: Denies rhinorrhea or sore throat Cardiovascular Cardiovascular: Denies chest pain or palpitations Respiratory/Chest Respiratory/Chest: Denies cough or dyspnea Gastrointestinal Gastrointestinal: Denies abdominal pain, nausea or vomiting Genitourinary Genitourinary ED: Denies dysuria or hematuria Musculoskeletal Musculoskeletal: Denies arthralgias Integumentary Denies abscess Neurologic Neurologic: Denies headache(s) or paresthesias Psychiatric Psychiatric: Denies anxiety or depression EXAM Physical Exam Const Vital Signs: 04/24/23 22:42 04/24/23 22:46 04/25/23 01:39 Temperature 97.4 F L 98.0 F Temperature Source Temporal Temporal Pulse Rate 65 Respiratory Rate 18 Respiratory Effort Normal Non-Labored Respiratory Pattern Normal Blood Pressure 132/90 H Blood Pressure Mean 104 Pulse Ox 95 Oxygen Delivery Method Room Air 04/25/23 01:39 Temperature Temperature Source Pulse Rate Respiratory Rate Respiratory Effort Respiratory Pattern Blood Pressure 132/90 H Blood Pressure Mean 104 Pulse Ox Oxygen Delivery Method MDM MDM MDM Narrative Medical decision making narrative: Patient presenting with altered mental status that she had a couple of falls this week. Patient is on Eliquis for history of A-fib. Differential includes intracranial bleed, skull fracture, C-spine fracture, dehydration, electrolyte abnormalities, CHF, ACS, hyperammonemia, UTI, COVID, influenza, pneumonia, anemia. CBC was obtained to assess white blood cell count, hemoglobin and platelets. CMP to assess liver function, renal function, electrolytes. High-sensitivity troponin EKG to assess for ischemia/dysrhythmia. Urinalysis to assess for UTI. Ammonia level to assess for hyperammonemia. BNP to assess for CHF. Since the patient laid in bed I will obtain a CPK to assess for rhabdomyolysis. CBC shows normal white blood cell count at 10.6. Hemoglobin stable at 12.5. Platelets normal at 228. BNP 393, however the patient's chest x-ray appears normal on my interpretation. She is not hypoxic or tachypneic. COVID and influenza negative. CPK within normal limits. High-sensitivity troponin 36. EKG on my interpretation shows atrial fibrillation at a controlled ventricular response at 72 bpm. Ammonia level was normal. CT brain shows old strokes. This was discussed with patient and family and the patient herself states that her primary care physician speculated as to which she had had old strokes in the past. Does not appear to be new.Patient does not have any deficits. Her presentation is generalized weakness and she is found to have a UTI. Patient given a dose of Rocephin IV. Urine culture sent. Discussed with family and they are comfortable taking her home and given antibiotics there. Return precautions were discussed. Impression: 1. Weakness 2. UTI 3. Falls 4. History of stroke Lab Data Labs: Laboratory Results - last 24 hr 04/24/23 04/25/23 23:38 00:34 WBC 10.6 RBC 4.12 L Hgb 12.5 Hct 40.1 MCV 97.3 MCH 30.3 MCHC 31.2 L RDW Std Deviation 44.9 H RDW Coeff of Autumn 12.5 Plt Count 228 MPV 11.3 Immature Gran % (Auto) 0.800 Neut % (Auto) 72.8 H Lymph % (Auto) 16.2 L [place] % (Auto) 8.8 Eos % (Auto) 0.8 Baso % (Auto) 0.6 Absolute Neuts (auto) 7.7 Absolute Lymphs (auto) 1.72 Nucleated RBC % 0 Sodium 143 Potassium 3.2 L Chloride 109 H Carbon Dioxide 30.0 Anion Gap 4 L BUN 15 Creatinine 0.98 Est GFR (MDRD) Af Amer 70 Est GFR (MDRD) Non-Af 58 L BUN/Creatinine Ratio 15.2 Glucose 171 H Calcium 8.8 Total Bilirubin 0.50 AST 11 L ALT 14 Alkaline Phosphatase 70 Ammonia < 10.0 L Total Creatine Kinase 74 Troponin I High Sens 36 B-Natriuretic Peptide 393.0 H Total Protein 6.2 L Albumin 2.9 L Globulin 3.3 Albumin/Globulin Ratio 0.9 Urine Color Yellow Urine Clarity Turbid Urine pH 5.0 Ur Specific [place] 1.020 Urine Protein 100 H Urine Glucose (UA) Normal Urine Ketones 15 H Urine Occult Blood 250 H Urine Nitrite Positive H Urine Bilirubin 3 H Urine Urobilinogen 8 H Ur Leukocyte Esterase 500 H Urine RBC > 100 SEEN Urine WBC >100 SEEN Ur Squamous Epith Cells 0-5 SEEN Urine Bacteria 4+ Urine Mucus 0 SEEN Radiography Diagnostic Testing: Clinical Impression(s) from Imaging Studies Brain CT 04/24/23 23:16 IMPRESSION: Atrophy with chronic small vessel ischemic changes. Small lacunar infarction within the right thalamus, age indeterminate. No intracranial hemorrhage or mass identified. Electronically Signed: Jos Scales MD at 0:44 EST , Cervical Spine CT 04/24/23 23:17 IMPRESSION: Straightening of the cervical lordosis due to patient positioning or muscle spasm. Cervical facet arthritis. Minimal degenerative disc space narrowing at C4/5. No acute fracture. Electronically Signed: Jos Scales MD at 1:08 EST , Chest X-Ray 04/25/23 01:00 IMPRESSION: No significant interval change. Findings of pulmonary emphysema and bibasilar scarring again noted, unchanged. No findings of CHF. Electronically Signed: Jos Scales MD at 1:48 EST , Discharge Plan Triage Chief Complaint: General Illness ED Provider: Brett Hebert Dx/Rx/DC Orders Clinical Impression: Fatigue Instructions: ED Cystitis Female Adult Prescriptions: New cephalexin 500 mg capsule 500 mg PO Q12 Qty: 14 0RF No Action albuterol sulfate [Ventolin HFA] 90 mcg/actuation HFA aerosol inhaler 1 inh INHALATION ONCE PRN (Reason: Sob &/Or Wheezing) cholecalciferol (vitamin D3) 50,000 unit capsule 50,000 unit PO QMONTH budesonide-formoterol 80-4.5 mcg/actuation HFA aerosol inhaler 2 puff INHALATION BID PRN (Reason: breathing) escitalopram oxalate 5 mg tablet 5 mg PO DAILY loratadine [Claritin] 10 mg tablet 10 mg PO DAILY imiquimod 5 % cream in packet 1 applic topical 5XW Qty: 30 1RF Rx Instructions: 30 packets (thirty) Apply to affected areas daily at night 5 days per week for 6 weeks alprazolam 0.25 mg tablet 0.125 mg PO BID PRN PRN (Reason: Anxiety) Qty: 30 0RF Rx Instructions: 30 tabs (thirty) apixaban 5 mg tablet 5 mg PO BID Qty: 180 3RF diltiazem HCl 120 mg capsule,extended release 24hr 120 mg PO BID Qty: 60 12RF furosemide 20 mg tablet 20 mg PO DAILY PRN (Reason: swelling or shortness of breath) Qty: 30 3RF Primary Care Provider: Mira Rodriguez Referrals: Mira Rodriguez, [employer] [Primary Care Provider] - Disposition Disposition: Home, Self Care
[2023-04-24 23:50] LABS: Absolute Lymphocyte Count 1.72 X10^3/uL (0.83-4.51); Absolute Neutrophil Count 7.7 X10^3/uL (2.0-7.7); Basophil# 0.06 X10^3/uL; Basophil% 0.6 % (0-1); Eosinophil# 0.09 X10^3/uL; Eosinophils% 0.8 % (0-5); Hematocrit 40.1 % (37-47); Hemoglobin 12.5 g/dL (12.0-15.0); Lymphocyte # 1.72 X10^3/ul (0.83-4.51); Lymphocyte % 16.2 % (19-41); Mean Corp Hgb Conc 31.2 g/dL (32-36); Mean Corpuscular Hgb 30.3 pg (27.0-32.0); Mean Corpuscular Volume 97.3 fL (81-99); Mean Platelet Vol. 11.3 fl (6.2-12.0); Monocyte# 0.93 X10^3/uL; Monocyte% 8.8 % (0-10); NRBC Flagged by Analyzer 0 % (0-5); Neutrophil # 7.71 X10^3/uL (2.7-7.7); Neutrophil % 72.8 % (47-70); Platelet Count 228 K/mm3 (150-450); RBC Distribution Width CV 12.5 % (11.6-14.6); RBC Distribution Width SD 44.9 fl (35.1-43.9); Red Blood Count 4.12 M/mm3 (4.2-5.4); White Blood Count 10.6 K/mm3 (4.4-11.0)
[2023-04-25 00:14] LABS: ALB/GLOB Ratio 0.9 RATIO (0.9-2.4); AST(SGOT) 11 U/L (15-37); Alanine Aminotransfer ALT/SGPT 14 U/L (13-56); Albumin, Serum 2.9 g/dL (3.2-5.0); Alkaline Phosphatase 70 U/L (45-117); Ammonia < 10.0 umol/L (11-32); Anion Gap 4 (5-15); BUN 15 mg/dL (7-18); BUN/Creat Ratio 15.2 RATIO (10-20); CPK Total, Creatine Kinase 74 U/L (26-192); Calcium,Total 8.8 mg/dL (8.5-10.1); Chloride 109 mmol/L (98-107); Creatinine, Serum 0.98 mg/dL (0.55-1.02); EST Glomerular Filtration Rate 58 mL/min (>60); Est Glom Filt Rate - Afr Amer 70 mL/min (>60); Globulin 3.3 g/dL (2.2-4.2); Glucose 171 mg/dL (74-106); Potassium 3.2 mmol/L (3.5-5.1); Protein, Total 6.2 g/dL (6.4-8.2); Sodium Level 143 mmol/L (136-145); Troponin-I HS 36 pg/mL (3.0-54.0)
[2023-04-25 00:39] LABS: Mucous, Urine 0 SEEN /hpf (<or=2+)
[2023-04-25 00:40] LABS: Color, Urine Yellow (Yellow); Glucose, Dipstick Normal (Normal); Ketone-Dipstick 15 mg/dl (Negative); Leukocyte Esterase-Dipstick 500 /ul (Negative); Nitrite-Dipstick Positive (Negative); Occult Blood-Urine 250 /ul (Negative); Protein-Dipstick 100 mg/dl (Negative); Urine Clarity Turbid (Clear); Urine Urobilinogen 8 mg/dl (Normal)
[2023-04-25 00:52] LABS: Bacteria 4+ /hpf (None Seen); Red Blood Cells-Urine > 100 SEEN /hpf (0-5); Squamous Epithelial Cells - UA 0-5 SEEN /hpf (5-10); Urine Bilirubin Dipstick 3 mg/dL (Negative); White Blood Cells >100 SEEN /hpf (0-5)
--- NOTE | 2023-04-25 01:00 | RAD_ITS ---
EXAM: XR CHEST, 1 VIEW CLINICAL INDICATION: chf TECHNIQUE: Frontal view of the chest. COMPARISON: Previous chest radiographs of 03/10/2023 , 07/10/2020 and 03/21/2020. FINDINGS: LUNGS AND PLEURAL SPACES: Lungs remain hyperinflated with hyperlucency of the upper lungs, indicating pulmonary emphysema. Chronic scarring noted within the medial aspect of both lower lungs, unchanged; the right heart border remains indistinct due to this chronic scarring. No developing pulmonary infiltrates are identified. No pneumothorax. No effusion. HEART: Heart size remains mildly enlarged. There is chronic pruning of the peripheral pulmonary vascular markings due to the pulmonary emphysema. No cephalization of pulmonary blood flow. MEDIASTINUM: Central airways and mediastinal contour are unremarkable. BONES/JOINTS: Osseous structures are demineralized. No acute osseous abnormality. SOFT TISSUES: Unremarkable. RAD/Chest 1 View (Portable) IMPRESSION: No significant interval change. Findings of pulmonary emphysema and bibasilar scarring again noted, unchanged. No findings of CHF. Electronically Signed: Jos Scales MD at 1:48 EST ,
[2023-04-25 01:39] VITALS: BP 132/90; PULSE 65; RESP 18; TEMP 36.7; O2SAT 95
[2023-04-25] MEDS: Ceftriaxone 1 GM/50 ML BAG IV (02:12)
[2023-04-25 02:13] VITALS: BMI 30.7
[2023-04-25 02:27] VITALS: BP 151/74; PULSE 66; RESP 18; O2SAT 96
== END 2023-04-25 02:50 | disposition home or self-care (01) ==
PROVIDERS: Emergency Provider Student in an Organized Health Care Education/Training Program; PCP Nurse Practitioner Family; Visit Provider Student in an Organized Health Care Education/Training Program
DX: R41.82 Altered mental status, unspecified (principal); J44.9 Chronic obstructive pulmonary disease, unspecified; I50.30 Unspecified diastolic (congestive) heart failure; I48.11 Longstanding persistent atrial fibrillation; N39.0 Urinary tract infection, site not specified; R53.1 Weakness; Z86.73 Personal history of transient ischemic attack (TIA), and cerebral infarction without residual deficits; Z85.820 Personal history of malignant melanoma of skin; Z79.51 Long term (current) use of inhaled steroids; F32.A Depression, unspecified; Z79.01 Long term (current) use of anticoagulants; F17.210 Nicotine dependence, cigarettes, uncomplicated; Z90.710 Acquired absence of both cervix and uterus; Z90.49 Acquired absence of other specified parts of digestive tract; Z91.81 History of falling
CPT/HCPCS: 70450; 71045; 72125; 80053; 81001; 82140; 82550; 83880; 84484; 85025; 87077; 87086; 87088; 87186; 87428; 93005; 96365; 99285; P9612; A4216

== ENCOUNTER → 2023-05-01 | Outpatient (CLI) | payer MEDICARE, SELFPAY ==
[2023-05-01 19:10] LABS: Vitamin D,25 Hydroxy 60.2 ng/mL
== END | disposition home or self-care (01) ==
LOC: BFHLAB 16:30
PROVIDERS: PCP Nurse Practitioner Family; Visit Provider Nurse Practitioner Family
DX: E55.9 Vitamin D deficiency, unspecified (principal)
CPT/HCPCS: 36415; 82306

== ENCOUNTER → 2023-05-29 | Outpatient (CLI) | payer MEDICARE, SELFPAY | END | disposition home or self-care (01) | PROVIDERS: PCP Nurse Practitioner Family; Referring Provider Nurse Practitioner Family; Visit Provider Nurse Practitioner Family | DX: N39.0 Urinary tract infection, site not specified (principal) | CPT/HCPCS: 87077; 87086; 87088; 87186 ==

== ENCOUNTER → 2023-08-07 | Outpatient (CLI) | payer MEDICARE, SELFPAY | END | disposition home or self-care (01) | PROVIDERS: PCP Nurse Practitioner Family; Visit Provider Nurse Practitioner Family | DX: N39.0 Urinary tract infection, site not specified (principal) | CPT/HCPCS: 87086; 87088; 87186 ==

== ENCOUNTER → 2023-08-10 | Outpatient (CLI) | payer MEDICARE, SELFPAY ==
[2023-08-10 15:33] LABS: Absolute Lymphocyte Count 1.72 X10^3/uL (0.83-4.51); Absolute Neutrophil Count 4.3 X10^3/uL (2.0-7.7); Basophil# 0.04 X10^3/uL; Basophil% 0.6 % (0-1); Eosinophil# 0.21 X10^3/uL; Hematocrit 41.1 % (37-47); Hemoglobin 13.1 g/dL (12.0-15.0); Lymphocyte # 1.72 X10^3/ul (0.83-4.51); Mean Corp Hgb Conc 31.9 g/dL (32-36); Mean Corpuscular Hgb 30.6 pg (27.0-32.0); Mean Platelet Vol. 11.6 fl (6.2-12.0); Monocyte# 0.63 X10^3/uL; Monocyte% 9.1 % (0-10); NRBC Flagged by Analyzer 0 % (0-5); Neutrophil # 4.27 X10^3/uL (2.7-7.7); Platelet Count 201 K/mm3 (150-450); RBC Distribution Width CV 13.9 % (11.6-14.6); RBC Distribution Width SD 49.1 fl (35.1-43.9); Red Blood Count 4.28 M/mm3 (4.2-5.4); White Blood Count 6.9 K/mm3 (4.4-11.0)
[2023-08-10 15:58] LABS: Hemoglobin A1c 5.7 % (3.8-5.6)
[2023-08-10 16:05] LABS: Vitamin D,25 Hydroxy 60.6 ng/mL
[2023-08-10 16:20] LABS: ALB/GLOB Ratio 1.1 RATIO (0.9-2.4); AST(SGOT) 17 U/L (15-37); Alanine Aminotransfer ALT/SGPT 17 U/L (13-56); Albumin, Serum 3.6 g/dL (3.2-5.0); Alkaline Phosphatase 75 U/L (45-117); Anion Gap 6 (5-15); BUN 12 mg/dL (7-18); BUN/Creat Ratio 14.7 RATIO (10-20); Calcium,Total 9.3 mg/dL (8.5-10.1); Chloride 107 mmol/L (98-107); Cholesterol 156 mg/dL (200); Creatinine, Serum 0.82 mg/dL (0.55-1.02); EST Glomerular Filtration Rate 72 mL/min (>60); Est Glom Filt Rate - Afr Amer 87 mL/min (>60); Globulin 3.2 g/dL (2.2-4.2); Glucose 88 mg/dL (74-106); High Density Lipoprotein 57 mg/dL; Potassium 3.9 mmol/L (3.5-5.1); Protein, Total 6.8 g/dL (6.4-8.2); Sodium Level 140 mmol/L (136-145); Triglycerides 80 mg/dL; Very Low Density Lipoprotein 16 mg/dL (5-40)
--- OUTSIDE RECORDS SUMMARY | 2023-08-10 22:23 | XMS RPT_ITS | CCD ---
Author Name Unknown Address [address] [place] [address] Organization [facility] Care Team Providers Care Automatic Data Processing Planner Name Role Phone ELIDA MITCHELL E Unavailable Unavailable SNEHA MITCHELLNETH E Unavailable Unavailable SNEHA MITCHELLNETH Unavailable Unavailable SNEHA MITCHELLNETH Unavailable Unavailable LEONARD VOGT Unavailable Unavailable SNEHA MITCHELLNETH Unavailable Unavailable SNEHA MITCHELLNETH Unavailable Unavailable LEONARD VOGT Unavailable Unavailable Leonard Vogt Unavailable Leonard Vogt MD Primary Care Provider Allergies Allergy Classification Reported Allergen(s) Allergy Type Date of Onset Reaction(s) Facility (3 sources) acetaminophen / HYDROcodone; Translations: [HYDROCODONE-ACETAM INOPHEN] Drug Allergy 04-10-20 14 Vomiting [facility] Repository (3 sources) acetaminophen / oxyCODONE; Translations: [OXYCODONE-ACETAMIN OPHEN] Drug Allergy 08-16-19 14 Vomiting [facility] Repository (5 sources) amoxicillin; Translations: [AMOXICILLIN] Drug Allergy 10-15-19 06 Vomiting [facility] Repository (5 sources) codeine; Translations: [CODEINE] Drug Allergy 10-15-19 06 Other: See Comments [facility] Repository (3 sources) dextromethorphan / guaiFENesin; Translations: [DEXTROMETHORPHAN-G UAIFENESIN] Drug Allergy 06-28-19 11 Intolerance [facility] Repository (3 sources) DULoxetine; Translations: [DULOXETINE] Drug Allergy 02-27-20 09 Mental Status Change [facility] Repository (3 sources) promethazine; Translations: [PROMETHAZINE HCL] Drug Allergy 04-10-20 14 Mental Status Change [facility] Repository (3 sources) propofol; Translations: [PROPOFOL] Drug Allergy 03-01-20 12 Other: See Comments [facility] Repository (3 sources) sulfamethoxazole / trimethoprim; Translations: [SULFAMETHOXAZOLE-T RIMETHOPRIM] Drug Allergy 10-15-19 06 GI Upset [facility] Repository (3 sources) NITROFURANTOIN MONOHYD/M-CRYST; Translations: [NITROFURANTOIN MONOHYD/M-CRYST] Propensity to adverse reactions to drug (disorder) 05-31-20 14 Shortness of Breath [facility] Repository (3 sources) SODIUM; Translations: [SODIUM] Propensity to adverse reactions to drug (disorder) 10-15-19 06 [facility] Repository (2 sources) Acetaminophen / oxyCODONE; Translations: [Percocet TABS] Drug Allergy [facility] dependence Work Phone: (2 sources) Penicillins; Translations: [Penicillins] Allergy to drug (finding) [facility] Work Phone: (2 sources) Sulfamethoxazole / Trimethoprim; Translations: [Bactrim] Drug Allergy [facility]-In dependence Work Phone: Medications Completed/Discontinued Medications Medication Drug Class(es) Dates Sig (Normalized) Sig (Original) acetaminophen 500 mg oral tablet (1 source) take 1 tablet by mouth every eight hours as needed acetaminophen (TYLENOL) 500 mg tablet Take 500 mg by mouth every 8 hours as needed. 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] Onset: 04-02-2011 04-02-2011 Chronic Cardiac dysrhythmias (2 sources) Atypical atrial flutter; Translations: [Atrial flutter] Onset: 09-16-2011 09-16-2011 Chronic Congestive heart failure; nonhypertensive (1 source) Chronic diastolic heart failure; Translations: [Chronic diastolic (congestive) heart failure] Onset: 06-22-2018 06-22-2018 Chronic Malaise and fatigue (2 sources) Fatigue; Translations: [Other malaise and fatigue] Chronic Mood disorders (1 source) Depressive disorder; Translations: [Other specified depressive episodes] Onset: 03-23-2007 01-30-2010 Chronic Nutritional deficiencies (1 source) Vitamin D deficiency; Translations: [Vitamin D deficiency, unspecified] Onset: 06-12-2008 01-30-2010 Chronic Osteoarthritis (1 source) Osteoarthritis of knee; Translations: [Osteoarthritis of knee, unspecified] 06-10-2021 Chronic Other bone disease and musculoskeletal deformities (2 sources) Osteopenia; Translations: [Disorder of bone and cartilage, unspecified] Episodic Other connective tissue disease (1 source) Muscle pain; Translations: [Myalgia and myositis, unspecified] 01-30-2010 Episodic Other female genital disorders (1 source) Vaginal intraepithelial neoplasia grade 1; 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] 01-01-2012 Episodic Other non-traumatic joint disorders (2 sources) Arthropathy; Translations: [Arthropathy, unspecified, site unspecified] Chronic Spondylosis; intervertebral disc disorders; other back problems (2 sources) Spondylosis; Translations: [Spondylosis, unspecified] Onset: 06-29-2007 02-18-2007 Chronic Spondylosis; intervertebral disc disorders; other back problems (2 sources) Low back pain; Translations: [Lumbago] 01-30-2010 Episodic Substance-related disorders (1 source) Tobacco user; Translations: [Nicotine dependence, unspecified, uncomplicated] 01-30-2010 Chronic Unclassified (1 source) Unknown / UNK(Unknown) Onset: 10-12-2017 Past or Other Problems Problem Classification Problem Date Documented Da te Episodic/Chronic Abdominal pain (1 source) Abdominal pain; Translations: [Unspecified abdominal pain] Onset: 08-14-2003 04-04-2016 Episodic Fracture of upper limb (1 source) Closed fracture of shaft of metacarpal bone; Translations: [Nondisplaced fracture of shaft of fifth metacarpal bone, right hand, initial encounter for closed fracture] Onset: 03-04-2018 03-04-2018 Episodic Other and unspecified benign neoplasm (1 source) Lipoma (clinical); Translations: [Benign lipomatous neoplasm, unspecified] Onset: 11-19-2009 11-19-2009 Episodic Other bone disease and musculoskeletal deformities (1 source) Disorder of skeletal system; Translations: [Disorder of bone, unspecified] Onset: 07-16-2004 01-30-2010 Episodic Other connective tissue disease (1 source) Partial thickness rotator cuff tear; Translations: [Incomplete rotator cuff tear or rupture of unspecified shoulder, not specified as traumatic] Onset: 02-07-2014 02-07-2014 Episodic Other connective tissue disease (1 source) Impingement syndrome of left shoulder region; Translations: [Impingement syndrome of left shoulder] Onset: 02-07-2014 02-07-2014 Episodic Other non-traumatic joint disorders (1 source) Pain in left shoulder; Translations: [Pain in joint, shoulder region] Onset: 02-14-2014 02-14-2014 Episodic Other non-traumatic joint disorders (1 source) Soft tissue lesion of shoulder region; Translations: [Other specified joint disorders, unspecified shoulder] Onset: 05-02-2014 05-02-2014 Episodic Ovarian cyst (1 source) Cyst of ovary; Translations: [Unspecified ovarian cyst, unspecified side] Onset: 07-12-2010 07-12-2010 Episodic Sprains and strains (1 source) Sprain of shoulder rotator cuff; Translations: [Sprain of unspecified rotator cuff capsule, initial encounter] Onset: 05-02-2014 05-02-2014 Episodic Unclassified (1 source) Atypical atrial flutter Onset: 10-12-2017 Varicose veins of lower extremity (1 source) Venous varices; Translations: [Asymptomatic varicose veins of unspecified lower extremity] Onset: 11-26-2009 11-26-2009 Episodic Viral infection (1 source) Herpes zoster; Translations: [Zoster without complications] Onset: 07-06-2007 06-10-2021 Episodic Results Test Name Value Interpretation Reference Range Facil ity Vital Signs Date Time Vital Sign Value Performing Clinician Faci lity 04-22-2021 14:11-0500 Body height 154.94 cm Leonard Vogt Work Phone: [employer] Work Phone: 04-22-2021 14:11-0500 Body mass index (BMI) [Ratio] 27.4 kg/m2 Leonard Vogt Work Phone: [employer] Work Phone: 04-22-2021 14:11-0500 Body surface area Derived from formula 1.65 m2 Leonard Mcconnell Torie Work Phone: [employer] Work Phone: 04-22-2021 14:11-0500 Body temperature 97 [degF] Leonard Mcconnell Torie Work Phone: [employer] Work Phone: 04-22-2021 14:11-0500 Body weight 65.77 kg Leonard Mcconnell Torie Work Phone: [employer] Work Phone: 04-22-2021 14:11-0500 Diastolic blood pressure 76 mm[Hg] Leonard Mcconnell Torie Work Phone: [employer] Work Phone: 04-22-2021 14:11-0500 Heart rate 64 /min Leonard Mcconnell Torie Work Phone: [employer] Work Phone: 04-22-2021 14:11-0500 SaO2% (BldA) [Mass fraction] 95 % Leonard Mcconnell Torie Work Phone: [employer] Work Phone: 04-22-2021 14:11-0500 Systolic blood pressure 146 mm[Hg] Leonard Mcconnell Torie Work Phone: [employer] Work Phone: Encounters Encounter Date Encounter Type Care Provider Facility Start: 12-26-2022 ambulatory Antoinette francis RN [facility] Start: 12-26-2022 Patient encounter procedure Antoinette Connell RN NURSE VOCATIONAL REHABILITATION CONSULTANT Plan of Treatment Date Care Activity Detail Author Start: 02-13-2023 Influenza vaccination INFLUENZA (#1) [facility] Start: 06-15-2022 ADVANCE DIRECTIVE DISCUSSION ADVANCE DIRECTIVE DISCUSSION [facility] Start: 06-22-2021 DIABETES SCREEN DIABETES SCREEN [facility] Start: 05-28-2021 COVID-19 VACCINE (4 - Pfizer series) COVID-19 VACCINE (4 - Pfizer series) [facility] Start: 03-29-2013 SHINGRIX VACCINE (2 of 3) BURT GRIX VACCINE (2 of 3) [facility] Start: 08-14-2012 PNEUMOCOCCAL: 65+ (2 - PCV) PNEUMOCOCCAL: 65+ (2 - PCV) [facility] Start: 08-31-1962 Urine microalbumin profile DTAP,TDAP ,TD (1 - Tdap) 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 Immunizations Immunization Date Immunization Notes Care Provider Fa cility 04-02-2021 Pfizer-BioNTech COVI D-19 Vacc 30 MCG/0.3ML Intramuscular Suspension Leonard Vogt Work Phone[facility] Work Phone: 09-10-2020 Pfizer-BioNTech COVI D-19 Vacc 30 MCG/0.3ML Intramuscular Suspension Leonard Vogt Work Phone: [facility] Work Phone: 08-20-2020 Pfizer-BioNTech COVI D-19 Vacc 30 MCG/0.3ML Intramuscular Suspension Leonard Vogt Work Phone: [facility] [employer] Work Phone: 04-18-2020 Fluzone High-Dose Quadrivalent 0.7 ML Intramuscular Suspension Prefilled Syringe Leonard Vogt Work Phone: [facility] Work Phone: 03-23-2019 influenza, injectabl e, quadrivalent, preservative free Leonard Vogt Work Phone: [facility] Work Phone: 03-17-2018 influenza, high dose seasonal, preservative-free Leonard Vogt Work Phone: [facility] Work Phone: 02-20-2017 influenza, high dose seasonal, preservative-free Leonard Vogt Work Phone: [facility] Work Phone: 10-06-2014 pneumococcal conjuga te vaccine, 13 valent Leonard Vogt Work Phone: [facility] Work Phone: 04-15-2013 influenza, seasonal, injectable Leonard Vogt Work Phone: [facility] Work Phone: 02-01-2013 zoster vaccine, live Layton Connell RN [facility] 05-04-2012 influenza virus vacc ine, unspecified formulation Antoinette Connell RN [facility] Work Phone: 08-15-2011 pneumococcal polysaccharide vaccine, 23 valent Antoinette Connell RN [facility] 04-26-2011 influenza virus vacc ine, unspecified formulation Antoinette Connell RN [facility] Work Phone: 03-29-2010 influenza virus vacc ine, unspecified formulation Antoinette Connell RN [facility] Work Phone: 08-02-2009 novel influenza-H1N1 -09, preservative-free, injectable Leonard Vogt Work Phone: [facility] Work Phone: 04-05-2009 influenza virus vacc ine, unspecified formulation Antoinette Connell RN [facility] Work Phone: 07-09-2004 pneumococcal polysaccharide vaccine, 23 valent Antoinette Connell RN [facility] Work Phone: Payers Date Payer Category Payer Medicare [employer]NA MEDICARE HU[employer]NA GOLD PLUS [id number] 2020-Present [phone] [address] [address] [place] [address] HMO [id number] 2019 Medicaid [facility] MEDICAID [employer]C ARE [facility] MEDICAID [id number] 2019-Present [phone] [address] [place] [address] Medicaid [id number] Medicare [id number] Unknown Social History Date Type Detail Facility Start: 03-05-2011 [facility] Work Phone: History of tobacco use Cigarette Smoker [facility] Work Phone: Start: 03-05-2011 Cigarettes smoked current (pack per day) - Reported 0.[address] [facility] Start: 03-05-2011 Tobacco use and exposure Smokeless tobacco non-user [facility] Work Phone: Start: 09-21-2020 Alcohol intake Current drinke r of alcohol (finding) [facility] Start: 1945 Sex Assigned At Not on file [facility] Gender identity Not on file [facility] Clinical Notes 07-12-2010 to 12-26-2022 Telephone Encounter - Antoinette Connell RN - 12/26/2022 5:10 PM EDT Note Date & Type Note Facility 12-26-2022 Miscellaneous Notes Reason for call: Patient calling with request for the hours to urgent care. She states that she has ankle swelling and spoke with her doctor's office today about it. Patient denies any new or worsening symptoms of which a provider is not aware: Outcome: Reviewed hours with patient. Advised: GO TO THE EMERGENCY ROOM OR CALL 911 IF: * You develop any new symptoms * Your condition worsens * You are concerned or anxious about your condition for any other reason. documented in this encounter [facility] 06-27-2021 Note Patient Outreach (NE TNAV) KAREN TOM ([id number]) 1945 F Date Time Provider Department 06/27/21 NEHEMIAS BECKETT During your visit today, we recorded the following information about you: Nehemias Beckett MA 06/27/2021 9:17 AM Signed POPULATION HEALTH NAVIGATION OUTREACH Action/ Patient is on HCC list for below gaps and needs appt to address : I50.32 - Chronic diastolic CHF (congestive heart failure) ([facility]) - [id number] Last Billed 06/22/2018 I48.92 - Atrial flutter ([facility]) - [id number] Last Billed 06/22/2018 , patient also due for : Well exam- verify PCP ADVANCE DIRECTIVE DISCUSSION INFLUENZA(1) Left message for patient to call me back directly to schedule. no mychart Contact made with patient or family member? NO Pt identified by name and : NO Outreach Outcome/Action Unable to reach patient: Left message Reason for Outreach HCC or suspected condition Payer: Payor: HUMANA MEDICARE / Plan: [employer] / Product Type: HMO / Care Gap Reviewed:: Annual Wellness visit Reminder: Reminder note to check Health Maintenance for items below Health Maintenance items due: ANNUAL PCP TEAM CHRONIC DISEASE VISIT Never done HEPATITIS C SCREENING Never done DTAP,TDAP,TD(1 - Tdap) Never done ADVANCE DIRECTIVE DISCUSSION Never done SHINGRIX VACCINE(2 of 3) due on 03/29/2013 INFLUENZA(1) due on 02/13/2021 DIABETES SCREEN due on 06/22/2021 Advanced Directives Completed: Have you ever planned for future healthcare decisions with a power of state attorney, living will, or advance directives? Referrals: Message Sent to Practice: Navigation Signature: Nehemias Beckett MA June 27, 2021 9:08 AM Nehemias Beckett MA 06/27/2021 9:26 AM Signed POPULATION HEALTH NAVIGATION OUTREACH Action/FYI June 27, 2021 9:26 AM Pt returned my call and confirmed outside PCP as listed- Leonard Vogt MD Contact made with patient or family member? YES Pt identified by name and : YES Outreach Outcome/Action Spoke to patient or caregiver: PCP confirmed / updated Allergies As of Date: 06/27/2021 Noted Allergy Reaction AMOXICILLIN 10/14/2005 11 - Vomiting Comments: hives, syncope BACTRIM (SULFAMETHOXAZOLE-TRIMETH*10/14 8 - GI Upset CODEINE 10/14/2005 14 - Other: See Comments Comments: made me half blind CYMBALTA (DULOXETINE) 02/26/2009 1 - Mental Status Change Comments: [place] poorly while MACROBID (NITROFURANTOIN MONOHYD/*05/31/2014 12 - Shortness of Breath MUCINEX DM (DEXTROMETHORPHAN-GUAI*06/28/19 11 5 - Intolerance Comments: chest tightness PERCOCET (OXYCODONE-ACETAMINOPHEN)2013 11 - Vomiting PHENERGAN (PROMETHAZINE HCL) 04/10/2014 1 - Mental Status Change Comments: weird dreams PROPOFOL 03/01/2012 14 - Other: See Comments Comments: Sneezing and shortness of breath SODIUM 10/14/2005 Comments: Salt causes leg swelling VICODIN (HYDROCODONE-ACETAMINOPHE*04/10 11 - Vomiting Date Reviewed: 09/21/2020 Reviewed by: Bozena Prado Ma - Fully Assessed Reason for Visit: Population Health Navigation Outreach [[id number]] Cmt: HCC Prescriptions as of 06/27/2021 - benzonatate (TESSALON PERLE) 100 mg capsule Take 1-2 capsules tid prn - diltiazem CD (CARDIZEM CD) 180 mg 24 hr capsule Take 1 capsule by mouth twice daily. - apixaban (ELIQUIS) 5 mg tab(s) Take 1 tablet by mouth twice daily. - mupirocin (BACTROBAN) 2 % ointment Apply 1 application to affected area three times daily. Location: burn - meloxicam (MOBIC) 7.5 mg tablet Take 1 tablet by mouth once daily. - hydrOXYzine HCl (ATARAX) 10 mg tablet Take 1 tablet by mouth three times daily as needed. - gabapentin (NEURONTIN) 300 mg capsule Take 1 capsule by mouth daily at bedtime. - guaiFENesin (MUCINEX) 600 mg 12 hr tablet Take 2 tablets by mouth twice daily. - albuterol HFA (PROVENTIL HFA, VENTOLIN HFA) 90 mcg/actuation inhaler Inhale 2 Puffs as instructed every 6 hours as needed for Wheezing/Shortness of Breath. - magnesium oxide 400 mg cap Take 1 capsule by mouth once daily. - phenazopyridine (PYRIDIUM, GERIDIUM) 100 mg tablet Take 1 tablet by mouth three times daily as needed for Pain. - ALPRAZolam (XANAX) 0.25 mg tablet Take 0.25 mg by mouth twice daily as needed. - oxybutynin (DITROPAN) 5 mg tablet Take 1 tablet by mouth three times daily. Start with one a day and work up to 3 times a day - nitroglycerin sublingual (NITROQUICK) 0.4 mg SL tablet Dissolve 1 tablet under the tongue as needed. FOR CHEST PAIN. IF NO RELIEF CALL 911 - HYDROcodone-acetaminophen (NORCO) 5-325 mg per tablet Take 1 tablet by mouth every 6 hours as needed. - traMADol (ULTRAM) 50 mg tablet Take 1 tablet by mouth every 6 hours as needed. - LORazepam (ATIVAN) 0.5 mg tab Take by mouth twice daily as needed. - acetaminophen (TYLENOL) 500 mg tablet Take 500 mg by mouth every 8 hours as needed. - Blood Pressure Test K (more content not included)... [facility] 06-27-2021 Note HNO ID: [id number] Author: Nehemias Beckett MA Service: ? Author Type: Tax Economist Type: Progress Notes Filed: 06/27/2021 9:26 AM Note Text: POPULATION HEALTH NAVIGATION OUTREACH Action/FYI June 27, 2021 9:26 AM Pt returned my call and confirmed outside PCP as listed- Leonard Vogt MD Contact made with patient or family member? YES Pt identified by name and : YES Outreach Outcome/Action Spoke to patient or caregiver: PCP confirmed / updated [facility] 06-27-2021 Note HNO ID: [id number] Author: Nehemias Beckett MA Service: ? Author Type: Tax Economist Type: Progress Notes Filed: 06/27/2021 9:17 AM Note Text: POPULATION HEALTH NAVIGATION OUTREACH Action/FYI Patient is on [facility] list for below gaps and needs appt to address : I50.32 - Chronic diastolic CHF (congestive heart failure) (HCC) - [id number] Last Billed 06/22/2018 I48.92 - Atrial flutter (HCC) - [id number] Last Billed 06/22/2018 , patient also due for : Well exam- verify PCP ADVANCE DIRECTIVE DISCUSSION INFLUENZA(1) Left message for patient to call me back directly to schedule. no mychart Contact made with patient or family member? NO Pt identified by name and : NO Outreach Outcome/Action Unable to reach patient: Left message Reason for Outreach HCC or suspected condition Payer: Payor: HUMANA MEDICARE / Plan: [employer] / Product Type: HMO / Care Gap Reviewed:: Annual Wellness visit Reminder: Reminder note to check Health Maintenance for items below Health Maintenance items due: ANNUAL PCP TEAM CHRONIC DISEASE VISIT Never done HEPATITIS C SCREENING Never done DTAP,TDAP,TD(1 - Tdap) Never done ADVANCE DIRECTIVE DISCUSSION Never done SHINGRIX VACCINE(2 of 3) due on 03/29/2013 INFLUENZA(1) due on 02/13/2021 DIABETES SCREEN due on 06/22/2021 Advanced Directives Completed: Have you ever planned for future healthcare decisions with a power of state attorney, living will, or advance directives? Referrals: Message Sent to Practice: Navigation Signature: Nehemias Beckett MA June 27, 2021 9:08 AM [facility] 02-13-2021 Note Patient Outreach (NE TNAV) KAREN TOM ([id number]) 1945 F Date Time Provider Department 02/13/21 NEHEMIAS BECKETT During your visit today, we recorded the following information about you: Nehemias Beckett MA 02/13/2021 8:42 AM Signed POPULATION HEALTH NAVIGATION OUTREACH Action/FYI Patient is on [facility] list for below gaps : I50.32 - Chronic diastolic CHF (congestive heart failure) (HCC) - [id number] Last Billed 06/22/2018 I48.92 - Atrial flutter (HCC) - [id number] Last Billed 06/22/2018 patient also due for : Well exam- verify PCP ADVANCE DIRECTIVE DISCUSSION INFLUENZA(1) COLORECTAL CANCER SCREENING Left message for patient to call me back directly to schedule. Contact made with patient or family member? NO Pt identified by name and : NO Outreach Outcome/Action Unable to reach patient: Left message Reason for Outreach HCC or suspected condition Payer: Payor: HUMANA MEDICARE / Plan: [employer] / Product Type: HMO / Care Gap Reviewed:: Annual Wellness visit Colorectal Cancer Screening Flu vaccine Reminder: Reminder note to check Health Maintenance for items below Health Maintenance items due: DEPRESSION SCREENING Never done ANNUAL PCP TEAM CHRONIC DISEASE VISIT Never done HEPATITIS C SCREENING Never done DTAP,TDAP,TD(1 - Tdap) Never done ADVANCE DIRECTIVE DISCUSSION Never done SHINGRIX VACCINE(2 of 3) due on 03/29/2013 INFLUENZA(1) due on 02/13/2021 COLORECTAL CANCER SCREENING due on 02/27/2021 Advanced Directives Completed: Have you ever planned for future healthcare decisions with a power of state attorney, living will, or advance directives? Referrals: Message Sent to Practice: Navigation Signature: Nehemias Beckett MA February 13, 2021 8:38 AM Allergies As of Date: 02/13/2021 Noted Allergy Reaction AMOXICILLIN 10/14/2005 11 - Vomiting Comments: hives, syncope BACTRIM (SULFAMETHOXAZOLE-TRIMETH*10/14 8 - GI Upset CODEINE 10/14/2005 14 - Other: See Comments Comments: made me half blind CYMBALTA (DULOXETINE) 02/26/2009 1 - Mental Status Change Comments: [place] poorly while MACROBID (NITROFURANTOIN MONOHYD/*05/31/2014 12 - Shortness of Breath MUCINEX DM (DEXTROMETHORPHAN-GUAI*06/28/19 11 5 - Intolerance Comments: chest tightness PERCOCET (OXYCODONE-ACETAMINOPHEN)2013 11 - Vomiting PHENERGAN (PROMETHAZINE HCL) 04/10/2014 1 - Mental Status Change Comments: weird dreams PROPOFOL 03/01/2012 14 - Other: See Comments Comments: Sneezing and shortness of breath SODIUM 10/14/2005 Comments: Salt causes leg swelling VICODIN (HYDROCODONE-ACETAMINOPHE*04/10 11 - Vomiting Date Reviewed: 09/21/2020 Reviewed by: Bozena Prado Ma - Fully Assessed Reason for Visit: Population Health Navigation Outreach [3910] Cmt: [facility] Prescriptions as of 02/13/2021 - benzonatate (TESSALON PERLE) 100 mg capsule Take 1-2 capsules tid prn - diltiazem CD (CARDIZEM CD) 180 mg 24 hr capsule Take 1 capsule by mouth twice daily. - apixaban (ELIQUIS) 5 mg tab(s) Take 1 tablet by mouth twice daily. - mupirocin (BACTROBAN) 2 % ointment Apply 1 application to affected area three times daily. Location: burn - meloxicam (MOBIC) 7.5 mg tablet Take 1 tablet by mouth once daily. - hydrOXYzine HCl (ATARAX) 10 mg tablet Take 1 tablet by mouth three times daily as needed. - gabapentin (NEURONTIN) 300 mg capsule Take 1 capsule by mouth daily at bedtime. - guaiFENesin (MUCINEX) 600 mg 12 hr tablet Take 2 tablets by mouth twice daily. - albuterol HFA (PROVENTIL HFA, VENTOLIN HFA) 90 mcg/actuation inhaler Inhale 2 Puffs as instructed every 6 hours as needed for Wheezing/Shortness of Breath. - magnesium oxide 400 mg cap Take 1 capsule by mouth once daily. - phenazopyridine (PYRIDIUM, GERIDIUM) 100 mg tablet Take 1 tablet by mouth three times daily as needed for Pain. - ALPRAZolam (XANAX) 0.25 mg tablet Take 0.25 mg by mouth twice daily as needed. - oxybutynin (DITROPAN) 5 mg tablet Take 1 tablet by mouth three times daily. Start with one a day and work up to 3 times a day - nitroglycerin sublingual (NITROQUICK) 0.4 mg SL tablet Dissolve 1 tablet under the tongue as needed. FOR CHEST PAIN. IF NO RELIEF CALL 911 - HYDROcodone-acetaminophen (NORCO) 5-325 mg per tablet Take 1 tablet by mouth every 6 hours as needed. - traMADol (ULTRAM) 50 mg tablet Take 1 tablet by mouth every 6 hours as needed. - LORazepam (ATIVAN) 0.5 mg tab Take by mouth twice daily as needed. - acetaminophen (TYLENOL) 500 mg tablet Take 500 mg by mouth every 8 hours as needed. - Blood Pressure Test Kit-Wrist kit 1 Device twice daily. - Cholecalciferol, Vitamin D3, 50,000 unit cap one WEEKLY (vitamin D) - triamcinolone acetonide 0.1 % cream Apply 1 application to affected area three times daily. Apply sparingly to area for rash/itching. - albuterol HFA (VENTOLIN HFA) 90 mcg/ac (more content not included)... [facility] 02-13-2021 Note HNO ID: [id number] Author: Nehemias Beckett MA Service: ? Author Type: Tax Economist Type: Progress Notes Filed: 02/13/2021 8:42 AM Note Text: POPULATION HEALTH NAVIGATION OUTREACH Action/FYI Patient is on [facility] list for below gaps : I50.32 - Chronic diastolic CHF (congestive heart failure) (HCC) - [id number] Last Billed 06/22/2018 I48.92 - Atrial flutter (HCC) - [id number] Last Billed 06/22/2018 patient also due for : Well exam- verify PCP ADVANCE DIRECTIVE DISCUSSION INFLUENZA(1) COLORECTAL CANCER SCREENING Left message for patient to call me back directly to schedule. Contact made with patient or family member? NO Pt identified by name and : NO Outreach Outcome/Action Unable to reach patient: Left message Reason for Outreach HCC or suspected condition Payer: Payor: [employer] MEDICARE / Plan: [employer] / Product Type: HMO / Care Gap Reviewed:: Annual Wellness visit Colorectal Cancer Screening Flu vaccine Reminder: Reminder note to check Health Maintenance for items below Health Maintenance items due: DEPRESSION SCREENING Never done ANNUAL PCP TEAM CHRONIC DISEASE VISIT Never done HEPATITIS C SCREENING Never done DTAP,TDAP,TD(1 - Tdap) Never done ADVANCE DIRECTIVE DISCUSSION Never done SHINGRIX VACCINE(2 of 3) due on 03/29/2013 INFLUENZA(1) due on 02/13/2021 COLORECTAL CANCER SCREENING due on 02/27/2021 Advanced Directives Completed: Have you ever planned for future healthcare decisions with a power of state attorney, living will, or advance directives? Referrals: Message Sent to Practice: Navigation Signature: Nehemias Beckett MA February 13, 2021 8:38 AM [facility] 09-21-2020 Note HNO ID: [id number] Author: Ran Florence Service: ? Author Type: Nurse Practitioner Type: Progress Notes Filed: 09/21/2020 2:47 PM Note Text: Subjective HPI HPI Karen Tom is a 75 year old female who presents today for CC of cough, sinus pressure, fatigue. This started 10 days ago. Has tried otc medication without relief. Symptoms are worsened by smoking and second hand smoke. Risk factors patient long time smoker. Denies loss tastes/mena, diarrhea, chest pain/sob. Received second covid vaccination around 09/10/20 .Patient presents with: Cough: chest congestion, fatigue x 09/10 after 2nd covid injection PAST MEDICAL HISTORY Diagnosis Date - Atrial flutter (HCC) 09/16/2011 - Chronic obstructive asthma, unspecified 08/2003 has had PFT's elsewhere, was told they were normal - Degenerative arthritis of knee bilateral - Depression with anxiety - Disorder of bone and cartilage, unspecified 07/2004 osteopenia - Herpes zoster recurrent - location varies; per pt she gets 1 shingle , physician has told her it was shingles [...] I (vaginal intraepithelial neoplasia grade I) - TABITHA III (vulvar intraepithelial neoplasia III) PAST SURGICAL HISTORY Procedure Laterality Date - ARTHROS SHLDR DX W/WO SYNV BX 04/05/2014 Left shoulder - DELIVERY ONLY 1962,1965 , low cervical - COLONOSCOP W/ OR W/O BRSH SPEC 02/27/2011 Colonoscopy - COLPOSCOPY (VAGINOSCOPY) 1984 Colposcopy - HYSTERECTOMY HX 07/2013 - PAST SURGICAL HISTORY OF 1985 cryotherapy - PAST SURGICAL HISTORY OF 1984 conization - PAST SURGICAL HISTORY OF 06/11/09 lumbar decompression surgery for stenosis -- Dr. Leonard Mendoza - PULMONARY FUNCTION TEST 08/21/2003 complete - REMOVAL GALLBLADDER 1976 laparoscopic Cholecystectomy - REPAIR COMPL ROTATOR CUFF AVULSN,CHR 04/05/2014 Left shoulder ALLERGIES Amoxicillin, Bactrim [Sulfamethoxazole-Trimethoprim] , Codeine, Cymbalta [Duloxetine], Macrobid [Nitrofurantoin Monohyd/M-Cryst], Mucinex Dm [Dextromethorphan-Guaifenesin], Percocet [Oxycodone-Acetaminophen], Phenergan [Promethazine Hcl], Propofol, Sodium, and Vicodin [Hydrocodone-Acetaminophen] MEDICATIONS diltiazem CD (CARDIZEM CD) 180 mg 24 hr capsule Take 1 capsule by mouth twice daily. apixaban (ELIQUIS) 5 mg tab(s) Take 1 tablet by mouth twice daily. meloxicam (MOBIC) 7.5 mg tablet Take 1 tablet by mouth once daily. hydrOXYzine HCl (ATARAX) 10 mg tablet Take 1 tablet by mouth three times daily as needed. albuterol HFA (PROVENTIL HFA, VENTOLIN HFA) 90 [...] as instructed every 6 hours as needed. doxycycline monohydrate 100 mg tablet Take 1 tablet by mouth twice daily for 10 days. predniSONE (DELTASONE) 20 mg tablet Take 2 tablets by mouth once daily for 5 days. benzonatate (TESSALON PERLE) 100 mg capsule Take 1-2 capsules tid prn mupirocin (BACTROBAN) 2 % ointment Apply 1 application to affected area three times daily. Location: burn gabapentin (NEURONTIN) 300 mg capsule Take 1 [...] by mouth every 6 hours as needed. (more content not included)... [facility] 09-21-2020 Note HNO ID: [id number] Author: Dg Clark (Tech) Service: ? Author Type: Clinical Resource Manager Type: Progress Notes Filed: 09/21/2020 1:43 PM Note Text: Radiology Service Progress Note PATIENT NAME: Karen Tom DATE OF SERVICE: September 21, 2020 TIME: 1:31 PM PATIENT IDENTITY VERIFICATION COMPLETED USING TWO (2) IDENTIFIERS: Name and Date of confirmed by patient verbally. FALL SCREENING: Has the patient had 2 falls in the last year or 1 fall with injury or currently using an Ambulatory Assistive Device (Walker, Cane, Wheelchair, Crutches, etc.)? No PATIENT GENDER DATA: Female. status: : No status: NO. PATIENT RELEVANT IMPLANT DATA REVIEWED: Not Applicable RADIOLOGY DEPARTMENT: General X-ray: Exam(s) Completed: Chest X-Ray PERIPHERAL IV DATA: Not applicable SIGNED BY: Dg Clark September 21, 2020 1:31 PM [facility] 07-31-2020 Note Patient Outreach (CO VAMN) KAREN TOM ([id number]) 1945 F Date Time Provider Department 07/31/20 SALO, JOIE ROMERO During your visit today, we recorded the following information about you: Allergies As of Date: 07/31/2020 Noted Allergy Reaction AMOXICILLIN 10/14/2005 11 - Vomiting Comments: hives, syncope BACTRIM (SULFAMETHOXAZOLE-TRIMETH*10/14 8 - GI Upset CODEINE 10/14/2005 14 - Other: See Comments Comments: made me half blind CYMBALTA (DULOXETINE) 02/26/2009 1 - Mental Status Change Comments: [place] poorly while MACROBID (NITROFURANTOIN MONOHYD/*05/31/2014 12 - Shortness of Breath MUCINEX DM (DEXTROMETHORPHAN-GUAI*06/28/19 11 5 - Intolerance Comments: chest tightness PERCOCET (OXYCODONE-ACETAMINOPHEN)2013 11 - Vomiting PHENERGAN (PROMETHAZINE HCL) 04/10/2014 1 - Mental Status Change Comments: weird dreams PROPOFOL 03/01/2012 14 - Other: See Comments Comments: Sneezing and shortness of breath SODIUM 10/14/2005 Comments: Salt causes leg swelling VICODIN (HYDROCODONE-ACETAMINOPHE*04/10 11 - Vomiting Date Reviewed: 09/25/2018 Reviewed by: Marlyn Gunter - Fully Assessed Order(s):SARS-COVID VACCINE 1ST DOSE APPT [[id number]] Order #: [id number] FUTURE Prescriptions as of 07/31/2020 Sig: BENZONATATE 100 MG CAPSULE Take 1-2 capsules tid prn DILTIAZEM SR 180 MG 24 HR CAP Take 1 capsule by mouth twice* APIXABAN 5 MG TABLET Take 1 tablet by mouth twice * MUPIROCIN 2 % TOPICAL OINTMENT Apply 1 application to affect* Patient not taking: Reported on 06/22/2018 MELOXICAM 7.5 MG TABLET Take 1 tablet [...] Inhale 2 Puffs as instructed * MAGNESIUM 400 MG ( MAGNESIU* Take 1 capsule by mouth once * [...] instructed * Problem List As Of Date 07/31/2020 Noted Resolved FIBROMYALGIA [[id number]] More... 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 OSTEOPENIA [M89.9, M94.9] 07/16/2004 Lumbago [M54.5] More... Depressive Disorder, not Elsewhere Classified [*03/23/2007 Medial Epicondylitis of Elbow [M77.00] 06/02/2007 01/30/2010 Degeneration of Intervertebral Disc, Site Unspe*06/29/2007 More... HERPES ZOSTER NOS - recurrent [B02.9] 07/06/2007 More... Unspecified Vitamin D Deficiency [E55.9] 06/12/2008 More... More... 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 Incomplete rotator cuff tear [M75.110] 02/07/2014 Impingement syndrome of left shoulder [M75.42] 02/07/2014 Left shoulder pain [M25.512] 02/14/2014 Rotator cuff (capsule) sprain [S43.429A] 05/02/2014 Other affections of shoulder region, not elsewh*05/02/2014 Closed nondisplaced fracture of shaft of fifth *03/04/2018 Chronic diastolic CHF (congestive heart failure*06/22/2018 Letter Text Encounter Status:Closed by EPIC, PRODUSER on 08/03/20 [facility] documented as of this encounter (statuses as of 12/27/2022) [facility] 75 y/o female with hx of DJD of the spine s/p surgery, osteopenia, fibromyalgia present for evaluation. She report Does not have any acute Complaint at this time and report her PCP asked her to see rheumatology. She was told to see rheumatology but she is not sure why. She does report a Hx of righthand fracture after a fall while cleaning the bathroom. She is currently on pain medication per herPCP. * Review of the records show that sometime in December she had complaining of joint pain and fatigue and was given steroids, patient appears not to be on chronic steroids at this time. * Patient is not a great historian [facility] Work Phone: Summary Purpose Family History No Family History Records FoundNo Family History Records FoundNo Family History Records FoundNo Family History Records FoundNo Family History Records FoundNo Family History Records Found Advance Directives No Advanced Directives Records FoundNo Advanced Directives Records FoundNo Advanced Directives Records FoundNo Advanced Directives Records FoundNo Advanced Directives Records FoundNo Advanced Directives Records Found Chief Complaint New pt referral by Dr. Vogt Additional Source Comments INFORMATION SOURCE (unrecogn ized section and content) DATE CREATED AUTHOR AUTHOR'S ORGANIZ ATION 12/03/2017 [facility] DATE CREATED AUTHOR AUTHOR'S ORGANIZ ATION 12/08/2017 [facility] DATE CREATED AUTHOR AUTHOR'S ORGANIZ ATION 04/24/2021 [employer] DATE CREATED AUTHOR AUTHOR'S ORGANIZ ATION 04/24/2021 [facility] DATE CREATED AUTHOR AUTHOR'S ORGANIZ ATION 07/19/2021 [facility] Source Comments (unrecognize d section and content) In the event this informatio n is protected by the Federal Confidentiality of Alcohol and Drug Abuse Patient Records regulations: The Federal rules restrict any use of the information to criminally investigate or prosecute any alcohol or drug abuse patient.[facility] Reason for Visit (unrecogniz ed section and content) Care Teams (unrecognized sec tion and content) FOR RECORDS PERTAINING TO PATIENTS WHO ARE OR HAVE BEEN ENROLLED IN A CHEMICAL DEPENDENCY/SUBSTANCEABUSE PROGRAM, SOME INFORMATION MAY BE OMITTED. This clinical summary was aggregated from multiple sources. Caution should be exercised in using it in the provision of clinical care. This summary normalizes information from multiple sources, and as a consequence, information in this document may materially change the coding, format and clinical context of patient data. In addition, data may be omitted in some cases. CLINICAL DECISIONS SHOULD BE BASED ON THE PRIMARY CLINICAL RECORDS. [facility] [employer] provides no warranty or guarantee of the accuracy or completeness of information in this document.
== END | disposition home or self-care (01) ==
LOC: BFHLAB 13:46
PROVIDERS: PCP Nurse Practitioner Family; Visit Provider Nurse Practitioner Family
DX: N39.0 Urinary tract infection, site not specified (principal); E55.9 Vitamin D deficiency, unspecified; E78.5 Hyperlipidemia, unspecified; I10 Essential (primary) hypertension; R73.01 Impaired fasting glucose
CPT/HCPCS: 36415; 80053; 80061; 82306; 83036; 85025

== ENCOUNTER → 2023-10-09 | Outpatient (CLI) | payer MEDICARE, SELFPAY | END | disposition home or self-care (01) | LOC: BFHLAB 16:38 | PROVIDERS: PCP Nurse Practitioner Family; Visit Provider Nurse Practitioner Family | DX: N39.0 Urinary tract infection, site not specified (principal) | CPT/HCPCS: 87086; 87186 ==

== ENCOUNTER → 2023-10-27 | Outpatient (CLI) | payer MEDICARE, SELFPAY ==
[2023-10-27 18:10] LABS: Mucous, Urine 0 SEEN /hpf (<or=2+); Squamous Epithelial Cells - UA 0 SEEN /hpf (5-10)
[2023-10-27 18:33] LABS: Color, Urine Yellow (Yellow); Glucose, Dipstick Normal (Normal); Ketone-Dipstick 5 mg/dl (Negative); Leukocyte Esterase-Dipstick 500 /ul (Negative); Nitrite-Dipstick Positive (Negative); Occult Blood-Urine 250 /ul (Negative); Protein-Dipstick 100 mg/dl (Negative); Urine Bilirubin Dipstick Negative (Negative); Urine Clarity Cloudy (Clear); Urine Urobilinogen 1 mg/dl (Normal)
[2023-10-27 19:16] LABS: White Blood Cells >100 SEEN /hpf (0-5)
[2023-10-27 19:17] LABS: Bacteria 2+ /hpf (None Seen); Red Blood Cells-Urine 10-25 SEEN /hpf (0-5)
== END | disposition home or self-care (01) ==
LOC: LABSPEC 16:10
PROVIDERS: PCP Nurse Practitioner Family; Referring Provider Physician Assistant; Visit Provider Physician Assistant
DX: R30.0 Dysuria (principal)
CPT/HCPCS: 81001; 87086; 87088; 87186

== ENCOUNTER → 2023-11-19 | Outpatient (CLI) | payer MEDICARE, SELFPAY ==
--- NOTE | 2023-11-19 15:04 | BI_ITS ---
MAMMOGRAPHY - BILATERAL SCREENING REASON FOR EXAM: Female, 78 years old. Routine annual screening examination. PERTINENT HISTORY: Non-contributory. TECHNIQUE: Digital bilateral breast gregory (3D mammographic acquisition) in the CC and MLO projections. 2-D mediolateral oblique (MLO) and craniocaudad (CC) views of both breasts were obtained. CAD: Full Field Digital Mammography with Computer Added Detection was performed. COMPARISON: Comparison is made with prior study November 07, 2022 October 29, 2021. FINDINGS: Breast Composition: There are scattered areas of fibroglandular density. There are no dominant masses or suspicious calcifications. No other significant abnormalities are identified. There has been no significant change since the prior study. BI/SCRN MAMM (CAD)W/GREGORY BILAT IMPRESSION: Stable bilateral screening mammogram. Yearly follow-up mammogram recommended. (A) ASSESSMENT CATEGORY: BIRADS Category 1: Negative. A letter regarding these results will be sent to the patient by the facility within 30 days. Approximately 10% of breast cancers are not detected by mammography. A normal mammogram should not delay biopsy of a clinically suspicious abnormality. [id number] Electronically Signed: Silvio Roche MD at 15:40 EDT ,
== END | disposition home or self-care (01) ==
LOC: OPBI 14:58
PROVIDERS: PCP Nurse Practitioner Family; Referring Provider Nurse Practitioner Family; Visit Provider Nurse Practitioner Family
DX: Z12.31 Encounter for screening mammogram for malignant neoplasm of breast (principal)
CPT/HCPCS: 77063; 77067

== ENCOUNTER → 2023-11-23 | Outpatient (CLI) | payer MEDICARE, SELFPAY ==
--- NOTE | 2023-11-23 17:14 | RAD_ITS ---
STUDY: X-RAY - UNILATERAL RIBS ( LEFT ) WITH CHEST REASON FOR EXAM: Female, 78 years old. RULE OUT FRACTURE TECHNIQUE - RIBS: 4 view(s) of the ribs. TECHNIQUE - CHEST: 1 frontal COMPARISON: April 25, 2023 FINDINGS - RIBS: Nondisplaced fracture of the 11th rib laterally FINDINGS - CHEST: Right lower lobe interstitial infiltrate unchanged. There is no demonstrated pleural abnormality. Cardiomegaly. Normal mediastinum and andrea. Normal visualized pulmonary arteries. Normal visualized aortic arch and descending thoracic aorta. Moderate scoliosis. Normal visualized ribs, clavicles, and shoulders. There is no demonstrated abnormality of the visualized soft tissue structures of the upper abdomen. RAD/Ribs Uni Min 3V w/PA Chest IMPRESSION: RIBS: Fracture 11th ribs on the left. CHEST: Right lower lobe interstitial infiltrate unchanged. No pneumothorax. Electronically Signed: Won Ferrari MD at 16:45 EDT ,
== END | disposition home or self-care (01) ==
PROVIDERS: PCP Nurse Practitioner Family; Referring Provider Nurse Practitioner Family; Visit Provider Nurse Practitioner Family
DX: R07.81 Pleurodynia (principal)
CPT/HCPCS: 71101